=== PATIENT | female | born 1965 | race Caucasian/White ===

== ENCOUNTER 2023-03-31 13:16 | Outpatient (OUT) | payer OTHER, SELFPAY ==
--- NOTE | 2023-03-31 | XR_ITS ---
[address] [address] Patient Name: JENNIFER HICKMAN MRN: [id number] date: 1965 Sex: F Assigned Patient Location: [facility] Current Patient Location: Accession/Order Number: [id number] Exam Date: 03/31/2023 14:28 Report Date: 04/01/2023 06:35 At the request of: SHAYLEE HOLT Procedure: XR foot RT min 3V PROCEDURE: XR foot RT min 3V HISTORY: RIGHT FOOT PAIN COMPARISON: XR foot right 02/04/2021 FINDINGS: BONES:Prosthetic replacement of the talus. Osteophyte versus remote fracture fragment at anterior margin of the tibial plafond. Mild degenerative changes the first metatarsophalangeal joint. Small calcaneal plantar spur. SOFT TISSUES:No visible soft tissue swelling. EFFUSION:None visible. OTHER: Negative. IMPRESSION: 1. Stable surgical changes and mild degenerative changes. No new findings. Electronically authenticated by: ART SMITH Date: 04/01/2023 06:35
== END 2023-03-31 13:17 | disposition home or self-care (01) ==
LOC: RAD 13:17
PROVIDERS: Visit Provider Podiatrist Foot & Ankle Surgery
DX: M79.671 Pain in right foot (principal)
CPT/HCPCS: 73630

== ENCOUNTER 2023-04-14 07:52 | Outpatient (OUT) | payer OTHER, SELFPAY ==
--- NOTE | 2023-04-14 07:59 | CT_ITS ---
[address] [address] Patient Name: JENNIFER HICKMAN MRN: [id number] date: 1965 Sex: F Assigned Patient Location: CT Current Patient Location: CT Accession/Order Number: [id number] Exam Date: 04/14/2023 08:00 Report Date: 04/14/2023 18:23 At the request of: SHAYLEE HOLT Procedure: CT ankle RT wo con EXAMINATION: CT ankle RT wo con HISTORY: Primary Osteoarthritis Right Ankle M19.071 COMPARISON: 03/31/2023 TECHNIQUE: Multi-planar CT images were created without IV contrast. Dose reduction techniques were achieved by using automated exposure control and/or adjustment of mA and/or kV according to patient size and/or use of iterative reconstruction technique. FINDINGS: BONES: Ankle arthroplasty in anatomic alignment. Streak artifact does limit the exam. No acute fracture, dislocation or mechanical failure. Mild to moderate degenerative tricompartmental osteoarthropathy of the knee with moderate narrowing of the medial joint space SOFT TISSUES: Soft tissue attenuation anterior ankle, nonspecific possibly postsurgical changes EFFUSION: None visible. OTHER: Negative. CT/CT ankle RT wo con IMPRESSION: Ankle arthroplasty with no acute abnormality Electronically authenticated by: ADRIAN PITTS Date: 04/14/2023 18:23
== END 2023-04-14 07:53 | disposition home or self-care (01) ==
LOC: CT 07:52
PROVIDERS: Visit Provider Podiatrist Foot & Ankle Surgery
DX: M87.071 Idiopathic aseptic necrosis of right ankle (principal); M19.071 Primary osteoarthritis, right ankle and foot
CPT/HCPCS: 73700

== ENCOUNTER 2023-08-23 14:27 | Outpatient (OUT) | payer OTHER, SELFPAY ==
[2023-08-23 15:20] LABS: Estimated Average Glucose 160 mg/dL; Glycohemoglobin A1C 7.2 % (4.5-6.2)
[2023-08-23 15:37] LABS: Alanine Aminotransferase 40 U/L (14-59); Albumin Globulin Ratio 0.9; Albumin Level 3.7 g/dL (3.4-5.0); Alkaline Phosphatase 109 U/L (46-116); Anion Gap 13.4; Aspartate Amino Transferase 27 U/L (15-37); BUN Creatinine Ratio 14.1; Bilirubin Total 1.1 mg/dL (0.2-1.0); Calcium 8.9 mg/dL (8.5-10.1); Carbon Dioxide 30.5 mmol/L (21.0-32.0); Chloride 102 mmol/L (98-107); Estimated GFR (African America >60 (>=60); Estimated GFR (Non-African Ame >60 (>=60); Globulin 3.9 g/dL; Glucose 95 mg/dL (74-106); Potassium 3.9 mmol/L (3.5-5.1); Sodium 142 mmol/L (136-145); Thyroid Stimulating Hormone 2.663 uIU/mL (0.358-3.740); Total Protein 7.6 g/dL (6.4-8.2)
[2023-08-23 16:25] LABS: Free T4 0.93 ng/dL (0.76-1.46)
[2023-08-24 14:14] LABS: Thyroglobulin Antibody <1.0 IU/mL (0.0-0.9); Thyroid Peroxidase (TPO) Ab 9 IU/mL (0-34)
== END 2023-08-23 14:28 | disposition home or self-care (01) ==
LOC: LAB 14:28
PROVIDERS: PCP Family Medicine; Visit Provider Family Medicine
DX: R53.83 Other fatigue (principal); E66.01 Morbid (severe) obesity due to excess calories; E11.9 Type 2 diabetes mellitus without complications; E78.5 Hyperlipidemia, unspecified
CPT/HCPCS: 36415; 80053; 82306; 82607; 83036; 84439; 84443; 86376; 86800

== ENCOUNTER 2023-09-06 07:59 | Outpatient (OUT) | payer OTHER, SELFPAY ==
--- NOTE | 2023-09-06 08:08 | MM_ITS ---
Patient Name: JENNIFER HICKMAN MR#: [id number] : 1965 Exam Date: 09/06/2023 Ordering Doctor: DR Malcom Huang . RADIOLOGY REPORT PROCEDURE: MM TOMOSYNTHESIS SCREENING BI COMPARISON: MG MAMM SCREEN 3D LINUS CAD, 07/29/2021. MG MAMM SCREEN 3D LINUS CAD, 08/27/2022. INDICATIONS: Screening Calculator Name NCI Breast Cancer Risk Assessment Tool 5 Year Breast Cancer Risk 1.50% Lifetime Breast Cancer Risk 9.10% Personal Breast Cancer No Personal Ovarian Cancer No Treatments None Family Cancers Mother with endometrial cancer at age 74; Father with prostate cancer at age 84. LOCATION: [facility] BREAST COMPOSITION: Scattered areas fibroglandular density. FINDINGS: DIAGNOSTIC CATEGORY 1--NEGATIVE. NO CHANGE FROM COMPARISON ASSESSMENT. Scattered benign-appearing nodules are present. Scattered benign-appearing calcifications are present. Scattered benign-appearing lymph nodes are present. RIGHT BREAST: No significant suspicious finding. LEFT BREAST: No significant suspicious finding. RECOMMENDATIONS: ROUTINE MAMMOGRAM AND CLINICAL EVALUATION IN 12 MONTHS. PLEASE NOTE: A NORMAL MAMMOGRAM DOES NOT EXCLUDE THE POSSIBILITY OF BREAST CANCER. A CLINICALLY SUSPICIOUS PALPABLE LUMP SHOULD BE BIOPSIED. Dictated by: Jude Quintanilla MD on 09/06/2023 at 10:07 Approved by: Jude Quintanilla MD on 09/06/2023 at 10:08
== END 2023-09-06 08:00 | disposition home or self-care (01) ==
LOC: MAMMO 07:59
PROVIDERS: PCP Family Medicine; Visit Provider Obstetrics & Gynecology
DX: Z12.31 Encounter for screening mammogram for malignant neoplasm of breast (principal); Z80.8 Family history of malignant neoplasm of other organs or systems; Z80.42 Family history of malignant neoplasm of prostate
CPT/HCPCS: 77063; 77067

== ENCOUNTER 2023-12-27 21:07 | Outpatient (REF) | payer OTHER, SELFPAY ==
--- OUTSIDE RECORDS SUMMARY | 2023-12-27 21:12 | XMS_ITS | CCD ---
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 Lamont Reynolds Primary Care Unavaila BRAIN Acosta Referring Unavailable DAVID, BRAIN Attending Unavailable RENUKA ., DR VILLATORO Admitting Unavailable RENUKA ., DR VILLATORO Attending Unavailable KUNOrlando, DR MIGUEL Primary Care Unavailable RENUKA ., DR VILLATORO Consulting Unavailable RENUKA ., DR VILLATORO Admitting Unavailable RENUKA ., DR VILLATORO Attending Unavailable KUNS, DR MIGUEL Primary Care Unavailable [place], DR ADRIAN Bacon Consulting Unavailable RENUKA ., DR VILLATORO Consulting Unavailable PHIL, DR MIGUEL Admitting Unavailable KUNOrlando, DR MIGUEL Attending Unavailable KUNS, DR MIGUEL Primary Care Unavailable KUNS, DR MIGUEL Consulting Unavailable KUNS, DR MIGUEL Admitting Unavailable KUNS, DR MIGUEL Attending Unavailable KUNS, DR MIGUEL Primary Care Unavailable PHIL, DR MIGUEL Consulting Unavailable PHIL, DR MIGUEL Admitting Unavailable KUNOr[place], DR MIGUEL Attending Unavailable KUNS, DR MIGUEL Primary Care Unavailable KUNS, DR MIGUEL Consulting Unavailable RENUKA ., DR VILLATORO Admitting Unavailable RENUKA ., DR VILLATORO Attending Unavailable KUNS, DR MIGUEL Primary Care Unavailable RENUKA ., DR VILLATORO Consulting Unavailable RENUKA ., DR VILLATORO Admitting Unavailable RENUKA ., DR VILLATORO Attending Unavailable KUNS, DR MIGUEL Primary Care Unavailable RENUKA ., DR VILLATORO Consulting Unavailable AGUBOSIM, BRADEN Consulting Unavailable LONG, POPEYE Consulting Unavailable RENUKA ., DR VILLATORO Admitting Unavailable RENUKA ., DR VILLATORO Attending Unavailable KUNS, DR IMGUEL Primary Care Unavailable [place], DR ADRIAN Bacon Consulting Unavailable RENUKA ., DR VILLATORO Consulting Unavailable RENUKA ., DR VILLATORO Admitting Unavailable RENUKA ., DR VILLATORO Attending Unavailable KUNS, DR MIGUEL Primary Care Unavailable RENUKA ., DR VILLATORO Consulting Unavailable Mary Ann Ibrahim Unavailable Анна Rose Unavailable Lamont Villarreal DO Primary Care Provider Lamont Villarreal DO Unavailable [phone] LAMONT VILLARREAL MARYAN Primary Care Unavailable YOSVANY HAYDEN Attending Unavailable Lamont Villarreal DO Primary Care Provider Lamont Villarreal DO Primary Care Provider BRAIN HERNANDEZ Attending Unavailable LAMONT VILLARREAL Primary Care Unavailable BRAIN HERNANDEZ Referring Unavailable BRAIN HERNANDEZ Referring Unavailable LAMONT VILLARREAL Primary Care Unavailable BRAIN HERNANDEZ Attending Unavailable LAMONT VILLARREAL Primary Care Unavailable BRAIN SEN Attending Unavailable LAMONT VILLARREAL Primary Care Unavailable BRAIN SEN Referring Unavailable LAMONT VILLARREAL Primary Care Unavailable Phil, DO Miguel Primary Care Provider Brain Hernandez Attending Provider [phone] SEE Rose Attending Provider Lamont Villarreal Primary Care Unavailable Анна Rose Attending Unavailable Анна Rose Admitting Unavailable Brain Hernandez Attending Unavailable Brain Hernandez Admitting Unavailable Lamont Villarreal Primary Care Unavailable DO Lamont Villarreal Primary Care Provider [phone] SEE Rose Attending Provider Allergies Allergy Classification Reported Allergen(s) Allergy Type Date of Onset Reaction(s) Facility Sulfonamides (antibiotic) (1 source) Sulfamethoxazole ; Translations: [sulfa] Drug Allergy [facility] Work Phone: (12 sources) Sulfamethoxazole ; Translations: [sulfa] Drug Allergy 3 Unknown [facility] (15 sources) Sulfonamides (Antibiotic); Translations: [SULFA (SULFONAMIDE ANTIBIOTICS)] Propensity to adverse reactions 6 [facility] (20 sources) Sulfamethoxazole ; Translations: [SULFAMETHOXAZOL E] Drug Allergy 3 Unknown, [facility] Rep[facility] (1 source) Sulfonamides (Antibiotic) Drug allergy (disorder) [facility] Repository (1 source) Sulfonamides (Antibiotic) Drug allergy (disorder) 2 [facility] Repository Medications Current Medications Medication Drug Class(es) Dates Sig (Normalized) Sig (Original) 0.25 MG, 0.5 MG Dose 3 ML semaglutide 0.68 MG/ML Pen Injector [Ozempic] (7 sources) Start: 07-22-2023 inject 0.25 mL by subcutaneous injection every week Ozempic (0.25 or 0.5 MG/DOSE) 2 MG/3ML 0.25 mL Subcutaneous once a week for 30 days 4 pens Jun, Active 30 ACTUAT fluticasone furoate 0.2 MG/ACTUAT / umeclidinium 0.0625 MG/ACTUAT / vilanterol 0.025 MG/ACTUAT Dry Powder Inhaler [Trelegy] (2 sources) Start: 06-15-2022 take 1 puff(s) by inhalation once daily Trelegy Ellipta 200-62.5-25 MCG/INH 1 puff Inhalation Once a day May, Active acetaminophen 325 mg / oxyCODONE hydrochloride 5 mg oral tablet (20 sources) Opioid Agonist Start: 02-19-2021 take 1 tablet by mouth every six hours oxyCODONE-acetamino phen (Percocet) 5-325 mg tablet Take 1 tablet by mouth every 6 hours. 0 02/19/2021 Active ALPRAZolam 1 mg oral tablet (3 sources) Benzodiazepine Start: 10-17-2021 take 1 tablet by mouth once daily as needed ALPRAZolam 1 MG 1 tablet Orally daily prn before MRI Sep, Active ascorbic acid 500 mg extended release oral capsule (20 sources) Vitamin C Start: 11-16-2023 take 500 mg by mouth once daily Ascorbic Acid (Vitamin C) Active 500 MG PO Daily November 16, 2023 1:00am Start: 09-15-2021 take 1 tablet by al th every twenty-four hours Vitamin C 250 MG 1 tablet Orally Once a day for 90 days Aug, Active take 1 tablet by al th every twenty-four hours Vitamin C 250 MG 1 tablet Orally Once a day prn Not-Taking/PRN betamethasone 3 mg/ml / betamethasone acetate 3 mg/ml injectable suspension (1 source) Corticosteroid Start: 07-26-2023 betamethasone acet,sod phos (Celestone) injection 12 mg Start: 07-26-2023 betamethasone acet,sod phos (Celestone) injection 12 mg betamethasone 0.5 mg/ml / clotrimazole 10 mg/ml topical cream (7 sources) Azole Antifungal, Corticosteroid Start: 06-15-2022 Clotrimazole-Betamethasone 1-0.05 % 1 application Externally Twice a day May, Active Biotin (20 sources) Start: 09-15-2021 take 1 tablet by mouth once daily Biotin 11849 MCG 1 tablet Orally Once a day for 90 days Aug, Active Start: 09-15-2021 take 1 tablet by al th every twenty-four hours Biotin 26463 MCG 1 tablet Orally Once a day Not-Taking/PRN take 1 tablet by al th every twenty-four hours Biotin 76881 MCG 1 tablet Orally Once a day Not-Taking take 1 tablet by mouth once ric y Biotin 42480 MCG 1 tablet Orally Once a day Active cefdinir 300 mg oral capsule (1 source) Cephalosporin Antibacterial Start: 06-02-2022 take 1 capsule by mouth every twelve hours Cefdinir 300 MG 1 capsule Orally BID for 10 days May, Active cephalexin 500 mg oral capsule (1 source) Cephalosporin Antibacterial take 1 capsule by mouth four times daily Cephalexin 500 MG 1 capsule Orally Four times a day, before dental procedures Active cholecalciferol 0.05 mg oral tablet (6 sources) Vitamin D Start: 09-15-2021 take 1 tablet by mouth every twenty-four hours Vitamin D3 50 MCG (2000 UT) 1 tablet Orally Once a day for 90 days Aug, Active take 1 tablet by al th every twenty-four hours Vitamin D3 50 MCG (2000 UT) 1 tablet Ora lly Once a day Not-Taking/PRN citalopram 40 mg oral tablet (20 sources) Serotonin Reuptake Inhibitor Start: 07-01-2021 take 1 tablet by mouth every twenty-four hours CeleXA 40 MG 1 tablet Orally Once a day Jun, Active Start: 05-07-2021 citalopram (Ce Mich) 20 mg tablet CeleXA 20 MG Oral Tablet Refills: 0 Start : 07-May-2021 Active 0 05/07/2021 Active Start: 05-07-2021 CeleXA 20 MG O ral Tablet Quantity: 0 Refills: 0 Ordered: 07-May-2021 DO Start : 07-May-2021 Active Start: 06-18-2020 End: 02-10-2022 take 1 tablet by mouth once daily Citalopram (Celexa) 10 mg Tablet Discontinued 10 MG PO Daily June 18, 2020 12:00am February 10, 2022 9:03am doxycycline hyclate 100 mg oral tablet (5 sources) Tetracycline-class Drug Start: 09-15-2021 take 1 tablet by mouth twice daily Doxycycline Hyclate 100 MG 1 tablet Orally Twice a day for 10 day(s) Aug, Active Eye Vitamins (9 sources) Eye Vitamins Res tore Active flash glucose scanning reade r (FreeStyle Letty 2 [place]) (4 sources) Start: 11-16-2023 flash glucose scanning reader (FreeStyle Letty 2 [place]) Active .Route November 16, 2023 1:00am Start: 11-16-2023 flash glucose scanning reader (FreeStyle Letty 2 [place]) Active .ROUTE November 16, 2023 12:00am flash glucose sensor (FreeSt yle Letty 2 Sensor) (4 sources) Start: 11-16-2023 flash glucose sensor (FreeStyle Letty 2 Sensor) Active .Route November 16, 2023 1:00am Start: 11-16-2023 flash glucose sensor (FreeStyle Letty 2 Sensor) Active .ROUTE November 16, 2023 12:00am FreeStyle Letty 2 [place] - (20 sources) Start: 03-08-2023 FreeStyle Libr e 2 [place] - as directed -- 5 x day for 365 days Feb, Active FreeStyle Letty 2 [place] - USE DIRECTED 5 TIMES A DAY for 90 Not-Taking/PRN FreeStyle Letty 2 [place] - USE DIRECTED 5 TIMES A DAY for 90 Not-Taking FreeStyle Letty 2 [place] - USE DIRECTED 5 TIMES A DAY for 90 Active FreeStyle Letyt 2 [place] - as directed -- 5 x day for 365 days Active FreeStyle Letty 2 Sensor - (20 sources) Start: 03-08-2023 FreeStyle Libr e 2 Sensor - as directed in vitro q 14 days for 84 days set up in office instruction Feb, Active FreeStyle Letty 2 Sensor - as directed in vitro q 14 days for 84 days set up in office instruction Active furosemide 20 mg oral tablet (9 sources) Loop Diuretic Start: 01-01-2018 take 1 tablet by mouth twice daily as needed Lasix 20 MG 1 tablet Orally BID PRN PRN Dec, Active gabapentin 100 mg oral capsule (3 sources) Anti-epileptic Agent Start: 12-08-2012 take 1 capsule by mouth every twelve hours Gabapentin 100 MG 1 capsule Orally BID for 30 day(s) Nov, Active ibuprofen 800 mg oral tablet (20 sources) Nonsteroidal Anti-inflammatory Drug Start: 11-16-2023 take 800 mg by mouth every eight hours Ibuprofen Active 800 MG PO Every 8 hours November 16, 2023 1:00am Start: 07-19-2023 take 1 tablet by al th three times daily at mealtime as needed Ibuprofen 800 MG 1 tablet with food or milk as needed Orally Three times a day as needed Jun, Not-Taking/PRN take 1 tablet by al th every eight hours at mealtime as needed Ibuprofen 800 MG 1 tablet with food or milk as needed Orally every 8 hrs Active take 1 tablet by al th three times daily at mealtime as needed Ibuprofen 800 MG 1 tablet with food or milk as needed Orally TID prn prn Active ketorolac tromethamine 10 mg oral tablet (20 sources) Nonsteroidal Anti-inflammatory Drug, Cyclooxygenase Inhibitor Start: 12-22-2023 take 10 mg by mouth every eight hours Ketorolac Active 10 MG PO Every 8 hours December 22, 2023 12:00am Start: 01-29-2020 Toradol per 15 mg January, 2 mL Start: 04-19-2019 Toradol per 15 mg Mar, 2 cc Start: 03-06-2019 Toradol per 15 mg Feb, 2 cc Start: 03-02-2019 Toradol per 15 mg Feb, 2 cc Start: 02-15-2019 Toradol per 15 mg January, 60 mg Start: 01-25-2019 Toradol per 15 mg January, 2 cc Start: 01-21-2019 Toradol per 15 mg Dec, 2 cc Start: 01-19-2019 Toradol per 15 mg Dec, 2 mL Start: 12-09-2018 Toradol per 15 mg 15 Nov, 2018 60 mg Start: 02-03-2018 Toradol per 15 mg January, 2 cc Start: 05-26-2017 Toradol per 15 mg Apr, 2 cc Start: 12-30-2016 Toradol per 15 mg Dec, 2.0 cc Start: 07-31-2016 Toradol per 15 mg Jul, 2 mL Start: 01-28-2015 Toradol per 15 mg January, 2 mL Start: 12-08-2012 Toradol per 15 mg Nov, 2ML levoFLOXacin 500 mg oral tablet (4 sources) Quinolone Antimicrobial Start: 07-21-2021 take 1 tablet by mouth every twenty-four hours levoFLOXacin 500 MG 1 tablet Orally Once a day for 10 day(s) Jun, Active Lidocaine (1 source) Antiarrhythmic, Amide Local Anesthetic Start: 07-26-2023 lidocaine (Xylocaine) 10 mg/mL (1 %) injection 5 mL meloxicam 15 mg oral tablet (2 sources) Nonsteroidal Anti-inflammatory Drug Start: 03-11-2022 End: 09-07-2022 take 1 tablet by mouth once daily meloxicam (MOBIC) 15 mg tablet Take 1 tablet by mouth once daily. 90 tablet 1 03/11/2022 09/07/2022 Active Comment on above: Take 1 tablet by al once daily. [place] (No Known Home Meds) (3 sources) Start: 08-25-2022 [place] (No Known Home Meds) Active August 25, 2022 12:00am ondansetron 4 mg oral tablet (9 sources) Serotonin-3 Receptor Antagonist Start: 05-26-2022 take 1 tablet by mouth every eight hours as needed Zofran ODT 4 MG 1 tablet on the tongue and allow to dissolve Orally every 8 hrs as needed for 4 days Apr, Active Paxlovid (300/100) 20 x 150 MG & 10 x 100MG (2 sources) Start: 05-27-2022 Paxlovid (300/100) 20 x 150 MG & 10 x 100MG as directed Orally as directed + COVID 05/26/2022 GFR >60 Apr, Active potassium chloride 10 meq oral tablet (9 sources) Start: 07-09-2018 take 1 tablet by mouth once daily as needed K-Dur 10 meq one tablet oral once a day PRN Jun, Active Start: 07-09-2018 predniSONE 20 mg oral tablet (19 sources) Start: 06-15-2022 predniSONE 20 MG 1 tablet with food or milk Orally Twice a day x 5 days for 5 days sample provided May, Active Start: 03-04-2022 predniSONE 20 MG 1 tablet Orally twice a day x 5 days then daily x 5 days for 10 days Feb, Active Start: 09-15-2021 predniSONE 20 MG 1 tablet with food or milk Orally 1 tab BID x 5 days , 1 tabl QD x 5 days for 10 days Aug, Active PREDNISONE ORAL Take by mouth. 0 Active Comment on above: Take by mouth. 0.25 mg, 0.5 mg dose 1.5 ml semaglutide 1.34 mg/ml pen injector (3 sources) semaglutide (Ozempic) 0.25 mg or 0.5 mg(2 mg/1.5 mL) pen injector Inject 0.25 mg under the skin 1 (one) time per week. 0 Active tiZANidine 4 mg oral capsule (2 sources) Central alpha-2 Adrenergic Agonist Start: 12-22-2023 take 4 mg by mouth twice daily Tizanidine Active 4 MG PO Twice daily 60 December 22, 2023 12:00am traMADol (19 sources) Opioid Agonist traMADol HCl Act alejandro take 1 tablet by al th every twenty-four hours traMADol HCl 50 MG 1 tablet as needed Orally Once a day prn Active Trelegy Ellipta 200-62.5-25 MCG/INH (5 sources) Start: 06-15-2022 take 1 puff(s) by inhalation once daily Trelegy Ellipta 200-62.5-25 MCG/INH 1 puff Inhalation Once a day May, Active 24 hr venlafaxine 37.5 mg extended release oral capsule (9 sources) Serotonin and Norepinephrine Reuptake Inhibitor Start: 07-01-2021 take 1 capsule by mouth every twenty-four hours Effexor XR 37.5 MG 1 capsule with food Orally Once a day Jun, Active Vitamin B12 1000 MCG (5 sources) Start: 09-15-2021 take 1 tablet by mouth once daily Vitamin B12 1000 MCG 1 tablet Orally Once a day for 90 days Aug, Active Start: 09-15-2021 Vitamin B6 100 MG (5 sources) Start: 09-15-2021 take 1 tablet by al th twice daily Vitamin B6 100 MG 1 tablet Orally BID for 90 days Aug, Active Start: 09-15-2021 Vitamin C 250 MG (12 sources) Start: 09-15-2021 take 1 tablet by al th once daily Vitamin C 250 MG 1 tablet Orally Once a day for 90 days Aug, Active take 1 tablet by mouth once ric y Vitamin C 250 MG 1 tablet Orally Once a day Not-Taking take 1 tablet by mouth once ric y Vitamin C 250 MG 1 tablet Orally Once a day Active Completed/Discontinued Medications Medication Drug Class(es) Dates Sig (Normalized) Sig (Original) azithromycin 250 mg oral tablet (20 sources) Macrolide Antimicrobial Start: 08-31-2023 Zithromax Z-Cinthia 250 MG 2 tablets on the first day, then 1 tablet daily for 4 days Orally Once a day for 5 day(s) Aug, Not-Taking/PRN Start: 07-01-2023 Zithromax Z-Pa k 250 MG 2 tablets on the first day, then 1 tablet daily for 4 days Orally Once a day for 5 day(s) Jun, Active Start: 02-26-2022 Zithromax Z-Pa k 250 MG 2 tablet on the first day, then 1 tablet daily for 4 days Orally Once a day for 5 day(s) Feb, Active Start: 09-12-2021 Zithromax Z-Pa k 250 MG as directed Orally Apr, Active Start: 09-12-2021 Zithromax Z-Pa k 250 MG 2 tablet on the first day, then 1 tablet daily for 4 days Orally Once a day Aug, Active benzonatate 200 mg oral capsule (18 sources) Non-narcotic Antitussive Start: 12-16-2022 take 1 capsule by mouth every eight hours Benzonatate 200 MG 1 capsule Orally Three times a day goodrx Nov, Not-Taking 12 hr buPROPion hydrochloride 100 mg extended release oral tablet (13 sources) Aminoketone Start: 11-16-2023 End: 12-22-2023 take 100 mg by mouth every twelve hours Bupropion Hcl Discontinued 100 MG PO Every 12 hours November 16, 2023 1:00am December 22, 2023 8:42am buPROPion HCl ER (SR) 100 MG 1 tablet in the morning Orally Twice daily for 30 days Start with one in am x 1 week then 1 twice daily week 2 Active take 2 tablets by [facility] every twenty-four hours Wellbutrin SR 100 MG 2 tablet in the morning Orally Once a day Active 0.5 ml dulaglutide 1.5 mg/ml auto-injector (8 sources) GLP-1 Receptor Agonist Start: 07-20-2023 Trulicity 0.75 MG/0.5ML as directed Subcutaneous Once a week for 28 days Jun, Not-Taking/PRN 30 actuat fluticasone furoate 0.1 mg/actuat / umeclidinium 0.0625 mg/actuat / vilanterol 0.025 mg/actuat dry powder inhaler (9 sources) Anticholinergi c, Corticosteroid , beta2-Adrenerg ic Agonist Start: 12-15-2022 take 1 puff(s) by inhalation once daily Trelegy Ellipta 100-62.5-25 MCG/ACT 1 puff Inhalation Once a day Nov, Not-Taking Glucometer Device (9 sources) Start: 12-16-2022 Glucometer Device as directed as directed as directed for as directed Nov, Not-Taking Start: 12-16-2022 Glucometer Dev ice as directed as directed as directed for as directed Nov, Active Magnesium glycinate (20 sources) Magnesium Glycin ate 665 MG as directed Orally Not-Taking/PRN Magnesium Glycin ate 665 MG as directed Orally Not-Taking Magnesium Glycin ate 665 MG as directed Orally Active milk thistle extract 150 mg oral capsule (20 sources) Milk Thistle 150 MG as directed Orally Not-Taking/PRN Milk Thistle 150 MG as directed Orally Not-Taking Milk Thistle 150 MG as directed Orally Active ozempic (0.25 or 0.5 mg/dose) 2 mg/3ml solution pen-injector (10 sources) Start: 07-22-2023 inject 0.25 mL by subcutaneous injection every week as needed Ozempic (0.25 or 0.5 MG/DOSE) 2 MG/3ML 0.25 mL Subcutaneous once a week 4 pens Jun, Not-Taking/PRN Start: 07-22-2023 inject 0.25 mL by daniels bcutaneous injection every week Ozempic (0.25 or 0.5 MG/DOSE) 2 MG/3ML 0.25 mL Subcutaneous once a week 4 pens Jun, Active Start: 07-22-2023 inject 0.25 mL by daniels bcutaneous injection every week Ozempic (0.25 or 0.5 MG/DOSE) 2 MG/3ML 0.25 mL Subcutaneous once a week for 30 days 4 pens Jun, Active inject 0.5 mg by sub cutaneous injection every week Ozempic (0.25 or 0.5 MG/DOSE) 2 MG/3ML 0.5 mg Subcutaneous weekly for 30 days start 0.5 mg week 5 Active Semaglutide (4 sources) Start: 11-16-2023 End: 12-22-2023 Semaglutide (Ozempic) 0.25 m g or 0.5 mg (2 mg/3 mL) pen injector Discontinued 0.5 MG SUBCUT every week November 16, 2023 1:00am December 22, 2023 8:41am Start: 11-16-2023 Semaglutide (O zempic) 0.25 mg or 0.5 mg (2 mg/3 mL) pen injector Active 0.5 MG SUBCUT every week November 16, 2023 12:00am Toradol 30 mg/ml (20 sources) Start: 04-02-2023 Toradol 30 mg/ ml Mar, 60 mg Start: 08-06-2021 Toradol 30 mg/ ml Jul, 60 mg Triamcinolone (20 sources) Corticosteroid Start: 12-31-2020 Kenalog -40 mg Dec, 40 mg Start: 10-22-2017 KENALOG - 10 m g Sep, 1 cc Start: 05-08-2014 KENALOG - 10 m g Apr, 1.5 cc Vitamin B12 TR 1000 MCG (20 sources) take 1 tablet by al th once daily as needed Vitamin B12 TR 1000 MCG 1 tablet Orally Once a day Not-Taking/PRN take 1 tablet by mouth once ric y Vitamin B12 TR 1000 MCG 1 tablet Orally Once a day Not-Taking take 1 tablet by mouth once ric y Vitamin B12 TR 1000 MCG 1 tablet Orally Once a day Active Vitamin D3 50 MCG (2000 UT) (19 sources) take 1 tablet by la th once daily Vitamin D3 50 MCG (2000 UT) 1 tablet Orally Once a day Not-Taking take 1 tablet by mouth once ric y Vitamin D3 50 MCG (2000 UT) 1 tablet Orally Once a day Active zolpidem tartrate 10 mg oral tablet (5 sources) gamma-Aminobutyric Acid-ergic Agonist Start: 01-11-2023 take 1 tablet by mouth every twenty-four hours Ambien 10 MG 1 tablet at bedtime as needed Orally Once a day Dec, Not-Taking Problems Active Problems Problem Classification Problem Date Documented Da te Episodic/Chronic Administrative/social admission (5 sources) Dietary counseling and surveillance; Translations: [Dietary surveillance and counseling] Episodic Anxiety disorders (20 sources) Mixed anxiety and depressive disorder; Translations: [Other specified anxiety disorders] Onset: 1 Resolved: 2 Chronic Cardiac dysrhythmias (20 sources) Cardiac arrhythmia; Translations: [Cardiac arrhythmia, unspecified] Chronic Diabetes mellitus with complications (20 sources) Hyperglycemia due to type 2 diabetes mellitus; Translations: [Type 2 diabetes mellitus with hyperglycemia] Onset: 4 Chronic Diabetes mellitus without complication (20 sources) Diabetes mellitus without complication; Translations: [Type 2 diabetes mellitus without complications] Onset: 3 Chronic Diabetes mellitus without complication (20 sources) Hyperglycemia; Translations: [Hyperglycemia, unspecified] Onset: 2 Resolved: 2 Episodic Disorders of lipid metabolism (20 sources) Hyperlipidemia; Translations: [Hyperlipidemia, unspecified] Onset: 2 Resolved: 2 Chronic Esophageal disorders (20 sources) Gastroesophageal reflux disease; Translations: [Gastro-esophageal reflux disease without esophagitis] Chronic Essential hypertension (20 sources) Essential hypertension; Translations: [Essential (primary) hypertension] Chronic Malaise and fatigue (1 source) Other fatigue Episodic Menopausal disorders (4 sources) Postmenopausal bleeding; Translations: [POSTMENOPAUSAL BLEEDING] Onset: 2 Chronic Miscellaneous mental health disorders (20 sources) Psychophysiologic insomnia; Translations: [Psychophysiologic insomnia] Chronic Nausea and vomiting (1 source) Nausea Episodic Nutritional deficiencies (20 sources) Vitamin D deficiency; Translations: [Vitamin D deficiency, unspecified] Chronic Osteoarthritis (1 source) Unspecified osteoarthritis, unspecified site; Translations: [UNSPECIFIED OSTEOARTHRITIS UNS SITE] Onset: 2 Chronic Other bone disease and musculoskeletal deformities (13 sources) Avascular necrosis of bone; Translations: [Aseptic necrosis of bone, site unspecified] Onset: 3 07-23-2023 Chronic Other bone disease and musculoskeletal deformities (20 sources) Idiopathic aseptic necrosis of bone; 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 Other bone disease and musculoskeletal deformities (2 sources) Idiopathic aseptic necrosis of right ankle Chronic Other connective tissue disease (1 source) History of arthroplasty of right ankle; Translations: [Presence of right artificial ankle joint] Chronic Other connective tissue disease (20 sources) Nontraumatic complete rupture of rotator cuff of left shoulder; Translations: [Complete rupture of rotator cuff] Onset: 3 07-23-2023 Episodic Other connective tissue disease (14 sources) Foot pain; Translations: [Pain in limb] Episodic Other connective tissue disease (10 sources) H/O: arthritis; Translations: [Personal history of arthritis] Episodic Other connective tissue disease (20 sources) Pain in right foot; Translations: [Pain in right foot] Onset: 2 03-11-2022 Episodic Other connective tissue disease (20 sources) Rotator cuff syndrome; Translations: [Unspecified rotator cuff tear or rupture of unspecified shoulder, not specified as traumatic] Episodic Other connective tissue disease (10 sources) Pain in right foot; Translations: [Pain in limb] Onset: 1 Resolved: 2 Episodic Other connective tissue disease (20 sources) Trochanteric bursitis of right hip; Translations: [Trochanteric bursitis, right hip] Episodic Other connective tissue disease (4 sources) Trochanteric bursitis, right hip Onset: 2 Resolved: 2 Episodic Other diseases of bladder and urethra (5 sources) Disorder of bladder; Translations: [Other urinary problems] Onset: 3 07-23-2023 Chronic Other eye disorders (5 sources) Disorder of eye; Translations: [Other eye problems] Onset: 3 07-23-2023 Episodic Other female genital disorders (20 sources) Vaginal bleeding; Translations: [Abnormal uterine and vaginal bleeding, unspecified] Chronic Other female genital disorders (1 source) Abnormal uterine and vaginal bleeding, unspecified Onset: 2 Resolved: 2 Chronic Other female genital disorders (20 sources) Pruritus of vagina; Translations: [Other specified noninflammatory disorders of vagina] Episodic Other gastrointestinal disorders (20 sources) Irritable bowel syndrome with diarrhea; Translations: [Irritable bowel syndrome with diarrhea] Chronic Other gastrointestinal disorders (5 sources) Bowel problem; Translations: [Unspecified disorder of intestine] Onset: 3 07-23-2023 Episodic Other liver diseases (20 sources) Steatosis of liver; Translations: [Fatty (change of) liver, not elsewhere classified] Chronic Other liver diseases (2 sources) Fatty (change of) liver, not elsewhere classified Chronic Other lower respiratory disease (20 sources) Cough; Translations: [Cough] Episodic Other lower respiratory disease (20 sources) Persistent cough; Translations: [Persistent cough for 3 weeks or longer] Episodic Other nervous system disorders (20 sources) Chronic pain; Translations: [Other chronic pain] Chronic Other nervous system disorders (6 sources) Other chronic pain Onset: 2 Resolved: 2 Chronic Other non-traumatic joint disorders (20 sources) Finding of shoulder joint; Translations: [Other specific joint derangements of left shoulder, not elsewhere classified] Chronic Other non-traumatic joint disorders (20 sources) Shoulder pain; Translations: [Pain in left shoulder] Episodic Other non-traumatic joint disorders (20 sources) Pain in right hip joint; Translations: [Pain in right hip] Episodic Other non-traumatic joint disorders (4 sources) Pain in right shoulder; Translations: [Pain in joint, shoulder region] Onset: 3 07-26-2023 Episodic Other nutritional; endocrine; and metabolic disorders (20 sources) Body mass index 40+ - severely obese; Translations: [Body mass index (BMI) 50.0-59.9, adult] 11-16-2023 Chronic Other nutritional; endocrine; and metabolic disorders (4 sources) Metabolic syndrome; Translations: [METABOLIC SYNDROME] Onset: 2 Chronic Other nutritional; endocrine; and metabolic disorders (12 sources) Body mass index (BMI) 45.0-49.9, adult; Translations: [Body Mass Index 45.0-49.9, adult] Chronic Other nutritional; endocrine; and metabolic disorders (5 sources) Morbid (severe) obesity due to excess calories; Translations: [Morbid obesity] Chronic Other nutritional; endocrine; and metabolic disorders (10 sources) Severe obesity; Translations: [Morbid (severe) obesity due to excess calories] 05-18-2023 Chronic Other nutritional; endocrine; and metabolic disorders (10 sources) Obesity, unspecified; Translations: [Obesity, unspecified] Chronic Other nutritional; endocrine; and metabolic disorders (1 source) Body mass index (BMI) 39.0-39.9, adult Chronic Other nutritional; endocrine; and metabolic disorders (18 sources) Obesity; Translations: [Obesity, unspecified] 11-17-2023 Chronic Other nutritional; endocrine; and metabolic disorders (15 sources) Obese class II; Translations: [Body mass index (BMI) 35.0-35.9, adult] Chronic Other nutritional; endocrine; and metabolic disorders (1 source) Body mass index (BMI) 35.0-35.9, adult Chronic Other nutritional; endocrine; and metabolic disorders (2 sources) Morbid obesity; Translations: [Morbid (severe) obesity due to excess calories] 12-22-2023 Chronic Other screening for suspected conditions (not mental disorders or infectious disease) (1 source) Abnormal findings on diagnostic imaging of other specified body structures; Translations: [ABNORML FIND DX IMG OTH BODY STRUC] Onset: 2 Chronic Other skin disorders (17 sources) Eruption; Translations: [Rash and other nonspecific skin eruption] Episodic Other upper respiratory disease (20 sources) Allergic rhinitis; Translations: [Allergic rhinitis, unspecified] Chronic Other upper respiratory disease (1 source) Allergic rhinitis, unspecified Onset: 1 Resolved: 1 Chronic Other upper respiratory disease (20 sources) Congestion of nasal sinus; Translations: [Nasal congestion] Episodic Other upper respiratory infections (20 sources) Sinusitis; Translations: [Chronic sinusitis, unspecified] Chronic Residual codes; unclassified (20 sources) Obstructive sleep apnea syndrome; Translations: [Idiopathic sleep related nonobstructive alveolar hypoventilation] 05-18-2023 Chronic Residual codes; unclassified (10 sources) Obstructive sleep apnea (adult) (pediatric); Translations: [Obstructive sleep apnea (adult)(pediatric)] Onset: 3 Chronic Residual codes; unclassified (20 sources) Patient encounter status; Translations: [Unspecified elective surgery for purposes other than remedying health states] Onset: 3 07-23-2023 Episodic Residual codes; unclassified (2 sources) Other specified postprocedural states; Translations: [Other specified postprocedural states] Onset: 3 Episodic Spondylosis; intervertebral disc disorders; other back problems (20 sources) Lumbosacral spondylosis without myelopathy; Translations: [Spondylosis without myelopathy or radiculopathy, lumbosacral region] Onset: 2 Resolved: 2 Chronic Spondylosis; intervertebral disc disorders; other back problems (20 sources) Low back pain; Translations: [Low back pain] Onset: 3 Episodic Unclassified (3 sources) Contact with and (suspected) exposure to covid-19; Translations: [Contact with and (suspected) exposure to covid-19] Unclassified (1 source) CONTACT W/AND (SUSP) EXPOS COVID-19; Translations: [CONTACT W/AND (SUSP) EXPOS COVID-19] Onset: 2 Unclassified (1 source) Pain in right shoulder; Translations: [Pain in right shoulder] Onset: 3 Past or Other Problems Problem Classification Problem Date Documented Date Episodic/Chronic Immunizations and screening for infectious disease (1 source) Encounter for screening for human papillomavirus (HPV); Translations: [ENC SCREENING HUMAN PAPILLOMAVIRUS] Onset: 08-13-2022 Episodic Other connective tissue disease (7 sources) Tendinitis of right posterior tibial tendon; Translations: [Posterior tibial tendinitis, right leg] Onset: 03-11-2022 03-11-2022 Episodic Other non-traumatic joint disorders (7 sources) Chronic ankle pain; Translations: [Pain in right ankle and joints of right foot] Onset: 03-11-2022 03-11-2022 Episodic Other non-traumatic joint disorders (3 sources) Pain in right hip Onset: 08-06-2021 Resolved: 01-26-2022 Episodic Other non-traumatic joint disorders (1 source) Pain in right knee Onset: 01-26-2022 Resolved: 01-26-2022 Episodic Other non-traumatic joint disorders (1 source) Pain in right ankle and joints of right foot Onset: 04-02-2022 Resolved: 04-02-2022 Episodic Other screening for suspected conditions (not mental disorders or infectious disease) (8 sources) Encounter for screening mammogram for malignant neoplasm of breast; Translations: [Encounter for screening for malignant neoplasm of cervix] Onset: 08-10-2022 Episodic Other skin disorders (1 source) Rash and other nonspecific skin eruption Onset: 08-06-2021 Resolved: 08-06-2021 Episodic Otitis media and related conditions (2 sources) Otitis media, unspecified, right ear Onset: 05-26-2022 Resolved: 05-27-2022 Episodic Residual codes; unclassified (1 source) Family history of malignant neoplasm of prostate; Translations: [FAMILY HX MALIG NEOPLASM PROSTATE] Onset: 09-01-2022 Episodic Residual codes; unclassified (1 source) Family history of malignant neoplasm of other organs or systems; Translations: [FAM HX MALIG NEOPLASM OTH ORGN/SYS] Onset: 09-01-2022 Episodic Unclassified (2 sources) Cough R05.9; Translations: [Cough R05.9] Onset: 07-21-2021 Resolved: 09-15-2021 Unclassified (20 sources) Persistent cough for 3 weeks or longer; Translations: [Persistent cough for 3 weeks or longer] Unclassified (3 sources) Other low back pain M54.59 Onset: 01-27-2022 Resolved: 02-17-2022 Unclassified (3 sources) Lumbar back pain M54.50 Onset: 01-26-2022 Resolved: 01-26-2022 Unclassified (20 sources) Unclassified (1 source) Contact with and (suspected) exposure to covid-19 Z20.822 Onset: 05-26-2022 Resolved: 05-26-2022 Unclassified (20 sources) Exposure to acute respiratory syndrome coronavirus 2; Translations: [Contact with and (suspected) exposure to covid-19] Unclassified (1 source) Lumbar pain 724.2 Viral infection (1 source) COVID-19 Onset: 05-26-2022 Resolved: 05-26-2022 Results Test Name Value Interpretation Reference Range Facility No Panel Informationon 11-[address] XR CERVICAL SPINE COMPLETE 4 -5 VIEWSon 09-21-2023 XR CERVICAL SPINE COMPLETE 4-5 VIEWS Interpreted By: Brain Sen, STUDY: XR CERVICAL SPINE COMPLETE 4-5 VIEWS; ; 09/21/2023 10:05 am INDICATION: Signs/Symptoms:neck pain. ACCESSION NUMBER(S): [id number] ORDERING CLINICIAN: BRANI SEN FINDINGS: AP lateral flexion extension x-rays of the cervical spine show mild degenerative changes with some endplate irregularity and anterior osteophyte formation. This is most notable at C6-7. There is some loss of lordosis in the sagittal plane but with extension some of that lordosis does recreate. There is no fractures. There is no soft tissue abnormalities. There is no instability. Signed by: Brain Sen 09/21/2023 1:00 PM Dictation workstation: [id number] [facility] XR SHOULDER RIGHT 2+ VIEWSon 07-26-2023 XR SHOULDER RIGHT 2+ VIEWS Interpreted By: Brain Hernandez, STUDY: XR SHOULDER RIGHT 2+ VIEWS; ; 07/26/2023 9:20 am INDICATION: Signs/Symptoms:pain. ACCESSION NUMBER(S): [id number] ORDERING CLINICIAN: BRAIN HERNANDEZ FINDINGS: AP axillary right shoulder shows a well-positioned glenohumeral joint surgical anchor appears to be well seated in the greater tuberosity. Abnormal calcification is appreciated off the lateral aspect of the acromion. Correlate with clinical symptoms of impingement or need for advanced imaging studies to evaluate for rotator cuff tearing. Signed by: Brain Hernandez 07/26/2023 9:39 AM Dictation workstation: [id number] [facility] XR Shoulder - right 2 Viewso n 07-26-2023 Interpreted By: Brain Castellon, STUDY: XR SHOULDER RIGHT 2+ VIEWS; ; 07/26/2023 9:20 am INDICATION: Signs/Symptoms:pain. ACCESSION NUMBER(S): [id number] ORDERING CLINICIAN: BRAIN HERNANDEZ FINDINGS: AP axillary right shoulder shows a well-positioned glenohumeral joint surgical anchor appears to be well seated in the greater tuberosity. Abnormal calcification is appreciated off the lateral aspect of the acromion. Correlate with clinical symptoms of impingement or need for advanced imaging studies to evaluate for rotator cuff tearing. Signed by: Brain Hernandez 07/26/2023 9:39 AM Dictation workstation: [id number] MMODAL Brain Hernandez M D - 07/26/2023 Interpreted By: Brain Hernandez, STUDY: XR SHOULDER RIGHT 2+ VIEWS; ; 07/26/2023 9:20 am INDICATION: Signs/Symptoms:pain. ACCESSION NUMBER(S): [id number] ORDERING CLINICIAN: BRAIN HERNANDEZ FINDINGS: AP axillary right shoulder shows a well-positioned glenohumeral joint surgical anchor appears to be well seated in the greater tuberosity. Abnormal calcification is appreciated off the lateral aspect of the acromion. Correlate with clinical symptoms of impingement or need for advanced imaging studies to evaluate for rotator cuff tearing. Signed by: Brain Hernandez 07/26/2023 9:39 AM Dictation workstation: [id number] [facility] Work Phone: [facility] Work Phone: Radiology Study observation (narrative) [facility] Work Phone: A1C HEMOGLOBINon 06-09-2023 HbA1c (Bld) [Mass fraction] 6.6 % [employer] Other Glucose - FINGER STICKon Glucose [Mass/Vol] 158 mg/dL [place] [employer] Other HbA1c (Bld) [Mass fraction]o n 06-09-2023 A1C HEMOGLOBIN [facility] [employer] Other CNOVon 05-18-2023 CNOV Office Visit (OTOLMN ) ----- SHELIA JUNIOR ([id number]) 1965 F Date Time Provider Department 05/18/23 9:15 AM YOSVANY HAYDEN OTOLMN During your visit today, we recorded the following information about you: Weight Height 130.6 kg 1.727 m Cristina Funes Ma 05/18/2023 9:21 AM Signed Tobacco Use: Never Was smoking cessation packet given? N/A - Patient is a non-smoker or quit >1 year ago. Was a referral initiated?N/A Patient is a non-smoker Yosvany Hayden MD 05/18/2023 10:05 AM Signed This note is formatted with the impression and plan first and the history and physical to follow. IMPRESSION 1. Obstructive sleep apnea 2. Obesity RECOMMENDATION/PLAN The patient has a history of obstructive sleep apnea and she is using BiPAP. She notes that originally she had hypoxia even while on BiPAP but that seems to have resolved. The patient is wondering whether she would benefit from surgery. After examining the patient and given her daily BiPAP use, I would not recommend surgical intervention at this time. I recommended that she continue her weight loss journey as this will help her with oxygenation and help decrease the severity of her obstructive sleep apnea. I encouraged her to use her BiPAP on a daily basis. I will see her back as needed Chief Complaint Obstructive sleep apnea History of Present Illness Shelia Junior is a 57 year old woman who has been diagnosed in the distant past with obstructive sleep apnea. The patient originally tried using CPAP but had difficulties with it and abandoned its use. Years later she returned to revisit her obstructive sleep apnea. She was tested and subsequently given a BiPAP machine. The patient is using her BiPAP machine on a regular basis. She notes that during the testing and therapy her lowest oxygen saturation was 48%. The patient notes that a subsequent pulse oximetry did not show hypoxia. The patient is here today to see if she is a candidate for surgical intervention. History reviewed. No pertinent past medical history. History reviewed. No pertinent surgical history. History reviewed. No pertinent family history. CURRENT OUTPATIENT MEDICATIONS Current Outpatient Medications on File Prior to Visit Medication Sig PREDNISONE ORAL Take by mouth. No current facility-administered medications on file prior to visit. ALLERGIES ALLERGIES Allergen Reactions Sulfa (Sulfonamide * questionable PHYSICAL EXAMINATION Appearance: General examination of the patient's external face, head and neck reveals no abnormalities. The patient is not retrognathic The patient's voice is strong and clear and they communicate easily. Ears: Exam of the ears revealed normal appearing external auditory canals, tympanic membranes, and middle ears. No signs of infection or fluid were seen. Nose: Anterior rhinoscopy revealed a left deviated septum. The turbinates were mildly congested. The mucosa was pink and moist without signs of infection. The airway was reduced. Throat: There were no lesions to visualization or palpation of the lips, cheeks, gums, floor of mouth, tongue, hard and soft palate, tonsillar pillars or posterior pharyngeal wall. The patient is a Rolle Tongue Position 3 and has grade 1 tonsils. Neck: Palpation of the neck revealed no adenopathy, salivary gland masses or asymmetry, or thyroid masses or enlargement. Yosvany Hayden MD Allergies As of Date: 05/18/2023 Noted Allergy Reaction SULFA (SULFONAMIDE ANTIBIOTICS) 07/06/2006 Comments: questionable Date Reviewed: 05/18/2023 Reviewed by: Yosvany Hayden MD - Fully Assessed Reason for Visit: New Patient [172] Cmt: TOSHA Primary Visit Diagnosis:TOSHA (obstructive sleep apnea) [G47.33] Other Visit Diagnosis:Class 3 severe obesity with body mass index (BMI) of 40.0 to 44.9 in adult, unspecified obesity type, unspecified whether serious comorbidity present ([facility]) [E66.01, Z68.41] Prescriptions as of 05/18/2023 - PREDNISONE ORAL Take by mouth. Problem List As Of Date 05/18/2023 Noted Resolved Posterior tibial tendinitis of right lower extr*03/11/2022 Right foot pain [M79.671] 03/11/2022 Chronic pain of right ankle [M25.571, G89.29] 03/11/2022 Visit Notes: >> [place] Raymond [place] May 18, 2023 9:20 AM Status: Signed Tobacco Use: Never Was smoking cessation packet given? N/A - Patient is a non-smoker or quit >1 year ago. Was a referral initiated?N/A Patient is a non-smoker Encounter Status:Closed by YOSVANY HAYDEN on 05/18/23 Normal [facility] Creatinine [Mass/volume] in UrineOrdered By: Анна Rose on 03-08-2023 Creatinine (U) [Mass/Vol] 221.0 mg/dL 11.0-20.0 [facility] Micro[facility]b Creat Ratio,Uon Creatinine, Urine (Random) 221.0 mg/dL High 11.0-20.0 [facility] Comment on above: Order Comment: Reaso n for Exam Type 2 diabetes mellitus with hyperglycemia, without long-te Performed By: #### U RMACRERAT #### [address] Microalbumin/Creati nine Ratio 7.0 mg/g Normal 0.0-30.0 [facility] Comment on above: Order Comment: Reaso n for Exam Type 2 diabetes mellitus with hyperglycemia, without long-te Result Comment: 30-3 00 mg/g indicates an increased risk for diabetic nephropathy. Greater than 300 mg/g is consistent with clinical nephropathy. (Am. J. Kidney Disease 1995, 25:107) PERFORMED BY: [place] [address] PATHOLOGIST MARKETING SUPPORT COORDINATOR LAURY MARIN M.D. Performed By: #### U RMACRERAT #### [facility] [address] [id number] [facility] Microalbumin [Mass/volume] i n UrineOrdered By: Анна Rose on 03-08-2023 Albumin DL <= 20 mg/L (U) [Mass/Vol] 1.7 mg/dL 0.0-1.8 [facility] Comment on above: Order Comment: Reaso n for Exam Type 2 diabetes mellitus with hyperglycemia, without long-te Performed By: #### U RMACRERAT #### [facility] [address] [place] [address] [facility] Urine microalbumin/creatinin e mass ratioOrdered By: Анна Rose on 03-08-2023 Albumin/Creatinine DL <= 20 mg/L (U) [Mass ratio] 7.0 mg/g 0.0-30.0 [facility] Comment on above: 30-300 mg/g indicate s an increased risk for diabetic nephropathy. Greater than 300 mg/g is consistent with clinical nephropathy. (Am. J. Kidney Disease 1995, 25:107) A1C HEMOGLOBINon 01-25-2023 HbA1c (Bld) [Mass fraction] 7.4 % [employer] Other Glucose - FINGER STICKon Glucose [Mass/Vol] 151 mg/dL [employer] Other HbA1c (Bld) [Mass fraction]o n 01-25-2023 A1C HEMOGLOBIN [facility] [employer] Other Established Visit (Orthopaed ic Surgery)on 12-30-2022 Established Visit (Orthopaedic Surgery) Diagnoses/Problems Assessed Nontraumatic complete tear of left rotator cuff (727.61) (U79.122) Provider Impressions Impression: Status post massive rotator cuff tendon reconstruction with cystic shoe coverer the tuberosity. Treatment Plan: She has a permanent 1-pound push/pull limit below shoulder activity only and we will have to update her disability forms. She is retired. She has a permanent 1 pound push/pull use limitation on her shoulder and nothing overhead and nothing repetitive. We will see her back in a year or so for repeat x-rays. Obviously as her shoulder deteriorates and wears she may need a replacement. Clinically she is functioning pretty good in terms of pain, night pain. Strength and functioning slowly returning. One pound push/pull permanent limitation due to a massive cuff tear and cystic shoe coverer the tuberosity. I will see her back yearly for repeat evaluation with x-rays. Hopefully we can avoid arthroplasty for years and years to come. Chief Complaint Lt RCR / SAD / Ext Debride 02/25/21 Xrays Today History of Present IllnessPatient had a massive cuff reconstruction done in February 2021. She went through almost one year of rehab. Her shoulder functions well, but she has severe limitations due to the massive cuff wear, sclerotic shoe coverer the humeral head. Active Problems Problems Avascular necrosis (733.40) (M87.00) Foot pain (729.5) (M79.673) Nontraumatic complete tear of left rotator cuff (727.61) (M75.122) Surgery, elective (V50.9) (Z41.9) Past Medical History Problems History of arthritis (V13.4) (Z87.39) Surgical History Problems History of Ankle surgery History of Cholecystectomy History of Cyst excision History of Rotator cuff repair History of Tubal ligation Family History Mother No pertinent family history Father No pertinent family history Social History Problems Non-smoker (V49.89) (Z78.9) Allergies Medication sulfa Recorded By: Grover Garcia; 05/07/2021 10:33:56 AM Current Meds Medication NameInstruction CeleXA 20 MG Oral Tablet oxyCODONE-Acetaminophen 5-325 MG Oral TabletTAKE 1 TABLET Every 6 hours Vitals Vital Signs Recorded: 30Dec2022 03:52PM Height5 ft 8 in Frfzqp911 lb BMI Tswyqooocg24.83 kg/m2 BSA Calculated2.46 Physical Exam At this time, she can move elbow, hand, and wrist. She has decent strength at her side, but obviously not a lot of lifting strength overhead. Results/Data Radiology: X-rays show a well-positioned glenohumeral joint with obviously sclerotic and cystic shoe coverer the tuberosity. Signatures Electronically signed by : Cha Vaca, ; Jan 01 2023 5:46PM EST ([facility]Recorde r) Electronically signed by : Barin Hernandez MD; Jan 02 2023 9:32AM EST Normal [facility] 12-30-2022 XR Shoulder 2 Views Normal [facility] Work Phone: SHOULDER, CMPLT, MIN 2 VIEWS on 12-30-2022 SHOULDER, CMPLT, MIN 2 VIEWS Patient Name: SHELIA JUNIOR STUDY: SHOULDER, CMPLT, MIN 2 VIEWS; Left; 12/30/2022 4:17 pm INDICATION: Pain M75.122: Nontraumatic complete tear of left rotator cuff. ACCESSION NUMBER(S): [id number] ORDERING CLINICIAN: BRAIN HERNANDEZ FINDINGS: AP axillary left shoulder shows a well-positioned glenohumeral joint no fracture dislocation noted some mild cystic shoe coverer the tuberosity consistent with prior history of rotator cuff repair and anchor placement is noted. No fracture dislocation. Otherwise unremarkable two views left shoulder Electronically signed by: BRAIN HERNANDEZ MD Normal [facility] CBC AUTO DIFFon 12-12-2022 BASO # 0.1 103/ul Normal 0.0-0.1 [facility] Comment on above: Performed By: #### C BC #### [facility] [address] [place] [address] Dr. Alicia Morales Basophils/100 WBC (Bld) 0.7 % Normal 0.2-2.0 [facility] Comment on above: Performed By: #### C BC #### [facility] [address] [place] [address] Dr. Alicia Morales EO # 0.3 103/ul Normal 0.0-0.7 [facility] Comment on above: Performed By: #### C BC #### [facility] [address] [place] [address] Dr. Alicia Morales Eosinophils/100 WBC (Bld) 2.8 % Normal 0.9-7.0 [facility] Comment on above: Performed By: #### C BC #### [facility] [address] [place] [address] Dr. Alicia Morales Erythrocyte distribution width (RBC) [Ratio] 14.0 % Normal 11.0-15.0 [facility] Comment on above: Performed By: #### C BC #### [facility] [address] [place] [address] Dr. Alicia Morales Hematocrit (Bld) [Volume fraction] 41.3 % Normal 36.0-48.0 [facility] Comment on above: Performed By: #### C BC #### [facility] [address] [place] [address] Dr. Alicia Morales Hemoglobin (Bld) [Mass/Vol] 13.6 g/dL Normal 12.0-16.0 [facility] Comment on above: Performed By: #### C BC #### [facility] [address] [place] [address] Dr. Alicia Morales IG # 0.06 10e3/ul Critically high 0.00-0.03 [facility] Comment on above: Performed By: #### C BC #### [facility] [address] [place] [address] Dr. Alicia Morales IG % 0.7 % Critically high 0.0-0.5 [facility] Comment on above: Performed By: #### C BC #### [facility] [address] [place] [address] Dr. Alicia Morales LYMPH # 2.5 103/ul Normal 1.2-3.8 [facility] Comment on above: Performed By: #### C BC #### [facility] [facility] [address] [place] [address] Dr. Alicia Morales Lymphocytes/100 WBC (Bld) 27.5 % Normal 20.5-60.0 [facility] Comment on above: Performed By: #### C BC #### [facility] [address] [place] [address] Dr. Alicia Morales MANUAL DIFF REQ NO Normal [facility] Comment on above: Performed By: #### C BC #### [facility] [address] [place] [address] Dr. Alicia Morales MCH (RBC) [Entitic mass] 28.6 pg Normal 26.7-34.0 [facility] Comment on above: Performed By: #### C BC #### [facility] [address] [address] [address] Alicia Morales MCHC (RBC) [Mass/Vol] 32.9 g/dL Normal 29.9-35.2 [facility] Comment on above: Performed By: #### C BC #### [facility] [address] [address] [address] Alicia Morales MCV (RBC) [Entitic vol] 86.9 fL Normal 81.0-99.0 [facility] Comment on above: Performed By: #### C BC #### [facility] [address] [place] [address] Dr. Alicia Morales MONO # 0.6 103/ul Normal 0.3-0.8 [facility] Comment on above: Performed By: #### C BC #### [facility] [address] [place] [address] Dr. Alicia Morales Monocytes/100 WBC (Bld) 6.4 % Normal 1.7-12.0 [facility] Comment on above: Performed By: #### C BC #### [facility] [address] [place] [address] Dr. Alicia Morales NEUT # 5.6 103/ul Normal 1.4-6.5 [facility] Comment on above: Performed By: #### C BC #### [facility] [address] [place] [address] Dr. Alicia Morales Neutrophils/100 WBC (Bld) 61.9 % Normal 43.0-75.0 [facility] Comment on above: Performed By: #### C BC #### [facility] [address] [address] [address] Alicia Morales Platelet mean volume (Bld) [Entitic vol] 10.5 fL Normal 9.5-13.5 [facility] Comment on above: Performed By: #### C BC #### [facility] [address] [address] [address] Alicia Morales PLT 200 103/ul Normal 150-450 [facility] Comment on above: Performed By: #### C BC #### [facility] [address] [address] [address] Alicia Morales RBC 4.75 106/ul Normal 4.20-5.40 [facility] Comment on above: Performed By: #### C BC #### [facility] [address] [address] [address] Alicia Morales WBC 9.1 103/ul Normal 4.0-11.0 [facility] Comment on above: Performed By: #### C BC #### [facility] [address] [address] [address] Alicia Morales GLYCOHEMOGLOBIN A1Con 2022 ADA RECOMMENDATION SEE BELOW Normal [facility] Comment on above: Result Comment: ADA RECOMMENDED LIMIT 4.0 - 6.0 ADA THERAPEUTIC TARGET < 7.0 ACTION SUGGESTED > 7.0 Performed By: #### A 1C #### [facility] [address] [place] [address] Dr. Alicia Morales Glucose [Mass/Vol] 243 mg/dL Normal [facility] Comment on above: Performed By: #### A 1C #### [facility] [address] [place] [address] Dr. Alicia Morales HbA1c (Bld) [Mass fraction] 10.1 % Critically high 4.5-6.2 [facility] Comment on above: Performed By: #### A 1C #### [facility] [address] [place] [address] Dr. Alicia Morales LIPID PROFILEon 12-12-2022 CHOL-HDL RATIO NORM SEE BELOW Normal [facility] Comment on above: Result Comment: 3.3 - 4.4 LOW RISK 4.4 - 7.1 AVERAGE RISK 7.1 - 11.0 MODERATE RISK >11.0 HIGH RISK Performed By: #### L IPID, CMP, TSH #### [facility] [address] [place] [address] Dr. Alicia Morales Cholesterol [Mass/Vol] 104 mg/dL Normal <=200 [facility] Comment on above: Performed By: #### L IPID, CMP, TSH #### [facility] [address] [address] [address] Alicia Morales Cholesterol in HDL [Mass/Vol] 51 mg/dL Normal 40-60 [facility] Comment on above: Performed By: #### L IPID, CMP, TSH #### [facility] [address] [address] [address] Alicia Morales Cholesterol in LDL [Mass/Vol] 39.2 mg/dL Normal [facility] Comment on above: Performed By: #### L IPID, CMP, TSH #### [facility] [address] [address] [address] Alicia Morales Cholesterol.total/C holesterol in HDL [Mass ratio] 2.0 {ratio} Normal [facility] Comment on above: Performed By: #### L IPID, CMP, TSH #### [facility] [address] [address] [address] Alicia Morales HDL NORMAL > or = 60 mg/dl - LO W CARDIOVASCULAR RISK <40 mg/dl - HIGH CARDIOVASCULAR RISK Normal [facility] Comment on above: Performed By: #### L IPID, CMP, TSH #### [facility] [address] [address] [address] Alicia Morales LDL CALC NORMAL SEE BELOW Normal [facility] Comment on above: Result Comment: <100 mg/dl OPTIMAL 100 - 129 mg/dl NEAR OR ABOVE OPTIMAL 130 - 159 mg/dl BORDERLINE HIGH 160 - 189 mg/dl HIGH >190 mg/dl VERY HIGH Performed By: #### L IPID, CMP, TSH #### [facility] [address] [address] [address] Alicia Morales Triglyceride [Mass/Vol] 69 mg/dL Normal <=150 [facility] Comment on above: Performed By: #### L IPID, CMP, TSH #### [facility] [address] [address] [address] Alicia Morales VLDL CALC 13.8 mg/dL Normal [facility] Comment on above: Performed By: #### L IPID, CMP, TSH #### [facility] [address] [address] [address] Alicia Morales PROF 14(COMP METB)on 023 Albumin [Mass/Vol] 3.6 g/dL Normal 3.4-5.0 [facility] Comment on above: Performed By: #### L IPID, CMP, TSH #### [facility] [address] [address] [address] Alicia Morales Albumin/Globulin [Mass ratio] 1.0 {ratio} Normal [facility] Comment on above: Performed By: #### L IPID, CMP, TSH #### [facility] [address] [address] [address] Alicia Morales ALP [Catalytic activity/Vol] 111 U/L Normal 46-116 [facility] Comment on above: Performed By: #### L IPID, CMP, TSH #### [facility] [address] [address] [address] Alicia Morales ALT [Catalytic activity/Vol] 64 U/L Critically high 14-59 [facility] Comment on above: Performed By: #### L IPID, CMP, TSH #### [facility] [address] [address] [address] Alicia Morales Anion gap [Moles/Vol] 13.8 mmol/L Normal [facility] Comment on above: Performed By: #### L IPID, CMP, TSH #### [facility] [address] [address] [address] Alicia Morales AST [Catalytic activity/Vol] 64 U/L Critically high 15-37 [facility] Comment on above: Performed By: #### L IPID, CMP, TSH #### [facility] [address] [address] [address] Alicia Morales Bilirubin [Mass/Vol] 1.0 mg/dL Normal 0.2-1.0 [facility] Comment on above: Performed By: #### L IPID, CMP, TSH #### [facility] [address] [address] [address] Alicia Morales Calcium [Mass/Vol] 8.8 mg/dL Normal 8.5-10.1 [facility] Comment on above: Performed By: #### L IPID, CMP, TSH #### [facility] [address] [address] [address] Alicia Morales Chloride [Moles/Vol] 99 mmol/L Normal 98-107 [facility] Comment on above: Performed By: #### L IPID, CMP, TSH #### [facility] [address] [address] [address] Alicia Morales CO2 [Moles/Vol] 28.0 mmol/L Normal 21.0-32.0 [facility] Comment on above: Performed By: #### L IPID, CMP, TSH #### [facility] [address] [address] [address] Alicia Morales Creatinine [Mass/Vol] 0.62 mg/dL Normal 0.55-1.02 [facility] Comment on above: Performed By: #### L IPID, CMP, TSH #### [facility] [address] [address] [address] Alicia Morales EGFR-AF [place]IZ[place] >60 Normal >=60 [facility] Comment on above: Performed By: #### L IPID, CMP, TSH #### [facility] [address] [address] [address] Alicia Morales EGFR-NON AF [place]IZ[place] >60 Normal >=60 [facility] Comment on above: Performed By: #### L IPID, CMP, TSH #### [facility] [address] [address] [address] Alicia Morales Globulin (S) [Mass/Vol] 3.5 g/dL Normal [facility] Comment on above: Performed By: #### L IPID, CMP, TSH #### [facility] [address] [address] [address] Alicia Morales Glucose [Mass/Vol] 223 mg/dL Critically high 74-106 [facility] Comment on above: Performed By: #### L IPID, CMP, TSH #### [facility] [address] [address] [address] Alicia Morales Potassium [Moles/Vol] 3.8 mmol/L Normal 3.5-5.1 [facility] Comment on above: Performed By: #### L IPID, CMP, TSH #### [facility] [address] [address] [address] Alicia Morales Protein [Mass/Vol] 7.1 g/dL Normal 6.4-8.2 [facility] Comment on above: Performed By: #### L IPID, CMP, TSH #### [facility] [address] [address] [address] Alicia Morales Sodium [Moles/Vol] 137 mmol/L Normal 136-145 [facility] Comment on above: Performed By: #### L IPID CMP, TSH #### [facility] [address] [place] [address] Dr. Alicia Morales Urea nitrogen [Mass/Vol] 6.0 mg/dL Critically low 7.0-18.0 [facility] Comment on above: Performed By: #### L IPID CMP, TSH #### [facility] [address] [place] [address] Dr. Alicia Morales Urea nitrogen/Creatinine [Mass ratio] 9.7 mg/mg Normal [facility] Comment on above: Performed By: #### L IPID CMP, TSH #### [facility] [address] [place] [address] Dr. Alicia Morales TSHon 12-12-2022 TSH 2.781 uIU/mL Normal 0.358-3.740 [facility] Comment on above: Performed By: #### L IPID, CMP, TSH #### [facility] [address] [place] [address] Dr. Alicia Morales MG MAMM SCREEN 3D LINUS CADon 08-27-2022 MG MAMM SCREEN 3D LINUS CAD Patient: SHELIA JUNIOR Exam Date: 08/27/2022 : 1965 Gender:F Ordering : DR MALCOM HUANG . Admission #: [id number] Family : Order #: [id number] CLICK HERE TO VIEW EXAM RADIOLOGY REPORT PROCEDURE: MAMMOGRAM SCREENING 3D BILATERAL CAD COMPARISON: MG MAMM SCREEN LINUS W CAD, 09/13/2020. MG MAMM SCREEN 3D LINUS CAD, 07/29/2021. INDICATIONS: Screening for malignant neoplasm of breast Calculator Name NCI Breast Cancer Risk Assessment Tool 5 Year Breast Cancer Risk 1.40% Lifetime Breast Cancer Risk 9.30% Personal Breast Cancer No Personal Ovarian Cancer No Treatments None Family Cancers Mother with endometrial cancer at age 74; Father with prostate cancer at age 84. LOCATION: [facility] BREAST COMPOSITION: Scattered areas fibroglandular density. FINDINGS: DIAGNOSTIC CATEGORY 1--NEGATIVE. NO CHANGE FROM COMPARISON ASSESSMENT. Scattered benign-appearing nodules are present. Scattered benign-appearing calcifications are present. Scattered benign-appearing lymph nodes are present. RIGHT BREAST: No significant suspicious finding. LEFT BREAST: No significant suspicious finding. RECOMMENDATIONS: ROUTINE MAMMOGRAM AND CLINICAL EVALUATION IN 12 MONTHS. PLEASE NOTE: A NORMAL MAMMOGRAM DOES NOT EXCLUDE THE POSSIBILITY OF BREAST CANCER. A CLINICALLY SUSPICIOUS PALPABLE LUMP SHOULD BE BIOPSIED. Dictated by: Adrian Quintanilla MD on 08/28/2022 at 08:18 Approved by: Adrian Quintanilla MD on 08/28/2022 at 08:21 Normal [facility] PAP ACOG PANEL 2: 30 to 65on 08-17-2022 . . Normal [facility] Comment on above: Result Comment: Perf ormed at: WB Performed By: #### C BC #### [facility] [address] [address] [address] Alicia Morales Age Gdln ACOG Testing 30-65 Normal [facility] Comment on above: Performed By: #### C BC #### [facility] [address] [address] [address] Alicia Morales DIAGNOSIS: Comment Normal [facility] Comment on above: Result Comment: NEGA TIVE FOR INTRAEPITHELIAL LESION OR MALIGNANCY. Performed at: WB Performed By: #### C BC #### [facility] [address] [address] [address] Alicia Morales HPV Aptima Negative Normal Negative [facility] Comment on above: Result Comment: This nucleic acid amplification test detects fourteen high-risk HPV types (16,18,31,33,35,39,45,51,52,56,58,59,66,68) without differentiation. Performed at: =G Performed By: #### C BC #### [facility] [address] [address] [address] Alicia Morales HPV Genotype Reflex Comment Normal [facility] Comment on above: Result Comment: Crit erdariel not met, HPV Genotype not performed. Performed at: WB Performed By: #### C BC #### [facility] [address] [address] [address] Alicia Morales Methodology: Comment Normal [facility] Comment on above: Result Comment: This liquid based ThinPrep(R) pap test was screened with the use of an image guided system. Performed at: WB Performed By: #### C BC #### [facility] [address] [address] [address] Alicia Morales Note: Comment Normal [facility] Comment on above: Result Comment: The Pap smear is a screening test designed to aid in the detection of premalignant and malignant conditions of the uterine cervix. It is not a diagnostic procedure and should not be used as the sole means of detecting cervical cancer. Both false-positive and false-negative reports do occur. . Performed at: WB Performed By: #### C BC #### [facility] [address] [place] [address] Dr. Alicia Morales Performed by: Comment Normal [facility] Comment on above: Result Comment: Lisa Bond, Nursing Educator (ASCP) Performed at: WB Performed By: #### C BC #### [facility] [address] [place] [address] Dr. Alicia Morales Specimen adequacy: Comment Normal [facility] Comment on above: Result Comment: Sati sfactory for evaluation. Endocervical and/or squamous metaplastic cells (endocervical component) are present. Performed at: WB Performed By: #### C BC #### [facility] [address] [place] [address] Dr. Alicia Morales COVID Quick Testingon 2021 Result Positive [employer] Other FREE T4on 05-08-2022 Free T4 [Mass/Vol] 0.99 ng/dL Normal 0.76-1.46 [facility] Comment on above: Performed By: #### F T4 #### [facility] [address] [place] [address] Dr. Alicia Moarles GLUCOSE BLOODon 05-08-2022 Glucose [Mass/Vol] 158 mg/dL Critically high 74-106 T [facility] Comment on above: Performed By: #### C BC #### [facility] [address] [place] [address] Dr. Alicia Morales GLYCOHEMOGLOBIN A1Con 2021 ADA RECOMMENDATION SEE BELOW Normal [facility] Comment on above: Result Comment: ADA RECOMMENDED LIMIT 4.0 - 6.0 ADA THERAPEUTIC TARGET < 7.0 ACTION SUGGESTED > 7.0 Performed By: #### C BC #### [facility] [address] [place] [address] Dr. Alicia Morales Glucose [Mass/Vol] 157 mg/dL Normal [facility] Comment on above: Performed By: #### C BC #### [facility] [address] [place] [address] Dr. Alicia Morales HbA1c (Bld) [Mass fraction] 7.1 % Critically high 4.5-6.2 [facility] Comment on above: Performed By: #### C BC #### [facility] [address] [place] [address] Dr. Alicia Morales TSHon 05-08-2022 TSH 3.661 uIU/mL Normal 0.358-3.740 [facility] Comment on above: Performed By: #### C BC #### [facility] [address] [place] [address] Dr. Alicia Morales CBC AUTO DIFFon 03-19-2022 BASO # 0.0 103/ul Normal 0.0-0.1 [facility] Comment on above: Performed By: #### C BC #### [facility] [address] [place] [address] Dr. Alicia Morales Basophils/100 WBC (Bld) 0.5 % Normal 0.2-2.0 [facility] Comment on above: Performed By: #### C BC #### [facility] [address] [place] [address] Dr. Alicia Morales EO # 0.2 103/ul Normal 0.0-0.7 [facility] Comment on above: Performed By: #### C BC #### [facility] [address] [place] [address] Dr. Alicia Morales Eosinophils/100 WBC (Bld) 1.8 % Normal 0.9-7.0 [facility] Comment on above: Performed By: #### C BC #### [facility] [address] [place] [address] Dr. Alicia Morales Erythrocyte distribution width (RBC) [Ratio] 14.9 % Normal 11.0-15.0 [facility] Comment on above: Performed By: #### C BC #### [facility] [address] [place] [address] Dr. Alicia Morales Hematocrit (Bld) [Volume fraction] 41.0 % Normal 36.0-48.0 [facility] Comment on above: Performed By: #### C BC #### [facility] [address] [place] [address] Dr. Alicia Morales Hemoglobin (Bld) [Mass/Vol] 13.4 g/dL Normal 12.0-16.0 [facility] Comment on above: Performed By: #### C BC #### [facility] [address] [place] [address] Dr. Alicia Morales IG # 0.04 10e3/ul Critically high 0.00-0.03 [facility] Comment on above: Performed By: #### C BC #### [facility] [address] [place] [address] Dr. Alicia Morales IG % 0.5 % Normal 0.0-0.5 [facility] Comment on above: Performed By: #### C BC #### [facility] [address] [place] [address] Dr. Alicia Morales LYMPH # 2.8 103/ul Normal 1.2-3.8 [facility] Comment on above: Performed By: #### C BC #### [facility] [address] [place] [address] Dr. Alicia Morales Lymphocytes/100 WBC (Bld) 34.3 % Normal 20.5-60.0 [facility] Comment on above: Performed By: #### C BC #### [facility] [address] [place] [address] Dr. Alicia Morales MANUAL DIFF REQ NO Normal [facility] Comment on above: Performed By: #### C BC #### [facility] [address] [place] [address] Dr. Alicia Morales MCH (RBC) [Entitic mass] 28.9 pg Normal 26.7-34.0 [facility] Comment on above: Performed By: #### C BC #### [facility] [address] [place] [address] Dr. Alicia Morales MCHC (RBC) [Mass/Vol] 32.7 g/dL Normal 29.9-35.2 [facility] Comment on above: Performed By: #### C BC #### [facility] [address] [place] [address] Dr. Alicia Morales MCV (RBC) [Entitic vol] 88.6 fL Normal 81.0-99.0 [facility] Comment on above: Performed By: #### C BC #### [facility] [address] [place] [address] Dr. Alicia Morales MONO # 0.7 103/ul Normal 0.3-0.8 [facility] Comment on above: Performed By: #### C BC #### [facility] [address] [place] [address] Dr. Alicia Morales Monocytes/100 WBC (Bld) 8.2 % Normal 1.7-12.0 [facility] Comment on above: Performed By: #### C BC #### [facility] [address] [place] [address] Dr. Alicia Morales NEUT # 4.5 103/ul Normal 1.4-6.5 [facility] Comment on above: Performed By: #### C BC #### [facility] [address] [place] [address] Dr. Alicia Morales Neutrophils/100 WBC (Bld) 54.7 % Normal 43.0-75.0 [facility] Comment on above: Performed By: #### C BC #### [facility] [address] [place] [address] Dr. Alicia Morales Platelet mean volume (Bld) [Entitic vol] 9.3 fL Critically low 9.5-13.5 [facility] Comment on above: Performed By: #### C BC #### [facility] [address] [place] [address] Dr. Alicia Morales PLT 260 103/ul Normal 150-450 [facility] Comment on above: Performed By: #### C BC #### [facility] [address] [place] [address] Dr. Alicia Morales RBC 4.63 106/ul Normal 4.20-5.40 [facility] Comment on above: Performed By: #### C BC #### [facility] [address] [place] [address] Dr. Alicia Morales WBC 8.2 103/ul Normal 4.0-11.0 [facility] Comment on above: Performed By: #### C BC #### [facility] [address] [place] [address] Dr. Alicia Morales PREG QUANT HCGon 03-19-2022 HCG QUANT 2 mIU/mL Normal [facility] Comment on above: Performed By: #### P REGQNT #### [facility] [address] [place] [address] Dr. Alicia Morales HCG RANGE SEE BELOW Normal [facility] Comment on above: Result Comment: 5-50 0-1 WEEK 40-300 1-2 WEEKS 100-1,000 2-3 WEEKS 500-6,000 3-4 WEEKS 5,000-200,000 1-2 MONTHS 10,000-100,000 2-3 MONTHS 3,000-50,000 2ND TRIMESTER 1,000-50,000 3RD TRIMESTER Performed By: #### P REGQNT #### [facility] [address] [place] [address] Dr. Alicia Morales Covid-19 PCR ([facility])on 02-25 SARS-CoV-2 (COVID-19) RNA TEE+probe Ql (Unsp spec) Not detected Normal NOT DETECTED [facility] Comment on above: Result Comment: This test is not yet approved or cleared by the [place] FDA. When there are no FDA-approved or cleared tests available, and other criteria are met, FDA can make tests available under an emergency access mechanism called an Emergency Use Authorization (EUA). The EUA for this test is supported by the Freight Rate Clerk of Health and Human Service's (HHS's) declaration that circumstances exist to justify the emergency use of in vitro diagnostics for the detection and/or diagnosis of the virus that causes COVID-19. This EUA will remain in effect (meaning this test can be used) for the duration of the COVID-19 declaration justifying emergency of IVDs, unless it is terminated or revoked by FDA (after which the test may no longer be used). When diagnostic testing is negative, the possibility of a false negative should be considered in the context of a patient's recent exposures and the presence of clinical signs and symptoms consistent with SARS-CoV-2. Performed By: #### C VDTB #### [facility] [address] [place] [address] Dr. Alicia Morales US PELVIS AND TRANSVAGon US PELVIS AND TRANSVAG EXAMINATION: US PELVIS AND TRANSVAG HISTORY: Postmenopausal bleeding COMPARISON: No relevant comparison available. FINDINGS: Transabdominal and transvaginal images The uterus is normal in size, contour and echotexture measuring 7.2 x 2.8 x 3.5 cm. No focal myometrial mass. The uterus is anteverted. The endometrium is poorly visualized and cannot be definitively measured The ovaries are nonvisualized No ascites IMPRESSION: Poorly visualized endometrium inseparable from the myometrium, nonspecific. In light of the postmenopausal bleeding, consider histopathologic diagnosis Electronically authenticated by: ADRIAN QUINTANILLA Date: 2022-03-04 07:32 Normal [facility] CBC AUTO DIFFon 03-03-2022 BASO # 0.1 103/ul Normal 0.0-0.1 [facility] Comment on above: Performed By: #### C BC #### [facility] [address] [place] [address] Dr. Alicia Morales Basophils/100 WBC (Bld) 0.5 % Normal 0.2-2.0 [facility] Comment on above: Performed By: #### C BC #### [facility] [address] [place] [address] Dr. Alicia Morales EO # 0.1 103/ul Normal 0.0-0.7 [facility] Comment on above: Performed By: #### C BC #### [facility] [address] [place] [address] Dr. Alicia Morales Eosinophils/100 WBC (Bld) 1.3 % Normal 0.9-7.0 [facility] Comment on above: Performed By: #### C BC #### [facility] [address] [place] [address] Dr. Alicia Morales Erythrocyte distribution width (RBC) [Ratio] 14.5 % Normal 11.0-15.0 [facility] Comment on above: Performed By: #### C BC #### [facility] [address] [place] [address] Dr. Alicia Morales Hematocrit (Bld) [Volume fraction] 42.5 % Normal 36.0-48.0 [facility] Comment on above: Performed By: #### C BC #### [facility] [address] [place] [address] Dr. Alicia Morales Hemoglobin (Bld) [Mass/Vol] 13.7 g/dL Normal 12.0-16.0 [facility] Comment on above: Performed By: #### C BC #### [facility] [address] [place] [address] Dr. Alicia Morales IG # 0.05 10e3/ul Critically high 0.00-0.03 [facility] Comment on above: Performed By: #### C BC #### [facility] [address] [place] [address] Dr. Alicia Morales IG % 0.5 % Normal 0.0-0.5 [facility] Comment on above: Performed By: #### C BC #### [facility] [address] [place] [address] Dr. Alicia Morales LYMPH # 2.9 103/ul Normal 1.2-3.8 [facility] Comment on above: Performed By: #### C BC #### [facility] [address] [place] [address] Dr. Alicia Morales Lymphocytes/100 WBC (Bld) 27.9 % Normal 20.5-60.0 [facility] Comment on above: Performed By: #### C BC #### [facility] [address] [place] [address] Dr. Alicia Morales MANUAL DIFF REQ NO Normal [facility] Comment on above: Performed By: #### C BC #### [facility] [address] [place] [address] Dr. Alicia Morales MCH (RBC) [Entitic mass] 28.5 pg Normal 26.7-34.0 [facility] Comment on above: Performed By: #### C BC #### [facility] [address] [place] [address] Dr. Alicia Morales MCHC (RBC) [Mass/Vol] 32.2 g/dL Normal 29.9-35.2 [facility] Comment on above: Performed By: #### C BC #### [facility] [address] [place] [address] Dr. Alicia Morales MCV (RBC) [Entitic vol] 88.5 fL Normal 81.0-99.0 [facility] Comment on above: Performed By: #### C BC #### [facility] [address] [place] [address] Dr. Alicia Morales MONO # 0.6 103/ul Normal 0.3-0.8 [facility] Comment on above: Performed By: #### C BC #### [facility] [address] [place] [address] Dr. Alicia Morales Monocytes/100 WBC (Bld) 6.1 % Normal 1.7-12.0 [facility] Comment on above: Performed By: #### C BC #### [facility] [address] [place] [address] Dr. Alicia Morales NEUT # 6.7 103/ul Critically high 1.4-6.5 [facility] Comment on above: Performed By: #### C BC #### [facility] [address] [address] [address] Alicia Morales Neutrophils/100 WBC (Bld) 63.7 % Normal 43.0-75.0 [facility] Comment on above: Performed By: #### C BC #### [facility] [address] [address] [address] Alicia Morales Platelet mean volume (Bld) [Entitic vol] 9.5 fL Normal 9.5-13.5 [facility] Comment on above: Performed By: #### C BC #### [facility] [address] [place] [address] Dr. Alicia Morales PLT 256 103/ul Normal 150-450 [facility] Comment on above: Performed By: #### C BC #### [facility] [address] [place] [address] Dr. Alicia Morales RBC 4.80 106/ul Normal 4.20-5.40 [facility] Comment on above: Performed By: #### C BC #### [facility] [address] [place] [address] Dr. Alicia Morales WBC 10.5 103/ul Normal 4.0-11.0 [facility] Comment on above: Performed By: #### C BC #### [facility] [address] [place] [address] Dr. Alicia Morales PROTIMEon 03-03-2022 INR Coag (PPP) [Relative time] 1.02 {INR} Normal [facility] Comment on above: Performed By: #### C BC #### [facility] [address] [place] [address] Dr. Alicia Morales INR GUIDELINES SEE BELOW Normal [facility] Comment on above: Result Comment: KHALIF RED INR: 2.0 - 3.0 CONDITIONS NOT LISTED BELOW 2.5 - 3.5 FOR PROSTHETIC HEART VALVE REPLACEMENT 2.5 - 3.5 RECURRENT THROMBOSIS Performed By: #### C BC #### [facility] [address] [place] [address] Dr. Alicia Morales PT Coag (PPP) [Time] 11.0 s Normal 9.0-11.6 [facility] Comment on above: Performed By: #### C BC #### [facility] [address] [place] [address] Dr. Alicia Morales PTTon 03-03-2022 aPTT Coag (Bld) [Time] 26.7 s Normal 22.3-36.2 [facility] Comment on above: Performed By: #### C BC #### [facility] [address] [place] [address] Dr. Alicia Morales TSHon 03-03-2022 TSH 1.773 uIU/mL Normal 0.358-3.740 [facility] Comment on above: Performed By: #### T SH #### [facility] [address] [place] [address] Dr. Alicia Morales TSH RANGE SEE BELOW Normal [facility] Comment on above: Result Comment: <0.3 4 UIU/ml HYPERTHYROID 0.34-5.60 UIU/ml EUTHYROID >5.60 UIU/ml HYPOTHYROID Performed By: #### T SH #### [facility] [address] [place] [address] Dr. Alicia Morales Fluoro-Guided Inj, Shoulder, Lefton 11-07-2021 Fluoro-Guided Inj, Shoulder, Left [address], [place] [address] [address] ?? X-Ray PATIENT NAME: , ORDERING PHYSICIAN: PATIENT : EXAM DATE: MRN: EXAM: Procedure of fluoroscopic guided injection was explained to the patient with risks (including but not limited to bleeding, infection, and contrast reaction), benefits and alternatives discussed. Questions were answered. Informed consent was obtained. The skin overlying the left shoulder joint was prepped in a sterile fashion and anesthetized with 1% lidocaine. A 22-gauge needle was inserted into the joint space utilizing fluoroscopic guidance. The position of the needle was tested with a injection of 4 mL Isovue-300. This was followed by injection of approximately of 10 mL of dilute gadolinium and sterile saline into the joint space. The patient tolerated the examination well, without immediate complication. The patient was sent to MR for further imaging. Number of images: 1. Fluoroscopy time: 58.7 seconds . A report of the MR arthrogram will be forthcoming. Left shoulder joint injection for MR arthrogram. Report reported and signed by Brain Best on 11/13/2021 1030 Normal [facility] Brand Advisor Outside Records Officeon Outside Records Office [id number]:1 [id number] Normal [facility] Radiologyon 09-24-2021 XR Shoulder 2 Views Normal [facility] Work Phone: [employer] Testingon 2020 Result Negative [employer] Other CT LOWER EXTREMITY WO CON RT on 07-18-2021 CT LOWER EXTREMITY WO CON RT STUDY: CT of the right foot without intravenous contrast dated 07/18/2021. INDICATION: S/P TOTAL TALAR IMPLANT COMPARISON: None. ACCESSION NUMBER(S): [id number] ORDERING CLINICIAN: Car Lopez TECHNIQUE: Axial CT of the right foot was performed without intravenous contrast. Sagittal and coronal 2 dimensional reformats were obtained. FINDINGS: OSSEOUS STRUCTURES AND JOINTS: Artifact from talar implant decreases sensitivity for assessment of pathology. No fracture or dislocation is evident. Remnant osteophyte formation is seen along the anterior tibia. There is possibly a small corticated body at the anterior margin of the tibia seen at image 35 of the sagittal plane. The corticated body seen at the posterior ankle on the 04/21/2021 radiographs is not definitively appreciated although its presence is not excluded due to beam hardening artifact. Mild degenerative change is seen of the 1st digit metatarsophalangeal joint. There is calcaneal enthesophyte formation. MUSCLES AND TENDONS: There is significant thickening of the tibialis anterior tendon such as seen between image 29 to 24 in the sagittal plane with decreased density within the tendon substance. ASSOCIATED SOFT TISSUES: Scarring is seen in the subcutaneous tissues. IMPRESSION: 1. Limited exam due to artifact from talar implant. 2. Osseous irregularity along the anterior margin of the tibia possibly with a corticated body. Body seen at the posterior ankle on 04/21/2021 radiographs is not well assessed for on this exam. It is uncertain whether it is been removed are still present and obscured by artifact. In the appropriate clinical setting the anterior or posterior findings at the ankle could be related to ankle impingement. 3. At least moderate to severe tibialis anterior tendinosis. There may be a degree of interstitial split tearing. Musculoskeletal ultrasound with a musculoskeletal radiologist could be considered to further assess. This could be performed at [facility]. 4. Calcaneal enthesophyte formation. Normal [facility] Radiologyon 04-30-2021 XR Shoulder 2 Views Normal [facility] Work Phone: FOOT COMPLETE, MIN 3 VIEWSon 04-21-2021 FOOT COMPLETE, MIN 3 VIEWS Patient Name: SHELIA JUNIOR STUDY: FOOT; COMPLETE, MIN 3 VIEWS; Right; 04/21/2021 10:22 am INDICATION: pain. ACCESSION NUMBER(S): [id number] ORDERING CLINICIAN: BRAIN HERNANDEZ FINDINGS: AP lateral oblique right foot x-ray shows a well-aligned well-positioned foot joint with complete talar replacement. 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 Joint space narrowing is noted all of the sites. No fracture or dislocation otherwise noted. Electronically signed by: BRAIN HERNANDEZ MD Normal [facility] Radiologyon 04-21-2021 XR Foot 3 Views Normal [facility] Work Phone: Order Reconciliationon 02-25 Order Reconciliation Page 1 Discharge Reconciliation Document Reconciliation Type: Discharge requested on behalf of Brain Hernandez (Physician) done by Brain Hernandez) Discharge - Reconciliation: 25-Feb-2021 07:12 by: Brain Hernandez) Home Medications EnteredHOME MEDICATIONS AT DISCHARGE DateReconciliation Comment/ Additional Information CeleXA 20 mg oral tablet 1 tab(s) orally once a day 21-Feb-2021 09:13 CeleXA 20 mg oral tablet 1 tab(s) orally once a day 21-Feb-2021 09:13 CeleXA 20 mg oral tablet is continued as CeleXA 20 mg oral tablet Current OrdersDateHOME MEDICATIONS AT DISCHARGE DateReconciliation Comment/ Additional Information ceFAZolin IV Piggy Back in Dextrose 5% in Water 100 mLDOSE = 3 gram(s) OnceRecommended Infusion Time: 30 minute(s)Clinician Notes: WITHIN ONE HOUR OF INCISION 21-Feb-2021 09:24 ceFAZolin IV Piggy Back is not required Lactated Ringers Infusion IV Bag Volume = 1,000 mL Run at: 30 mL/hr IntraVenous 21-Feb-2021 09:24 Lactated Ringers Infusion is not required Home Medications Added During Discharge Reconciliation Discharge Discharge Diagnosis< Z98.890 Status post rotator cuff repair Discharge ProviderDavid RobertDischarge Instructions for Staff Only: Patient can be discharged per PACU protocolRegular dietDC IV once taking by mouth fluidsHave nurses instructed in use of crutches and sling if neededFollow-up per printed discharge instruction sheet Discharge Disposition : .Home Condition at Discharge: Satisfactory Discharge Communication Instructions for Nursing Only: Remove IV prior to discharge from hospital. Do not remove any midline, if present, without an order from the provider. Discharge Instructions - PHR After your discharge from the hospital, two Summary of Care Documents will be available online in your Personal Health Record (PHR). 1.Consolidated-Clinical Document Architecture (C-CDA) Patient Discharge Summary This document is a summary of your hospital stay to be kept for your reference.2.C-CDA Visit Summary This document is a summary of your hospital stay to be shared with your follow-up providers (doctor, competitive shopper, physical therapist, etc.). Guidelines for a Healthy Lifestyle All Active Home Medications at time of Discharge Reconciliation: 25-Feb-2021 07:12 CeleXA 20 mg oral tablet 1 tab(s) orally once a day Discharge Discharge Diagnosis< Z98.890 Status post rotator cuff repair Discharge ProviderDavid RobertDischarge Instructions for Staff Only: Patient can be discharged per PACU protocolRegular dietDC IV once taking by mouth fluidsHave nurses instructed in use of crutches and sling if neededFollow-up per printed discharge instruction sheet Discharge Disposition : .Home Condition at Discharge: Satisfactory Discharge Communication Instructions for Nursing Only: Remove IV prior to discharge from hospital. Do not remove any midline, if present, without an order from the provider. Discharge Instructions - PHR After your discharge from the hospital, two Summary of Care Documents will be available online in your Personal Health Record (PHR). 1.Consolidated-Clinical Document Architecture (C-CDA) Patient Discharge Summary This document is a summary of your hospital stay to be kept for your reference.2.C-CDA Visit Summary This document is a summary of your hospital stay to be shared with your follow-up providers (doctor, competitive shopper, physical therapist, etc.). Guidelines for a Healthy Lifestyle Normal [facility] Preop Checkliston 02-25-2021 Preop Checklist Preop Checklist: Preop Checklist: Arrival [id number] Arrival Time06:12 Procedure TypeLEFT SHOULDER SURGERY Temperature C36.4 degrees C Temperature F97.5 degrees F Heart Rate64 beats per minute Respiratory Rate18 breath per minute Blood Pressure Svnzmazb221 mm/Hg Blood Pressure Ifbybqpgp51 mm/Hg NPO [id number] 23:30 ID Band Onyes Allergy Bandyes Consent Signedyes H&P Completepending Anesthesia Assessment Completedpending EKG Performedyes Chest X-Ray Performednot ordered HCG Urine TestN/A FOREST BOTANY INSTRUCTOR OVER 14 YEARS Chlorhexadine Bath Givennot applicable Nasal Antiseptic Appliednot applicable Hair Washednot applicable Soap and water bath with hair shampoo the night before surgerynot applicable Hat placed on prior to transportnot applicable SCD's Appliednot applicable SARAN Hose Appliedyes Denturesnot applicable Prostheticsnot applicable Hearing Aidsnot applicable Valuables Securedsent with family SEGUNDO HAS CELL PHONE AND PURSE Glasses / Contactsnot applicable Bowel Prepno OtherIMPLANT RIGHT ANKLE Cardiovascular Assessment: CommentsDEFER TO ANESTHESIA Respiratory Assessment: Breath SoundsDEFER TO ANESTHESIA Neurological Assessment: Level of Consciousnessalert Mobilitymoves all extremities Able to Express Selfyes Age Appropriateyes Emotional Statuscalm Skin Assessment: Description of Skin Issues/ConcernsPT HAS A SMALL RAISED RASH ON INNER PORTION OF LEFT ARM, NOT RED OR WEEPY Preop Education: Surgical Site Infection Preventionno Pain Scales and Managementyes Language / Communication: Language / CommunicationEnglish Electronic Signatures: Tova Thibodeaux) (Signed 25-Feb-2021 07:45) Authored: Preop Checklist Last Updated: 25-Feb-2021 07:45 by Tova Thibodeaux (RN) Normal [facility] Coronavirus 2019 RNA by PCR, Screening Asymptomticon 02-21-2021 Coronavirus 2019 RNA by PCR, Screening Asymptomtic Not detected Normal See Below [facility] [place] DO Work Phone: Comment on above: SOURCE: Nasal, Nasop haryngealReference Range: Not Detected.This assay is designed to detect the N, ORF1ab and/or S genes of SARS-CoV-2 via nucleic acid amplification. A Negative (NOT DETECTED) result does not preclude 2019-nCoV infection since the adequacy of sample collection and/or low viral burden may result in presence of viral nucleic acids below the clinical sensitivity of this test method. Negative (NOT DETECTED) result should not be used as the sole basis for treatment or other patient management decisions. Rather negative results should be combined with clinical observations, patient history, and epidemiological information to make patient management decisions.Fact sheet for providers: https://www.fda.gov/media/471248/downloadFact sheet for patients: https://www.fda.gov/media/383667/downloadThis test has received FDA Emergency Use Authorization (EUA) and has been verified by [facility] ([facility]). This test is only authorized for the duration of time that circumstances exist to justify the authorization of the emergency use of in vitro diagnostic tests for the detection of SARS-CoV-2 virus and/or diagnosis of COVID-19 infection under section 564(b)(1) of the Act, 21 U.S.C. 360bbb-3(b)(1), unless the authorization is terminated or revoked sooner. [facility] is certified under CLIA-88 as qualified to perform high complexity testing. Testing is performed in the [facility] laboratories located at [address] [place] [address]. Patient Profile - Preop v2on 02-21-2021 Patient Profile - Preop v2 Profile: Initial Info: How to be AddressedKATHY Spoken Language PreferredEnglish Source of Informationpatient Are you currently using the Personal Electronic Health Record or [employer] Are you interested in learning more about [employer] for the management of your healthnot at this time Instructions Givenappropriate clothing, bring responsible adult as the bookmobile driver (procedure may be cancelled if no bookmobile driver), center location, remove jewerly/piercings Prep Instructions Reviewedyes Instructed to Have No Fluids [id number] Stated Reason for Admission LEFT ROTATOR CUFF REPAIR OF REPAIR Primary Contact Name and NumberSEGUNDO JUNIOR-[phone] Patient Belongingsremains with patient; sent home Patient Belongings Remaining with Patientclothing; ONE WHITE LABELED BELONGING BAG UNDER CART TO OR Patient Belongings Sent Homepurse/wallet; cell phone/electronics; SEGUNDO HAS PURSE, WALLET AND CELL PHONE Medications Brought to Hospitalno General Health: Weight in kg140.6 kilogram(s) Weight in ahf538.9 pound(s) Weight Methodactual (measured) Scale Typestanding Height in feet5 feet Height in inches8 inch(es) Height in cm172.7 centimeter(s) Height Methodstated BMI (kg/m2)47.141 square meter Patient or Family Member Reaction to AnesthesiaNO METAL SURGERIES TUBAL LIGATION RIGHT TALAS REPLACEMENT-CHROMIUM COBALT INSERTED EXP. LAP-LUAN NON CA CYST FROM LEFT BREAST D & C RIGHT ROTATOR CUFF LEFT ROTATOR CUFF 05/2020 WISDOM TEETH TOENAIL LEFT REMOVED; patient reaction Patient Reaction to Anesthesiaawakening delayed Blood Avoidance/Restrictionsnon e Previous Transfusion ReactionNO H/O BLOOD TRANSFUSION; no [facility]: Symptoms/Conditions Managed at Homebehavioral health; chronic pain; gastrointestinal; musculoskeletal; obstetric/gynecologic; respiratory; skin; genitourinary Are You no Are You Currently Breastfeedingno Behavioral Health Symptoms/Conditionsanxiet y Behavioral Management Strategiesmedication therapy Gastrointestinal Symptoms/Conditions CommentIBS; RECENTLY STARTED NOTICING HAVING ISSUES SWALLOWING, I.E. 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 FOR COVID AT THAT TIME; Skin Symptoms/Conditions CommentPOISON YING-BOTTOM OF RIGHT EAR LOBE; LEFT ARM BEND; BACK OF NECK RIGHT SIDE-HAD ABOUT WEEK-JUST ITCHES LIKE CRAZY-RED SPOTS-NO BLISTERS. Barriers to Managing Healthnone Relationship/Environ: Living Arrangementshouse Lives Withalone Living Environment CommentsNIECE TO STAY WITH HER Resource/Environmental ConcernsHAVEN'T WORKED SINCE -HAS INSURANCE Anticipated Transition [place] Services Anticipated at Transitionnone Substance: Current or Former Substance Use never: Cigarette/Tobacco, e-Cigarette/Vaping, Street Drugs YES: Alcohol Alcohol Use Statuscurrent alcohol Alcohol Amount1-2 drinks Alcohol Frequencymonthly or less Alcohol Typewine Risk Screens: COVID-19 Screening Completedno exposure or symptoms Advance Directive/DNRno Advance Directive Information Givenpatient/family declined Advance Directive Mental Healthnot applicable During the past month, have you often been bothered by feeling down, depressed or hopelessyes During the past month, have you often had little interest or pleasure in doing thingsno Have you had any thoughts of harming yourselfno Have you had any thoughts of harming anyone elseno Depression Comment HOPELESS AT TIMES DUE TO SITUATION AND PANDEMIC Are you or have you been threatened or abused physically,emotionally or sexually abused by anyoneno Do you feel UNSAFE going back to the place you are livingno Patient is Able to be Assessed for Learningyes Factors Influencing Readiness to Learnanxiety Factors that Impact Ability to Learnnone Devices/Methods Used to Communicatenone Learning Preferencesskill demonstration; verbal instruction Cultural Considerationsnone Developmental Considerationsnone Confucianist Considerationsnone Other learner availableno Falls RiskPatient location auto qualifies him/her for HIGH RISK. Are there any cultural, spiritual, quaker practices/values/needs that are important for us to knowno Pain Scalenumerical 0-10 Pain Scale Educationteaching provided Current Pain Level5 = Moderate Acceptable Pain Level8 = Severe Chronic Painyes Chronic Lower Extremity pain locationright, foot Information Review: Allergies, Home Meds and Significa (more content not included)... Normal [facility] Vital Signs Date Time Vital Sign Value Performing Clinician Facility 12-22-2023 09:01-0400 Body height 170.18 cm DO Lamont Villarreal Work Phone: [facility] 12-22-2023 09:01-0400 Body mass index (BMI) [Ratio] 47 kg/m2 DO Lamont Kuns Work Phone: [facility] 12-22-2023 09:01-0400 Body weight 136.07 kg DO Lamont Kuns Work Phone: [facility] 12-22-2023 09:01-0400 Diastolic blood pressure 82 mm[Hg] DO Lamont Kuns Work Phone: [facility] 12-22-2023 09:01-0400 Heart rate 66 /min DO Lamont Kuns Work Phone: [facility] 12-22-2023 09:01-0400 Respiratory rate 16 /min DO Lamont Kuns Work Phone: [facility] 12-22-2023 09:01-0400 SaO2% (BldA) [Mass fraction] 98 % DO Lamont Kuns Work Phone: [facility] 12-22-2023 09:01-0400 Systolic blood pressure 118 mm[Hg] DO Lamont Kuns Work Phone: [facility] 11-17-2023 10:36-0500 Body height 170.18 cm DO Lamont Kuns Work Phone: [facility] 11-17-2023 10:36-0500 Body mass index (BMI) [Ratio] 49.6 kg/m2 DO Almont Kuns Work Phone: [facility] 11-17-2023 10:36-0500 Body weight 143.84 kg DO Lamont Kuns Work Phone: [facility] 11-17-2023 10:36-0500 Diastolic blood pressure 74 mm[Hg] DO Lamont Kuns Work Phone: [facility] 11-17-2023 10:36-0500 Heart rate 57 /min DO Lamont Kuns Work Phone: [facility] 11-17-2023 10:36-0500 Respiratory rate 18 /min DO Lamont Kuns Work Phone: [facility] 11-17-2023 10:36-0500 SaO2% (BldA) [Mass fraction] 97 % DO Lamont Villarreal Work Phone: [facility] 11-17-2023 10:36-0500 Systolic blood pressure 117 mm[Hg] DO Lamont Villarreal Work Phone: [facility] 09-22-2023 10:45-0500 Body height 170.18 cm Анна Scally Other [facility] 09-22-2023 10:45-0500 Body mass index (BMI) [Ratio] 48 kg/m2 Анна Scally Other [facility] Other 09-22-2023 10:45-0500 Body weight 139.03 kg Анна Scally Other [employer] Other 09-22-2023 10:45-0500 Body weight 139.02 kg DO Lamont Villarreal Work Phone: [facility] 09-22-2023 10:45-0500 Diastolic blood pressure 80 mm[Hg] Анна Scally Other [facility] 09-22-2023 10:45-0500 Respiratory rate 20 /min Анна Scally Other [employer] Other 09-22-2023 10:45-0500 SaO2% (BldA) [Mass fraction] 94 % Анна Scally Other [employer] Other 09-22-2023 10:45-0500 Systolic blood pressure 125 mm[Hg] Анна Scally Other [facility] 09-15-2023 07:30-0500 Body height 170.18 cm Lamontrosy Villarreal Other [facility] 09-15-2023 07:30-0500 Body mass index (BMI) [Ratio] 46.67 kg/m2 Lamont Villarreal Other [employer] Other 09-15-2023 07:30-0500 Body weight 135.17 kg Lamont Phil Other [facility] 09-15-2023 07:30-0500 Diastolic blood pressure 85 mm[Hg] Lamont Villarreal Other [facility] 09-15-2023 07:30-0500 Respiratory rate 18 /min Lamontrosy Villarreal Other [employer] Other 09-15-2023 07:30-0500 SaO2% (BldA) [Mass fraction] 94 % Lamontrosy Koenigorlando Other [employer] Other 09-15-2023 07:30-0500 Systolic blood pressure 140 mm[Hg] Lamont Phil Other [facility] 08-25-2023 11:15-0500 Body height 170.18 cm Mary Ann Fitt Other [facility] 08-17-2023 09:45-0500 Body height 170.18 cm Mary Ann Fitt Other [facility] 08-11-2023 13:15-0500 Body height 170.18 cm Mary Ann Fitt Other [facility] Other 08-11-2023 09:15-0500 Body height 170.18 cm Анна Thuly Other [employer] Other 08-11-2023 09:15-0500 Body mass index (BMI) [Ratio] 48.81 kg/m2 Анна Scally Other [employer] Other 08-11-2023 09:15-0500 Body weight 141.39 kg Анна Scally Other [employer] Other 08-11-2023 09:15-0500 Diastolic blood pressure 76 mm[Hg] Анна Scally Other [employer] Other 08-11-2023 09:15-0500 Respiratory rate 18 /min Анна Scally Other [facility] Other 08-11-2023 09:15-0500 SaO2% (BldA) [Mass fraction] 95 % Анна Scally Other [employer] Other 08-11-2023 09:15-0500 Systolic blood pressure 114 mm[Hg] Анна Scally Other [facility] Other 07-19-2023 10:00-0400 Body height 170.18 cm Lamont Villarreal Other [employer] Other 07-19-2023 10:00-0400 Body mass index (BMI) [Ratio] 48.58 kg/m2 Lamont Villarreal Other [employer] Other 07-19-2023 10:00-0400 Body weight 140.71 kg Lamont Villarreal Other [employer] Other 07-19-2023 10:00-0400 Diastolic blood pressure 82 mm[Hg] Lamont Villarreal Other [employer] Other 07-19-2023 10:00-0400 Respiratory rate 16 /min Lamont Villarreal Other [facility] Other 07-19-2023 10:00-0400 SaO2% (BldA) [Mass fraction] 98 % Lamont Villarreal Other [facility] Other 07-19-2023 10:00-0400 Systolic blood pressure 118 mm[Hg] Lamont Villarreal Other [facility] Other 07-13-2023 11:15-0400 Body height 170.18 cm Mary Ann Bradmagdalena Other [employer] Other 06-09-2023 08:15-0400 Body height 170.18 cm Анна Scally Other [facility] Other 06-09-2023 08:15-0400 Body mass index (BMI) [Ratio] 46.78 kg/m2 Анна Scally Other [facility] Other 06-09-2023 08:15-0400 Body weight 135.49 kg Анна Scally Other [facility] Other 06-09-2023 08:15-0400 Diastolic blood pressure 79 mm[Hg] Анна Scally Other [facility] Other 06-09-2023 08:15-0400 Respiratory rate 18 /min Анна Scally Other [facility] Other 06-09-2023 08:15-0400 SaO2% (BldA) [Mass fraction] 96 % Анна Scally Other [facility] Other 06-09-2023 08:15-0400 Systolic blood pressure 139 mm[Hg] Анна Rose Other [facility] Other 06-01-2023 14:45-0400 Body height 170.18 cm Mary Ann Fitt Other [employer] Other 06-01-2023 14:45-0400 Body mass index (BMI) [Ratio] 46.72 kg/m2 Mary Ann Fitt Other [facility] Other 06-01-2023 14:45-0400 Body weight 135.31 kg Mary Ann Fitt Other [employer] Other 05-18-2023 09:17-0400 Body height 172.7 cm Yosvany Hayden MD Work Phone: [facility] 05-18-2023 09:17-0400 Body weight 130.64 kg Yosvany Hayden MD Work Phone: [facility] 04-22-2023 13:00-0400 Body height 170.18 cm Mary Ann Fitt Other [employer] Other 04-02-2023 09:30-0400 Body height 170.18 cm Lamont Villarreal Other [employer] Other 04-02-2023 09:30-0400 Body mass index (BMI) [Ratio] 44.79 kg/m2 Lamont Villarreal Other [facility] Other 04-02-2023 09:30-0400 Body weight 129.73 kg Lamont Villarreal Other [employer] Other 04-02-2023 09:30-0400 Diastolic blood pressure 70 mm[Hg] Lamont Villarreal Other [facility] Other 04-02-2023 09:30-0400 Respiratory rate 18 /min Lamont Villarreal Other [facility] Other 04-02-2023 09:30-0400 SaO2% (BldA) [Mass fraction] 96 % Lamont Villarreal Other [employer] Other 04-02-2023 09:30-0400 Systolic blood pressure 110 mm[Hg] Lamont Villarreal Other [facility] Other 03-17-2023 08:30-0400 Body height 170.18 cm Анна Scally Other [facility] Other 03-17-2023 08:30-0400 Body mass index (BMI) [Ratio] 46.01 kg/m2 Анна Scally Other [facility] Other 03-17-2023 08:30-0400 Body weight 133.27 kg Анна Scally Other [facility] Other 01-25-2023 12:00-0400 Body height 170.18 cm Анна Scally Other [employer] Other 01-25-2023 12:00-0400 Body mass index (BMI) [Ratio] 48.17 kg/m2 Анна Scally Other [facility] Other 01-25-2023 12:00-0400 Body weight 139.53 kg Анна Scally Other [facility] Other 01-25-2023 12:00-0400 Diastolic blood pressure 74 mm[Hg] Аннаleanna Andinoly Other [facility] Other 01-25-2023 12:00-0400 Respiratory rate 20 /min Аннаleanna Andinoly Other [facility] Other 01-25-2023 12:00-0400 SaO2% (BldA) [Mass fraction] 97 % Анна Rose Other [employer] Other 01-25-2023 12:00-0400 Systolic blood pressure 113 mm[Hg] Анна Andinoly Other [employer] Other 12-30-2022 15:52-0400 Body height 172.72 cm Lamont Villarreal Work Phone: [facility] DO Work Phone: 12-30-2022 15:52-0400 Body mass index (BMI) [Ratio] 46.83 kg/m2 Lamont Villarreal Work Phone: [facility] Work Phone: 12-30-2022 15:52-0400 Body surface area Derived from formula 2.46 m2 Lamont Villarreal Work Phone: [facility] Work Phone: 12-30-2022 15:52-0400 Body weight 139.71 kg Lamont Villarreal Work Phone: [facility] Work Phone: 08-25-2022 09:35-0500 Diastolic blood pressure 92 mm[Hg] DO Lamont Villarreal Work Phone: [facility] 08-25-2022 09:35-0500 Heart rate 81 /min DO Lamont Villarreal Work Phone: [facility] 08-25-2022 09:35-0500 Respiratory rate 20 /min DO Lamont Villarreal Work Phone: [facility] 08-25-2022 09:35-0500 SaO2% (BldA) [Mass fraction] 95 % DO Lamont Villarreal Work Phone: [facility] 08-25-2022 09:35-0500 Systolic blood pressure 137 mm[Hg] DO Lamont Villarreal Work Phone: [facility] 08-25-2022 08:59-0500 Inhaled oxygen flow rate 3 L/min DO Lamont Villarreal Work Phone: [facility] 08-25-2022 08:34-0500 Body height 173.99 cm DO Lamont Villarreal Work Phone: [facility] 08-25-2022 08:34-0500 Body weight 147.41 kg DO Lamont Villarreal Work Phone: [facility] 05-26-2022 17:55-0400 Body height 170.18 cm Itzel Grady Other [employer] Other 05-26-2022 17:55-0400 Body mass index (BMI) [Ratio] 49.33 kg/m2 Itzel Grady Other [employer] Other 05-26-2022 17:55-0400 Body temperature 103 [degF] Itzel Grady Other [employer] Other 05-26-2022 17:55-0400 Body weight 142.88 kg Itzel Grady Other [employer] Other 05-26-2022 17:55-0400 Respiratory rate 18 /min Itzel Grady Other [employer] Other 05-26-2022 17:55-0400 SaO2% (BldA) [Mass fraction] 96 % Itzel Grady Other [employer] Other 04-02-2022 14:30-0400 Body height 170.18 cm Lamontrosy Koenigorlando Other [employer] Other 04-02-2022 14:30-0400 Body mass index (BMI) [Ratio] 51.21 kg/m2 Lamont Villarreal Other [employer] Other 04-02-2022 14:30-0400 Body weight 148.33 kg Lamont Villarreal Other [employer] Other 04-02-2022 14:30-0400 Diastolic blood pressure 64 mm[Hg] Lamont Villarreal Other [employer] Other 04-02-2022 14:30-0400 Respiratory rate 18 /min Lamont Koenigorlando Other [employer] Other 04-02-2022 14:30-0400 SaO2% (BldA) [Mass fraction] 93 % Lamont Villarreal Other [employer] Other 04-02-2022 14:30-0400 Systolic blood pressure 110 mm[Hg] Lamont Villarreal Other [employer] Other 02-17-2022 16:15-0400 Body height 170.18 cm Marty Burgos Other [employer] Other 02-17-2022 16:15-0400 Body mass index (BMI) [Ratio] 51.84 kg/m2 Marty Stephenser Other [employer] Other 02-17-2022 16:15-0400 Body weight 150.14 kg Marty Felter Other [employer] Other 01-27-2022 15:45-0400 Body height 170.18 cm Marty Stephenser Other [employer] Other 01-27-2022 15:45-0400 Body mass index (BMI) [Ratio] 51.84 kg/m2 Marty Felter Other [employer] Other 01-27-2022 15:45-0400 Body weight 150.14 kg Marty Stephenser Other [employer] Other 01-26-2022 10:45-0400 Body height 170.18 cm Lamont Villarreal Other [employer] Other 01-26-2022 10:45-0400 Body mass index (BMI) [Ratio] 51.87 kg/m2 Lamont Villarreal Other [facility] Other 01-26-2022 10:45-0400 Body weight 150.23 kg Lamont Villarreal Other [employer] Other 01-26-2022 10:45-0400 Diastolic blood pressure 84 mm[Hg] Lamont Villarreal Other [employer] Other 01-26-2022 10:45-0400 Respiratory rate 18 /min Lamont Villarreal Other [employer] Other 01-26-2022 10:45-0400 SaO2% (BldA) [Mass fraction] 97 % Lamont Villarreal Other [employer] Other 01-26-2022 10:45-0400 Systolic blood pressure 138 mm[Hg] Lamont Villarreal Other [employer] Other 09-15-2021 10:45-0500 Body height 170.18 cm Lamont Villarreal Other [employer] Other 09-15-2021 10:45-0500 Body temperature 98.4 [degF] Lamont Villarreal Other [employer] Other 09-15-2021 10:45-0500 Diastolic blood pressure 83 mm[Hg] Lamont Villarreal Other [facility] Other 09-15-2021 10:45-0500 Respiratory rate 18 /min Lamont Villarreal Other [facility] Other 09-15-2021 10:45-0500 SaO2% (BldA) [Mass fraction] 97 % Lamont Villarreal Other [facility] Other 09-15-2021 10:45-0500 Systolic blood pressure 124 mm[Hg] Lamont Villarreal Other [facility] Other 08-06-2021 09:45-0500 Body height 170.18 cm Lamont Villarreal Other [facility] Other 08-06-2021 09:45-0500 Body mass index (BMI) [Ratio] 50.11 kg/m2 Lamont Villarreal Other [facility] Other 08-06-2021 09:45-0500 Body weight 145.15 kg Lamont Villarreal Other [facility] Other 08-06-2021 09:45-0500 Diastolic blood pressure 82 mm[Hg] Lamont Aryaorlando Other [facility] Other 08-06-2021 09:45-0500 Respiratory rate 16 /min Lamont Phil Other [facility] Other 08-06-2021 09:45-0500 SaO2% (BldA) [Mass fraction] 96 % Lamont Villarreal Other [facility] Other 08-06-2021 09:45-0500 Systolic blood pressure 116 mm[Hg] Lamont Villarreal Other [employer] Other Encounters Encounter Date Encounter Type Care Provider Facility Start: 12-22-2023 End: 12-22-2023 ambulatory DO Lamont Aryaorlando Work Phone: [facility] Work Phone: Start: 12-22-2023 End: 12-22-2023 Patient encounter procedure DO Lamont Aryaorlando Work Phone: [facility] Work Phone: Start: 12-22-2023 End: 12-22-2023 ambulatory DO Lamont Aryaorlando Work Phone: [facility] Work Phone: Start: 12-22-2023 End: 12-22-2023 Patient encounter procedure DO Lamont Phil Work Phone: [facility] [place] Work Phone: Start: 11-17-2023 End: 11-17-2023 ambulatory DO Lamont Villarrela Work Phone: [facility] Work Phone: Start: 11-17-2023 End: 11-17-2023 Patient encounter procedure DO Lamont Villarreal Work Phone: [facility] Work Phone: Start: 10-14-2023 IBT FOR OBESITY GROU P 2-10 30M [facility] Start: 10-14-2023 End: 10-15-2023 ambulatory DO Lamont Villarreal Work Phone: [employer] [facility] [employer] Other Start: 10-14-2023 End: 10-14-2023 Discharged Recurring DO Lamont Villarreal Work Phone: [facility] Work Phone: Start: 10-14-2023 Registered Recurring DO Lamont Villarreal Work Phone: [facility] Work Phone: Start: 10-07-2023 End: 10-07-2023 ambulatory Mary Ann Fitt Other [employer] Other Start: 10-07-2023 IBT FOR OBESITY GROU P 2-10 30M [facility] Start: 10-07-2023 Telephone encounter Анна Rene [facility] Start: 09-22-2023 [facility] Weight Management f/u Анна Rose [facility] Start: 09-22-2023 End: 09-22-2023 ambulatory Анна Rose Other [employer] Other Start: 09-22-2023 End: 09-22-2023 Patient encounter procedure DO Lamont [facility]arreal [facility] Start: 09-21-2023 End: 09-22-2023 ambulatory BRAIN J FRANCY [facility] Start: 09-21-2023 End: 09-21-2023 Office outpatient visit 25 minutes Brain Sen MD Work Phone: [facility] Comment on above: Cervical radiculopat hy (Primary Dx); Neck pain Start: 09-15-2023 End: 09-15-2023 ambulatory Lamont Villarreal Other [employer] Other Start: 09-15-2023 Office outpatient vi sit 15 minutes Lamont Villarreal [facility] [place] Start: 09-15-2023 End: 09-15-2023 Patient encounter procedure DO Lamont Villarreal Work Phone: [facility] [place] Work Phone: Start: 08-31-2023 End: 08-31-2023 ambulatory Lamont Villarreal Other [employer] Other Start: 08-31-2023 Telephone encounter Lamont Villarreal [facility] [place] Start: 08-30-2023 End: 08-31-2023 ambulatory BRAIN HERNANDEZ [facility] Start: 08-30-2023 End: 08-30-2023 Office outpatient visit 15 minutes Brain Hernandez MD Work Phone: [facility] Comment on above: History of repair of right rotator cuff (Primary Dx) Start: 08-25-2023 IBT FOR OBESITY GROU P 2-10 30M Mary Ann Ibrahim [facility] Start: 08-25-2023 End: 08-25-2023 ambulatory DO Lamont Villarreal Work Phone: [employer] Other Start: 08-25-2023 End: 08-25-2023 Discharged Recurring DO Lamont Villarreal Work Phone: [facility] [place] Start: 08-25-2023 End: 08-25-2023 Patient encounter procedure DO Lamont Villarreal Work Phone: [facility] Work Phone: Start: 08-17-2023 End: 08-17-2023 ambulatory Mary Ann Fitt Other [employer] Other Start: 08-17-2023 IBT FOR OBESITY GROU P 2-10 30M [facility] Start: 08-17-2023 Telephone encounter Lamont Villarreal [facility] Start: 08-17-2023 End: 08-17-2023 Patient encounter procedure DO Lamont Villarreal Work Phone: [facility] Work Phone: Start: 08-11-2023 [facility] Weight Management f/u Анна Rose [facility] Start: 08-11-2023 End: 08-11-2023 ambulatory Mary Ann Fitt Other [employer] Other Start: 08-11-2023 IBT FOR OBESITY GROU P 2-10 30M [facility] Start: 07-26-2023 End: 07-27-2023 ambulatory BRAIN HERNANDEZ [facility] Start: 07-26-2023 End: 07-26-2023 Office outpatient visit 25 minutes Brain Hernandez MD Work Phone: [facility] Comment on above: History of repair of right rotator cuff (Primary Dx); Right shoulder pain, unspecified chronicity Start: 07-22-2023 End: 07-22-2023 ambulatory Lamont Villarreal Other [employer] Other Start: 07-22-2023 Telephone encounter Lamont Villarreal [facility] [place] Start: 07-20-2023 End: 07-20-2023 ambulatory Lamont Villarreal Other [employer] Other Start: 07-20-2023 Telephone encounter Lamont Villarreal [facility] Start: 07-19-2023 End: 07-19-2023 ambulatory Lamontrosy Villarrela Other [employer] Other Start: 07-19-2023 Office outpatient vi sit 25 minutes [facility] Start: 07-13-2023 End: 07-13-2023 ambulatory Mary Ann Fitt Other [employer] Other Start: 07-13-2023 IBT FOR OBESITY GROU P 2-10 30M Mary Ann Ibrahim [facility] Start: 07-01-2023 End: 07-01-2023 ambulatory Lamont Koenigorlando Other [employer] Other Start: 07-01-2023 Telephone encounter Lamont Villarreal [facility] Start: 06-22-2023 End: 06-22-2023 ambulatory Lamontrosy Villarreal Other [employer] Other Start: 06-22-2023 Telephone encounter Lamont Villarreal [facility] Start: 06-09-2023 (DM) [facility] Start: 06-09-2023 End: 06-09-2023 ambulatory Анна Rose Other [employer] Other Start: 06-01-2023 (Wallpaper Scraper) Wallpaper Sc[employer] Mary Ann avelar [facility] Start: 06-01-2023 End: 06-01-2023 ambulatory Mary Ann Fitt Other [employer] Other Start: 05-18-2023 End: 05-18-2023 ambulatory LAMONT VILLARREAL Facility:[facility] Start: 05-18-2023 End: 05-18-2023 Patient encounter procedure Yosvany Hayden MD Work Phone: Otolaryngology Comment on above: TOSHA (obstructive sle ep apnea) (Primary Dx); Class 3 severe obesity with body mass index (BMI) of 40.0 to 44.9 in adult, unspecified obesity type, unspecified whether serious comorbidity present (HCC) Start: 05-13-2023 E-mail encounter fro m caregiver Grecia Menezes RN [facility] Start: 05-13-2023 Patient encounter procedure Grecia Menezes RNbiostatistics professor Comment on above: Upcoming appointment Start: 04-22-2023 (Wallpaper Scraper) Wallpaper Sc[employer]per Mary Ann Rene [facility] Start: 04-22-2023 End: 04-22-2023 ambulatory Mary Ann Ibrahim Other [employer] Other Start: 04-22-2023 Telephone encounter Анна Rene [facility] Start: 04-13-2023 End: 04-13-2023 ambulatory Lamont Villarreal Other [employer] Other Start: 04-13-2023 Telephone encounter Lamont BARRAZA Cartography Technician Start: 04-02-2023 End: 04-02-2023 ambulatory Lamont Villarreal Other [employer] Other Start: 04-02-2023 Office outpatient vi sit 25 minutes Lamont Villarreal [facility] [place] Start: 03-17-2023 End: 03-17-2023 ambulatory Анна Rose Other [employer] Other Start: 03-17-2023 Nursing evaluation o f patient and report Анна Rose [facility] Start: 01-26-2023 End: 01-26-2023 ambulatory Анна Rose Other [employer] Other Start: 01-26-2023 Telephone encounter Анна Rene PG Cartography Technician Start: 01-25-2023 (New DM) New Diabetes Анна Rose [facility] Start: 01-25-2023 End: 01-25-2023 ambulatory Mary Ann Ibrahim Other [employer] Other Start: 01-25-2023 Encounter by jamel Ibrahim [facility] Start: 01-11-2023 End: 01-12-[address] LAMONT VILLARREAL [facility] [employer] Other Start: 01-11-2023 Telephone encounter Lamont Villarreal [facility] [place] Start: 01-06-2023 End: 01-07-[address] LAMONT VILLARREAL Facility: Start: 12-30-2022 Chart Update Lamont Villarreal [facility] Phone[facility] Work Phone: Start: 12-30-2022 Patient encounter procedure Lamont Villarreal Work Phone: [facility] Work Phone: Start: 12-30-[address] Lamont Villarreal Facility:[id number] Start: 12-29-2022 End: 12-29-2022 ambulatory Lamont Villarreal Other [employer] Other Start: 12-29-2022 Telephone encounter Lamont Villarreal [facility] [place] Start: 12-23-2022 End: 12-23-2022 ambulatory Lamont Villarreal Other [employer] Other Start: 12-23-2022 Telephone encounter Lamont Villarreal [facility] [place] Start: 12-16-2022 End: 12-16-2022 ambulatory Lamont Villarreal Other [employer] Other Start: 12-16-2022 Telephone encounter Lamont Villarreal [facility] Start: 12-15-2022 End: 12-15-2022 ambulatory Marty Stephenser Other [employer] Other Start: 12-15-2022 Office outpatient vi sit 15 minutes Marty Stephenser [facility] [place] Start: 12-12-2022 End: 12-13-[address] LAMONT VILLARREAL Facility: Start: 11-16-2022 End: 11-16-2022 ambulatory Lamont Villarreal Other [employer] Other Start: 11-16-2022 Telephone encounter Lamont Villarreal [facility] Start: 09-22-2022 End: 09-22-2022 ambulatory DO Lamont Villarreal Work Phone: [facility] Work Phone: Start: 09-22-2022 End: 09-22-2022 Patient encounter procedure DO Lamont Villarreal Work Phone: [facility] [address] Work Phone: Start: 09-14-2022 End: 09-14-2022 ambulatory Marty Stephenser Other [employer] Other Start: 09-14-2022 Telephone encounter Marty Stephenser [facility] Start: 09-11-2022 End: 09-11-2022 ambulatory Marty Stephenser Other [employer] Other Start: 09-11-2022 Telephone encounter Marty Kater [facility] Start: 09-03-2022 End: 09-03-2022 ambulatory Marty Stephenser Other [employer] Other Start: 09-03-2022 Office outpatient vi sit 25 minutes Marty Stephenser [facility] [place] Start: 08-27-2022 End: 08-28-[address] MALCOM HUANG . Facility:[facility] Start: 08-25-2022 (Procedure) Short Marty Burgos [facility] Start: 08-25-2022 End: 08-25-2022 Admission to same day surgery center DO Lamont Villarreal Work Phone: [facility] Start: 08-25-2022 End: 08-25-2022 ambulatory DO Lamont Villarreal Work Phone: [facility] Work Phone: Start: 08-10-2022 End: 08-10-[address] MALCOM HUANG . Facility:[facility] Start: 08-04-2022 End: 08-04-2022 ambulatory Marty Burgos Other [employer] Other Start: 08-04-2022 Office outpatient vi sit 15 minutes Marty Burgos [facility] [place] Start: 06-02-2022 End: 06-02-2022 ambulatory Lamont Villarreal Other [employer] Other Start: 06-02-2022 Telephone encounter Lamont Villarreal [facility] [place] Start: 05-27-2022 End: 05-27-2022 ambulatory Lamont Villarreal Other [employer] Other Start: 05-27-2022 Telephone encounter Lamont Villarreal [facility] [place] Start: 05-26-2022 End: 05-26-2022 ambulatory Itzel Grady Other [employer] Other Start: 05-26-2022 Office outpatient vi sit 15 minutes Itzel Grady [facility] Start: 05-25-2022 End: 05-25-2022 ambulatory Lamont Villarreal Other [employer] Other Start: 05-25-2022 Telephone encounter Lamont Villarreal [facility] [place] Start: 05-08-2022 End: 05-09-[address] MALCOM HUANG . Facility:[facility] Start: 05-05-2022 End: 05-05-2022 Discharged Recurring DO Lamont Villarreal Work Phone: [facility] [place] Start: 04-02-2022 End: 04-02-2022 ambulatory Lamont Villarreal Other [employer] Other Start: 04-02-2022 Office outpatient vi sit 15 minutes Lamont Villarreal [facility] Start: 03-19-2022 End: 03-19-[address] MALCOM HUANG . Facility:[facility] Start: 03-17-2022 Encounter for preprocedural laboratory examination DR MALCOM HUANG . [facility] Start: 03-13-2022 End: 03-14-[address] MALCOM HUANG . Facility:[facility] Start: 03-13-2022 End: 03-14-2022 Encounter for preprocedural laboratory examination DR MALCOM HUANG . Facility:[facility] Start: 03-11-2022 ambulatory Judy Benson RT(R) Radiology Comment on above: Radiology XR Start: 03-11-2022 End: 03-11-2022 Patient encounter procedure Judy Benson RT(R) TRES Comment on above: Posterior tibial ten dinitis of right lower extremity (Primary Dx); Right foot pain; Chronic pain of right ankle; History of total ankle replacement, right Start: 03-11-2022 Telephone encounter Julien Dominguez DPM Work Phone: Orthopaedics Comment on above: Orders Start: 03-11-2022 End: 03-11-2022 Subsequent hospital visit by physician Ronald [facility] Work Phone: Radiology Comment on above: Right foot pain [M79 .671] Start: 03-04-2022 End: 03-04-2022 ambulatory Lamont Villarreal Other [facility] Other Start: 03-04-2022 Telephone encounter Lamont Vlilarreal [facility] Start: 03-03-2022 End: 03-04-[address] MALCOM HUANG . Facility: Start: 02-26-2022 End: 02-26-2022 ambulatory Lamont Villarreal Other [facility] Other Start: 02-26-2022 Telephone encounter Lamont Villarreal [facility] Start: 02-17-2022 End: 02-17-2022 ambulatory Marty Katmeghann Other [facility] Other Start: 02-17-2022 Office outpatient vi sit 15 minutes Marty Burgos [facility] Pain Management [place] Start: 02-10-2022 (Procedure) Short Marty Burgos [facility] Start: 02-10-2022 End: 02-10-2022 ambulatory Marty Katmeghann Other [facility] Other Start: 01-27-2022 End: 01-27-2022 ambulatory Marty Burgos Other [facility] Other Start: 01-27-2022 Office outpatient vi sit 25 minutes Marty Burgos [facility] Pain Management [place] Start: 01-26-2022 End: 01-26-2022 ambulatory Lamont Villarreal Other [facility] Other Start: 01-26-2022 Office outpatient vi sit 25 minutes Lamont Villarreal [facility] Start: 01-20-2022 End: 01-20-2022 ambulatory Lamont Villarreal Other [facility] Other Start: 01-20-2022 Telephone encounter Lamont Villarreal [facility] Start: 01-01-2022 End: 01-01-2022 ambulatory Lamont Villarreal Other [facility] Other Start: 01-01-2022 Telephone encounter Lamont Villarreal [facility] Cartography Technician Start: 11-13-2021 Patient encounter procedure Lamont Villarreal Work Phone: [facility] [place] Work Phone: Start: 10-17-2021 End: 10-17-2021 ambulatory Lamont Villarreal Other [facility] Other Start: 10-17-2021 Telephone encounter Lamont Villarreal [facility] Start: 09-29-2021 End: 09-29-2021 ambulatory Lamont Villarreal Other [facility] Other Start: 09-29-2021 Telephone encounter Lamont Villarreal [facility] Start: 09-24-2021 Patient encounter procedure Lamont Koenigorlando Work Phone: [facility] [place] Work Phone: Start: 09-23-2021 AUDIT Lamont Villarreal Work Phone: [facility] [place] Work Phone: Start: 09-15-2021 End: 09-15-2021 ambulatory Lamont Villarreal Other [facility] Other Start: 09-15-2021 Office outpatient vi sit 25 minutes Lamont Villarreal [facility] Start: 09-12-2021 End: 09-12-2021 ambulatory Lamont Villarreal Other [facility] Other Start: 09-12-2021 Telephone encounter Lamont Villarreal [facility] Start: 08-13-2021 Patient encounter procedure Lamont Villarreal Work Phone: [facility] Work Phone: Start: 08-06-2021 End: 08-06-2021 ambulatory Lamont Villarreal Other [facility] Other Start: 08-06-2021 Office outpatient vi sit 15 minutes Lamont Villarreal [facility] Start: 07-21-2021 Nursing evaluation o f patient and report Lamont Villarreal [facility] Start: 07-21-2021 Telephone encounter Lamont Villarreal [facility] Start: 06-11-2021 Patient encounter procedure Lamont Villarreal Work Phone: [facility] Work Phone: Start: 05-07-2021 Office outpatient ne w 45 minutes Lamont Villarreal Work Phone: [facility] Work Phone: Start: 04-30-2021 AUDIT Lamont Villarreal Work Phone: [facility] Work Phone: Start: 04-30-2021 Patient encounter procedure Lamont Villarreal Work Phone: [facility] Work Phone: Start: 04-21-2021 Office outpatient vi sit 15 minutes Lamont Villarreal Work Phone: [facility] Work Phone: Start: 04-21-2021 Patient encounter procedure Lamont Villarreal Work Phone: [facility] Work Phone: Start: 03-26-2021 Patient encounter procedure Lamont Villarreal Work Phone: [facility] Work Phone: Start: 02-26-2021 Patient encounter procedure Lamont Villarreal Work Phone: [facility] Work Phone: Start: 02-19-2021 Patient encounter procedure No PCP None [facility] Work Phone: Procedures Date Procedure Procedure Detail Performing Clinician Start: 09-21-2023 XR CERVICAL SPINE COMPLETE 4-5 VIEWS BRAIN HERNANDEZ Start: 07-26-2023 XR SHOULDER RIGHT 2+ VIEWS BRAIN CORONA I Start: 08-27-2022 Mammography Brain Hernandez MD Work Phone: Start: 08-25-2022 Injection of spinal epidural space DO Lamont Villarreal Work Phone: Start: 03-11-2022 Radex ankle complete minimum 3 views Julien Dominguez DPM Work Phone: Cholecystectomy Lamont Villarreal Work Phone: Excision of cyst Lamont Koenig s Work Phone: History of repair of musculotendinous cuff of shoulder History of repair of right rotator cuff Brain Hernandez MD Work Phone: History of repair of musculotendinous cuff of shoulder History of repair of right rotator cuff Brain Hernnadez MD Work Phone: Ligation of fallopian tube B aster Villarreal Work Phone: Operative procedure on ankle Lamont Villarreal Work Phone: Repair of musculoten dinous cuff of shoulder Lamont P Phil Work Phone: Plan of Treatment Date Care Activity Detail Author Start: 01-03-2024 End: 01-03-2024 Patient encounter procedure 01/03/2024 9:00 AM EDT Office Visit [facility] [address] [address] Brain Hernandez MD [address] [facility], [address] [place] [id number] [facility] Start: 09-21-2023 End: 09-21-2024 XR Cervical spine 4 or 5 Views [facility] Service Area Work Phone: Comment on above: Expected: 09/21/2023 , Expires: 09/21/2024 Start: 09-15-2023 End: 09-15-2023 Patient encounter procedure 09/15/2023 1:30 PM EST Office Visit [facility] [address] [place] [address], [place] [address] Abdulkadir Broussard PA-C [address] [facility], [address] [facility] [place] [address] [facility] Start: 08-27-2023 Screening for malign ant neoplasm of breast Mammogram [facility] Start: 05-28-2023 Influenza vaccination [facility] Start: 09-27-2022 DEPRESSION ASSESSMENT DEPRESSION ASS [facility] Start: 08-25-2022 [facility] Start: 05-28-2022 Influenza vaccination INFLUENZA (Sea son Ended) [facility] Start: 09-24-2021 FUV, Provider: Brain Hernandez, Status: Pen, Time: 9:15 AM FUV, Provider: Brain Hernandez, Status: Pen, Time: 9:15 AM [facility] Work Phone: Start: 08-13-2021 FUV, Provider: Brain Hernandez, Status: Pen, Time: 8:00 AM FUV, Provider: Brain Hernandez, Status: Pen, Time: 8:00 AM [facility] Work Phone: Start: 06-11-2021 FUV, Provider: Brain Hernandez, Status: Pen, Time: 8:00 AM FUV, Provider: Brain Hernandez, Status: Pen, Time: 8:00 AM [facility] [place] Work Phone: Start: 05-07-2021 NPV, Provider: Julien Edwards, Status: Pen, Time: 9:30 AM NPV, Provider: Julien Edwards, Status: Pen, Time: 9:30 AM [facility] [place] Work Phone: Start: 04-30-2021 FUV, Provider: Brain Hernandez, Status: Pen, Time: 8:45 AM FUV, Provider: Brain Hernandez, Status: Pen, Time: 8:45 AM [facility] Work Phone: Start: 03-26-2021 FUV, Provider: Brain Hernandez, Status: Pen, Time: 8:30 AM FUV, Provider: Brain Hernandez, Status: Pen, Time: 8:30 AM -[facility] Work Phone: Start: 02-26-2021 POV, Provider: Brain Fairchild, Status: Pen, Time: 10:00 AM POV, Provider: Brain Fairchild, Status: Pen, Time: 10:00 AM [facility] Work Phone: Start: 2016 SHINGRIX VACCINE (1 of 2) SHINGRIX VACCINE (1 of 2) [facility] Start: 2016 Zoster Vaccines (1 o f 2) Zoster Vaccines (1 of 2) [facility] Start: 2011 COLOGUARD (FIT-DNA) COLOGUARD (FIT-D NA) [facility] Start: 2011 Colonoscopy COLONOSCOPY [facility] Start: 2011 COLORECTAL CANCER SCREENING COLORECTAL CANCER SCREENING [facility] Start: [address] COLONOGRAPHY [facility] Start: 2011 DIABETES SCREEN DIABETES SCREEN [facility] Start: 2011 FECAL OCCULT BLOOD FECAL OCCULT BLOO D [facility] Start: 2011 LIPID SCREEN LIPID SCREEN [facility] Start: 2011 SIGMOIDOSCOPY SIGMOIDOSCOPY [facility] Start: 2006 Mammography MAMMOGRAM [facility] Start: 1996 HPV TESTING HPV TESTING [facility] Start: 1988 DTaP/Tdap/Td Vaccine s (1 - Tdap) DTaP/Tdap/Td Vaccines (1 - Tdap) [facility] Start: 1987 PAP TESTING PAP TESTING [facility] Start: 1987 Screening for malign ant neoplasm of cervix [facility] Start: 1985 Urine microalbumin profile DTAP,TDAP,TD (1 - Tdap) [facility] Start: 1985 Urine screening for protein Diabetes: Urine Protein Screening [facility] Start: 1984 HEPATITIS C SCREENING HEPATITIS C [facility] Start: 1984 Hepatitis C screening Hepatitis C [facility] Start: 1984 HIV SCREENING HIV SCREENING [facility] Start: 1978 Adult depression screening assessment DEPRESSION SCREENING [facility] Start: 1976 Diabetic foot examination Diabetes: Foot Exam [facility] Start: 1976 Glaucoma screening Diabetes: R etinopathy Screening [facility] Start: 1972 Pneumococcal Vaccine : Pediatrics (0 to 5 Years) and At-Risk Patients (6 to 64 Years) (1 - PCV) Pneumococcal Vaccine: Pediatrics (0 to 5 Years) and At-Risk Patients (6 to 64 Years) (1 - PCV) [facility] Start: 1971 COVID-19 VACCINE (#1) COVID-19 VACCI NE (#1) [facility] Start: 1967 MMR Vaccines (1 of 1 - Standard series) MMR Vaccines (1 of 1 - Standard series) [facility] Start: 02-05-1967 COVID-19 VACCINE (#1) COVID-19 VACCI NE (#1) [facility] Start: 1966 Hemoglobin A1c measurement Diabetes: Hemoglobin A1C [facility] Start: 1966 HEPATITIS B (1 of 3 - 3-dose series) HEPATITIS B (1 of 3 - 3-dose series) [facility] Start: 1966 Hepatitis B Vaccines (1 of 3 - 3-dose series) Hepatitis B Vaccines (1 of 3 - 3-dose series) [facility] Start: 1966 HIV screening HIV Screening [facility] Start: 1966 Lipid panel Lipid Panel [facility] Start: 1966 Medicare Annual Wellness Visit Medicare Annual Wellness Visit (AWV) [facility] Start: 1966 Screening for malign ant neoplasm of colon [facility] Patient Education Felt Non Kimberly gnostic [facility] Work Phone: Patient referral [facility] Work Phone: XR ANKLE GENERAL 3V AP/LAT/OBL RIGHT XR ANKLE GENERAL 3V AP/LAT/OBL RIGHT Radiology Routine Right foot pain Chronic pain of right ankle 03/11/2022 10:00 AM EDT [facility] Work Phone: XR FOOT GENERAL 3V AP/LAT/OBL RIGHT XR FOOT GENERAL 3V AP/LAT/OBL RIGHT Radiology Routine Right foot pain Chronic pain of right ankle 03/11/2022 10:00 AM EDT [facility] Work Phone: [facility] Immunizations Immunization Date Immunization Notes Care Provider Payam arroyo 12-31-2020 Kenalog -40 mg Lamont Kuns Other [facility] Other 01-29-2020 Toradol per 15 mg Lamont Kuns Other [facility] Other 04-19-2019 Toradol per 15 mg Lamont Kuns Other [facility] Other 03-06-2019 Toradol per 15 mg Lamont Kuns Other [facility] Other 03-02-2019 Toradol per 15 mg Lamont Kuns Other [facility] Other 02-15-2019 Toradol per 15 mg Lamont Kuns Other [facility] Other 01-25-2019 Toradol per 15 mg Lamont Kuns Other [facility] Other 01-21-2019 Toradol per 15 mg Lamont Kuns Other [facility] Other 01-19-2019 Toradol per 15 mg Lamont Kuns Other [facility] Other 12-09-2018 Toradol per 15 mg Lamont Kuns Other [facility] Other 10-27-2018 influenza, seasonal, injectable Patient Objection Lamont Kuns Other [facility] Other 02-03-2018 Toradol per 15 mg Lamont Kuns Other [facility] Other 10-22-2017 KENALOG - 10 mg Lamont Kuns Other [facility] Other 05-26-2017 Toradol per 15 mg Lamont Kuns Other [facility] Other 12-30-2016 Toradol per 15 mg Lamont Kuns Other [facility] Other 07-31-2016 Toradol per 15 mg Lamont Kuns Other [facility] Other 01-28-2015 Toradol per 15 mg Lamont Kuns Other [facility] Other 05-08-2014 KENALOG - 10 mg Lamont Kuns Other [facility] Other 12-08-2012 Toradol per 15 mg Lamont Kuns Other [facility] Other NEGATED: Highlighted row has not occurred!10-27-2018 influenza, seasonal, injectable Patient Objection Lamont Kuns Other [facility] Other Payers Date Payer Category Payer Self-pay [id number] 2022 Medicare DEVOTED MEDICARE [facility] HMO [id number] 2022-Present [phone] [address] [place] [address] HMO [id number] 2022 Unknown 2020 Unknown [id number] 2020 Private Health Insurance [facility] [employer] [id number] 2020-Present [phone] [address] [address] [place] [address] O [id number]. [id number] 1966 Unknown [id number] 2.16.840.1.269009.3.579. 2.356 1966 Unknown [id number] 2.16.840.1.179397.3.579. 2.593 1966 Unknown [id number] 2.16.840.1.149667.3.579. 2.593 1966 Unknown [id number] 2.16.840.1.746259.3.579. 2.593 1966 Unknown [id number] 2.16.840.1.690026.3.579. 2.593 1966 Unknown [id number] 2.16.840.1.960787.3.579. 2.593 1966 Unknown [id number] 2.16.840.1.821959.3.579. 2.593 1966 Unknown [id number] 2.16.840.1.970923.3.579. 2.593 1966 Unknown [id number] 2.16.840.1.140679.3.579. 2.593 1966 Unknown [id number] 2.16.840.1.235141.3.579. 2.593 1966 Unknown [id number] 2.16.840.1.545038.3.579. 2.1246 1966 Unknown [id number] 2.16.840.1.687001.3.579. 2.6 1966 Unknown [id number] 2.16.840.1.440932.3.579. 2.1246 1966 Unknown [id number] 2.16.840.1.634950.3.579. 2.6 1966 Unknown [id number] 2.16.840.1.100401.3.579. 2.1246 1959 Unknown [id number] 2.16.840.1.516576.19 Medicare [id number] 2.16.840.1.144499.19 Unknown HCAP/HFA/FAP Active [id number] Unknown [id number] 2.16.840.1.162301.3.579. 2.531 Unknown [id number] 2.16.840.1.400976.3.579. 2.531 Social History Date Type Detail Facility Start: 10-13-2022 End: 09-21-2023 Non-smoker Non-smoker [facility] Work Phone: Tobacco smoking status VTIS Tobacco smoking consumption unknown [facility] Start: 1965 Sex Assigned At Not on file C [facility] Start: 03-01-2022 End: 09-21-2023 Exposure to SARS-CoV-2 (event) Not sure [facility] Start: 10-13-2022 End: 09-21-2023 Sex Assigned At [facility] Other Start: 06-26-2020 End: 10-19-2023 Tobacco smoking status NHIS Never smoked tobacco (finding) [facility] Start: 1965 Sex Assigned At Female F [facility] National Score (1-100), lower number is lower risk 60 [facility] Start: 05-18-2023 End: 07-26-2023 Tobacco use and exposure Smokeless tobacco non-user [facility] Start: 05-18-2023 Alcohol intake Current drinke r of alcohol (finding) [facility] Start: 05-18-2023 Alcohol [facility] Medical Equipment Procedure Code Equipment Code Equipment Origin al Text Equipment Identifier Dates Arthroscopy, shoulder Tendon/ligament bone anchor, bioabsorbable ()[id number] [facility] Start: 06-26-2020 Arthroscopy, shoulder Tendon/ligament bone anchor, bioabsorbable ()[id number] FDA Start: 06-26-2020 Arthroscopy, shoulder Tendon/ligament bone anchor, bioabsorbable ()[id number] FDA Start: 06-26-2020 Start: 12-16-2022 Cache, Biocompo site Corkscrew Ft, 5.5 X 14.7mm, W/Two 1.3 S Case [id number] Start: 02-25-2021 Comment on above: Description: Convert ed from [facility]. Please see archived information for full log information. blood sugar diagnostic (CareTouch Test Strip) Start: 11-16-2023 blood sugar diagnostic (CareTouch Test Strip) Start: 11-16-2023 blood sugar diagnostic (CareTouch Test Strip) Start: 11-16-2023 blood sugar diagnostic (CareTouch Test Strip) Start: 11-16-2023 Goals Date Patient Goal Desired Activity /State Clinical Notes 08-17-2011 to 12-22-2023 Note Date & Type Note Facility 12-22-2023 Evaluation note Authored December 22, 2023 8:4 6am The above note written by Jose C ALONSO acting as human recorder, note dictated by Dr. Lamont Villarreal. [facility] Work Phone: 1(191) 953-826601-18-2024 Evaluation note* Encounter Date Diagnosis Assessment Notes Treatment Notes Treatment Clinical Notes Sep, Obesity, unspecified classification, unspecified obesity type, unspecified whether serious comorbidity present (ICD-10 - E66.9) Sep, Other Summary of Visi t: (A) Group discussion w/ topic of Intuitive Eating (B) Principle 6 - feel your fullness (C) Principle 7 - cope with your emotions with kindness (D) Group offered moral support to one another Patient set the following goals: - identify emotional eating and try SWAP coping exercise and self care activity [facility] Other 01-11-2024 Evaluation note* Encounter Date Diagnosis Assessment Notes Treatment Notes Treatment Clinical Notes Sep, Obesity, unspecified classification, unspecified obesity type, unspecified whether serious comorbidity present (ICD-10 - E66.9) Sep, Other Summary of Visi t: (A) Group discussion w/ topic of Intuitive Eating (B) Principle 3 - Make peace with food (C) Principle 4 - challenge the food police (D) principle 5- discover the satisfaction factor (E) Group offered moral support to one another Patient set the following goals: - track satisfaction, nutrition and enjoyment in eating [facility] Other 12-27-2023 Evaluation note* Encounter Date Diagnosis Assessment Notes Treatment Notes Treatment Clinical Notes Aug, Type 2 diabetes mellitus with hyperglycemia, without long-term current use of insulin (ICD-10 - E11.65) 1. Reasonably controlled type 2 diabetes 0.6%, struggling with weight management. 2. Initiated to Ozempic per PCP, could consider SGLT2. Mood limiter, interested in treating. CGM cost prohibitive Possible component of steroid-induced hyperglycemia over the months prior to the elevation in hemoglobin A1c. Per discussion does not seem to have been symptomatic with the diabetes triad. She has had consistent significant amount of weight since that time has been eating 1 meal per day, carb conscious. She is interested in continuing lifestyle management for improvements. I discussed that I am not sure if she will get into the 6% range without medication. _insert GLP We could consider GLP-1 RA, metformin, Jardiance all good for secondary benefit. Defers fo now. She has seen Kinjal for Diabetes nutrition surviellance. 3. Patient is alert, oriented and receptive to making changes or counseling. Notes: Seen for an assessment of current glucose pattern, changes in treatment plan, counseling and coordination of care related to diabetes, risks, and benefits of treatment, medications, side effects. Given handouts to reinforce concepts reviewed during counseling, see scanned notes. TOPICS REVIEWED: 1. Time was spent reviewing: a. Basic concepts of diabetes, progressive beta cell , concepts of basal/bolus/corre ctive insulin requirements. b. Nutrition: Concepts of healthy diet, encouraged to decrease saturated fat in diet and increase non-starchy vegetables and fruits in diet. BMI: Pt. needs to select one small change to decrease caloric intake or increase physical activity to help decrease weight. c. Correct treatment of hypoglycemia, carry a glucose source at all times on your person, in vehicles, and at bedside. Can use glucose tablets/4, four ounces of pop or juice equal to 15 G of carbohydrate. Blood glucose should be 100 mg/dl or higher when driving. d. ADA glucose goals for age and medical complexity reviewed e. Patient questions addressed 2. Activity/exercise : Encouraged to start any form of physical activity. Start low level and increase slowly to a minimal goal of 150 minutes/week. Limit activity to what is allowed by other issues such as cardiac, pulmonary or orthopedic restrictions. 3. Standards of care: Reminded to have an annual dilated eye exam, A1C every 3 months, urine testing for microalbumin once/year, check feet daily and report any cuts or sores that do not appear to be healing. 4. Meter: Plan to check blood glucose: Please check blood glucose levels 1-4 times/day. Back to back meals reveal effectiveness of bolus dosing. 5. [facility]. Contact office if any issues or concerns with patterns of hypoglycemia, hyperglycemia, or diabetes medication issues. 6. Prescriptions: None needed 06-09-2023. Aug, Vitamin D deficiency (ICD-10 - E55.9) Vitamin D deficiency suspected. Vitamin D has been noted to have positive impact on mood and energy. We can recheck periodically and make recommendations for long-term supplementation with [id number] formulations or prescription grade repletion. Aug, Hyperlipidemia, unspecified hyperlipidemia type (ICD-10 - E78.5) Discussed risks of elevated LDL. Encouraged intake of foods low in saturated fat as well as supplements (skip, fish oil). Discussed LDL contributing to insulin resistance and increase cardiovascular risk factors. Aug, Hypertension, unspecified type (ICD-10 - I10) We discussed that the AHA recommends no more than 2,300 mg a daily as an ideal limit, but no more than 1,500 mg daily for most adults, especially those with HTN. Soduim intake below 1,000 mg per day can further improve blood pressure and heart health. Aug, Dietary counseling and surveillance (ICD-10 - Z71.3) Aug, BMI 45.0-49.9, adult (ICD-10 - Z68.42) Aug, Anxiety and depression (ICD-10 - F41.8) Aug, Other Shelia has been having trouble with her [employer] letty 2 sensors staying on. She said that she has sweat one or 2 off and had 2 or three of them fail to work after placing them. She was told by Jose Alberto HOYT to try wearing it on her chest but Shelia didn't feel comfortable doing this without assistance. I taught her how to apply the sensor to her chest about 3 inches below her collar bone and she applied skin tac and a grif vice president underwriting. She successfully started the sensor. 30 minutes were spent educating the patient by Odette Ford RN, [facility]. [facility] Other 12-26-2023 History of Present illness Narrative* Brain Sen MD - 09/21/2023 10:00 AM EST Established patient to the practice new patient to us. She had rotator cuff surgery with Dr. Yoo and thought she was having some shoulder issues and came in to see him. She was getting some neck and right sided burning into her bicep. And then started going down her arm. She had an injection with him. It did nothing. She had physical therapy for her shoulder and then they started doingstuff on her neck. Which seemed to help slightly. If she takes a pill (between her shoulder blades it, relieves her symptoms. She denies bowel or bladder complaints, denies saddle anesthesia denies fever chills nausea vomiting night sweats. Denies gait or balance changes. She denies any trauma accidents or falls to cause it. Denies any spine surgery. Physical exam: Well-nourished, well kept. No lymphangitis or lymphadenopathy in the examined extremities. Good perfusion to the extremities 4. Radial and dorsalis pedis pulses 2+. Capillary refill toall 4 digits brisk. No distal edema x 4. Gait normal. Can walk on heels and toes. There are some decreased range of motion flexion-extension rotation cervical spine mildly tender in the right cervical spinal musculature good strength no instability. Mild Spurling's back into the right. Examination of the back reveals no swelling, step-off, or point tenderness. Range of motion with flexion, extension, side bending and rotation is well maintained without crepitance, instability, or exacerbation of pain. Strength is within normal limits. Examination of the upper extremities reveals no point tenderness, swelling, or deformity. Range of motion of the shoulders, elbows, wrists, and fingers are all full without crepitance, instability, or exacerbation of pain. Strength is 5/5 throughout. Examination of the lower extremities reveals no point tenderness, swelling, or deformity. Range of motion of the hips, knees, and ankles are full without crepitance, instability, or exacerbation of pain. Strength is 5/5 throughout. No redness, abrasions, or lesions on all 4 extremities, head and neck, or trunk. Gross sensation intact in the extremities 4. Deep tendon reflexes 2+ and symmetric bilaterally. Mauricio, clonus, and Babinski were negative. Straight leg raise negative. Affect normal. Alert and oriented 3. Coordination normal. X-ray: X-rays cervical spine AP lateral flexion-extension taken today show straightening of the cervical spinal musculature. Some arthritic degenerative changes cervical 6 7 appears to be the worst no obvious fractures dislocations or bony lytic lesions were noted. Assessment: This a patient which appears to have a cervical radiculopathy. That needs further treatment. She has had physical therapy finished that. For her shoulder and her neck she had home handouts which she was given that she is continuing with those. They are not helping. She had tqdw-mzw-qfughrb medications. She had a steroid injection in her shoulder which did not help. Plan: Will submit for a cervical MRI. She lives in [place] near [place]. So hopefully wecan set that up where she comes and has the MRI and may be follows up with us after that MRI on thesame trip. Please refer to Dr. Sen's note for final plan. MRI will be for diagnostic purposesfor either epidural injections or surgical invention which we talked her about all the risks and benefits with. In a [id number] encounter, I performed a history and physical examination, discussed pertinent diagnostic studies if indicated, and discussed diagnosis and management strategies with both the patient and the midlevel provider. I reviewed the midlevel's note and agree with the documented findings and plan of care. Right arm radiculopathy that is been going on for quite some time now. It was all the way down to her thumb but now it is mainly the shoulder and arm and stops around the elbow. She has had a right rotator cuff repair and sees Dr. Brain Hernandez for that. However, it does not appear to be her rotator cuff as shoulder range of motion today does not reproduce any of her symptoms. X-rays look prettygood on her today. She has a negative Spurling's. She has maybe a little bit of weakness of her right biceps but is hard to say if it is coming from her shoulder from her neck. Organ to get an MRI ofher cervical spine and see if it shows anything on the right side that would explain these right arm radicular type symptoms. Will give her Valium prescription management for the MRI. [facility] [phone]) 998-213312-20-2023 Evaluation note* Encounter Date Diagnosis Assessment Notes Treatment Notes Treatment Clinical Notes Aug, Severe obesity (BMI >= 40) (ICD-10 - E66.01) Patient has been placed on wellbutrin to assist with weight management. She is also on Ozempic for her DM that will assist with her weight loss. She is under the care of Vianney Rose for DM and obesity. I do encourage her to continue with the weight loss treatment plan. Increase activity and modify her caloric intake Aug, Diabetes (ICD-10 - E11.9) Her A1C back in July was up to 7.2 which back in May she was 6.2 She did self refer to diabetology and weight loss services through [facility] and was started on Ozempic. Patient is having some nausea since starting this medication which is a side effect of the medication. Renal function is stable and her microalbumin is borderline high. I do encourage patient to continue with the plan of care as outlined by specialty. Aug, Vitamin D deficiency (ICD-10 - E55.9) Vitamin D level is slightly on the low side Aug, Fatty liver (ICD-10 - K76.0) LIver enzymes are slightly elevated upon review of recent testing. She does have known fatty liver. I will continue to monitor this. She is to continue to work on weight loss Aug, Hyperlipidemia, unspecified hyperlipidemia type (ICD-10 - E78.5) I have reviewed the lipid panel with patient that was done back in November 2022. This was stable. Aug, Nausea (ICD-10 - R11.0) Patient complaints of chronic nausea but has recently been placed on two new medications for weight management. Patient states she is an emotional eater and does not know what if feels like to be hungry . I do feel the nausea she is experiencing is related to the new medications, Wellbutrin and Ozempic. Aug, Right shoulder pain (ICD-10 - M25.511) Patient has been under the care of Dr. Hernandez for her shoulder pain. I have advised patient to follow the plan of care as ordered. Aug, Cervical pain (ICD-1 0 - M54.2) Patient has been under the care of Dr. Hernandez for her shoulder and neck pain. She does have some radicular burning pain that does go down into the arms. She has been referred to neurosurgeon from Dr. Hernandez. I am in agreement [facility] Other 12-04-2023 History of Present illness Narrative* Brain Hernandez MD - 08/30/2023 8:15 AM EST History of present illness: Patient with a history of right rotator cuff repair [address] Alexander She had a combination of neck and shoulder pain We gave her a diagnostic cortisone shot it gave her really no relief She has been in therapy for 6 weeks All the pain seems to be cervical spine in nature with flexion rotation and abduction she gets total relief if she abducts her shoulder and extends her head and puts a pillow behind her scapula It does not appear to be rotator cuff dysfunction at this time We offered a follow-up gadolinium arthrogram study of the right shoulder but she feels between the negative response to the shot and the therapy that this is all cervical and we will refer her to ourcervical spine team Physical exam: General: No acute distress or breathing difficulty or discomfort, pleasant and cooperative with theexamination. Extremities: Right neck pain relieved with flexion extension exercises Patient has really no pain or strength deficit of the shoulder on exam today The pain goes down the arm all the way to the radial side digits She is motor intact C5-T1 There is no gross instability There is no adhesions She can flex up to 160 abduct to 70 in fact her pain is relieved when she puts a cushion or pillow behind the scapula There is no obvious winging Old incisions are clean healed dry and intact Diagnostic studies: No additional imaging studies are needed at this time we will not order a shoulder MRI as we will refer her to our cervical team Impression: Probable cervical spine stenosis or cervical radiculopathy Plan: Hold off on imaging right shoulder we will see her back in our office as needed she will follow-up with our back team to get her cervical spine evaluation completed documented in this [facility] Work Phone: [phone] Evaluation note* Encounter Date Diagnosis Assessment Notes Treatment Notes Treatment Clinical Notes Jul, Obesity, unspecified classification, unspecified obesity type, unspecified whether serious comorbidity present (ICD-10 - E66.9) Jul, BMI 35.0-35.9,adult (ICD-10 - Z68.35) Jul, Other Summary of Visi t: (A) Group discussion w/ topic of Mindful Eating (B) Reviewed hunger / satiety scale and triggers for emotional eating (C) Conducted a Mindful Eating Meditation exercise as a group (D) Group offered moral support to one another Patient set the following goals: - not reviewed today [facility] Other 11-21-2023 Evaluation note* Encounter Date Diagnosis Assessment Notes Treatment Notes Treatment Clinical Notes Jul, Obesity, unspecified classification, unspecified obesity type, unspecified whether serious comorbidity present (ICD-10 - E66.9) Jul, BMI 45.0-49.9, adult (ICD-10 - Z68.42) Jul, Other Summary of Visi t: (A) Small habits and the impact they can have over time (B) Building a system for change vs setting goals (C) Identity based goals vs action based goals (D) Habit stacking/temptati on building Patient set the following goals: - patient set personal goal using given handout. [facility] Other 11-15-2023 Evaluation note* Encounter Date Diagnosis Assessment Notes Treatment Notes Treatment Clinical Notes Jul, Obesity, unspecified classification, unspecified obesity type, unspecified whether serious comorbidity present (ICD-10 - E66.9) Jul, Other Summary of Visi t: (A) Group discussion w/ topic of Holidays and Health (B) Reviewed tips for finding balance between special occassion and health (C) Examples of lower calorie, nutrient dense sides (D) Group offered moral support to one another Patient set the following goals: - not reviewed today [facility] Other 11-15-2023 Evaluation note* Encounter Date Diagnosis Assessment Notes Treatment Notes Treatment Clinical Notes Jul, Type 2 diabetes mellitus with hyperglycemia, without long-term current use of insulin (ICD-10 - E11.65) 1. Reasonably controlled type 2 diabetes 0.6%, struggling with weight management. 2. Initiated to Ozempic per PCP, could consider SGLT2. Mood limiter, interested in treating. CGM cost prohibitive Possible component of steroid-induced hyperglycemia over the months prior to the elevation in hemoglobin A1c. Per discussion does not seem to have been symptomatic with the diabetes triad. She has had consistent significant amount of weight since that time has been eating 1 meal per day, carb conscious. She is interested in continuing lifestyle management for improvements. I discussed that I am not sure if she will get into the 6% range without medication. _insert GLP We could consider GLP-1 RA, metformin, Jardiance all good for secondary benefit. Defers fo now. She has seen Kinjal for Diabetes nutrition surviellance. 3. Patient is alert, oriented and receptive to making changes or counseling. Notes: Seen for an assessment of current glucose pattern, changes in treatment plan, counseling and coordination of care related to diabetes, risks, and benefits of treatment, medications, side effects. Given handouts to reinforce concepts reviewed during counseling, see scanned notes. TOPICS REVIEWED: 1. Time was spent reviewing: a. Basic concepts of diabetes, progressive beta cell , concepts of basal/bolus/corre ctive insulin requirements. b. Nutrition: Concepts of healthy diet, encouraged to decrease saturated fat in diet and increase non-starchy vegetables and fruits in diet. BMI: Pt. needs to select one small change to decrease caloric intake or increase physical activity to help decrease weight. c. Correct treatment of hypoglycemia, carry a glucose source at all times on your person, in vehicles, and at bedside. Can use glucose tablets/4, four ounces of pop or juice equal to 15 G of carbohydrate. Blood glucose should be 100 mg/dl or higher when driving. d. ADA glucose goals for age and medical complexity reviewed e. Patient questions addressed 2. Activity/exercise : Encouraged to start any form of physical activity. Start low level and increase slowly to a minimal goal of 150 minutes/week. Limit activity to what is allowed by other issues such as cardiac, pulmonary or orthopedic restrictions. 3. Standards of care: Reminded to have an annual dilated eye exam, A1C every 3 months, urine testing for microalbumin once/year, check feet daily and report any cuts or sores that do not appear to be healing. 4. Meter: Plan to check blood glucose: Please check blood glucose levels 1-4 times/day. Back to back meals reveal effectiveness of bolus dosing. 5. [facility]. Contact office if any issues or concerns with patterns of hypoglycemia, hyperglycemia, or diabetes medication issues. 6. Prescriptions: None needed 06-09-2023. Jul, Vitamin D deficiency (ICD-10 - E55.9) Vitamin D deficiency suspected. Vitamin D has been noted to have positive impact on mood and energy. We can recheck periodically and make recommendations for long-term supplementation with xhuj-pzn-gjnakjy formulations or prescription grade repletion. Jul, Hyperlipidemia, unspecified hyperlipidemia type (ICD-10 - E78.5) Discussed risks of elevated LDL. Encouraged intake of foods low in saturated fat as well as supplements (skip, fish oil). Discussed LDL contributing to insulin resistance and increase cardiovascular risk factors. Jul, Hypertension, unspecified type (ICD-10 - I10) We discussed that the AHA recommends no more than 2,300 mg a daily as an ideal limit, but no more than 1,500 mg daily for most adults, especially those with HTN. Soduim intake below 1,000 mg per day can further improve blood pressure and heart health. Jul, Dietary counseling and surveillance (ICD-10 - Z71.3) Jul, BMI 45.0-49.9, adult (ICD-10 - Z68.42) Jul, Anxiety and depression (ICD-10 - F41.8) Jul, Other Shelia has been having trouble with her Freestyle letty 2 sensors staying on. She said that she has sweat one or 2 off and had 2 or three of them fail to work after placing them. She was told by Jose Alberto HOYT to try wearing it on her chest but Shelia didn't feel comfortable doing this without assistance. I taught her how to apply the sensor to her chest about 3 inches below her collar bone and she applied skin tac and a grif vice president underwriting. She successfully started the sensor. 30 minutes were spent educating the patient by Odette Ford RN, [facility]. [facility] Other 10-30-2023 History of Present illness Narrative* Brain Hernandez MD - 07/26/2023 8:45 AM EDT History of present: Patient seen evaluation of her right shoulder we took care of her left shoulderabout 2 years ago had to do a revision repair bicep tenodesis she has a lot of arthritis Right shoulder had a rotator cuff repair [address] Wright in [place] she is got some mild sclerotic shoe coverer the tuberosity obviously concern would be for cuff free tear Past medical history: The patient's past medical history, family history, social history and review of systems were documented on the patient's medical intake form. The medical intake form was reviewed and scanned into the electronic medical record for future use. History is otherwise negative except as stated in the history of present illness. Physical exam: General: Alert and oriented to person place and time. No acute distress and breathing comfortably, pleasant and cooperative with examination. Head and neck exam: Head is normocephalic atraumatic. Neck: Supple no visible swelling or deformity. Cardiovascular: Good perfusion to affected extremities without signs or symptoms of chest pain. Lungs no audible wheezing or labored breathing on examination. Abdominal exam: Nondistended nontender Extremities: The right shoulder was inspected and was found to have no obvious deformity. There wastenderness to touch over the lateral edges of the shoulder over the rotator cuff insertion. Active forward flexion 120 degrees, external rotation to 60 degrees, abduction to 50 degrees, and internal rotation to the level of L2. At this time the shoulder is neurovascular tact and neurosensory intact. Motor intact C5-T1. There was no obvious neck pain or radiculopathy noted. There was no gross instability or adhesive capsulitis symptoms. There was no evidence of apprehension or apprehension suppression. Strength was tested in 4 planes with weakness in the supraspinatus strength testing and external rotation position. There was no strength deficit in internal rotation. Impingement signs were positiveboth supine and standing for impingement test type I and II. There was mild pain over the bicipitalgroove with a positive speeds sign Before aspiration injection the benefits of a cortisone injection including infection, local skin irritation, skin atrophy, calcification, continued pain and discomfort, elevated blood sugar, burning, failure to relieve pain, possible late infection were discussed with the patient. Postprocedure discomfort can be alleviated with additional medications, ice, elevation, rest over the first 24 hours as recommended. Patient verbalized understanding and wanted to proceed with the planned procedure. After informed consent was provided and allergies verified, the patient was positioned appropriately on thel bed. The right shoulder to be aspirated and injected was prepped and draped in a sterile fashion. The skin was anesthetized with ethyl chloride spray. A joint aspiration was to be performed an 18-gauge needle was used otherwise a 22-gauge needle was used to inject the appropriate joint. Joint injection was performed with a mixture of 5 cc 1% lidocaine plain and 2 cc Celestone Soluspan6 mg per mL. The needle was removed and the puncture site closed and sealed with a Band-Aid. The patient tolerated the procedure well. Diagnostic studies: Right shoulder x-ray shows a metallic anchor in the proximal humerus slight elevation possibly the humeral head little sclerotic change around the humeral head no fracture dislocation Impression: Right shoulder history of rotator cuff repair now with mild secondary sclerotic shoe coverer the tuberosity possible chronic tendinitis and/or root tear Plan: Cortisone injection therapy exercise conditioning program we will see her back 5 6 weeks if she is doing good she can hold off on treatment if her pain pattern increases obviously arthrogram MRI would be mandatory to evaluate for any integrity of remaining rotator cuff documented in this [facility] Work Phone: [phone]) 300-825010-26-2023 Evaluation note* Encounter Date Diagnosis Assessment Notes Treatment Notes Treatment Clinical Notes Jun, Diabetes (ICD-10 - E11.9) [facility] Other 10-23-2023 Evaluation note* Encounter Date Diagnosis Assessment Notes Treatment Notes Treatment Clinical Notes Jun, Obstructive sleep apnea (adult) (pediatric) (ICD-10 - G47.33) The patient is following with ENT Dr. Yosvany Hayden, last consult was 05/18/23 due to nasal congesion, I did review consult notes stating the patient is not a canidate for surgery. The patient encourged to continue using her BIPAP nightly . Jun, Right foot pain (ICD-10 - M79.671) The patient continues to have right foot pain. The patient states she has consulted with a specialist in [place] who advised amputation due to persistent pain.The patient states she did return to tetryl nitrator operator who recommends a fusion before considering an amputation.The patient complains due to her gait being effected her right knee and hip are not bothersome. Patient encouraged to continue following with as scheduled. I am in agreement the patient continue Ibuprofen but use sparely. Kidney functions were within normal limits upon review of labs collected seven months ago. Jun, Fatty liver (ICD-10 - K76.0) Fatty liver noted upon review of blood work resutls collected 11/2022. 23 Oct, 2023 Diabetes (ICD-10 - E11.9) The patient is following with Анна Rose and Mary Ann Salinas for diabetes and weight loss. The patients last hgb a1c was 6.6 being managed by diet . Lengthy discussion was had regarding the benefical effects of starting a GLP-1 class of medication that could have a good effect with weight loss , her orthopedic issues , cardiovascular health and diabetes.The patient is hesistant in starting this class of medicaiton and having to stay on it for the rest of her life. Educational material reviewed and given to the patient. I would suggest Mounjaro for the patient. Negative and positve side effects reviewed. The patient will consider this and look into her insurance and perfers to follow up Vianney Rose. I did educate the patient on administering the mediation , a demonstraion pen was used for demonstration. Again I advised the patient she could return to the office should decide to start this and that I will be able to provide 6 week sample pen. Jun, Morbid (severe) obesity due to excess calories (ICD-10 - E66.01) The patient is working with competitive shopper Mary Ann Salinas and Анна Rose for weight loss and diabetes. Jun, Body mass index [BMI] 45.0-49.9, adult (ICD-10 - Z68.42) Jun, Hyperlipidemia (ICD-10 - E78.5) Pt is to continue with the above medication and continue watching their diet and increase their exercise regimen. Jun, Fatigue, unspecified type (ICD-10 - R53.83) Blood work ordered . [facility] Other 10-17-2023 Evaluation note* Encounter Date Diagnosis Assessment Notes Treatment Notes Treatment Clinical Notes Jun, Obesity, unspecified classification, unspecified obesity type, unspecified whether serious comorbidity present (ICD-10 - E66.9) Jun, BMI 45.0-49.9, adult (ICD-10 - Z68.42) Jun, Other Summary of Visi t: (A) Group discussion w/ topic of Meal Planning (B) Reviewed 3 Strategies for Meal Planning (C) Meal Planning templates shared (D) Easy meal ideas discussed (E) Group offered moral support to one another Patient set the following goals: - not reviewed today [facility] Other 09-26-2023 Evaluation note* Encounter Date Diagnosis Assessment Notes Treatment Notes Treatment Clinical Notes May, Lumbar pain (ICD9-CM - 724.2) [facility] Other 09-13-2023 Evaluation note* Encounter Date Diagnosis Assessment Notes Treatment Notes Treatment Clinical Notes May, Type 2 diabetes mellitus with hyperglycemia, without long-term current use of insulin (ICD-10 - E11.65) 1. Uncontrolled, a Type 2 diabetes with A1c of 6.6 %, A1 c December 04. at [facility]. [place] reviewed reflecting a.m. fasting less than 150 mg/dL 2. Urine microalbumin creatinine ratio done today, will have dialogue if elevated regarding SGLT2 I versus recheck. Blood pressure and glycemia are under reasonable control today. She is very hesitant toward medication. She has a purposeful 12.2 pound weight loss since last visit. She denies any pertinent personal or family cardiovascular history, has a brother with early CVD but they do not share a father for whom she feels is the culprit of the early CVD . She has had purposeful weight loss and feels that she can continue this. She defers any GLP-1 RA at this time. She is interested in CGM, I will send to local pharmacy to assess for coverage. She is aware that may not be covered secondary to no insulin therapy is the case she will continue management with daily fingersticks.. We will recheck hemoglobin A1c second week of April Possible component of steroid-induced hyperglycemia over the months prior to the elevation in hemoglobin A1c. Per discussion does not seem to have been symptomatic with the diabetes triad. She has had consistent significant amount of weight since that time has been eating 1 meal per day, carb conscious. She is interested in continuing lifestyle management for improvements. I discussed that I am not sure if she will get into the 6% range without medication. We discussed GLP-1 RA. We could consider GLP-1 RA, metformin, Jardiance all good for secondary benefit. Defers fo now. She has seen [facility] for Diabetes nutrition surviellance. 3. Patient is alert, oriented and receptive to making changes or counseling. Notes: Seen for an assessment of current glucose pattern, changes in treatment plan, counseling and coordination of care related to diabetes, risks, and benefits of treatment, medications, side effects. Given handouts to reinforce concepts reviewed during counseling, see scanned notes. TOPICS REVIEWED: 1. Time was spent reviewing: a. Basic concepts of diabetes, progressive beta cell , concepts of basal/bolus/correct alejandro insulin requirements. b. Nutrition: Concepts of healthy diet, encouraged to decrease saturated fat in diet and increase non-starchy vegetables and fruits in diet. BMI: Pt. needs to select one small change to decrease caloric intake or increase physical activity to help decrease weight. c. Correct treatment of hypoglycemia, carry a glucose source at all times on your person, in vehicles, and at bedside. Can use glucose tablets/4, four ounces of pop or juice equal to 15 G of carbohydrate. Blood glucose should be 100 mg/dl or higher when driving. d. ADA glucose goals for age and medical complexity reviewed e. Patient questions addressed 2. Activity/exercise: Encouraged to start any form of physical activity. Start low level and increase slowly to a minimal goal of 150 minutes/week. Limit activity to what is allowed by other issues such as cardiac, pulmonary or orthopedic restrictions. 3. Standards of care: Reminded to have an annual dilated eye exam, A1C every 3 months, urine testing for microalbumin once/year, check feet daily and report any cuts or sores that do not appear to be healing. 4. Meter: Plan to check blood glucose: Please check blood glucose levels 1-4 times/day. Back to back meals reveal effectiveness of bolus dosing. 5. [facility] Contact office if any issues or concerns with patterns of hypoglycemia, hyperglycemia, or diabetes medication issues. 6. Prescriptions: None needed 06-09-2023. May, Vitamin D deficiency (ICD-10 - E55.9) May, Hyperlipidemia, unspecified hyperlipidemia type (ICD-10 - E78.5) May, Hypertension, unspecified type (ICD-10 - I10) May, Dietary counseling and surveillance (ICD-10 - Z71.3) May, BMI 45.0-49.9, adult (ICD-10 - Z68.42) May, Cornelio Bass has been having trouble with her [employer] letty 2 sensors staying on. She said that she has sweat one or 2 off and had 2 or three of them fail to work after placing them. She was told by Jose Alberto HOYT to try wearing it on her chest but Sheila didn't feel comfortable doing this without assistance. I taught her how to apply the sensor to her chest about 3 inches below her collar bone and she applied skin tac and a grif vice president underwriting. She successfully started the sensor. 30 minutes were spent educating the patient by Odette Ford RN, [facility]. [facility] Other 09-05-2023 Evaluation note* Encounter Date Diagnosis Assessment Notes Treatment Notes Treatment Clinical Notes May, Obesity (ICD-10 - E66.9) May, BMI 39.0-39.9,adult (ICD-10 - Z68.39) May, Other Summary of Visi t: (A) reviewed plate method and easy snack ideas (B) meal timing to better manage dm and appetite (C) small goal setting to build momentum (D) emotional eating / hunger /satiety cues (E) better choices when dining out Patient set the following goals: - increase fruit and veggie intake- PARTIALLY MET, CONTINUE - practice eating 1 meal and 1-2 snacks/day; PARTIALLY MET, CONTINUE NEW: eat at home at least 3 days a week [facility] Other 08-22-2023 NoteHNO ID: [id number] Author: Yosvany Hayden MD Service: ? Author Type: Physician Type: Progress Notes Filed: 05/18/2023 10:05 AM Note Text: This note is formatted with the impression and plan first and the history and physical to follow. IMPRESSION 1. Obstructive sleep apnea 2. Obesity RECOMMENDATION/PLAN The patient has a history of obstructive sleep apnea and she is using BiPAP. She notes that originally she had hypoxia even while on BiPAP but that seems to have resolved. The patient is wondering whether she would benefit from surgery. After examining the patient and given her daily BiPAP use, I would not recommend surgical intervention at this time. I recommended that she continue her weight loss journey as this will help her with oxygenation and help decrease the severity of her obstructive sleep apnea. I encouraged her to use her BiPAP on a daily basis. I will see her back as needed Chief Complaint Obstructive sleep apnea History of Present Illness Shelia Junior is a 57 year old woman who has been diagnosed in the distant past with obstructive sleep apnea. The patient originally tried using CPAP but had difficulties with it and abandoned its use. Years later she returned to revisit her obstructive sleep apnea. She was tested and subsequently given a BiPAP machine. The patient is using her BiPAP machine on a regular basis. She notes that during the testing and therapy her lowest oxygen saturation was 48%. The patient notes that a subsequent pulse oximetry did not show hypoxia. The patient is here today to see if she is a candidate for surgical intervention. History reviewed. No pertinent past medical history. History reviewed. No pertinent surgical history. History reviewed. No pertinent family history. CURRENT OUTPATIENT MEDICATIONS Current Outpatient Medications on File Prior to Visit Medication Sig PREDNISONE ORAL Take by mouth. No current facility-administered medications on file prior to visit. ALLERGIES ALLERGIES Allergen Reactions Sulfa (Sulfonamide * questionable PHYSICAL EXAMINATION Appearance: General examination of the patient's external face, head and neck reveals no abnormalities. The patient is not retrognathic The patient's voice is strong and clear and they communicate easily. Ears: Exam of the ears revealed normal appearing external auditory canals, tympanic membranes, and middle ears. No signs of infection or fluid were seen. Nose: Anterior rhinoscopy revealed a left deviated septum. The turbinates were mildly congested. The mucosa was pink and moist without signs of infection. The airway was reduced. Throat: There were no lesions to visualization or palpation of the lips, cheeks, gums, floor of mouth, tongue, hard and soft palate, tonsillar pillars or posterior pharyngeal wall. The patient is a Rolle Tongue Position 3 and has grade 1 tonsils. Neck: Palpation of the neck revealed no adenopathy, salivary gland masses or asymmetry, or thyroid masses or enlargement. Yosvany Hayden [facility]08-22-2023 History of Present illness Narrative* Yosvany Hayden MD - 05/18/2023 10:01 AM EDT This note is formatted with the impression and plan first and the history and physical to follow. IMPRESSION 1. Obstructive sleep apnea 2. Obesity RECOMMENDATION/PLAN The patient has a history of obstructive sleep apnea and she is using BiPAP. She notes that originally she had hypoxia even while on BiPAP but that seems to have resolved. The patient is wondering whether she would benefit from surgery. After examining the patient and given her daily BiPAP use, I would not recommend surgical intervention at this time. I recommended that she continue her weight loss journey as this will help her with oxygenation and help decrease the severity of her obstructive sleep apnea. I encouraged her to use her BiPAP on a daily basis. I will see her back as needed Chief Complaint Obstructive sleep apnea History of Present Illness Shelia Junior is a 57 year old woman who has been diagnosed in the distant past with obstructive sleep apnea. The patient originally tried using CPAP but had difficulties with it and abandoned its use. Years later she returned to revisit her obstructive sleep apnea. She was tested and subsequentlygiven a BiPAP machine. The patient is using her BiPAP machine on a regular basis. She notes that during the testing and therapy her lowest oxygen saturation was 48%. The patient notes that a subsequent pulse oximetry did not show hypoxia. The patient is here today to see if she is a candidate for surgical intervention. History reviewed. No pertinent past medical history. History reviewed. No pertinent surgical history. History reviewed. No pertinent family history. CURRENT OUTPATIENT MEDICATIONS Current Outpatient Medications on File Prior to Visit Medication Sig PREDNISONE ORAL Take by mouth. No current facility-administered medications on file prior to visit. ALLERGIES ALLERGIES Allergen Reactions Sulfa (Sulfonamide * questionable PHYSICAL EXAMINATION Appearance: General examination of the patient's external face, head and neck reveals no abnormalities. The patient is not retrognathic The patient's voice is strong and clear and they communicate easily. Ears: Exam of the ears revealed normal appearing external auditory canals, tympanic membranes, and middle ears. No signs of infection or fluid were seen. Nose: Anterior rhinoscopy revealed a left deviated septum. The turbinates were mildly congested. The mucosa was pink and moist without signs of infection. The airway was reduced. Throat: There were no lesions to visualization or palpation of the lips, cheeks, gums, floor of mouth, tongue, hard and soft palate, tonsillar pillars or posterior pharyngeal wall. The patient is a Rolle Tongue Position 3 and has grade 1 tonsils. Neck: Palpation of the neck revealed no adenopathy, salivary gland masses or asymmetry, or thyroid masses or enlargement. Yosvany Hyaden MD [facility]* Cristina Funes Ma - 05/18/2023 9:20 AM EDT Tobacco Use: Never Was smoking cessation packet given? N/A - Patient is a non-smoker or quit >1 year ago. Was a referral initiated?N/A Patient is a non-smoker [facility]* Encounter Date Diagnosis Assessment Notes Treatment Notes Treatment Clinical Notes Mar, Other Summary of Visi t: (A) reviewed plate method and easy meal ideas (B) discussed motivators and how to find interest in cooking, health Patient set the following goals: - increase fruit and veggie intake- PARTIALLY MET, CONTINUE - practice eating 1 meal and 1-2 snacks/day; PARTIALLY MET, CONTINUE [facility] Other 07-18-2023 Evaluation note* Encounter Date Diagnosis Assessment Notes Treatment Notes Treatment Clinical Notes Mar, Obstructive sleep apnea (adult) (pediatric) (ICD-10 - G47.33) Mar, Morbid obesity with body mass index (BMI) of 40.0 to 49.9 (ICD-10 - E66.01) Mar, Type 2 diabetes mellitus with hyperglycemia, without long-term current use of insulin (ICD-10 - E11.65) Mar, Hypertension, unspecified type (ICD-10 - I10) [facility] Other 07-07-2023 Evaluation note* Encounter Date Diagnosis Assessment Notes Treatment Notes Treatment Clinical Notes Mar, 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 Westbrook and was encouraged to continue with his plan of treatment and physical/aquatic therapy. Mar, Type 2 diabetes mellitus with hyperglycemia, without long-term current use of insulin (ICD-10 - E11.65) Patient has been following with Vianney Rose for diabetes management. She has improved her hgb a1c on her own with diet and exercise from 10.1 to most recently being 7.4. I did tell her how pleased I am to see this as well as her weight loss as well. She was strongly encouraged to continue with her efforts and follow with Vianney Rose as scheduled. Mar, TOSHA (obstructive sleep apnea) (ICD-10 - G47.33) Patient did have a sleep study done that revealed significant TOSHA. She is having a hard time with her Bipap machine therefore was encouraged to continue to work with karley to get this resolved. I did also agree to refer to ENT due to her feeling as if her throat closes while laying down at night. Referral initiated to Dr. Boykin, she stated if she has issues with getting in to see him, she would like to get established with someone at the . Mar, Lumbar back pain (ICD-10 - M54.50) Patient has had pain in her right lumbar back for a little while now. Toradol injections have done well for her in the past therefore this was offered and administered today. Mar, Cardiac arrhythmia (ICD-10 - I49.9) Upon auscultation, I did appreciate a couple skipped beats during the physical exam today. She did have an EKG 11/2022 and denies any chest pains or palpitations noted. Encouraged her to call the office or proceed to the ER with any concerns. [facility] Other 06-21-2023 Evaluation note* Encounter Date Diagnosis Assessment Notes Treatment Notes Treatment Clinical Notes Feb, Type 2 diabetes mellitus with hyperglycemia, without long-term current use of insulin (ICD-10 - E11.65) Pt here for appointment today, for Letty 2 application. Letty training discussed, instructed on use and application on pt's personal phone. Patient cleansed posterior side of left upper arm with alcohol then Skin Tac, applied first letty 2 sensor. GrifGrip adhesive also applied for extra security. Reviewed with patient testing glucose with Letty ac, hs explained how to enter insulin dosing/blood glucose/notes into Letty reader. Reviewed with patient no more than 500mg of Vitamin C per day, which can falsely elevate CGM glucose results. Need for confirmatory glucose fingerstick if not feeling well or if prompted to. Encouraged patient to check glucose 4xday, before meals and to fingerstick when not wearing CGM. All questions and concerns addressed. Instructed patient to return for scheduled follow up appointment. 45 minutes was spent on education by Ofelia ODONNELL, EVELINA [facility] Other 05-01-2023 Evaluation note* Encounter Date Diagnosis Assessment Notes Treatment Notes Treatment Clinical Notes January, Type 2 diabetes mellitus with hyperglycemia, without long-term current use of insulin (ICD-10 - E11.65) 1. Uncontrolled, a Type 2 diabetes with A1c of 7.4 %, A1 c December 04.1 at [facility]. 2. Blood glucose levels significantly improved, [facility] to find A1c is in the 7.2/7.4% range in December and April of last year. Possible component of steroid-induced hyperglycemia over the months prior to the elevation in hemoglobin A1c. Per discussion does not seem to have been symptomatic with the diabetes triad. She has lost significant amount of weight since that time has been eating 1 meal per day, carb conscious. She is interested in continuing lifestyle management for improvements. I discussed that I am not sure if she will get into the 6% range without medication. We discussed GLP-1 RA. She does have some hoarseness that she has had subsequent to her last surgery, she feels this was related to intubations but she is seeking clarity from ENT. We will consider GLP-1 RA, metformin, Jardiance all good for secondary benefit. She is very hesitant toward medications. I have requested that she check her blood sugars 1-2 times per day, reporting any significant escalations. She will return to clinic in 6 weeks to evaluate those blood sugars, discussed progression with her evaluations and provide further discussion on weight management as this is a tool for diabetes management. She is very interested in seeing diabetes dietitian and we will refer her to them 3. Patient is alert, oriented and receptive to making changes or counseling. Notes: Seen for an assessment of current glucose pattern, changes in treatment plan, counseling and coordination of care related to diabetes, risks, and benefits of treatment, medications, side effects. Given handouts to reinforce concepts reviewed during counseling, see scanned notes. TOPICS REVIEWED: 1. Time was spent reviewing: a. Basic concepts of diabetes, progressive beta cell , concepts of basal/bolus/correctiv e insulin requirements. b. Nutrition: Concepts of healthy diet, encouraged to decrease saturated fat in diet and increase non-starchy vegetables and fruits in diet. BMI: Pt. needs to select one small change to decrease caloric intake or increase physical activity to help decrease weight. c. Correct treatment of hypoglycemia, carry a glucose source at all times on your person, in vehicles, and at bedside. Can use glucose tablets/4, four ounces of pop or juice equal to 15 G of carbohydrate. Blood glucose should be 100 mg/dl or higher when driving. d. ADA glucose goals for age and medical complexity reviewed e. Patient questions addressed 2. Activity/exercise: Encouraged to start any form of physical activity. Start low level and increase slowly to a minimal goal of 150 minutes/week. Limit activity to what is allowed by other issues such as cardiac, pulmonary or orthopedic restrictions. 3. Standards of care: Reminded to have an annual dilated eye exam, A1C every 3 months, urine testing for microalbumin once/year, check feet daily and report any cuts or sores that do not appear to be healing. 4. Meter: Plan to check blood glucose: Please check blood glucose levels 1-4 times/day. Back to back meals reveal effectiveness of bolus dosing. 5. [facility]. Contact office if any issues or concerns with patterns of hypoglycemia, hyperglycemia, or diabetes medication issues. 6. Prescriptions: New patient uses [facility] 01-25-2023. NEEDS MORE GLUCOMETER SUPPLIES, increase to 3x per day January, Vitamin D deficiency (ICD-10 - E55.9) January, Hyperlipidemia, unspecified hyperlipidemia type (ICD-10 - E78.5) January, Hypertension, unspecified type (ICD-10 - I10) January, Dietary counseling and surveillance (ICD-10 - Z71.3) January, BMI 45.0-49.9, adult (ICD-10 - Z68.42) [facility] Other 03-21-2023 Evaluation note* Encounter Date Diagnosis Assessment Notes Treatment Notes Treatment Clinical Notes Nov, Other spondylosis with radiculopathy, lumbar region (ICD-10 - M47.26) Nov, Other chronic pain (ICD-10 - G89.29) We discussed treatment options for the patient's persistent right foot/ankle pain. We reviewed images in detail with the patient. We discussed her symptomsare most likely from the ankle and not the lumbar spine. Patient was strongly encouraged to continue following with podiatry in regards to this pain. In the future if the pain persists, should her radicular leg pain symptoms become more severe we can consider repeat transforaminal epidural injections. In the meantime she will continue with Tylenol as needed for pain. Anatomy of spine discussed in detail with patient in regard to patients condition. We will follow up with her on an as needed basis. Nov, Right foot pain (ICD-10 - M79.671) Nov, Other Above note writ ten by Carolyn Olivarez LPN, [employer]. Edited and approved by Dr. Marty Burgos MD. [facility] Other 02-20-2023 Evaluation note* Encounter Date Diagnosis Assessment Notes Treatment Notes Treatment Clinical Notes Oct, Hyperlipidemia, unspecified hyperlipidemia type (ICD-10 - E78.5) Oct, Diabetes (ICD-10 - E11.9) [facility] Other 12-08-2022 Evaluation note* Encounter Date Diagnosis Assessment Notes Treatment Notes Treatment Clinical Notes Aug, Right foot pain (ICD-10 - M79.671) Aug, Other spondylosis with radiculopathy, lumbar region (ICD-10 - M47.26) Patients primary complaint today continues to be radiating pain into her right ankle. Unfortunately, recent right lumbar transforaminal only provided significant benefit temporarily. Given her failure of conservative treatment, as well as progressing symptoms, I will order an updated MRI of her lumbar spine for further evaluation to better determine if this a contributing factor to her pain symptoms. We can consider further treatment pending the results. We will follow up with the patient once we recieve her MRI results. Anatomy of spine discussed in detail with patient in regards to patients condition. Aug, Other chronic pain (ICD-10 - G89.29) Aug, Other Above note writ ten by Javier Barragan MA, [employer]. Edited and approved by Dr. Marty Burgos MD. We will continue to monitor her symptoms in this region. [facility] Other 11-08-2022 Evaluation note* Encounter Date Diagnosis Assessment Notes Treatment Notes Treatment Clinical Notes Jul, Other low back pain (ICD-10 - M54.59) Jul, Other spondylosis with radiculopathy, lumbar region (ICD-10 - M47.26) We discussed treatment options for the patient's persistent lumbar pain radiating into the anterior aspect of her right lower extremity, extending past her knee into her foot. Previous MRI results show evidence of stenosis and neural foraminal narrowing at L2-L3, L3-L4, and L4-L5, it was explained how this may relate to her symptoms. Given MRI results, as well as location of pain and exam findings, patient is a candidate for a right lumbar transforaminal epidural steroid injection under fluoroscopic guidance, which we will proceed with at L4,5. Risks and benefits of procedure explained to patient; patient verbalizes understanding. Anatomy of spine discussed in detail with patient in regard to patients condition. Jul, Trochanteric bursitis of right hip (ICD-10 - M70.61) We will continue to monitor her symptoms in this region. Jul, Other chronic pain (ICD-10 - G89.29) Jul, Right foot pain (ICD-10 - M79.671) Jul, Other Above note writ ten by Carolyn Olivarez LPN, [employer]. Edited and approved by Dr. Marty Burgos MD. [facility] Other 08-31-2022 Evaluation note* Encounter Date Diagnosis Assessment Notes Treatment Notes Treatment Clinical Notes Apr, Right acute otitis media (ICD-10 - H66.91) [facility] Other 08-30-2022 Evaluation note* Encounter Date Diagnosis Assessment Notes Treatment Notes Treatment Clinical Notes Apr, Contact with and (suspected) exposure to covid-19 (ICD-10 - Z20.822) Apr, Right acute otitis media (ICD-10 - H66.91) Ear infections are often a secondary infection caused from an URI, the flu or allergies. Take medication as directed. Complete all doses, even if you feel better. Tylenol or ibuprofen can help with pain. Warm pack to area for comfort helps as well. Follow up with primary care provider if no improvement of symptoms. Apr, COVID-19 (ICD-10 - U07.1) Today you tested positive for the COVID virus. This mean you need to follow all [facility] quarantine guidelines found at [email or web address]. It is important to rest, increase fluids, and stay at home. Recommend contacting primary care provider and discussing best course of action if you have chronic health conditions. COVID POSITIVE education handout discharge instructions. given. [facility] Other 07-07-2022 Evaluation note* Encounter Date Diagnosis Assessment Notes Treatment Notes Treatment Clinical Notes Mar, Right ankle pain (ICD-10 - M25.571) Patient had a second opinion with Dr. 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 She was prescribed celebrex but has not started taking yet. Patient is currently going to PT twice a week. Mar, Vaginal bleeding (ICD-10 - N93.9) Patient had a recent D&C with Dr. Huang. Advised patient to follow up as scheduled. Patients does have a family history of endometrial cancer. Mar, Trochanteric bursitis of right hip (ICD-10 - M70.61) Patient had recent injections with Dr. Burgos with improvement. Mar, Lumbar degenerative disc disease (ICD-10 - M51.36) Patient had recent injections with Dr. Burgos with improvement. [facility] Other 06-23-2022 NoteOPERATIVE NOTE OPERATION DATE: 03/19/2022 PROCEDURE: D AND C hysteroscopy with Myosure. PREOPERATIVE DIAGNOSIS: Thickened endometrium, postmenopausal bleeding. POSTOPERATIVE DIAGNOSIS: Thickened endometrium, postmenopausal bleeding. ANESTHESIA: General. SURGEON: Malcom Huang D.O. HEALTH AND SAFETY INSTRUCTOR: None. FINDINGS: Normal appearing uterus. No gross evidence of polyp, fibroids or malignancy. SPECIMEN: Endometrial curettings. PROCEDURE: The patient was taken back to the Operating Room where she was prepped and draped in normal sterile fashion after being placed under general anesthesia without difficulty. She was also placed in the dorsal lithotomy position. A weighted speculum was placed in the patient's vagina. The anterior lip of the cervix was identified and grasped with a single tooth tenaculum. The patient's uterus was then sounded roughly to 9 cm. The patient was then gently dilated using Hegar dilators. The hysteroscope was passed through the patient's cervix into the uterus. Both ostia were identified. Slightly thickened appearing endometrium. No gross evidence of malignancy. Please note that the MyoSure apparatus was placed through the hysteroscope under direct visualization. The apparatus was engaged and endometrial curettings were removed under direct visualization. The MyoSure was then removed from the scope. The hysteroscope was then removed from the patient's uterus. The endometrial curettings were sent out to pathology. The single tooth tenaculum was then removed from the patient's anterior lip of the cervix where excellent hemostasis was noted. All instruments were removed from the patient's vagina. The patient tolerated the procedure well. Sponge, lap and needle counts were correct times two. The patient was taken to the Recovery Room in stable condition. [facility] Signed and Approved by: DR MALCOM HUANG . 03/22/2022 10:46:00[facility]06-15-2022 Miscellaneous Notes* Telephone Encounter - JOEL Dunn - 03/11/2022 4:05 PM EDT Called the patient and informed them that the order was faxed to [facility] as requested. * Telephone Encounter - Meredith Renee - 03/11/2022 2:58 PM EDT Patient is calling to ask if you can send the script for PT over to [facility] physcial therapy [facility]. The telephone number for them is [phone]. Pt was hoping to get something sooner than 04/10. Please advise at [phone] [facility] History of Present illness Narrative* Judy Benson RT(R) - 03/11/2022 9:57 AM EDT Radiology Service Progress Note PATIENT NAME: Shelia Junior DATE OF SERVICE: March 11, 2022 TIME: 9:57 AM PATIENT IDENTITY VERIFICATION COMPLETED USING TWO (2) IDENTIFIERS: Name and Date of confirmedby patient verbally. FALL SCREENING: Has the patient had 2 falls in the last year or 1 fall with injury or currently using an Ambulatory Assistive Device (Walker, Cane, Wheelchair, Crutches, etc.)? No PATIENT GENDER DATA: Female. status: : No status: NO. PATIENT RELEVANT IMPLANT DATA REVIEWED: Not Applicable RADIOLOGY DEPARTMENT: General X-ray: Exam(s) Completed: Lower Extremity X- Ray(s): Ankle, Right and Wt. Bearing and Foot, Right and Wt. Bearing PERIPHERAL IV DATA: Not applicable SIGNED BY: RT Jennifer(R), RT Kaitlyn March 11, 2022 9:57 AM documented in this encounterAccess [facility]06-15-[facility]22 History of Present illness Narrative* Julien Dominguez DPM - 03/11/2022 9:52 AM EDT Patient Visit for Shelia Junior 1965 56 year old female SUBJECTIVE: Chief Complaint: Patient presents with: Right Foot - Pain, New Right Ankle - Pain, New Pain Scales: Verbal (Numeric Rating or Visual Analog Scale) Pain Level: 7 Pain Location: Foot-Right Description: Burning, Aching Duration Units: Years Frequency: Intermittent Intervention/Comfort measure: Relaxation Comments: She is here for pain in her right foot. Previously had surgery in Jun 2019. Pain increases with walking and standing. Additional HPI: Very complicated history of RIGHT ankle pain Per patient: Previous records are unavailable for review previous MRI consistent with AVN (Avalscular Necrosis) , patient went on to a total talus replacement Dr. Tony Westbrook, DPM 2018 Continued pain She has seen multiple physicians for RIGHT ANKLE Dr. Marcelino Gomez recommended recommended tarsal tunnel syndrome surgery Electromyography (EMG) ,however, without evidence of tarsal tunnel syndrome Suggestive of spine disease ,however, opinions from spine surgeons have ranged from operative to non operative care for spine Dr. Lopez - ordered MRI posterior total talus July MRI reviewed - difficult to assess due to artifact changes Radiology report MRI reviewed from April consistent with possible bone bruising.. without articular surface or cortical disruption or flattening Additional Modifying factor: What makes better / worse: Symptoms worse with activity Difficulty walking due to medial RIGHT ANKLE pain PCP: Lamont Villarreal DO No past medical history on file. Current Outpatient Medications Medication Sig PREDNISONE ORAL Take by mouth. No current facility-administered medications for this visit. ALLERGIES Allergen Reactions Sulfa (Sulfonamide * questionable No past surgical history on file. No family history on file. Social History Tobacco Use Smoking status: Not on file Smokeless tobacco: Not on file Substance Use Topics Alcohol use: Not on file Drug use: Not on file Tobacco Use: Not on file REVIEW OF SYSTEMS: The remainder of the ROS was reviewed with the patient and is negative except as noted. GENERAL: denies fever or chills CARDIOVASCULAR: Denies current chest pain or SOB (shortness of breath) OBJECTIVE: General: Pleasant in no acute distress Lower extremity exam: Vascular exam: Normal vascular exam, palpable pluses with brisk capillary fill Neurological exam: Normal neurological exam, gross epicritic sensation intact No evidence of tarsal tunnel syndrome Dermatological exam: Normal exam without rashes or lesions of skin. No evidence of evidence of petechiae, purpura, telangiectasia Well healed scars from previous surgery - anterior ankle and Gastrocnemius recession Musculoskeletal exam: RIGHT ANKLE Dorsiflexion 10+ degrees Plantar flexion 5 degrees No obvious pain with ankle ROM (Range of Motion) No anterior joint line pain ankle or effusion Loss of motion RIGHT talo calcaneal joint Mild tenderness to palpation sinus tarsi Limited mid tarsal joint ROM (Range of Motion) No tenderness to palpation medial or lateral gutter ankle Majority of tenderness to palpation along the course of Posterior tibial tendon with mild to moderate edema and effusion Gross overall Manual muscle strength evaluation relatively intact Arch maintained with weight bearing LABS: Most recent labs reviewed LABORATORY STUDIES: No results for input(s): HB, WBC, PLT, WSR, CRP, CCPABG, RF, INR, CREATININE, ALB, PROT, URICACID, HBA1C, VITD25 in the last 17764 hours. X-ray total metallic talus RIGHT without subsidence or significant findings Posterior and plantar heel spurs ASSESSMENT: M76.821 Posterior tibial tendinitis of right lower extremity (primary encounter diagnosis) M79.671 Right foot pain M25.571, G89.29 Chronic pain of right ankle Z96.661 History of total ankle replacement, right PLAN: Explained to the patient etiology and treatment plan. Treatment options discussed at length Compressogrip Latex free compression stocking Readjusted her A.S.O. (Ankle Stabilizing Orthosis) ankle brace Reviewed a gauntlet AFO (Ankle Foot Orthosis) from Dr. Lopez - not helpful in improving symptoms She has had some relief with CAM walker boot OK to use prn I discussed with the patient alternative custom ankle foot orthosis (AFO) - possibly with hinge To allow ankle dorsiflexion yet protect medial ankle symptoms We scheduled for physical therapy for medically necessary rehabilitation. Patient to call if any problems or concerns arise. All questions answered with regard to the plan to participate in Physical Therapy. We will coordinate and manage care in conjunction with physical therapy. rx Mobic (meloxicam) 15mg daily Side effects of medication discussed, warned of risks Discontinue ibuprofen All questions were answered. Shelia Junior appeared to be well informed. Greater than 50% of the visit was spent face to face counseling and/or coordinating care for the patient. Julien Dominguez DPM documented in this encounterAccess Hospital [facility]05-24-2022 Evaluation note* Encounter Date Diagnosis Assessment Notes Treatment Notes Treatment Clinical Notes January, Trochanteric bursitis of right hip (ICD-10 - M70.61) Patient is voicing minimal complaints of right hip pain at this time. She attributes this to a recent right trochanteric bursa injection. We will continue to monitor her symptoms in this region. Anatomy of spine discussed in detail with patient in regard to patients condition. Overall, patient believes their pain is reasonably well controlled, and she is in agreement with our treatment plan. January, Other low back pain (ICD-10 - M54.59) Patient is voicing minimal complaints of low back pain at this time. She attributes this to a recent right sacroiliac joint pain. We will continue to monitor her symptoms in this region. Anatomy of spine discussed in detail with patient in regard to patients condition. Overall, patient believes their pain is reasonably well controlled, and she is in agreement with our treatment plan. January, Other chronic pain (ICD-10 - G89.29) January, Right foot pain (ICD-10 - M79.671) EMG shows mild right L5 radiculopathy, lumbar MRI with some evidence of foraminal stenosis. It was discussed how this may coorelate with her pain symptoms, a diagnostic/therapeu tic right L5 transforaminal epidural was also discussed, however in my opinion her symptoms at this time appear to be more related to her foot. Patient was highly encouraged to follow up with podiatry. We will consider the above in the future. January, Other Above note writ ten by Carolyn Olivarez LPN, Robotic Welder. Edited and approved by Dr. Marty Burgos MD. [facility] [employer] Other 05-03-2022 Evaluation note* Encounter Date Diagnosis Assessment Notes Treatment Notes Treatment Clinical Notes January, Trochanteric bursitis of right hip (ICD-10 - M70.61) Patient is also volcalizing complaints of pain over the outide of the hip. She shows noteable tenderness over the trochanteric bursa upon exam. Based on location of pain and exam findings, patient is a candidate for a right trochanteric bursa injection which we will proceed with. Risks and benefits of procedure explained to patient; patient verbalizes understanding. January, Other low back pain (ICD-10 - M54.59) Patient has multiple pain complaints, we discussed trying to address her symptoms focally, one region at time which would also hopefully provide diagnostic value with primary complaint today appears to be right sided low lumbar and gluteal pain, consistent with the sacroiliac region upon exam. Based on location of pain and exam findings, patient is a candidate for a right sacroiliac joint injection which we will proceed with. Risks and benefits of procedure explained to patient; patient verbalizes understanding. Anatomy of spine discussed in detail with patient in regards to patients condition. January, Other chronic pain (ICD-10 - G89.29) January, Right foot pain (ICD-10 - M79.671) Patient was encouraged to follow up with podiatry. January, Other Above note writ ten by Javier Barragan CMA, Robotic Welder. Edited and approved by Dr. Marty Burgos MD [facility] Other 05-02-2022 Evaluation note* Encounter Date Diagnosis Assessment Notes Treatment Notes Treatment Clinical Notes January, Right foot pain (ICD-10 - M79.671) The patient continues to have pain in the right foot pain , feels worse then it ever has , pain is starting to impede her daily living activities and has gained a signifcant amount of weight as she is ot able to be active due to pain. The patient is undecided on how to proceed . I am in agreement she go forward with scheduled pain management 01/27/22 with in regards to a third opinion. January, Right hip pain (ICD-10 - M25.551) As above I recommend the patient keep pain mangement appointment tomorrow for Dr. Antunez opinion if hip/back pain could be secondary to the right foot and abnormal gait. January, Other chronic pain (ICD-10 - G89.29) Pt is to continue with the above medication, a refill was provided and we will continue to monitor. January, Knee pain, right (ICD-10 - M25.561) January, Lumbar back pain (ICD-10 - M54.50) see foot pain clinical notes January, Anxiety and depression (ICD-10 - F41.8) I am in agreement the patient stop the above medications as she feels she is doing well without the medication . Per patient she knows she will have some days she will feel depressed due to her chronic pain but is able to get through it on her own. We did discuss Good Rx options if she feels she needs to restart these a later date. The patient voices understanding. January, Hyperlipidemia (ICD-10 - E78.5) Blood work results reviewed with the patient today. Encouraged to watch diet and increase exercise regimen; we will continue to monitor. [facility] Other 04-26-2022 Evaluation note* Encounter Date Diagnosis Assessment Notes Treatment Notes Treatment Clinical Notes Dec, Hyperlipidemia (ICD-10 - E78.5) Dec, Hyperglycemia (ICD-1 0 - R73.9) [facility] Other 01-03-2022 Evaluation note* Encounter Date Diagnosis Assessment Notes Treatment Notes Treatment Clinical Notes Sep, Anxiety and depression (ICD-10 - F41.8) [facility] Other 11-10-2021 Evaluation note* Encounter Date Diagnosis Assessment Notes Treatment Notes Treatment Clinical Notes Jul, Anxiety and depression (ICD-10 - F41.8) Patient continues to cedeno anxiety and depression. The above medications do seem to help. Patient is filing for full disability. Jul, Rash (ICD-10 - R21) Patient has a rash in the chest area. Denie any new products. This does itch and irritating but is improving. Patient is to get OTC Betamethasone Jul, Right hip pain (ICD-10 - M25.551) Patient complains of right hip pain that extends in to the leg. She is doing physical therapy in which they state her muscles are very tight. The therapist believes this is due to being guarded with her foot. Patient is to continue with physical therapy [facility] Other 10-25-2021 Evaluation note* Encounter Date Diagnosis Assessment Notes Treatment Notes Treatment Clinical Notes Jun, Cough (ICD-10 - R05.9) In house Covid test was negative. Antibiotic was prescribed through TE this morning. [facility] Other 06-01-2021 History of Present illness NarrativePatient here for followup revision rotator cuff massive repair 02/25/2021. She has made good strideand progress with motion, push/pull, lifting. She still has some anterior pain, pain over the coracoid and pain over the bicipital groove. Again, this was a revision massive surgery. She is five months out. She is doing therapy[facility] [place] Work Phone: 1(274) 457-589506-01-2021 History of Present illness NarrativePatient here for followup left shoulder rotator cuff revision repair back in February 2021. We did a revision repair [employer], reattached the tendon. She has had some shoulder pain and discomfort and it has gone on to heal. She had a follow up MRI at [facility] that showed that the tendon is intact and healed to bone. There is some muscle atrophy that is chronic and may take a while to recovery.-[facility] Work Phone: [phone]) 670-640606-01-2021 NotePost Operative Note: PreOp Diagnosis: Left shoulder recurrent rotator cuff tear Post-Procedure Diagnosis: Left shoulder recurrent rotator cuff tear, long head bicep tendon tear, labral tear Procedure: 1. Left shoulder arthroscopic extensive debridement of labrum bicep stump and bicep base and bicep tendon remnant 2. Left shoulder arthroscopic revision rotator cuff repair 3. 4. 5. Surgeon: Brain Hernandez M.D. Resident/Fellow/Other Healthcare Science Specialist: Brain Fairchild PA-C Anesthesia: General with a scalene block Estimated Blood Loss (mL): none Specimen: no Findings: Left shoulder recurrent rotator cuff tear and complete long head bicep tear with labral tear and bicep tendon stump in the joint Additional Details: Enoch Fairchild physician clinic office assistant (PAC) was required and present throughout the entire case. Given the nature of the disease process and the procedure, a skilled surgical brace maker was necessary during the entire case. The clinic office assistant was necessary to hold retractors and manipulate extremity during the procedure. A art therapy certified supervisor was also present at the back table managing instruments with supplies for the surgical case Operative Report Dictated: Dictation: not applicable - note contains Operative Report Note Recipients: Brain Hernandez MD - [phone] [Preferred] Operative Report: Risk and benefits of surgery discussed extensively with the patient. Surgical risk included but were not limited to infection, wear, need for further surgery blood clot, failure to heal, failure of the surgery, stiffness, loss of limb life, extremity function change in length change, and associated risks of surgery during the coronavirus epidemic. Patient was brought operating 5 8 [facility]. Induction of anesthesia. Placed in the lateral position. Arm had full motion with no gross instability. Routine prep and drape the arm was placed in traction and standard portals were established from posterior to anterior with the aid of a switching stick anteriorly. We sequentially examined and evaluated the intra-articular joint. The humeral head glenoid was intact it was photodocumentation. The long head bicep tendon had completely ruptured. There was a tendon stump approximately 2-1/2 cm left in the joint. This also included the base of the labrum and the anterior labrum which was frayed and torn. An extensive debridement of the anterior labrum labrum base the bicep base and the bicep tendon itself including removal of around 2 to 2-1/2 cm of tendon that was wedged in the joint space was completed. The posterior labrum was relatively intact and the inferior capsular labrum was intact the axillary pouch was open. There were no loose bodies. After this extensive debridement of the labral rim circumferentially it was anteriorly was obviously diminutive and smaller but it was judged to be stable. We could see the site of the prior rotator cuff tear with a recurrent tear just at the insertion site around the old sutures. This was marked percutaneously with a long spinal needle and with the aid of a worker suture we will placed a blue Prolene suture through the needle so that we could identify it from the subbursal space. The patient was repositioned and the cannula was then reinserted in the subbursal space. We easily identified the full-thickness tear and the marker suture was removed. A prior decompression had been performed so no subacromial decompression was needed. Once we removed enough soft tissue we could fully visualize the recurrent rotator cuff tear we removed 2 or 3 of the old prior sutures. It was photodocumentation and judged to be about 10 x 10 mm as described on the MRI. Once we freshened and cleaned the edges of the tendon and freshened the bone over the greater tuberosity percutaneously a 5.5 bio composite corkscrew anchor was placed in good bone with excellent purchase. This anchor contained 2 #2 fiber tapes. The fiber tapes were placed in a complex fashion around the leading edge of the rotator cuff tear and then arthroscopically tied securing and reattaching the rotator cuff to the greater tuberosity. Photodocumentation was completed the subbursal space was drained. The portal sites were closed. A compressive dressing was applied. The patient was placed in a sling and anesthesia was reversed and taken to recovery Signature/Cosignature/Attestation: Note Completion: Attending AttestationI was present for the entire procedure Electronic Signatures: Brain Hernandez) (Signed 25-Feb-2021 09:10) Authored: Post Operative Note, Note Completion Last Updated: 25-Feb-2021 09:10 by Brain Hernandez)[facility] 02-25-2021 NoteHistory & Physical Reviewed: /Lactating: Are You no Are You Currently Breastfeedingno I have reviewed the History and Physical dated: 20-Feb-2021 History and Physical reviewed and relevant findings noted. Patient examined to review pertinent physical findings.: No significant changes Home Medications Reviewed: no changes noted Allergies Reviewed: no changes noted Consent: COVID-19 Consent: COVID-19 Risk ConsentSurgeon has reviewed barrientos risks related to the risk of jayson COVID-19 and if they contract COVID-19 what the risks are. Signatures/Attestation: Note Completion: Attending Provider Inpatient Certification StatementObservation patient/other outpatient visits Electronic Signatures: Brain Hernandez) (Signed 25-Feb-2021 07:12) Authored: History & Physical Reviewed, Consent, Note Completion Last Updated: 25-Feb-2021 07:12 by Brain Hernandez)[facility] 02-20-2021 NoteHistory of Present Illness: Admission Reason: Left shoulder pain and weakness HPI: SHELIA JUNIOR is a 55 year old Female Patient seen and evaluated for left shoulder pain and weakness HPI patient reports having left shoulder pain for over a year. She was found to have a rotator cuff tear it was repaired at [facility] by Dr. Wright. She reports that she continued to have significant pain with in the arm diagnostic studies show that she has a retear of her rotator cuff tendon conservative therapy is provided no relief. After risk benefits alternatives were discussed patient elects to proceed with revision left shoulder arthroscopy rotator cuff repair this will be performed 02/25/2021 at [facility] Past medical hx osteoarthritis, stress urinary incontinence, obesity, Anxiety, depression past surgical hx left shoulder arthroscopy, right ankle surgery Social hx Denies substance abuse denies current alcohol use, denies tobacco use family hx noncontributory ROS noncontributory PE head normocephalic atraumatic heart regular rate and rhythm no murmurs rubs or gallops appreciated lungs clear to auscultation bilaterally abd obese soft nontender normoactive bowel sounds x4 quadrants extremity left shoulder forward flexion to 90 degrees abduction of 45 degrees external rotation of 60 degrees internal rotation to posterior iliac crest impression left shoulder recurrent rotator cuff tear plan left shoulder arthroscopy revision rotator cuff repair Patient's past medical history, allergies, surgical history, review of systems, family history, social history, medication list are all reviewed and documented on the chart. Medications Prior to Admission: Admission Medication Reconciliation has not been completed for this patient. Signatures/Attestation/Certification: Note Completion: Attending Provider Inpatient Certification StatementObservation patient/other outpatient visits Electronic Signatures: Brain Fairchild (LESTER) (Signed 20-Feb-2021 11:17) Authored: History of Present Illness, Medications Prior to Admission, Objective, Note Completion Last Updated: 20-Feb-2021 11:17 by Brain Fairchild (LESTER)[facility] 05-24-2018 History of Present illness NarrativePatient here for followup second opinion right foot, leg, and ankle. She had an EMG that shows an L5 radiculopathy. She is in the progress of getting a back MRI and a back injection. This will reallytell her whether or not the back pain going down the right leg is coming from the L5 nerve root. She interestingly had a full talus replacement. This was done a few years ago. She saw what sounds like a regional tetryl nitrator operator who wanted to do a tarsal tunnel release, even though her EMG recently obtained shows no evidence of tarsal tunnel. She is getting some pain and swelling, probably secondary tosome arthritis in the talonavicular and tibiotalar joints.[facility] Work Phone: [phone]) [phone] History of Present illness Narrative* 55-year-old female here for right ankle pain. Atraumatic pain right ankle a few years ago. Was seenby podiatry at an outside hospital. Was felt to have a back problem causing ankle pain. Testing that time rule out any back problems. Had an MRI of her ankle at that point. Had x-rays and MRI done. 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 At that point podiatry told her she needed to have surgery before the bone shattered . She underwent total talus replacement in 2019. Has had persistent diffuse pain around the ankle and foot. Had recent MRI of her back as well as the EMG to rule out tarsal tunnel. Saw the tetryl nitrator operator partner who felt she had tarsal tunnel but surgery was not approved. She saw orthopedics in the system who referred her here. No diabetes. Unable to walk on her ankle for work. Saw neurosurgery who did not feel that her back issues are causing her foot pain. * On exam: * WD/WN obese female * A+O X3 * NAD * No lymphedema * Inspection of both feet and ankles show symmetric arches. * Well-healed scar over anteromedial right ankle. * 5/5 strength in all 4 planes. No obvious crepitus. * Diffuse pain with active motion. * Sensation intact to LT. * Good pulses. * Stable anterior drawer. * No peroneal subluxation. * (-) [place]. * I personally reviewed the following radiographic exams: Initial MRI showed AVN of the posterior talar body. No obvious fracture line. No involvement of talar neck or anterior talus. Current x-rays offoot shows total talar replacement. No acute changes. Poorly visualized articular surface of talonav icular/subtalar/ankle joint. * EMG suggests mild right L5 radiculopathy. No polyneuropathy. * Assessment: * Foot pain status post total talus replacement * Plan: Discussed nonoperative and operative options in detail. * Risk and benefits discussed in detail. All questions answered today. * Recovery timeline and expectations discussed in detail. * Recommend evaluation at [facility]. Given I do ankle replacements but do not do total talar replacements,I have referred her to a orthopedic surgeon who does perform total talus replacement as well as total ankle. May need a subtalar fusion along with this total talus replacement. -[facility] Work Phone: [phone] History of Present illness NarrativePatient here for followup second opinion right foot, leg, and ankle. She had an EMG that shows an L5 radiculopathy. She is in the progress of getting a back MRI and a back injection. This will reallytell her whether or not the back pain going down the right leg is coming from the L5 nerve root. She interestingly had a full talus replacement. This was done a few years ago. She saw what sounds like a regional tetryl nitrator operator who wanted to do a tarsal tunnel release, even though her EMG recently obtained shows no evidence of tarsal tunnel. She is getting some pain and swelling, probably secondary tosome arthritis in the talonavicular and tibiotalar joints.-[place] Work Phone: [phone]) [phone] History general Narrative - Reported* Type Description Date Medical History History of HPV Medical History Patient has a history of Macular Degeneration Medical History lab results 08/17/11 Medical History Left foot x-ray at [facility] 10-13-11 Medical History 12/16/12 Lumbar Spine X-ray [facility] Medical History 09/22/13 Lumbar Spine X-ray Medical History 03/19/[address] Banks Medical History 01/21/16 GXT stress test Medical History 08/28/16 Mammogram Negative Medical History 06/07/17 DEXA Bone Density Medical History 06/2018 Mammogram - done at [facility] with Dr. Huang Medical History 08/31/2020 [facility] Medical History Moderate to severe TOSHA with sonu re hypoxia, 2018 Medical History anxiety and depression, controll ed with [place] Medical History Left rotator cuff tear X2 last r epair 02/2021 Surgical History gall bladder removed 1984 Surgical History gallbladder removed Surgical History mass removed from left breast/ non cancerous Surgical History tubes tied 2004 Surgical History Rt. rotator cuff surgery 2013 Surgical History tubal ligation Surgical History 4 miscarriages Surgical History wisdom teeth removed 1988 Surgical History cyst removed Lt breast 1987 Surgical History rotator cuff repair 06/01/2014 Surgical History 3 miscarriages 1990- Surgical History right total tallus replacement Dr. Westbrook 07/04/19 Surgical History Lt rotator cuff surgery with hogan rdware placed 06/26/20 Surgical History left rotator cuff repair 02/2021 Hospitalization History gallbladder surgery Hospitalization History childbirth x 2 [employer] Other 11-21-2011 History general Narrative - Reported* Type Description Date Medical History History of HPV Medical History Patient has a history of Macular Degeneration Medical History lab results 08/17/11 Medical History Left foot x-ray at [facility] 10-13-11 Medical History 12/16/12 Lumbar Spine X-ray [facility] Medical History 09/22/13 Lumbar Spine X-ray Medical History 03/19/[address] Banks Medical History 01/21/16 GXT stress test Medical History 08/28/16 Mammogram Negative Medical History 06/07/17 DEXA Bone Density Medical History 06/2018 Mammogram - done at [facility] with Dr. Huang Medical History 08/31/2020 [facility] Medical History Moderate to severe TOSHA with sonu re hypoxia, 2018 Medical History anxiety and depression, controll ed with [place] Medical History Left rotator cuff tear X2 last r epair 02/2021 Medical History right foot total tallus replacem ent 2018 Surgical History gall bladder removed 1984 Surgical History mass removed from left breast/ non cancerous 1987 Surgical History Rt. rotator cuff surgery 2013 Surgical History tubal ligation 2004 Surgical History 4 miscarriages Surgical History wisdom teeth removed 1988 Surgical History cyst removed Lt breast 1987 Surgical History rotator cuff repair 06/01/2014 Surgical History right total tallus replacement Dr. Westbrook 07/04/19 Surgical History Lt rotator cuff surgery with hogan rdware placed 06/26/20 Surgical History left rotator cuff repair 02/2021 Surgical History D&C x6 Hospitalization History gallbladder surgery Hospitalization History childbirth x 2 Hospitalization History See Above [employer] Other Evaluation note* Diagnosis Posterior tibial tendinitis of right lower extremity- Primary Right foot pain Pain in limb Chronic pain of right ankle History of total ankle replacement, right [facility] note[facility] InformationNort [facility] Other Evaluation noteNort i[employer] Other Evaluation noteNo assessment information available [facility] Work Phone: Evaluation note* Diagnosis TOSHA (obstructive sleep apnea)- Primary Obstructive sleep apnea (adult) (pediatric) Class 3 severe obesity with body mass index (BMI) of 40.0 to 44.9 in adult, unspecified obesity type, unspecified whether serious comorbidity present (HCC) [facility] Diagnosis History of repair of right rotator cuff- Primary Right shoulder pain, unspecified chronicity Right shoulder pain, unspecified chronicity documented in this encounter [facility] Work Phone: Evaluation note* Diagnosis History of repair of right rotator cuff- Primary documented in this encounter [facility] Work Phone: Evaluation note* Diagnosis Cervical radiculopathy- Primary Brachial neuritis or radiculitis nos Neck pain Cervicalgia documented in this encounter [facility] Work Phone: Evaluation note* Diagnosis Onset Date Resolution Status Anxiety and depression acute BMI 45.0-49.9, adult acute Dietary counseling and surveillance acute Obesity acute Type 2 diabetes mellitus with hyperglycemia acute Vitamin D deficiency acute [facility] Work Phone: Evaluation note* Author Rula Reynoso [facility] Authored December 22, 2023 8:4 6am The above note written by Jose C ALONSO acting as human recorder, note dictated by Dr. Lamont Villarreal. [facility] Work Phone: History general Narrative - ReportedNocox monett [employer] Other History of Present illness NarrativeHere today status post left shoulder revision rotator cuff repair.[facility] Work Phone: History of Present illness NarrativeHere today just over two months status post left shoulder revision rotator cuff repair. Patient is now out of the sling. She started physical therapy.[facility] Work Phone: History of Present illness NarrativePatient here left shoulder. The patient had a rotator cuff revision and repair in February. She has gone on to heal up, but has had pain.-[facility] Work Phone: Reason for referral (narrative)* - Pending Review Specialty Diagnoses / Procedures Referred By Meng nichols Referred To Contact Physical Therapy Diagnoses Right foot pain Chronic pain of right ankle History of total ankle replacement, right Posterior tibial tendinitis of right lower extremity Procedures CONSULT TO PHYSICAL THERAPY Julien Dominguez DPM [address] [place] [address] Referral ID Status Reason Start Date Expiration Date V isits Requested Visits Authorized [id number] Pending Review 03/11/2022 06/09/2022 1 1 * Diagnostic Procedure Only (Routine) - Closed Specialty Diagnoses / Procedures Referred By Meng nichols Referred To Contact XR IMAGING Diagnoses Right foot pain Chronic pain of right ankle Procedures XR ANKLE GENERAL 3V AP/LAT/OBL RIGHT RADEX ANKLE COMPLETE MINIMUM 3 VIEWS Julien Dominguez DPM [address] [place] [address] Xr Imaging Referral ID Status Reason Start Date Expiration Date V isits Requested Visits Authorized [id number] Closed Auto-Generate d Referral 03/11/2022 04/10/2023 1 1 * Diagnostic Procedure Only (Routine) - Closed Specialty Diagnoses / Procedures Referred By Contac t Referred To Contact XR IMAGING Diagnoses Right foot pain Chronic pain of right ankle Procedures XR FOOT GENERAL 3V AP/LAT/OBL RIGHT RADEX FOOT COMPLETE MINIMUM 3 VIEWS Julien Dominguez DPM [address] [place] [address] Xr Imaging Referral ID Status Reason Start Date Expiration Date V isits Requested Visits Authorized [id number] Closed Auto-Generate d Referral 03/11/2022 04/10/2023 1 1 [facility] for referral (narrative)* Reason evaluate and treat r ight foot pain, patient is requesting a referral for a second opinion Diagnosis 1 Other low back pain (M54.59) Referral Organization [facility] Referring Provider First Name Marty Referring Provider Last Name Loretta Referring Provider Specialty Pain Medici ne Referred Organization Unknown Facility Referred Provider Specialty Podiatry - S urgical Chiropody Referral Priority Routine General Notes Carolyn Olivarez L 0 02/17/2022 03:28:26 PM > patient currently see's to dr westbrook and would like to be seen for a second opinion in regards to her foot pain [employer] Other Reason for visit Narrative* Diagnostic Procedure Only (Routine) - Closed Specialty Diagnoses / Procedures Referred By Contac t Referred To Contact XR IMAGING Diagnoses Right foot pain Chronic pain of right ankle Procedures XR ANKLE GENERAL 3V AP/LAT/OBL RIGHT RADEX ANKLE COMPLETE MINIMUM 3 VIEWS Julien Dominguez DPM [address] [place] [address] Xr Imaging Referral ID Status Reason Start Date Expiration Date V isits Requested Visits Authorized [id number] Closed Auto-Generate d Referral 03/11/2022 04/10/2023 1 1 [facility] for visit NarrativeWMN, DM 6 week F/U, New DM self referralNocox monett [employer] Other Reason for visit NarrativeWMN / DM, WMN / DM, New DM self referralNocox monett [employer] Other Chief Complaint H&P sx 02/25/21 left shoulderH&P sx 02/25/21 left shoulderLt RCR / Ext Debride 02/25/21Lt RCR / Ext Debride 02/25/21Lt RCR / Ext Debride 02/25/21EST New Prob RT foot pain, second opinion, Xray today MRI in chartEST New Prob RT foot pain, second opinion, Xray today MRI in chartf/u left RCR/SAD/ext debride x 3 months out with xraysRight footEST New Prob RT foot pain, second opinion, Xray today MRI in chartLt Shoulder RCR / Ext DebrideLt Shoulder RCR / Ext Debride* Lt Shoulder RCR / Ext Debride 02/25/21 * Xrays Today f/u Lt shoulder, s/p MRI results Family History Unknown Family Member Name Dates Details No pertinent family history: Mother, Father(V49.89, Z78.9) Status:Active Unknown Family Member Name Dates Details No pertinent family history: Mother, Father(V49.89, Z78.9) Status:Active Unknown Family Member Name Dates Details No pertinent family history: Mother, Father(V49.89, Z78.9) Status:Active Unknown Family Member Name Dates Details No pertinent family history: Mother, Father(V49.89, Z78.9) Status:Active Unknown Family Member Name Dates Details No pertinent family history: Mother, Father(V49.89, Z78.9) Status:Active Unknown Family Member Name Dates Details No pertinent family history: Mother, Father(V49.89, Z78.9) Status:Active Unknown Family Member Name Dates Details No pertinent family history: Mother, Father(V49.89, Z78.9) Status:Active Unknown Family Member Name Dates Details No pertinent family history: Mother, Father(V49.89, Z78.9) Status:Active Relationship Condition Age at Onset Recorded Date/T binta brother Status post five ves mirta coronary artery bypass Unknown Obstructive sleep apnea syndrome Unknown sister Diabetic ketoacidosi s associated with type 2 diabetes mellitus Unknown Not Specified Malignant neoplasm Unknown Hypertension Unknown father Malignant neoplasm Unknown Unknown Family Member Name Dates Details No pertinent family history: Mother, Father(V49.89, Z78.9) Status:Active Unknown Family Member Name Dates Details No pertinent family history: Mother, Father(V49.89, Z78.9) Status:Active Relationship Condition Age at Onset Recorded Date/T binta brother Status post five ves mirta coronary artery bypass Unknown Obstructive sleep apnea syndrome Unknown sister Diabetic ketoacidosi s associated with type 2 diabetes mellitus Unknown Not Specified Malignant neoplasm Unknown Hypertension Unknown father Malignant neoplasm Unknown brother Heart disease Unknown daughter Gestational diabetes mellitus (GDM) Unkno wn father Unknown Malignant neoplasm of endometrium Unknown Unknown sister Diabetes mellitus Unknown Relationship Condition Age at Onset Recorded Date/T binta brother Status post five ves mirta coronary artery bypass Unknown Obstructive sleep apnea syndrome Unknown sister Diabetic ketoacidosi s associated with type 2 diabetes mellitus Unknown TOSHA on CPAP Unknown Not Specified Malignant neoplasm Unknown Hypertension Unknown Unknown father Malignant neoplasm Unknown brother Heart disease Unknown daughter Gestational diabetes mellitus (GDM) Unkno wn father Unknown Malignant neoplasm of endometrium Unknown sister Diabetes mellitus Unknown Summary Purpose Advance Directives Advance Directive Response Recorded Date/ Time Advance Directives No October 04, 2017 12:06pm Advance Directive Response Recorded Date/ Time Advance Directives No October 04, 2017 11:06am Advance Directive Response Recorded Date/ Time Advance Directives No October 19, 2023 3:00pm Advance Directive Response Recorded Date/ Time Advance Directives No October 19, 2023 4:00pm Chief Complaint and Reason for Visit Chief Complaint Right ankle Chief Complaint Back Pain Chief Complaint Back Pain Spondylosis with radiculopathy Chief Complaint R shoulder pain Review Labs Wmn / Dm DM Chief Complaint R shoulder pain Review Labs Wmn / Dm DM WMN/DMN f/u NO METER Reason for Visit Anxiety and depressi on BMI 45.0-49.9, adult Dietary counseling and surveillance Obesity Type 2 diabetes mellitus with hyperglycemia Vitamin D deficiency Chief Complaint DM WMN/DMN f/u NO METER 3 month Reason for Visit Anxiety and depressi on BMI 45.0-49.9, adult Obesity TOSHA on CPAP Type 2 diabetes mellitus with hyperglycemia Vitamin D deficiency BMI 45.0-49.9, adult Morbid obesity due to excess calories Muscle spasm of back Right foot pain Chief Complaint DM WMN/DMN f/u NO METER 3 month Cooking for 1 Reason for Visit Anxiety and depressi on BMI 45.0-49.9, adult Obesity TOSHA on CPAP Type 2 diabetes mellitus with hyperglycemia Vitamin D deficiency BMI 45.0-49.9, adult Morbid obesity due to excess calories Muscle spasm of back Right foot pain Reason for Referral Specialty Diagnoses / Procedures Referred By Contac t Referred To Contact Radiology Diagnoses Neck pain Procedures XR cervical spine complete 4-5 views Brain Sen MD [address] [facility], [address] [place] [address] Referral ID Status Reason Start Date Expiration Date Visits Requested Visits Authorized [id number] Authorized Perform Procedure 3 09/20/2024 1 1 Specialty Diagnoses / Procedures Referred By Contac t Referred To Contact Diagnoses Right shoulder pain, unspecified chronicity Brain Hernandez MD [address] [facility], [address] [place] [address] Referral ID Status Reason Start Date Expiration Date V isits Requested Visits Authorized [id number] Pending Review 07/26/2023 07/25/2024 1 1 Referral ID Status Reason Start Date Expiration Date V isits Requested Visits Authorized [id number] Pending Review 07/26/2023 07/25/2024 1 1 Specialty Diagnoses / Procedures Referred By Contac t Referred To Contact Radiology Diagnoses Right shoulder pain, unspecified chronicity Procedures XR shoulder right 2+ views Brain Hernandez MD [address] [facility], [address] [place] [address] Referral ID Status Reason Start Date Expiration Date Visits Requested Visits Authorized [id number] Authorized Perform Procedure 3 07/25/2024 1 1 Reason CANCELLED consult and treat; soonest available ; sensation of throat closing when laying down known TOSHA/ overweight stature Diagnosis 1 TOSHA (obstructive sle ep apnea) (G47.33) Referral Organization [facility] [place] Referring Provider First Name Lamont Referring Provider Last Name Phil Referring Provider Specialty Family [facility] Referred Organization [facility] Referred Provider Tamika Boykin Referred Address ,[place],[address] Referred Provider Specialty Ear, Nose an d Throat Referral Priority Routine General Notes Mary Ann Chamberlain 023 02:00:47 PM >Received today and waiting for office notes to be locked before sending referral Mary Ann Chamberlain 04/06/2023 01:19:07 PM >Office notes are now locked. Dr. Boykin request us to send the referral and they will call and schedule patient. [facility] 04/13/2023 08:02:27 AM >Reviewed [facility] Epic and seen a note in the patients chart that Dr. Boykin has declined to see this patient. Detailed telephone encounter was sent Clinical Notes Office [phone] Reason *04/20 Consult and treatment for TOSHA treatment. Considering surgical intervention. Currently using Bi-Pap Diagnosis 1 Obstructive sleep ap catherine (adult) (pediatric) (G47.33) Diagnosis 2 Type 2 diabetes bebo itus with hyperglycemia, without long-term current use of insulin (E11.65) Diagnosis 3 Hypertension, unspec ified type (I10) Diagnosis 4 BMI 45.0-49.9, adult (Z68.42) Referral Organization [facility] [employer] [place] Referring Provider First Name Lamont Referring Provider Last Name Phil Referring Provider Specialty [facility] Yordy schultz Ref[facility] Referred Provider Yosvany Hayden Referred Address [address] [place], [place],[address] Referred Provider Specialty Ear, Nose an d Throat Referral Priority Routine General Notes [facility] 023 01:06:17 PM >Received today and referral was fax to [facility] with their form. They will call patient and schedule. Clinical Notes Referral Line Reason *04/13 consult and treat; soonest available ; sensation of throat closing when laying down known TOSHA/ overweight stature Diagnosis 1 TOSHA (obstructive sle ep apnea) (G47.33) Referral Organization [facility] [employer] [facility] [place] Referring Provider First Name Lamont Referring Provider Last Name Phil Referring Provider Specialty [facility] marion Referred Organization [facility] Referred Provider Tamika Boykin Referred Address ,[place], [place],[address] Referred Provider Specialty Ear, Nose an d Throat Referral Priority Routine General Notes Mary Ann Chamberlain 023 02:00:47 PM >Received today and waiting for office notes to be locked before sending referral Mary Ann Chamberlain 04/06/2023 01:19:07 PM >Office notes are now locked. Dr. Boykin request us to send the referral and they will call and schedule patient. Referral was fax Clinical Notes Office [phone] Additional Source Comments INFORMATION SOURCE (unrecogn ized section and content) DATE CREATED AUTHOR 08/14/2021 [facility] DATE CREATED AUTHOR AUTHOR'S ORGANIZ ATION 11/14/2021 [facility] dical Specialist DATE CREATED AUTHOR AUTHOR'S ORGANIZ ATION 11/28/2021 [facility] DATE CREATED AUTHOR AUTHOR'S ORGANIZ ATION 12/22/2021 [facility] DATE CREATED AUTHOR AUTHOR'S ORGANIZ ATION 01/01/2023 [facility] ical Center DATE CREATED AUTHOR AUTHOR'S ORGANIZ ATION 01/03/2023 [employer] DATE CREATED AUTHOR AUTHOR'S ORGANIZ ATION 01/17/2023 [facility] DATE CREATED AUTHOR AUTHOR'S ORGANIZ ATION 05/19/2023 [facility] DATE CREATED AUTHOR AUTHOR'S ORGANIZ ATION 09/26/2023 [facility] DATE CREATED AUTHOR AUTHOR'S ORGANIZ ATION 11/17/2023 [facility] Source Comments (unrecognize d section and content) In the event this informatio n is protected by the Federal Confidentiality of Alcohol and Drug Abuse Patient Records regulations: The Federal rules restrict any use of the information to criminally investigate or prosecute any alcohol or drug abuse patient.[facility] the event this information is protected by the Federal Confidentiality of Alcohol and Drug Abuse Patient Records regulations: The Federal rules restrict any use of the information to criminally investigate or prosecute any alcohol or drug abuse patient.[facility] the event this information is protected by the Federal Confidentiality of Alcohol and Drug Abuse Patient Records regulations: The Federal rules restrict any use of the information to criminally investigate or prosecute any alcohol or drug abuse patient.[facility] the event this information is protected by the Federal Confidentiality of Alcohol and Drug Abuse Patient Records regulations: The Federal rules restrict any use of the information to criminally investigate or prosecute any alcohol or drug abuse patient.[facility] the event this information is protected by the Federal Confidentiality of Alcohol and Drug Abuse Patient Records regulations: The Federal rules restrict any use of the information to criminally investigate or prosecute any alcohol or drug abuse patient.[facility] the event this information is protected by the Federal Confidentiality of Alcohol and Drug Abuse Patient Records regulations: The Federal rules restrict any use of the information to criminally investigate or prosecute any alcohol or drug abuse patient.[facility] Reason for Visit (unrecogniz ed section and content) Reason Comments Radiology XR Reason Comments Pain New Specialty Diagnoses / Procedures Referred By Meng nichols Referred To Contact Podiatry / ORTHOPAEDIC SURGERY Diagnoses Foot pain Received a REFER A PATIENT FAX from Loretta Ferguson's office referring the patient to be seen in Foot and ankle clinic-Dr.john dominguez for Right foot pain. Referral and/or order can be found in Scan Document dated 02/19/2022. Procedures OFFICE/OUTPATIENT ESTABLISHED MOD MDM 30-39 MIN LUPE ACUTE Marty Burgos MD [address] [place] [address] Julien Dominguez DPM [address] [place] [address] Referral ID Status Reason Start Date Expiration Date V isits Requested Visits Authorized [id number] Closed Patient Cleared - INN Insurance Found 03/11/2022 06/09/2022 1 1 Reason Comments Orders Reason Comments New Patient TOSHA Reason Comments Pain New problem Right sh oulder, xrays today Reason Comments Follow-up Right shoulder s/p R otator cuff repair, s/p cortisone Reason Comments Pain Neck and Rt arm pain into her bicepHas done some therapyX-rays today Care Teams (unrecognized sec tion and content) [employer]ice Relationship Specialty Start Date End Date Lamont Villarreal DO [address] [place] [phone] PCP - General Family Practice 05/02/14 [employer]ic App[employer]ice Relationship Specialty Start Date End Date Lamont Villarreal, DO [address] [place] [phone] PCP - General Family Practice 05/02/14 [employer]ic [employer]ice Relationship Specialty Start Date End Date Lamont Villarreal, DO [address] [place] [phone] PCP - General Family Practice 05/02/14 [employer]obile Mechanic App[employer]ice Relationship Specialty Start Date End Date Lamont Villarreal, DO [address] [place] [phone] PCP - General Family Practice 05/02/14 Team Status: Inactive Member Role Status Dates Lamont Villarreal DO Primary Care Provider Active Julien Dominguez DPM Attending Provider Active Team Status: Active Member Role Status Dates Lamont Villarreal DO Primary Care Provider Active Team Status: Inactive Member Role Status Dates Lamont Villarreal DO Primary Care Provider Active Marty Burgos MD Attending Provider Active [employer]ice Relationship Specialty Start Date End Date Lamont Villarreal DO [address] [place] [phone] PCP - General Family Medicine 05/02/14 Lamont Villarreal DO [address] [place] [phone] Referring Family Medicine 04/18/23 Automobile Mechanic Apprentice Relationship Specialty Start Date End Date Lamont Villarreal DO [address] [place] [phone] PCP - General Family Medicine 05/02/14 Lamont Villarreal DO [address] [place] [phone] Referring Family Medicine 04/18/23 Automobile Mechanic Apprentice Relationship Specialty Start Date End Date Aryaorlando Lamont Menendezjackie [address] [place] [phone] PCP - General 02/25/21 Automobile Mechanic App[employer]ice Relationship Specialty Start Date End Date Phil Lamontrosy Reynolds [address] [place] [phone] PCP - General Family Medicine 08/20/23 Automobile Mechanic App[employer]ice Relationship Specialty Start Date End Date Phil Lamontrosy Reynolds [address] [place] [phone] PCP - General Family Medicine 08/20/23 Team Status: Inactive Member Role Status Dates Mary Ann Flores [facility] Attending Provider Active Start: August 17, 2023 End: August 17, 2023 Team Status: Inactive Member Role Status Dates Mary Ann Flores Enmanuel Attending Provider Active Start: August 25, 2023 End: August 25, 2023 Team Status: Inactive Member Role Status Dates Lamont Villarreal DO Primary Care Provider Active Sta rt: August 25, 2023 End: August 25, 2023 Brain Hernandez Attending Provider Active Start : August 25, 2023 End: August 25, 2023 Team Status: Inactive Member Role Status Dates Lamont Villarreal DO Attending Provider Active Start: September 15, 2023 End: September 15, 2023 Team Status: Inactive Member Role Status Dates Анна Rose APRN Attending Provider Active Start: September 22, 2023 End: September 22, 2023 Team Status: Active Member Role Status Dates Lamont Villarreal DO Primary Care Provider Active Sta rt: October 14, 2023 Анна Rose APRN Attending Provider Active Start: October 14, 2023 Team Status: Inactive Member Role Status Dates Lamont Villarreal DO Primary Care Provider Active Sta rt: October 14, 2023 End: October 14, 2023 Анна Rose APRN Attending Provider Active Start: October 14, 2023 End: October 14, 2023 Team Status: Inactive Member Role Status Dates Lamont Villarreal DO Primary Care Provider Active Sta rt: November 17, 2023 End: November 17, 2023 Анна Rose APRN Attending Provider Active Start: November 17, 2023 End: November 17, 2023 Team Status: Inactive Member Role Status Dates Lamont Villarreal , Primary Care Provide r, Attending Provider Active Start: December 22, 2023 End: December 22, 2023 Team Status: Inactive Member Role Status Dates Lamont Villarreal , Primary Care Provider Active Sta rt: December 22, 2023 End: December 22, 2023 NOE Vasquez Attending Provider Active Start: December 22, 2023 End: December 22, 2023 Goals (unrecognized section and content) Goals may be documented in a n alternate section FOR RECORDS PERTAINING TO PATIENTS WHO ARE OR HAVE BEEN ENROLLED IN A CHEMICAL DEPENDENCY/SUBSTANCEABUSE PROGRAM, SOME INFORMATION MAY BE OMITTED. This clinical summary was aggregated from multiple sources. Caution should be exercised in using it in the provision of clinical care. This summary normalizes information from multiple sources, and as a consequence, information in this document may materially change the coding, format and clinical context of patient data. In addition, data may be omitted in some cases. CLINICAL DECISIONS SHOULD BE BASED ON THE PRIMARY CLINICAL RECORDS. [employer] provides no warranty or guarantee of the accuracy or completeness of information in this document.
[2023-12-31 16:10] LABS: Age Gdln ACOG Testing Note (.); HPV Aptima Negative (Negative); IGP, Aptima HPV, rfx 16/18,45 Note (.)
== END 2023-12-27 21:08 | disposition home or self-care (01) ==
LOC: LAB 21:07
PROVIDERS: PCP Family Medicine; Visit Provider Obstetrics & Gynecology
DX: Z01.419 Encounter for gynecological examination (general) (routine) without abnormal findings (principal)
CPT/HCPCS: 87624; G0145

== ENCOUNTER 2024-07-25 09:58 | Outpatient (OUT) | payer OTHER, SELFPAY ==
--- NOTE | 2024-07-25 | XR_ITS ---
The [address] [address] Patient Name: JENNIFER HICKMAN MRN: [id number] date: 1965 Sex: F Assigned Patient Location: [facility] Current Patient Location: Accession/Order Number: [id number] Exam Date: 07/25/2024 09:59 Report Date: 07/27/2024 06:44 At the request of: SHAYLEE HOLT Procedure: XR ankle RT min 3V PROCEDURE: XR ankle RT min 3V HISTORY: RIGHT ANKLE PAIN COMPARISON: CT ankle right 04/14/2023, XR foot right 03/31/2023 FINDINGS: BONES:Prior's prosthetic replacement of the talus. Increased sclerosis of the distal articular surface of the tibia and the metaphysis. No fracture or dislocation. SOFT TISSUES:Mild soft tissue swelling. EFFUSION:None visible. OTHER: Negative. XR/XR ankle RT min 3V IMPRESSION: 1. Stable surgical changes without evidence of hardware failure or change in alignment. 2. No appreciable acute abnormality. Electronically authenticated by: ART SMITH Date: 07/27/2024 06:44
--- OUTSIDE RECORDS SUMMARY | 2024-07-25 10:10 | XMS_ITS | CCD ---
Author Organization [facility] [place] Care Team Providers Care Customer Solutions Specialist Name Role Phone None, No PCP Unavailable Unavailable Unavailable Unavailable Lamont Villarreal Unavailable Lamont Villarreal DO Primary Care Provider [phone] Lamont Villarreal Unavailable Marty Burgos Unavailable Kunorlando, DO Lamont Primary Care Provider LEOBARDO Dominguez Attending Provider [phone] Itzel Grady Unavailable Kunorlando, DO Lamont Primary Care Provider MD Marty Burgos Attending Provider Phil, Dr. Lamont Reynolds Primary Care Unavaila BRAIN Acosta Referring Unavailable BRAIN HERNANDEZ Attending Unavailable RENUKA ., DR VILLATORO Admitting Unavailable RENUKA ., DR VILLATORO Attending Unavailable KUNS, DR MIGUEL Primary Care Unavailable RENUKA ., DR VILLATORO Consulting Unavailable RENUKA ., DR VILLATORO Admitting Unavailable RENUKA ., DR VILLATORO Attending Unavailable KUNS, DR MIGUEL Primary Care Unavailable [place], DR ADRIAN Bacon Consulting Unavailable RENUKA ., DR VILLATORO Consulting Unavailable PHIL, DR MIGUEL Admitting Unavailable PHIL, DR MIGUEL Attending Unavailable PHIL, DR MIGUEL Primary Care Unavailable PHIL, DR MIGUEL Consulting Unavailable PHIL, DR MIGUEL Admitting Unavailable KUNS, DR MIGUEL Attending Unavailable KUNS, DR MIGUEL Primary Care Unavailable PHIL, DR MIGUEL Consulting Unavailable PHIL, DR MIGUEL Admitting Unavailable KUNOrlando, DR MIGUEL Attending Unavailable KUNOrlando, DR MIGUEL Primary Care Unavailable KUNS, DR [...] Unavailable KUNS, DR MIGUEL Primary Care Unavailable [place], DR ADRIAN Bacon Consulting Unavailable RENUKA ., DR VILLATORO Consulting Unavailable RENUKA ., DR VILLATORO Admitting Unavailable RENUKA ., DR VILLATORO Attending Unavailable KUNS, DR MIGUEL Primary Care Unavailable RENUKA ., DR VILLATORO Consulting Unavailable Mary Ann Ibrahim Unavailable Анна Rose Unavailable Lamont Villarreal DO Primary Care Provider [phone] Lamont Villarreal DO Unavailable LAMONT VILLARREAL Primary Care Unavailable YOSVANY HAYDEN Attending Unavailable Lamont Villarreal DO Primary Care Provider Phil EARLY, Lamont Reynolds Primary Care Provider BRAIN HERNANDEZ Attending Unavailable LAMONT VILLARRAEL Primary Care Unavailable BRAIN HERNANDEZ Referring Unavailable BRAIN HERNANDEZ Referring Unavailable LAMONT VILLARREAL Primary Care Unavailable BRAIN HERNANDEZ Attending Unavailable LAMONT VILLARREAL Primary Care Unavailable BRAIN SEN Attending Unavailable MADINASLAMONT Primary Care Unavailable BRAIN SEN Referring Unavailable MADINASLAMONT Primary Care Unavailable DO Lamont Villarreal Primary Care Provider Brain Hernandez Attending Provider SEE Rose Attending Provider DO Lamont Vilalrreal Primary Care Provider Rose, SEE Root Attending Provider MALCOM HUANG Attending Unavailable Kuns, DO Lamont Primary Care Provider [phone] Kuns, DO Lamont Attending Provider [phone] Rose, SEE Root Other Provider SEE Horta Attending Provider [phone] Kuns, DO Miguel Primary Care Provider [phone] Rose, SEE Root Attending Provider Scally, Анна C Attending Unavailable Scally, Анна C Admitting Unavailable Kuns, Lamont Primary Care Unavailable Brain Hernandez Admitting Unavailable Brain Hernandez Attending Unavailable Kuns, Lamont Primary Care Unavailable Kuns, Lamont Admitting Unavailable Kuns, Lamont Attending Unavailable Kuns, Lamont Primary Care Unavailable Scally, Анна C Consulting Unavailable Scally, Анна C Admitting Unavailable Scaljordon, Анна C Attending Unavailable Madinas, Lamont Primary Care Unavailable Aydee Horta Admitting Unavailable Aydee Horta Attending Unavailable Kuns, Lamont Primary Care Unavailable Kuns, DO Miguel Primary Care Provider Kuns, DO Lamont Primary Care Provider Kunorlando, DO Miguel Attending Provider Allergies Allergy Classification Reported Allergen(s) Allergy Type Date of Onset Reaction(s) Facility Sulfonamides (antibiotic) (3 sources) Sulfamethoxazole ; Translations: [sulfa] Drug Allergy 4 [facility] (12 sources) Sulfamethoxazole ; Translations: [sulfa] Drug Allergy 3 Unknown [facility] (20 sources) Sulfonamides (Antibiotic); Translations: [SULFA (SULFONAMIDE ANTIBIOTICS)] Propensity to adverse reactions 6 [facility] (20 sources) Sulfamethoxazole ; Translations: [SULFAMETHOXAZOL E] Drug Allergy 3 Unknown, [facility] (1 source) Sulfonamides (Antibiotic) Drug allergy (disorder) [facility] (12 sources) semaglutide Propensity to adverse reactions 4 suicidal ideation [facility] (1 source) Sulfonamides (Antibiotic) Drug allergy (disorder) 4 [facility] (9 sources) DULoxetine Drug Allergy 4 Blurry Vision [facility] (6 sources) Amoxicillin / Clavulanate Drug Allergy 4 headache [facility] (5 sources) metFORMIN Drug Allergy 4 Diarrhea [facility] Medications Current Medications Medication Drug Class(es) Dates [...] Orally daily prn before MRI Sep, Active betamethasone 3 mg/ml / betamethasone acetate 3 [...] 1 tablet by mouth once daily Biotin 74873 MCG 1 tablet Orally Once a day for 90 days Aug, Active Start: 09-15-2021 take 1 tablet by al th every twenty-four hours Biotin 75026 MCG 1 tablet Orally Once a day Not-Taking/PRN take 1 tablet by al th every twenty-four hours Biotin 33538 MCG 1 tablet Orally Once a day Not-Taking take 1 tablet by mouth once ric y Biotin 74712 MCG 1 tablet Orally Once a day [...] a day, before dental procedures Active cholecalciferol 0.125 mg oral capsule (20 sources) Vitamin D Start: 04-12-2024 take 125 ug by mouth once daily Cholecalciferol (Vitamin D3) Active 125 MCG PO Daily April 12, 2024 12:00am Start: 02-17-2024 End: 03-24-2024 take 1 capsule by mouth once daily cholecalciferol (vitamin D3) Discontinued 1 CAP PO Daily February 17, 2024 12:00am March 24, 2024 8:58am Start: 02-17-2024 take 1 capsule by mo uth once daily cholecalciferol (vitamin D3) Active 1 CAP PO Daily February 17, 2024 12:00am Start: 09-15-2021 take 1 tablet by al th every twenty-four hours Vitamin D3 50 MCG (1999 UT) 1 tablet Orally Once a day for 90 days Aug, Active take 1 tablet by al th every twenty-four hours Vitamin D3 50 MCG (1999 UT) 1 tablet Orally Once a day Not-Taking/PRN citalopram 40 mg [...] 18, 2020 12:00am February 10, 2022 9:03am cyclobenzaprine hydrochloride 5 mg oral tablet (9 sources) Muscle Relaxant Start: 06-14-2024 take 5 mg by mouth once daily at bedtime Cyclobenzaprine Active 5 MG PO Daily at bedtime June 14, 2024 12:00am doxycycline hyclate 100 mg oral tablet (5 sources) Tetracycline-c lass Drug Start: 09-15-2021 take 1 tablet by mouth twice daily Doxycycline Hyclate 100 MG 1 tablet Orally Twice a day for 10 day(s) Aug, Active Eye Vitamins (9 sources) Eye Vitamins Res tore Active FreeStyle Letty 2 [place] - (20 sources) Start: 03-08-2023 FreeStyle Libr e 2 [place] - as directed -- 5 x day for 365 days Feb, Active FreeStyle Letty 2 [place] - USE DIRECTED 5 TIMES A DAY for 90 Not-Taking/PRN FreeStyle Letty 2 [place] - USE DIRECTED 5 TIMES A DAY for 90 Not-Taking FreeStyle Letty 2 [place] - USE DIRECTED 5 TIMES A DAY for 90 Active FreeStyle Letty 2 [place] - as directed -- 5 x day [...] (20 sources) Nonsteroidal Anti-inflammatory Drug Start: 11-16-2023 End: 04-20-2024 take 800 mg by mouth every eight hours Ibuprofen Active 800 MG PO Every 8 hours 180 April 20, 2024 5:19pm Start: 07-19-2023 take 1 tablet by al three times daily at mealtime as needed Ibuprofen 800 MG 1 tablet with food or milk as needed Orally Three times a day as needed Jun, Not-Taking/PRN take 1 tablet by al th every eight hours at mealtime as needed Ibuprofen 800 MG 1 tablet with food or milk as needed Orally every 8 hrs Active take 1 tablet by al three times daily at mealtime as needed Ibuprofen 800 MG 1 tablet with food or milk as needed Orally TID prn prn Active levoFLOXacin 500 mg oral tablet (4 sources) Quinolone Antimicrobial Start: 07-21-2021 take 1 tablet by mouth every twenty-four hours levoFLOXacin 500 MG 1 tablet Orally Once a day for 10 day(s) Jun, Active Lidocaine (1 source) Antiarrhythmic, Amide Local Anesthetic Start: 07-26-2023 lidocaine (Xylocaine) 10 mg/mL (1 %) injection 5 mL Magnesium glycinate (20 sources) Start: 02-17-2024 take 2 capsules by mouth once daily magnesium glycinate Active 2 CAP PO Daily February 17, 2024 12:00am Magnesium Glycin ate 665 MG as directed Orally Not-Taking/PRN Magnesium Glycin ate 665 MG as directed Orally Not-Taking Magnesium Glycin ate 665 MG as directed Orally Active meloxicam 15 mg oral tablet (2 sources) Nonsteroidal Anti-inflammatory Drug Start: 03-11-2022 End: 09-07-2022 take 1 tablet by mouth once daily meloxicam (MOBIC) 15 mg tablet Take 1 tablet by mouth once daily. 90 tablet 1 03/11/2022 09/07/2022 Active Comment on above: Take 1 tablet by al th once daily. Multivitamin preparation (11 sources) Start: 04-12-2024 take 1 tablet by mouth once daily Multivitamin Active 1 TAB PO Daily April 12, 2024 12:00am [place] (No Known Home Meds) (3 sources) Start: 08-25-2022 [place] (No Known Home Meds) Active August 25, [...] a day PRN Jun, Active Start: 07-09-2018 0.25 mg, 0.5 mg dose 1.5 ml semaglutide 1.34 mg/ml pen injector (3 sources) semaglutide (Oze mpic) 0.25 mg or 0.5 mg(2 mg/1.5 mL) pen injector Inject 0.25 mg under the skin 1 (one) time per week. 0 Active traMADol (19 sources) Opioid Agonist traMADol HCl Act alejandro take 1 tablet by al th every twenty-four hours traMADol HCl 50 MG 1 tablet as needed Orally Once a day prn Active Trelegy Ellipta 200-62.5-25 MCG/INH (5 sources) Start: 06-15-2022 take 1 puff(s) by inhalation once daily Trelegy Ellipta 200-62.5-25 MCG/INH 1 puff Inhalation Once a day May, Active valACYclovir 500 mg oral tablet (6 sources) Herpesvirus Nucleoside Analog DNA Polymerase Inhibitor, Herpes Simplex Virus Nucleoside Analog DNA Polymerase Inhibitor, Herpes Zoster Virus Nucleoside Analog DNA Polymerase Inhibitor Start: 07-04-2024 take 1 tablet by mouth three times daily Valacyclovir (Valtrex) 500 mg tablet Active 500 MG PO Three times daily 16 04July 04, 2024 12:00am 24 hr venlafaxine 37.5 mg extended release [...] Start: 09-15-2021 take 1 tablet by al twice daily Vitamin B6 100 MG 1 tablet Orally BID for 90 days Aug, Active Start: 09-15-2021 Vitamin C 250 MG (12 sources) Start: 09-15-2021 take 1 tablet by al once daily Vitamin C 250 MG 1 [...] Drug Class(es) Dates Sig (Normalized) Sig (Original) Albuterol-Budesonid e (Airsupra) 90-80 mcg/actuation HFA aerosol inhaler (12 sources) Start: 03-24-2024 End: 04-12-2024 Albuterol-Budesonide (Airsupra) 90-80 mcg/actuation HFA aerosol inhaler Discontinued 2 INH INHALATION Twice daily 5.9 March 24, 2024 12:00am April 12, 2024 2:30pm Sample provided Start: 03-24-2024 Albuterol-[place] sonide (Airsupra) 90-80 mcg/actuation HFA aerosol inhaler Active 2 INH INHALATION Twice daily 5.9 March 24, 2024 12:00am Sample provided amoxicillin 875 mg / clavulanate 125 mg oral tablet (20 sources) Penicillin-class Antibacterial Start: 06-23-2024 End: 07-04-2024 take 1 tablet by mouth twice daily Amoxicillin-Pot Clavulanate Discontinued 1 TAB PO Twice daily 16 07June 23, 2024 12:00am July 04, 2024 2:49pm Start: 03-13-2024 End: 03-24-2024 take 1 tablet by mouth every twelve hours Amoxicillin-Pot Clavulanate Discontinued 1 TAB PO Every 12 hours 16 07March 13, 2024 12:00am March 24, 2024 8:58am ascorbic acid 500 mg extended release oral capsule (20 sources) Vitamin C Start: 11-16-2023 End: 12-30-2023 take 500 mg by mouth once daily Ascorbic Acid (Vitamin C) Discontinued 500 MG PO Daily November 16, 2023 1:00am December 30, 2023 9:30am Start: 09-15-2021 take 1 tablet by al th every twenty-four hours Vitamin C 250 MG 1 tablet Orally Once a day for 90 days Aug, Active take 1 tablet by al th every twenty-four hours Vitamin C 250 MG 1 tablet Orally Once a day prn Not-Taking/PRN azithromycin 250 mg oral tablet (20 sources) Macrolide Antimicrobial Start: 07-04-2024 End: 07-21-2024 Azithromycin (Zithromax Z-Cinthia) 250 mg tablet Discontinued 0 PO .COMPLEX July 04, 2024 12:00am July 21, 2024 10:30am For 250 mg dose pack: take 500 mg today (day 1), then 250 mg for 4 days (days 2-5) PO Start: 03-09-2024 End: 03-13-2024 Azithromycin (Zithromax Z-Pa k) 250 mg tablet Discontinued 0 PO .COMPLEX March 09, 2024 12:00am March 13, 2024 9:31am For 250 mg dose pack: take 500 mg today (day 1), then 250 mg for 4 days (days 2-5) PO Start: 02-01-2024 End: 02-17-2024 Azithromycin (Zithromax Z-Pa k) 250 mg tablet Discontinued 0 PO .COMPLEX February 01, 2024 12:00am February 17, 2024 11:02am For 250 mg dose pack: take 500 mg today (day 1), then 250 mg for 4 days (days 2-5) PO Start: 08-31-2023 Zithromax Z-Pa k 250 MG 2 tablets [...] Aug, Active benzonatate 200 mg oral capsule (20 sources) Non-narcotic Antitussive Start: 03-13-2024 End: 03-24-2024 take 200 mg by mouth three times daily Benzonatate Discontinued 200 MG PO Three times daily 26 07March 13, 2024 12:00am March 24, 2024 8:58am Start: 12-16-2022 take 1 capsule by [facility] every eight hours Benzonatate 200 MG 1 capsule Orally Three times a day goodrx Nov, Not-Taking blood-glucose meter (OneTouc h Ultra2 Meter) (11 sources) Start: 04-12-2024 End: 07-04-2024 blood-glucose meter (OneTouc h Ultra2 Meter) Discontinued .Route April 12, 2024 12:00am July 04, 2024 2:49pm Start: 04-12-2024 blood-glucose meter (OneTouch Ultra2 Meter) Active .Route April 12, 2024 12:00am Start: 04-12-2024 blood-glucose meter (OneTouch Ultra2 Meter) Active .ROUTE April 12, 2024 12:00am 12 hr buPROPion hydrochloride 100 mg extended release oral tablet (20 sources) Aminoketone Start: 11-16-2023 End: 12-22-2023 take [...] week 2 Active take 2 tablets by [facility] every twenty-four hours Wellbutrin SR 100 MG 2 tablet in the morning Orally Once a day Active 0.5 ml dulaglutide 1.5 mg/ml auto-injector (8 sources) GLP-1 Receptor Agonist Start: 07-20-2023 Trulicity 0.75 MG/0.5ML as directed Subcutaneous Once a week for 28 days Jun, Not-Taking/PRN DULoxetine 30 mg delayed release oral capsule (12 sources) Serotonin and Norepinephrine Reuptake Inhibitor Start: 03-24-2024 End: 04-20-2024 take 1 capsule by mouth once daily Duloxetine (Cymbalta) 30 mg capsule,delayed release(DR/EC) Discontinued 30 MG PO Daily March 24, 2024 12:00am April 20, 2024 10:32am flash glucose scanning reader (FreeStyle Letty 2 [place]) (20 sources) Start: 11-16-2023 End: 07-04-2024 flash glucose scanning reader (FreeStyle Letty 2 [place]) Discontinued .Route November 16, 2023 1:00am July 04, 2024 2:50pm Start: 11-16-2023 flash glucose scanning reader (FreeStyle Letty 2 [place]) Active .Route November 16, 2023 1:00am Start: 11-16-2023 flash glucose scanning reader (FreeStyle Letty 2 [place]) Active .ROUTE November 16, 2023 12:00am flash glucose sensor (FreeSt yle Letty 2 Sensor) (20 sources) Start: 11-16-2023 End: 07-04-2024 flash glucose sensor (FreeSt yle Letty 2 Sensor) Discontinued .Route November 16, 2023 1:00am July 04, 2024 2:50pm Start: 11-16-2023 flash glucose sensor (FreeStyle Letty 2 Sensor) Active .Route November 16, 2023 1:00am Start: 11-16-2023 flash glucose sensor (FreeStyle Letty 2 Sensor) Active .ROUTE November 16, 2023 12:00am fluconazole 150 mg oral tablet (20 sources) Azole Antifungal Start: 07-03-2024 End: 07-21-2024 take 150 mg by mouth once daily Fluconazole Discontinued 150 MG PO Daily 5 July 03, 2024 12:00am July 21, 2024 10:30am Start: 03-09-2024 End: 03-24-2024 Fluconazole Discontinued 150 MG PO Q3D March 09, 2024 12:00am March 24, 2024 8:59am 14 actuat fluticasone furoate 0.1 mg/actuat / umeclidinium 0.0625 mg/actuat / vilanterol 0.025 mg/actuat dry powder inhaler (20 sources) Anticholinergic, Corticosteroid, beta2-Adrenergic Agonist Start: 03-09-2024 End: 03-24-2024 Bpczhaaccow-Jzwupgibt-Jzfxng er (Trelegy Ellipta) 100-62.5-25 mcg blister with device Discontinued 1 INH INHALATION Daily March 09, 2024 12:00am March 24, 2024 8:59am 1 sample provided Lot # [id number] 05/21 Start: 12-15-2022 take 1 puff(s) by in halation once daily Trelegy Ellipta 100-62.5-25 MCG/ACT 1 puff Inhalation Once a day Nov, Not-Taking Glucometer Device (9 sources) Start: 12-16-2022 Glucometer Dev ice as directed as directed as directed for as directed Nov, Not-Taking Start: 12-16-2022 Glucometer Dev ice as directed as directed as directed for as directed Nov, Active ketorolac tromethamine 10 mg oral tablet (20 sources) Nonsteroidal Anti-inflammatory Drug, Cyclooxygenase Inhibitor Start: 12-22-2023 End: 03-24-2024 take 10 mg by mouth every eight hours Ketorolac Discontinued 10 MG PO Every 8 hours December 30, 2023 12:00am March 24, 2024 8:59am maximum total duration of 5 days from all oral, intranasal, or parenteral formulations Start: 01-29-2020 Toradol per 15 mg January, [...] 12-08-2012 Toradol per 15 mg Nov, 2ML methylPREDNISolone 4 mg oral tablet (15 sources) Corticosteroid Start: 03-03-2024 End: 03-13-2024 take 1 tablet by mouth once Methylprednisolone (Medrol (Cinthia)) 4 mg tablets,dose pack Discontinued 4 MG PO per package directions March 03, 2024 12:00am March 13, 2024 9:32am milk thistle extract 150 mg oral capsule [...] days start 0.5 mg week 5 Active predniSONE 20 mg oral tablet (20 sources) Start: 07-04-2024 End: 07-21-2024 Prednisone Discontinued 20 M G PO .COMPLEX July 04, 2024 12:00am July 21, 2024 10:31am 20 mg orally BID for 5 days and then 1 daily for 5 days and then stop.; Start: 03-13-2024 End: 03-24-2024 take 3 tablets by mouth once daily, then take 2 tablets by mouth once daily, then take 1 tablet by mouth once daily Prednisone Discontinued 20 MG PO .COMPLEX March 13, 2024 12:00am March 24, 2024 8:59am Take 3 tabs po daily x 3 days, then take 2 tabs po daily x 3 days, then take 1 tab po daily x 3 days. Start: 06-15-2022 predniSONE 20 MG 1 tablet [...] Active Comment on above: Take by mouth. Semaglutide (20 sources) Start: 11-16-2023 End: 12-22-2023 Semaglutide (Ozempic) 0.25 m g or 0.5 mg (2 mg/3 mL) pen injector Discontinued 0.5 MG SUBCUT every week November 16, 2023 1:00am December 22, 2023 8:41am Start: 11-16-2023 Semaglutide (O zempic) 0.25 mg or 0.5 mg (2 mg/3 mL) pen injector Active 0.5 MG SUBCUT every week November 16, 2023 12:00am tiZANidine 4 mg oral tablet (20 sources) Central alpha-2 Adrenergic Agonist Start: 12-30-2023 End: 04-12-2024 take 4 mg by mouth once daily at bedtime Tizanidine Discontinued 4 MG PO Daily at bedtime December 30, 2023 12:00am April 12, 2024 2:31pm Start: 12-22-2023 End: 12-30-2023 take 4 mg by mouth twice daily Tizanidine Discontinued 4 MG PO Twice daily 60 December 22, 2023 12:00am December 30, 2023 9:30am Toradol 30 mg/ml (20 sources) Start: 04-02-2023 [...] UT) (19 sources) take 1 tablet by al th once daily Vitamin D3 50 MCG [...] Cardiac arrhythmia; Translations: [Cardiac arrhythmia, unspecified] Chronic Chronic obstructive pulmonary disease and bronchiectasis (20 sources) Bronchitis; Translations: [Bronchitis, not specified as acute or chronic] 03-13-2024 Episodic Diabetes mellitus with complications (20 sources) Hyperglycemia [...] Essential hypertension; Translations: [Essential (primary) hypertension] Chronic Lymphadenitis (12 sources) Lymphadenitis; Translations: [Nonspecific lymphadenitis, unspecified] 07-04-2024 Episodic Malaise and fatigue (1 source) Other fatigue Episodic Menopausal disorders (4 sources) Postmenopausal bleeding; Translations: [POSTMENOPAUSAL BLEEDING] Onset: 2 Chronic Miscellaneous mental health disorders (20 sources) Psychophysiologic insomnia; Translations: [Psychophysiologic insomnia] Chronic Nausea and vomiting (1 source) Nausea Episodic Nutritional deficiencies (20 sources) Vitamin D deficiency; Translations: [Vitamin D deficiency, unspecified] Onset: 4 Chronic Osteoarthritis (1 source) Unspecified osteoarthritis, unspecified [...] Chronic Other bone disease and musculoskeletal deformities (4 sources) Idiopathic aseptic necrosis of right ankle; 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 Other connective tissue disease (1 source) [...] as traumatic] Episodic Other connective tissue disease (17 sources) Pain in right foot; Translations: [Pain [...] diarrhea; Translations: [Irritable bowel syndrome with diarrhea] 07-21-2024 Chronic Other gastrointestinal disorders (5 sources) Bowel problem; Translations: [Unspecified disorder of intestine] Onset: 3 07-23-2023 Episodic Other liver diseases (20 sources) Steatosis of liver; Translations: [Fatty (change of) liver, not elsewhere classified] Chronic Other liver diseases (3 sources) Fatty (change of) liver, not elsewhere classified; Translations: [Fatty (change of) liver, not elsewhere classified] Onset: 4 Chronic Other lower respiratory disease (20 sources) Cough; Translations: [Cough] 03-03-2024 Episodic Other lower respiratory disease (20 sources) Persistent cough; Translations: [Persistent cough for 3 weeks or longer] Episodic Other nervous system disorders (20 sources) Chronic pain; Translations: [Other chronic pain] 03-24-2024 Chronic Other nervous system disorders (12 sources) Other chronic pain; Translations: [Other chronic pain] Onset: 2 Resolved: 2 Chronic Other non-traumatic [...] Chronic Other nutritional; endocrine; and metabolic disorders (20 sources) Body mass index (BMI) 45.0-49.9, adult; Translations: [Body Mass Index 45.0-49.9, adult] Onset: 4 Chronic Other nutritional; endocrine; and metabolic disorders (13 sources) Morbid (severe) obesity due to excess calories; Translations: [Morbid obesity] Onset: 4 Chronic Other nutritional; endocrine; and metabolic disorders (10 sources) Severe obesity; Translations: [Morbid (severe) obesity due to excess calories] 05-18-2023 Chronic Other nutritional; endocrine; and metabolic disorders (20 sources) Obesity, unspecified; Translations: [Obesity, unspecified] Chronic Other nutritional; endocrine; and metabolic disorders (1 source) Body mass index (BMI) 39.0-39.9, adult Chronic Other nutritional; endocrine; and metabolic disorders (20 sources) Obesity; Translations: [Obesity, unspecified] 11-17-2023 Chronic Other nutritional; endocrine; and metabolic disorders (15 sources) Obese class II; Translations: [Body mass index (BMI) 35.0-35.9, adult] Chronic Other nutritional; endocrine; and metabolic disorders (1 source) Body mass index (BMI) 35.0-35.9, adult Chronic Other nutritional; endocrine; and metabolic disorders (20 sources) Morbid obesity; Translations: [Morbid (severe) obesity due to excess calories] 12-22-2023 Chronic Other screening for suspected conditions (not mental disorders or infectious disease) (1 source) Abnormal findings on diagnostic imaging of other specified body structures; Translations: [ABNORML FIND DX IMG OTH BODY STRUC] Onset: 2 Chronic Other skin disorders (17 sources) Eruption; Translations: [Rash and other nonspecific skin eruption] Episodic Other skin disorders (6 sources) Lesion of skin of face; Translations: [Disorder of the skin and subcutaneous tissue, unspecified] 07-04-2024 Episodic Other skin disorders (6 sources) Disorder of the skin and subcutaneous tissue, unspecified; Translations: [Unspecified disorder of skin and subcutaneous tissue] 07-04-2024 Episodic Other upper respiratory disease (20 sources) Allergic rhinitis; Translations: [Allergic rhinitis, unspecified] Chronic Other upper respiratory disease (1 source) Allergic rhinitis, unspecified Onset: 1 Resolved: 1 Chronic Other upper respiratory disease (20 sources) Congestion of nasal sinus; Translations: [Nasal congestion] Episodic Other upper respiratory infections (20 sources) Sinusitis; Translations: [Chronic sinusitis, unspecified] Chronic Other upper respiratory infections (17 sources) Acute maxillary sinusitis; Translations: [Acute maxillary sinusitis, unspecified] 03-13-2024 Episodic Otitis media and related conditions (18 sources) Otitis media, unspecified, right ear; Translations: [Dysfunction of eustachian tube] Onset: 2 Resolved: 2 Episodic Residual codes; unclassified (20 sources) Obstructive sleep apnea syndrome; Translations: [Idiopathic sleep related nonobstructive alveolar hypoventilation] 05-18-2023 Chronic Residual codes; unclassified (20 sources) Obstructive sleep apnea (adult) (pediatric); Translations: [Obstructive sleep apnea (adult)(pediatric)] Onset: 3 Chronic Residual codes; unclassified (20 sources) Patient encounter status; Translations: [Unspecified elective surgery for purposes other than remedying health states] Onset: 3 07-23-2023 Episodic Residual codes; unclassified (2 sources) Other specified postprocedural states; Translations: [Other specified postprocedural states] Onset: 3 Episodic Residual codes; unclassified (1 source) Postmenopausal state; Translations: [Asymptomatic menopausal state] 07-21-2024 Episodic Residual codes; unclassified (1 source) Asymptomatic menopausal state; Translations: [Asymptomatic postmenopausal status (age-related) (natural)] 07-21-2024 Episodic Spondylosis; intervertebral disc disorders; other back [...] EXPOS COVID-19] Onset: 2 Unclassified (1 source) Cough, unspecified; Translations: [Cough, unspecified] Onset: 4 Unclassified (1 source) Pain in right shoulder; [...] skin eruption Onset: 08-06-2021 Resolved: 08-06-2021 Episodic Residual codes; unclassified (1 source) Family [...] Test Name Value Interpretation Reference Range Facility Alanine aminotransferase [En zymatic activity/volume] in Serum or PlasmaOrdered By: Lamont Villarreal on 07-18-2024 ALT [Catalytic activity/Vol] 26 U/L 7-52 [facility] Albumin [Mass/volume] in Ser um or Plasma by Bromocresol green (BCG) dye binding methoOrdered By: Lamont Villarreal on 07-18-2024 Albumin BCG dye [Mass/Vol] 3.9 g/dL 3.5-5.7 [facility] Alkaline phosphatase [Enzyma tic activity/volume] in Serum or PlasmaOrdered By: Lamont Villarreal on 07-18-2024 ALP [Catalytic activity/Vol] 71 U/L 34-104 [facility] Aspartate aminotransferase [ Enzymatic activity/volume] in Serum or PlasmaOrdered By: Lamont Villarreal on 07-18-2024 AST [Catalytic activity/Vol] 18 U/L 13-39 [facility] Basophils Auto (Bld) [#/Vol] Ordered By: Lamont Villarreal on 07-18-2024 Basophils (Bld) [#/Vol] 0.0 10*3/uL 0.0-0.2 [facility] Basophils/100 WBC Auto (Bld) Ordered By: Lamont Villarreal on 07-18-2024 Basophils/100 WBC (Bld) 0.6 % . [facility] Bilirubin.total [Mass/volume ] in Serum or PlasmaOrdered By: Lamont Villarreal on 07-18-2024 Bilirubin [Mass/Vol] 1.2 mg/dL High 0.3-1.0 [facility] Calcium [Mass/volume] in Ser um or PlasmaOrdered By: Lamont Villarreal on 07-18-2024 Calcium [Mass/Vol] 9.1 mg/dL 8.6-10.3 [facility] Carbon dioxide, total [Moles /volume] in Serum or PlasmaOrdered By: Lamont Villarreal on 07-18-2024 CO2 [Moles/Vol] 32.9 mmol/L High 21.0-31.0 [facility] Chloride [Moles/volume] in S yonas or PlasmaOrdered By: Lamont Villarreal on 07-18-2024 Chloride [Moles/Vol] 101 mmol/L 98-107 [facility] Cholesterol [Mass/volume] in Serum or PlasmaOrdered By: Lamont Villarreal on 07-18-2024 Cholesterol [Mass/Vol] 112 mg/dL Low 140-200 [facility] Comment on above: Chol less than 200 m g/dl low riskChol 201-239 mg/dl borderline riskChol 240 mg/dl and greater high risk Cholesterol in LDL Calc [Mas s/Vol]Ordered By: Lamont Villarreal on 07-18-2024 Cholesterol in LDL [Mass/Vol] 45 mg/dL 0-100 [facility] Comment on above: LDL ATP III CLASSIFI CATIONLDL less than 100 mg/dL OptimalLDL 100-129 mg/dL Near or above optimalLDL 130-159 mg/dL Borderline highLDL 160-189 mg/dL HighLDL greater than 189 mg/dL Very high Cholesterol in VLDL Calc [Ma ss/Vol]Ordered By: Lamont Villarreal on 07-18-2024 Cholesterol in VLDL [Mass/Vol] 13 mg/dL [facility] Creatinine [Mass/volume] in Serum or PlasmaOrdered By: Lamont Villarreal on 07-18-2024 Creatinine [Mass/Vol] 0.56 mg/dL Low 0.60-1.20 [facility] Eosinophils Auto (Bld) [#/Vo l]Ordered By: Lamont Villarreal on 07-18-2024 Eosinophils (Bld) [#/Vol] 0.1 10*3/uL 0.0-0.45 [facility] Eosinophils/100 WBC Auto (Bl d)Ordered By: Lamont Villarreal on 07-18-2024 Eosinophils/100 WBC (Bld) 1.7 % . [facility] Erythrocyte distribution wid th Auto (RBC) [Ratio]Ordered By: Lamont Villarreal on 07-18-2024 Erythrocyte distribution width (RBC) [Ratio] 15.3 % 11.9-15.3 [facility] Globulin Calc (S) [Mass/Vol] Ordered By: Lamont Villarreal on 07-18-2024 Globulin (S) [Mass/Vol] 2.5 g/dL [facility] Glucose [Mass/volume] in Ser um or PlasmaOrdered By: Lamont Villarreal on 07-18-2024 Glucose [Mass/Vol] 165 mg/dL High 70-100 [facility] Comment on above: ADA recommended refe rence rangeRandom Glucose Reference Range is dependent on time and content of last meal. Glucose of more than 200 mg/dL in a nonstressed, ambulatory subject supports the diagnosis of Diabetes Mellitus. Glucose mean value [Mass/vol ume] in Blood Estimated from glycated hemoglobinOrdered By: Lamont Villarreal on 07-18-2024 Average glucose Estimated from glycated hemoglobin (Bld) [Mass/Vol] 169 mg/dL [facility] Hematocrit Auto (Bld) [Volum e fraction]Ordered By: Lamont Villarreal on 07-18-2024 Hematocrit (Bld) [Volume fraction] 38.0 % 34.0-46.4 [facility] Hemoglobin A1c percentageOrd ered By: Lamont Villarreal on 07-18-2024 HbA1c (Bld) [Mass fraction] 7.5 % High 4.3-5.6 [facility] Comment on above: Increased risk for d iabetes: 5.7 - 6.4diabetes: >6.4glycemic control for adults with diabetes: <7.0 Hemoglobin [Mass/volume] in BloodOrdered By: Lamont Villarreal on 07-18-2024 Hemoglobin (Bld) [Mass/Vol] 12.8 g/dL 11.8-15.4 [facility] Leukocytes [#/volume] correc jennifer for nucleated erythrocytes in Blood by Automated counOrdered By: Lamont Villarreal on 07-18-2024 WBC corrected for nucl RBC Auto (Bld) [#/Vol] 8.1 10*3/uL 3.8-11.6 [facility] Lymphocytes Auto (Bld) [#/Vo l]Ordered By: Lamont Villarreal on 07-18-2024 Lymphocytes (Bld) [#/Vol] 2.6 10*3/uL 1.00-4.8 [facility] Lymphocytes/100 WBC Auto (Bl d)Ordered By: Lamont Villarreal on 07-18-2024 Lymphocytes/100 WBC (Bld) 32.4 % . [facility] MCH Auto (RBC) [Entitic mass ]Ordered By: Lamont Villarreal on 07-18-2024 MCH (RBC) [Entitic mass] 29.1 pg 24.7-34.3 [facility] MCHC Auto (RBC) [Mass/Vol]Or dered By: Lamont Villarreal on 07-18-2024 MCHC (RBC) [Mass/Vol] 33.7 g/dL 32.0-35.0 [facility] MCV Auto (RBC) [Entitic vol] Ordered By: Lamont Villarreal on 07-18-2024 MCV (RBC) [Entitic vol] 86.6 fL 80-100 [facility] Monocytes Auto (Bld) [#/Vol] Ordered By: Lamont Villarreal on 07-18-2024 Monocytes (Bld) [#/Vol] 0.6 10*3/uL 0.0-0.8 [facility] Monocytes/100 WBC Auto (Bld) Ordered By: Lamont Villarreal on 07-18-2024 Monocytes/100 WBC (Bld) 8.0 % . [facility] Neutrophils Auto (Bld) [#/Vo l]Ordered By: Lamont Villarreal on 07-18-2024 Neutrophils (Bld) [#/Vol] 4.7 10*3/uL 1.8-7.7 [facility] Neutrophils/100 WBC Auto (Bl d)Ordered By: Lamont Villarreal on 07-18-2024 Neutrophils/100 WBC (Bld) 57.3 % . [facility] No Panel InformationOrdered By: Lamont Villarreal on 07-18-2024 Estimated GFR (CKD-EPI) > 60.0 mL/Min [facility] Pharmacy Creatinine Clearance (Chem N/A [facility] Nucleated erythrocytes [Pres ence] in Blood by Automated countOrdered By: Lamont Villarreal on 07-18-2024 Nucleated RBC Auto Ql (Bld) 0.1 /100{WBC} 0-0.5 [facility] Platelet mean volume Auto (B ld) [Entitic vol]Ordered By: Lamont Villarreal on 07-18-2024 Platelet mean volume (Bld) [Entitic vol] 8.5 fL 6.3-10.7 [facility] Platelets Auto (Bld) [#/Vol] Ordered By: Lamont Villarreal on 07-18-2024 Platelets (Bld) [#/Vol] 174 10*3/uL 150-450 [facility] Potassium [Moles/volume] in Serum or PlasmaOrdered By: Lamont Villarreal on 07-18-2024 Potassium [Moles/Vol] 4.2 mmol/L 3.5-5.1 [facility] Protein [Mass/volume] in Ser um or PlasmaOrdered By: Lamont Villarreal on 07-18-2024 Protein [Mass/Vol] 6.4 g/dL 6.4-8.9 [facility] RBC Auto (Bld) [#/Vol]Ordere d By: Lamont Villarreal on 07-18-2024 RBC (Bld) [#/Vol] 4.39 10*6/uL 3.60-5.00 [facility] Serum or plasma albumin/glob ulin mass ratioOrdered By: Lamont Villarreal on 07-18-2024 Albumin/Globulin [Mass ratio] 1.6 {ratio} [facility] Serum or plasma anion gap de terminationOrdered By: Lamont Villarreal on 07-18-2024 Anion gap [Moles/Vol] 10.3 mmol/L 6.0-15.0 [facility] Serum or plasma high density lipoprotein (HDL) cholesterol measurementOrdered By: Lamont Villarreal on 07-18-2024 Cholesterol in HDL [Mass/Vol] 54 mg/dL 23-92 [facility] Comment on above: HDL CHOL ATP-III CLA SSIFICATION Cardiovascular RiskHDL > or equal to 60 mg/dL LOWHDL < 40 mg/dL HIGH Serum or plasma thyroglobuli n antibody assay (units/volume)Ordered By: Lamont Villarreal on 07-18-2024 Thyroglobulin Ab Qn [IU]/mL 0.0-0.9 [facility] Comment on above: Thyroglobulin Antibo dy measured by [employer] Worldwide ServicesMethodologyIt should be noted that the presence of thyroglobulinantibodies may not be pathogenic nor diagnostic, especiallyat very low levels. The assay anthropology and archeology instructor has found thatfour percent of individuals without evidence of thyroiddisease or autoimmunity will have positive TgAb levels upto 4 IU/mL.Performed at: [email or web address] [address] [id number] Director: Adrián Guillen PhD, Phone: [phone] Serum or plasma thyroperoxid ase antibody assay (units/volume)Ordered By: Lamont Villarreal on 07-18-2024 TPO Ab Qn [IU]/mL 0-34 [facility] Serum or plasma total choles terol/high density lipoprotein (HDL) cholesterol mass ratOrdered By: Lamont Villarreal on 07-18-2024 Cholesterol.total/Chol esterol in HDL [Mass ratio] 2.1 {ratio} <5.0 [facility] Sodium [Moles/volume] in Ser um or PlasmaOrdered By: Lamont Villarreal on 07-18-2024 Sodium [Moles/Vol] 140 mmol/L 136-145 [facility] Thyrotropin [Units/volume] i n Serum or PlasmaOrdered By: Lamont Villarreal on 07-18-2024 TSH Qn 1.98 m[IU]/L 0.45-5.33 [facility] Thyroxine (T4) free [Mass/vo lume] in Serum or PlasmaOrdered By: Lamont Villarreal on 07-18-2024 Free T4 [Mass/Vol] 0.89 ng/dL 0.61-1.12 [facility] Triglyceride [Mass/volume] i n Serum or PlasmaOrdered By: Lamont Villarreal on 07-18-2024 Triglyceride [Mass/Vol] 67 mg/dL 0-149 [facility] Comment on above: TRIG ATP III CLASSIF ICATIONTRIG less than 150 mg/dL NormalTRIG 150-199 mg/dL Borderline highTRIG 200-500 mg/dL High TRIG greater than 500 mg/dL Very highStandard traceable to the Center for Disease Conrtrol and Prevention (CDC) test method. Urea nitrogen [Mass/volume] in Serum or PlasmaOrdered By: Lamont Villarreal on 07-18-2024 Urea nitrogen [Mass/Vol] 12 mg/dL 7-25 [facility] Vitamin B12 ser/plasOrdered By: Lamont Villarreal on 07-18-2024 Cobalamin (Vitamin B12) [Mass/Vol] 215 pg/mL 180-914 [facility] Vitamin D+Metabolites [Mass/ volume] in Serum or PlasmaOrdered By: Lamont Villarreal on 07-18-2024 Vitamin D+Metabolites [Mass/Vol] 30.2 ng/mL 30-100 [facility] Comment on above: VITAMIN D STATUS 25( OH)VITAMIN D RANGE (ng/mL) Deficient <20 Insufficient 20 to <30Sufficient 30 to 100Reference: Mehran MF,Onesimo VARGAS, Maldonado HOGAN, et al. Evaluation,treatment, and prevention of vitamin D deficiency; an Endocrine Society clinical practice guideline. JCEM. 2010; 96(7):1911-30. WBC Auto (Bld) [#/Vol]Ordere d By: Lamont Villarreal on 07-18-2024 WBC (Bld) [#/Vol] 8.1 10*3/uL 3.8-11.6 [facility] No Panel Informationon 06-14 Bedside Glucose 165 [facility] Creatinine [Mass/volume] in UrineOrdered By: Анна Rose on 04-12-2024 Creatinine (U) [Mass/Vol] 209.00 mg/dL [facility] Comment on above: No reference range e stablished HbA1c HPLC (Bld) [Mass fract ion]on 04-12-2024 HbA1c (Bld) [Mass fraction] 6.9 % [facility] MicroAlb Creat Ratio,Uon Creatinine, Urine (Random) 209.00 mg/dL Normal [facility] Comment on above: Result Comment: No r eference range established Performed By: #### U RMACRERAT #### [address] Microalbumin/Creatinin e Ratio 5.3 mg/g Normal 0.0-30.0 [facility] Comment on above: Result Comment: 30-3 00 mg/g indicates an increased risk for diabetic nephropathy. Greater than 300 mg/g is consistent with clinical nephropathy. (Am. J. Kidney Disease 1994, 25:107) PERFORMED BY: [place] [address] PATHOLOGIST COMMUNITY DEVELOPMENT DIRECTOR LAURY MARIN M.D. Performed By: #### U RMACRERAT #### [address] Microalbumin [Mass/volume] i n UrineOrdered By: Анна Rose on 04-12-2024 Albumin DL <= 20 mg/L (U) [Mass/Vol] 1.1 mg/dL 0.0-1.8 [facility] Comment on above: Performed By: #### U RMACRERAT #### [address] No Panel Informationon 04-12 Bedside Glucose 107 [facility] Urine microalbumin/creatinin e mass ratioOrdered By: Анна Rose on 04-12-2024 Albumin/Creatinine DL <= 20 mg/L (U) [Mass ratio] 5.3 mg/g 0.0-30.0 [facility] Comment on above: 30-300 mg/g indicate s an increased risk for diabetic nephropathy. Greater than 300 mg/g is consistent with clinical nephropathy. (Am. J. 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 COMPARISON: None FINDINGS: Heart is normal in size. No lung consolidation pneumothorax pleural effusion or free air. Bronchial wall thickening. XR/XR chest 2V* IMPRESSION: BRONCHIAL WALL THICKENING SUGGESTING UNDERLYING BRONCHITIS. NO CONSOLIDATION TO SUGGEST PNEUMONIA. Impression dictated by: Sang Garay Jr., D.O.03/13/2024 10:30 AM Dictation Location: [place] [address] Transcribed By: [facility] 03/13/24 1030 Dictated By: Sang Garay Jr, DO 03/13/24 1029 Signed By: 03/13/24 1030 Normal [facility] Influenza virus A and B and SARS-CoV-2 (COVID-19) RNA panel - Respiratory system specon 03-09-2024 Influenza virus A and B RNA and SARS-CoV-2 (COVID-19) N gene panel TEE+probe (Resp) Negative [facility] Laboratory - Microbiology an d Antimicrobial susceptibilityon 03-09-2024 SARS-CoV-2 (COVID-19) RNA TEE+probe Ql (Unsp spec) Negative [facility] No Panel Informationon 03-09 POC Influenza B (TEE) Negative [facility] No Panel InformationOrdered By: Lamont Villarreal on 03-09-2024 RSV (POC) [facility] No Panel Informationon 02-16 Bedside Glucose 96 [facility] Alanine aminotransferase [En zymatic activity/volume] in Serum or PlasmaOrdered By: Lamont Villarreal on 01-13-2024 ALT [Catalytic activity/Vol] 22 U/L Normal 7-52 [facility] Comment on above: Order Comment: Reaso n for Exam Severe obesity (BMI >= 40);Diabetes;Fatty liver;Hyperlipidem Performed By: #### C MP, LIPID, T4F, TSH3 #### [facility] [address] Albumin [Mass/volume] in Ser um or Plasma by Bromocresol green (BCG) dye binding methoOrdered By: Lamont Villarreal on 01-13-2024 Albumin BCG dye [Mass/Vol] 3.9 g/dL 3.5-5.7 [facility] Alkaline phosphatase [Enzyma tic activity/volume] in Serum or PlasmaOrdered By: Lamont Villarreal on 01-13-2024 ALP [Catalytic activity/Vol] 74 U/L Normal 34-104 [facility] Comment on above: Order Comment: Reaso n for Exam Severe obesity (BMI >= 40);Diabetes;Fatty liver;Hyperlipidem Performed By: #### C MP, LIPID, T4F, TSH3 #### [address] Aspartate aminotransferase [ Enzymatic activity/volume] in Serum or PlasmaOrdered By: Lamont Villarreal on 01-13-2024 AST [Catalytic activity/Vol] 22 U/L Normal 13-39 [facility] Comment on above: Order Comment: Reaso n for Exam Severe obesity (BMI >= 40);Diabetes;Fatty liver;Hyperlipidem Performed By: #### C MP, LIPID, T4F, TSH3 #### [address] Automated basophil %Ordered By: Lamont Villarreal on 01-13-2024 Basophils/100 WBC (Bld) 0.6 % Normal . [facility] Comment on above: Order Comment: Reaso n for Exam Severe obesity (BMI >= 40);Diabetes;Fatty liver;Hyperlipidem Performed By: #### C BC #### [address] Automated basophil countOrde red By: Lamont Villarreal on 01-13-2024 Basophils (Bld) [#/Vol] 0.0 10*3/uL Normal 0.0-0.2 [facility] Comment on above: Order Comment: Reaso n for Exam Severe obesity (BMI >= 40);Diabetes;Fatty liver;Hyperlipidem Result Comment: PERF ORMED BY: [place] [address] PATHOLOGIST COMMUNITY DEVELOPMENT DIRECTOR LAURY MARIN M.D. Performed By: #### C BC #### [address] Automated blood monocyte cou ntOrdered By: Lamont Villarreal on 01-13-2024 Monocytes (Bld) [#/Vol] 0.5 10*3/uL Normal 0.0-0.8 [facility] Comment on above: Order Comment: Reaso n for Exam Severe obesity (BMI >= 40);Diabetes;Fatty liver;Hyperlipidem Performed By: #### C BC #### [address] Automated eosinophil %Ordere d By: Lamont Villarreal on 01-13-2024 Eosinophils/100 WBC (Bld) 4.0 % Normal . [facility] Comment on above: Order Comment: Reaso n for Exam Severe obesity (BMI >= 40);Diabetes;Fatty liver;Hyperlipidem Performed By: #### C BC #### [address] Automated eosinophil countOr dered By: Lamont Villarreal on 01-13-2024 Eosinophils (Bld) [#/Vol] 0.3 10*3/uL Normal 0.0-0.45 [facility] Comment on above: Order Comment: Reaso n for Exam Severe obesity (BMI >= 40);Diabetes;Fatty liver;Hyperlipidem Performed By: #### C BC #### [address] Automated monocyte %Ordered By: Lamont Villarreal on 01-13-2024 Monocytes/100 WBC (Bld) 6.2 % Normal . [facility] Comment on above: Order Comment: Reaso n for Exam Severe obesity (BMI >= 40);Diabetes;Fatty liver;Hyperlipidem Performed By: #### C BC #### [facility] [address] Automated neutrophil %Ordere d By: Lamont Villarreal on 01-13-2024 Neutrophils/100 WBC (Bld) 60.1 % Normal . [facility] Comment on above: Order Comment: Reaso n for Exam Severe obesity (BMI >= 40);Diabetes;Fatty liver;Hyperlipidem Performed By: #### C BC #### [address] Bilirubin.total [Mass/volume ] in Serum or PlasmaOrdered By: Lamont Villarreal on 01-13-2024 Bilirubin [Mass/Vol] 0.8 mg/dL Normal 0.3-1.0 [facility] Comment on above: Order Comment: Reaso n for Exam Severe obesity (BMI >= 40);Diabetes;Fatty liver;Hyperlipidem Performed By: #### C MP, LIPID, T4F, TSH3 #### [address] Calcium [Mass/volume] in Ser um or PlasmaOrdered By: Lamont Villarreal on 01-13-2024 Calcium [Mass/Vol] 8.8 mg/dL Normal 8.6-10.3 [facility] Comment on above: Order Comment: Reaso n for Exam Severe obesity (BMI >= 40);Diabetes;Fatty liver;Hyperlipidem Performed By: #### C MP, LIPID, T4F, TSH3 #### [address] Carbon dioxide, total [Moles /volume] in Serum or PlasmaOrdered By: Lamont Villarreal on 01-13-2024 CO2 [Moles/Vol] 32.2 mmol/L High 21.0-31.0 [facility] Comment on above: Order Comment: Reaso n for Exam Severe obesity (BMI >= 40);Diabetes;Fatty liver;Hyperlipidem Performed By: #### C MP, LIPID, T4F, TSH3 #### [place] [address] [place] Chloride [Moles/volume] in S yonas or PlasmaOrdered By: Lamont Villarreal on 01-13-2024 Chloride [Moles/Vol] 106 mmol/L Normal 98-107 [facility] Comment on above: Order Comment: Reaso n for Exam Severe obesity (BMI >= 40);Diabetes;Fatty liver;Hyperlipidem Performed By: #### C MP, LIPID, T4F, TSH3 #### [facility] [address] [place] [id number] [place] Cholesterol [Mass/volume] in Serum or PlasmaOrdered By: Lamont Villarreal on 01-13-2024 Cholesterol [Mass/Vol] 94 mg/dL Low 140-200 [facility] Comment on above: Chol less than 200 m g/dl low riskChol 201-239 mg/dl borderline riskChol 240 mg/dl and greater high risk Order Comment: Reaso n for Exam Severe obesity (BMI >= 40);Diabetes;Fatty liver;Hyperlipidem Result Comment: Chol less than 200 mg/dl low risk Chol 201-239 mg/dl borderline risk Chol 240 mg/dl and greater high risk Performed By: #### C MP, LIPID, T4F, TSH3 #### [facility] [address] [place] [id number] [place] Cholesterol in LDL Calc [Mas s/Vol]Ordered By: Lamont Villarreal on 01-13-2024 Cholesterol in LDL [Mass/Vol] 27 mg/dL 0-100 [facility] Comment on above: LDL ATP III CLASSIFI CATIONLDL less than 100 mg/dL OptimalLDL 100-129 mg/dL Near or above optimalLDL 130-159 mg/dL Borderline highLDL 160-189 mg/dL HighLDL greater than 189 mg/dL Very high Cholesterol in VLDL Calc [Ma ss/Vol]Ordered By: Lamont Villarreal on 01-13-2024 Cholesterol in VLDL [Mass/Vol] 7 mg/dL [facility] Complete Blood Count Auto Di ffon 01-13-2024 Mean Corpuscular HGB Conc 33.1 g/dL Normal 32.0-35.0 [facility] Comment on above: Order Comment: Reaso n for Exam Severe obesity (BMI >= 40);Diabetes;Fatty liver;Hyperlipidem Performed By: #### C BC #### [address] NRBC% 0.1 /100{WBC} Normal 0-0.5 [facility] Comment on above: Order Comment: Reaso n for Exam Severe obesity (BMI >= 40);Diabetes;Fatty liver;Hyperlipidem Performed By: #### C BC #### [address] Comprehensive Metabolic Pane lacey 01-13-2024 Albumin [Mass/Vol] 3.9 g/dL Normal 3.5-5.7 [facility] Comment on above: Order Comment: Reaso n for Exam Severe obesity (BMI >= 40);Diabetes;Fatty liver;Hyperlipidem Performed By: #### C MP, LIPID, T4F, TSH3 #### [address] GFR/1.73 sq M.predicted MDRD (S/P/Bld) [Vol rate/Area] mL/min/{1.73_m2} Normal [facility] Comment on above: Order Comment: Reaso n for Exam Severe obesity (BMI >= 40);Diabetes;Fatty liver;Hyperlipidem Performed By: #### C MP, LIPID, T4F, TSH3 #### [address] Creatinine [Mass/volume] in Serum or PlasmaOrdered By: Lamont Villarreal on 01-13-2024 Creatinine [Mass/Vol] 0.52 mg/dL Low 0.60-1.20 [facility] Comment on above: Order Comment: Reaso n for Exam Severe obesity (BMI >= 40);Diabetes;Fatty liver;Hyperlipidem Performed By: #### C MP, LIPID, T4F, TSH3 #### [address] Erythrocyte distribution wid th [Ratio] by Automated countOrdered By: Lamont Villarreal on 01-13-2024 Erythrocyte distribution width (RBC) [Ratio] 14.8 % Normal 11.9-15.3 [facility] Comment on above: Order Comment: Reaso n for Exam Severe obesity (BMI >= 40);Diabetes;Fatty liver;Hyperlipidem Performed By: #### C BC #### [facility] [address] [place] [address] [place] Erythrocytes [#/volume] in B lood by Automated countOrdered By: Lamont Villarreal on 01-13-2024 RBC (Bld) [#/Vol] 4.35 10*6/uL Normal 3.60-5.00 [facility] Comment on above: Order Comment: Reaso n for Exam Severe obesity (BMI >= 40);Diabetes;Fatty liver;Hyperlipidem Performed By: #### C BC #### [facility] [address] [place] [address] [place] Glucose [Mass/volume] in Ser um or PlasmaOrdered By: Lamont Villarreal on 01-13-2024 Glucose [Mass/Vol] 121 mg/dL High 70-100 [facility] Comment on above: ADA recommended refe rence rangeRandom Glucose Reference Range is dependent on time and content of last meal. Glucose of more than 200 mg/dL in a nonstressed, ambulatory subject supports the diagnosis of Diabetes Mellitus. Order Comment: Reaso n for Exam Severe obesity (BMI >= 40);Diabetes;Fatty liver;Hyperlipidem Result Comment: [place] Glucose Reference Range is dependent on time and content of last meal. Glucose of more than 200 mg/dL in a nonstressed, ambulatory subject supports the diagnosis of Diabetes Mellitus. ADA recommended reference range Performed By: #### C MP, LIPID, T4F, TSH3 #### [facility] [address] [place] [id number] [place] Hematocrit [Volume Fraction] of Blood by Automated countOrdered By: Lamont Villarreal on 01-13-2024 Hematocrit (Bld) [Volume fraction] 37.7 % Normal 34.0-46.4 [facility] Comment on above: Order Comment: Reaso n for Exam Severe obesity (BMI >= 40);Diabetes;Fatty liver;Hyperlipidem Performed By: #### C BC #### [facility] [address] [place] [id number] [place] Hemoglobin [Mass/volume] in BloodOrdered By: Lamont Villarreal on 01-13-2024 Hemoglobin (Bld) [Mass/Vol] 12.5 g/dL Normal 11.8-15.4 [facility] Comment on above: Order Comment: Reaso n for Exam Severe obesity (BMI >= 40);Diabetes;Fatty liver;Hyperlipidem Performed By: #### C BC #### [facility] [address] Leukocytes [#/volume] correc jennifer for nucleated erythrocytes in Blood by Automated counOrdered By: Lamont Villarreal on 01-13-2024 WBC corrected for nucl RBC Auto (Bld) [#/Vol] 8.3 10*3/uL 3.8-11.6 [facility] Leukocytes [#/volume] in Blo od by Automated countOrdered By: Lamont Villarreal on 01-13-2024 WBC (Bld) [#/Vol] 8.3 10*3/uL Normal 3.8-11.6 [facility] Comment on above: Order Comment: Reaso n for Exam Severe obesity (BMI >= 40);Diabetes;Fatty liver;Hyperlipidem Performed By: #### C BC #### [address] Lipid Panelon 01-13-2024 LDL Cholesterol,Calculated 27 mg/dL Normal 0-100 [facility] Comment on above: Order Comment: Reaso n for Exam Severe obesity (BMI >= 40);Diabetes;Fatty liver;Hyperlipidem Result Comment: LDL ATP III CLASSIFICATION LDL less than 100 mg/dL Optimal LDL 100-129 mg/dL Near or above optimal LDL 130-159 mg/dL Borderline high LDL 160-189 mg/dL High LDL greater than 189 mg/dL Very high Performed By: #### C MP, LIPID, T4F, TSH3 #### [facility] [address] Triglyceride w/Reflex 39 mg/dL Normal 0-149 [facility] Comment on above: Order Comment: Reaso n for Exam Severe obesity (BMI >= 40);Diabetes;Fatty liver;Hyperlipidem Result Comment: TRIG ATP III CLASSIFICATION TRIG less than 150 mg/dL Normal TRIG 150-199 mg/dL Borderline high TRIG 200-500 mg/dL High TRIG greater than 500 mg/dL Very high Standard traceable to the Center for Disease Conrtrol and Prevention (CDC) test method. Performed By: #### C MP, LIPID, T4F, TSH3 #### [facility] [address] VLDL CHOLESTEROL 7 mg/dL Normal [facility] Comment on above: Order Comment: Reaso n for Exam Severe obesity (BMI >= 40);Diabetes;Fatty liver;Hyperlipidem Performed By: #### C MP, LIPID, T4F, TSH3 #### [facility] [address] Lymphocytes [#/volume] in Bl ood by Automated countOrdered By: Lamont Villarreal on 01-13-2024 Lymphocytes (Bld) [#/Vol] 2.4 10*3/uL Normal 1.00-4.8 [facility] Comment on above: Order Comment: Reaso n for Exam Severe obesity (BMI >= 40);Diabetes;Fatty liver;Hyperlipidem Performed By: #### C BC #### [place] [address] [place] Lymphocytes/100 leukocytes i n Blood by Automated countOrdered By: Lamont Villarreal on 01-13-2024 Lymphocytes/100 WBC (Bld) 29.1 % Normal . [facility] Comment on above: Order Comment: Reaso n for Exam Severe obesity (BMI >= 40);Diabetes;Fatty liver;Hyperlipidem Performed By: #### C BC #### [facility] [address] [place] [address] [place] MCH [Entitic mass] by Automa jennifer countOrdered By: Lamont Villarreal on 01-13-2024 MCH (RBC) [Entitic mass] 28.7 pg Normal 24.7-34.3 [facility] Comment on above: Order Comment: Reaso n for Exam Severe obesity (BMI >= 40);Diabetes;Fatty liver;Hyperlipidem Performed By: #### C BC #### [place] [address] [place] MCHC Auto (RBC) [Mass/Vol]Or dered By: Lamont Villarreal on 01-13-2024 MCHC (RBC) [Mass/Vol] 33.1 g/dL 32.0-35.0 [facility] MCV [Entitic volume] by Auto mated countOrdered By: Lamont Villarreal on 01-13-2024 MCV (RBC) [Entitic vol] 86.6 fL Normal 80-100 [facility] Comment on above: Order Comment: Reaso n for Exam Severe obesity (BMI >= 40);Diabetes;Fatty liver;Hyperlipidem Performed By: #### C BC #### [facility] [address] Neutrophils [#/volume] in Bl ood by Automated countOrdered By: Lamont Villarreal on 01-13-2024 Neutrophils (Bld) [#/Vol] 5.0 10*3/uL Normal 1.8-7.7 [facility] Comment on above: Order Comment: Reaso n for Exam Severe obesity (BMI >= 40);Diabetes;Fatty liver;Hyperlipidem Performed By: #### C BC #### [facility] [address] No Panel InformationOrdered By: Lamont Villarreal on 01-13-2024 Estimated GFR (CKD-EPI) > 60.0 mL/Min [facility] Creatinine Clearance (Chem N/A [facility] Nucleated erythrocytes [Pres ence] in Blood by Automated countOrdered By: Lamont Villarreal on 01-13-2024 Nucleated RBC Auto Ql (Bld) 0.1 /100{WBC} 0-0.5 [facility] Platelet mean volume [Entiti c volume] in Blood by Automated countOrdered By: Lamont Villarreal on 01-13-2024 Platelet mean volume (Bld) [Entitic vol] 8.4 fL Normal 6.3-10.7 [facility] Comment on above: Order Comment: Reaso n for Exam Severe obesity (BMI >= 40);Diabetes;Fatty liver;Hyperlipidem Performed By: #### C BC #### [facility] [address] [place] [address] Platelets [#/volume] in Bloo d by Automated countOrdered By: Lamont Villarreal on 01-13-2024 Platelets (Bld) [#/Vol] 243 10*3/uL Normal 150-450 [facility] Comment on above: Order Comment: Reaso n for Exam Severe obesity (BMI >= 40);Diabetes;Fatty liver;Hyperlipidem Performed By: #### C BC #### [facility] [address] [place] [address] Potassium [Moles/volume] in Serum or PlasmaOrdered By: Lamont Villarreal on 01-13-2024 Potassium [Moles/Vol] 4.0 mmol/L Normal 3.5-5.1 [facility] Comment on above: Order Comment: Reaso n for Exam Severe obesity (BMI >= 40);Diabetes;Fatty liver;Hyperlipidem Performed By: #### C MP, LIPID, T4F, TSH3 #### [facility] [address] [place] [address] Protein [Mass/volume] in Ser um or PlasmaOrdered By: Lamont Villarreal on 01-13-2024 Protein [Mass/Vol] 6.2 g/dL Low 6.4-8.9 [facility] Comment on above: Order Comment: Reaso n for Exam Severe obesity (BMI >= 40);Diabetes;Fatty liver;Hyperlipidem Performed By: #### C MP, LIPID, T4F, TSH3 #### [facility] [address] [place] [address] Serum globulin measurement b y calculation (mass/volume)Ordered By: Lamont Villarreal on 01-13-2024 Globulin (S) [Mass/Vol] 2.3 g/dL Normal [facility] Comment on above: Order Comment: Reaso n for Exam Severe obesity (BMI >= 40);Diabetes;Fatty liver;Hyperlipidem Performed By: #### C MP, LIPID, T4F, TSH3 #### [facility] [address] [place] [address] Serum or plasma albumin/glob ulin mass ratioOrdered By: Lamont Villarreal on 01-13-2024 Albumin/Globulin [Mass ratio] 1.7 {ratio} Normal [facility] Comment on above: Order Comment: Reaso n for Exam Severe obesity (BMI >= 40);Diabetes;Fatty liver;Hyperlipidem Performed By: #### C MP, LIPID, T4F, TSH3 #### [facility] [address] Serum or plasma anion gap de terminationOrdered By: Lamont Villarreal on 01-13-2024 Anion gap [Moles/Vol] 7.8 mmol/L Normal 6.0-15.0 [facility] Comment on above: Order Comment: Reaso n for Exam Severe obesity (BMI >= 40);Diabetes;Fatty liver;Hyperlipidem Performed By: #### C MP, LIPID, T4F, TSH3 #### [address] Serum or plasma high density lipoprotein (HDL) cholesterol measurementOrdered By: Lamont Villarreal on 01-13-2024 Cholesterol in HDL [Mass/Vol] 59 mg/dL Normal 23-92 [facility] Comment on above: HDL CHOL ATP-III CLA SSIFICATION Cardiovascular RiskHDL > or equal to 60 mg/dL LOWHDL < 40 mg/dL HIGH Order Comment: Reaso n for Exam Severe obesity (BMI >= 40);Diabetes;Fatty liver;Hyperlipidem Result Comment: HDL CHOL ATP-III CLASSIFICATION Cardiovascular Risk HDL > or equal to 60 mg/dL LOW HDL < 40 mg/dL HIGH Performed By: #### C MP, LIPID, T4F, TSH3 #### [facility] [address] Serum or plasma total choles terol/high density lipoprotein (HDL) cholesterol mass ratOrdered By: Lamont Villarreal on 01-13-2024 Cholesterol.total/Chol esterol in HDL [Mass ratio] 1.6 {ratio} Normal <5.0 [facility] Comment on above: Order Comment: Reaso n for Exam Severe obesity (BMI >= 40);Diabetes;Fatty liver;Hyperlipidem Performed By: #### C MP, LIPID, T4F, TSH3 #### [facility] [address] Sodium [Moles/volume] in Ser um or PlasmaOrdered By: Lamont Villarreal on 01-13-2024 Sodium [Moles/Vol] 142 mmol/L Normal 136-145 [facility] Comment on above: Order Comment: Reaso n for Exam Severe obesity (BMI >= 40);Diabetes;Fatty liver;Hyperlipidem Performed By: #### C MP, LIPID, T4F, TSH3 #### [facility] [address] [place] [address] Thyrotropin [Units/volume] i n Serum or PlasmaOrdered By: Lamont Villarreal on 01-13-2024 TSH Qn 2.15 m[IU]/L Normal 0.45-5.33 [facility] Comment on above: Order Comment: Reaso n for Exam Severe obesity (BMI >= 40);Diabetes;Fatty liver;Hyperlipidem Result Comment: PERF ORMED BY: [place] [address] PATHOLOGIST COMMUNITY DEVELOPMENT DIRECTOR LAURY MARIN M.D. Performed By: #### C MP, LIPID, T4F, TSH3 #### [facility] [address] [place] [address] Thyroxine (T4) free [Mass/vo lume] in Serum or PlasmaOrdered By: Lamont Villarreal on 01-13-2024 Free T4 [Mass/Vol] 0.87 ng/dL Normal 0.61-1.12 [facility] Comment on above: Order Comment: Reaso n for Exam Severe obesity (BMI >= 40);Diabetes;Fatty liver;Hyperlipidem Performed By: #### C MP, LIPID, T4F, TSH3 #### [facility] [address] [place] [address] Triglyceride [Mass/volume] i n Serum or PlasmaOrdered By: Lamont Villarreal on 01-13-2024 Triglyceride [Mass/Vol] 39 mg/dL 0-149 [facility] Comment on above: TRIG ATP III CLASSIF ICATIONTRIG less than 150 mg/dL NormalTRIG 150-199 mg/dL Borderline highTRIG 200-500 mg/dL High TRIG greater than 500 mg/dL Very highStandard traceable to the Center for Disease Conrtrol and Prevention (CDC) test method. Urea nitrogen [Mass/volume] in Serum or PlasmaOrdered By: Lamont Villarreal on 01-13-2024 Urea nitrogen [Mass/Vol] 11 mg/dL Normal 7-25 [facility] Comment on above: Order Comment: Reaso n for Exam Severe obesity (BMI >= 40);Diabetes;Fatty liver;Hyperlipidem Performed By: #### C MP, LIPID, T4F, TSH3 #### [facility] [address] Vitamin D 25 Hydroxy Totalon 01-13-2024 Vitamin D 25 Hydroxy Total 22.8 ng/mL Low 30-100 [facility] Comment on above: Result Comment: JONAS MIN D STATUS 25(OH)VITAMIN D RANGE (ng/mL) Deficient <20 Insufficient 20 to <30 Sufficient 30 to 100 Reference: Onesimo Barajas, Maldonado HOGAN, et al. Evaluation,treatment, and prevention of vitamin D deficiency; an Endocrine Society clinical practice guideline. JCEM. 2010; 96(7):1911-30. PERFORMED BY: [place] [address] PATHOLOGIST COMMUNITY DEVELOPMENT DIRECTOR LAURY MARIN M.D. Performed By: #### V [id number] #### [address] Vitamin D+Metabolites [Mass/ volume] in Serum or PlasmaOrdered By: Анна Rose on 01-13-2024 Vitamin D+Metabolites [Mass/Vol] 22.8 ng/mL Low 30-100 [facility] Comment on above: VITAMIN D STATUS 25( OH)VITAMIN D RANGE (ng/mL) Deficient <20 Insufficient 20 to <30Sufficient 30 to 100Reference: Onesimo Barajas, Maldonado HOGAN, et al. Evaluation,treatment, and prevention of vitamin D deficiency; an Endocrine Society clinical practice guideline. JCEM. 2010; 96(7):1911-30. HbA1c HPLC (Bld) [Mass fract ion]on 12-30-2023 HbA1c (Bld) [Mass fraction] 6.7 % [facility] No Panel Informationon 12-29 Bedside Glucose 118 [facility] Human papilloma virus 16+18+ 31+33+35+39+45+51+52+56+58+59+66+68 DNA [Presence] in Jonah 12-27-2023 HPV 16+18+31+33+35+39+45+5 1+52+56+58+59+66+68 DNA Probe+sig amp Ql (Cvx) Negative Negative [facility] Comment on above: This nucleic acid am plification test detects fourteen high- risk HPV types (16,18,31,33,35,39,45,51,52,56,58,59,66,68)without differentiation.Performed at: = - [facility] [id number] Director: Elaine Alvarado MD, Phone: [phone] at: - [facility] [id number] Director: Elaine Alvarado MD, Phone: [phone] No Panel Informationon 12-26 HPV High Risk Other Comment Note . [facility] Comment on above: TESTS RESULT FLAG UN ITS REF RANGE LAB DIAGNOSIS: 02 NEGATIVE FOR INTRAEPITHELIAL LESION OR MALIGNANCY.Specimen adequacy: 02 Satisfactory for evaluation. Endocervical and/or squamous metaplastic cells (endocervical component) are present.Performed by: 02 Brannon Hernandez, Fan Installer (ASCP). 02Note: Note 02 The Pap smear is a screening test designed to aid in the detection of premalignant and malignant conditions of the uterine cervix. It is not a diagnostic procedure and should not be used as the sole means of detecting cervical cancer. Both false-positive and false-negative reports do occur.Test Methodology: Note 02 This liquid based ThinPrep(R) pap test was screened with the use of an image guided system.HPV Genotype Reflex Note 02 Criteria not met, HPV Genotype not performed. ------- FLAG LEGEND: L-Low Normal,H-High Normal,LL-Alert Low,HH-Alert High <-Panic Low,>-Panic High,A-Abnormal,AA-Critical Abnormal -----Performed at:[address] [id number] Elaine Alvarado MD, Reference Lab Test Patient Age Note . [facility] Comment on above: TESTS RESULT FLAG UN ITS REF RANGE LAB Clinician Provided Cytology Information Source.............Cervix;Endocervix No. of containers..01 ThinPrep VialAge Aichao INDIO Amy... 30-65 01 FLAG LEGEND: L-Low Normal,H-High Normal,LL-Alert Low,HH-Alert High <-Panic Low,>-Panic High,A-Abnormal,AA-Critical Abnormal -----Performed at:01 =[facility] [address] [place], [place] [address] Elaine Alvarado MD, No Panel Informationon 11-17 Bedside Glucose 108 [facility] XR CERVICAL SPINE COMPLETE 4 -5 VIEWSon 09-21-2023 XR CERVICAL SPINE COMPLETE 4-5 VIEWS Interpreted By: Brain Sen, STUDY: XR CERVICAL SPINE COMPLETE 4-5 VIEWS; ; 09/21/2023 10:05 am INDICATION: Signs/Symptoms:neck pain. ACCESSION NUMBER(S): [id number] ORDERING CLINICIAN: BRAIN SEN FINDINGS: AP lateral flexion extension x-rays [...] Brain Sen 09/21/2023 1:00 PM Dictation workstation: [id number] [facility] XR SHOULDER RIGHT 2+ VIEWSon 07-26-2023 XR SHOULDER RIGHT 2+ VIEWS Interpreted By: Brain Hernandez, STUDY: XR SHOULDER RIGHT 2+ VIEWS; ; 07/26/2023 9:20 am INDICATION: Signs/Symptoms:pain. ACCESSION NUMBER(S): [id number] ORDERING CLINICIAN: BRAIN HERNANDEZ FINDINGS: AP axillary right shoulder shows a well-positioned glenohumeral joint surgical anchor appears to be well seated in the greater tuberosity. Abnormal calcification is appreciated off the lateral aspect of the acromion. Correlate with clinical symptoms of impingement or need for advanced imaging studies to evaluate for rotator cuff tearing. Signed by: Brain Hernandez 07/26/2023 9:39 AM Dictation workstation: [id number] [facility] XR Shoulder - right 2 Viewso n 07-26-2023 Interpreted By: Brain Castellon, STUDY: XR SHOULDER RIGHT 2+ VIEWS; ; 07/26/2023 9:20 am INDICATION: Signs/Symptoms:pain. ACCESSION NUMBER(S): [id number] ORDERING CLINICIAN: BRAIN HERNANDEZ FINDINGS: AP axillary right shoulder shows a well-positioned glenohumeral joint surgical anchor appears to be well seated in the greater tuberosity. Abnormal calcification is appreciated off the lateral aspect of the acromion. Correlate with clinical symptoms of impingement or need for advanced imaging studies to evaluate for rotator cuff tearing. Signed by: Brain Hernandez 07/26/2023 9:39 AM Dictation workstation: [id number] MMODAL Brain Hernandez M D - 07/26/2023 Interpreted By: Brain Hernandez, STUDY: XR SHOULDER RIGHT 2+ VIEWS; ; 07/26/2023 9:20 am INDICATION: Signs/Symptoms:pain. ACCESSION NUMBER(S): [id number] ORDERING CLINICIAN: BRAIN HERNANDEZ FINDINGS: AP axillary right shoulder shows a well-positioned glenohumeral joint surgical anchor appears to be well seated in the greater tuberosity. Abnormal calcification is appreciated off the lateral aspect of the acromion. Correlate with clinical symptoms of impingement or need for advanced imaging studies to evaluate for rotator cuff tearing. Signed by: Brain Hernandez 07/26/2023 9:39 AM Dictation workstation: [id number] [facility] Work Phone: [facility] Work Phone: Radiology Study observation (narrative) [facility] Work Phone: A1C HEMOGLOBINon 06-09-2023 HbA1c (Bld) [Mass fraction] 6.6 % [facility] [employer] [employer] Other Glucose - FINGER STICKon Glucose [Mass/Vol] 158 mg/dL [facility] [employer] Other HbA1c (Bld) [Mass fraction]o n 06-09-2023 A1C HEMOGLOBIN [employer] Other CNOVon 05-18-2023 CNOV Office Visit (OTOLMN ) ----- SHELIA JUNIOR ([id number]) 1965 F Date Time Provider Department 05/18/23 [...] obesity type, unspecified whether serious comorbidity present ([facility]) [E66.01, Z68.41] Prescriptions as of 05/18/2023 - PREDNISONE ORAL Take by mouth. Problem List As Of Date 05/18/2023 Noted Resolved Posterior tibial tendinitis of right lower extr*03/11/2022 Right foot pain [M79.671] 03/11/2022 Chronic pain of right ankle [M25.571, G89.29] 03/11/2022 Visit Notes: >> Cristina Funes Ma May 18, 2023 9:20 AM Status: Signed Tobacco Use: Never Was smoking cessation packet given? N/A - Patient is a non-smoker or quit >1 year ago. Was a referral initiated?N/A Patient is a non-smoker Encounter Status:Closed by YOSVANY HAYDEN on 05/18/23 Normal [facility] Creatinine [Mass/volume] in UrineOrdered By: Анна Rose on 03-08-2023 Creatinine (U) [Mass/Vol] 221.0 mg/dL 11.0-20.0 [facility] Microalbumin [Mass/volume] i n UrineOrdered By: Анна Rose on 03-08-2023 Albumin DL <= 20 mg/L (U) [Mass/Vol] 1.7 mg/dL 0.0-1.8 [facility] Urine microalbumin/creatinin e mass ratioOrdered By: Анна Rose on 03-08-2023 Albumin/Creatinine DL <= 20 mg/L (U) [Mass ratio] 7.0 mg/g 0.0-30.0 [facility] Comment on above: 30-300 mg/g indicate s an increased risk for diabetic nephropathy. Greater than 300 mg/g is consistent with clinical nephropathy. (Am. J. Kidney Disease 1995, 25:107) A1C HEMOGLOBINon 01-25-2023 HbA1c (Bld) [Mass fraction] 7.4 % [facility] [employer] Other Glucose - FINGER STICKon Glucose [Mass/Vol] 151 mg/dL [facility] [employer] [facility] Other HbA1c (Bld) [Mass fraction]o n 01-25-[address] [facility] Other Established Visit (Orthopaed ic Surgery)on 12-30-2022 Established Visit (Orthopaedic Surgery) Diagnoses/Problems Assessed Nontraumatic complete tear of left rotator cuff (727.61) (V69.122) Provider Impressions Impression: Status post massive rotator cuff tendon reconstruction with cystic foreign exchange trader the tuberosity. Treatment Plan: She has a [...] to a massive cuff tear and cystic foreign exchange trader the tuberosity. I will see her back [...] due to the massive cuff wear, sclerotic foreign exchange trader the humeral head. Active Problems Problems Avascular [...] Recorded: 30Dec2022 03:52PM Height5 ft 8 in Uqstrk311 lb BMI Zroqkwzcin86.83 kg/m2 BSA Calculated2.46 Physical Exam At this time, she can move elbow, hand, and wrist. She has decent strength at her side, but obviously not a lot of lifting strength overhead. Results/Data Radiology: X-rays show a well-positioned glenohumeral joint with obviously sclerotic and cystic foreign exchange trader the tuberosity. Signatures Electronically signed by : Cha Vaca, ; Jan 01 2023 5:46PM EST (Tailor Garment Fitter/Recorde r) Electronically signed by : Brain Hernandez MD; Jan 02 2023 9:32AM EST Normal [facility] 12-30-2022 XR Shoulder 2 Views Normal [facility] mherst DO Work Phone: SHOULDER, CMPLT, MIN 2 VIEWS on 12-30-2022 SHOULDER, CMPLT, MIN 2 VIEWS Patient Name: SHELIA JUNIOR STUDY: SHOULDER, CMPLT, MIN 2 VIEWS; Left; 12/30/2022 4:17 pm INDICATION: Pain M75.122: Nontraumatic complete tear of left rotator cuff. ACCESSION NUMBER(S): [id number] ORDERING CLINICIAN: BRAIN HERNANDEZ FINDINGS: AP axillary left shoulder shows a well-positioned glenohumeral joint no fracture dislocation noted some mild cystic foreign exchange trader the tuberosity consistent with prior history of rotator cuff repair and anchor placement is noted. No fracture dislocation. Otherwise unremarkable two views left shoulder Electronically signed by: BRAIN HERNANDEZ MD Normal [facility] CBC AUTO DIFFon 12-12-2022 BASO # 0.1 103/ul Normal 0.0-0.1 [facility] Comment on above: Performed By: #### C BC #### [facility] [address] [place] [address] Dr. Alicia Morales Basophils/100 WBC (Bld) 0.7 % Normal 0.2-2.0 [facility] Comment on above: Performed By: #### C BC #### [facility] [address] [place] [address] Dr. Alicia Morales EO # 0.3 103/ul Normal 0.0-0.7 [facility] Comment on above: Performed By: #### C BC #### [facility] [address] [place] [address] Dr. Alicia Morales Eosinophils/100 WBC (Bld) 2.8 % Normal 0.9-7.0 [facility] Comment on above: Performed By: #### C BC #### [facility] [address] [place] [address] Dr. Alicia Morales Erythrocyte distribution width (RBC) [Ratio] 14.0 % Normal 11.0-15.0 [facility] Comment on above: Performed By: #### C BC #### [facility] [address] [place] [address] Dr. Alicia Morales Hematocrit (Bld) [Volume fraction] 41.3 % Normal 36.0-48.0 [facility] Comment on above: Performed By: #### C BC #### [facility] [address] [place] [address] Dr. Alicia Morales Hemoglobin (Bld) [Mass/Vol] 13.6 g/dL Normal 12.0-16.0 [facility] Comment on above: Performed By: #### C BC #### [facility] [address] [place] [address] Dr. Alicia Morales IG # 0.06 10e3/ul Critically high 0.00-0.03 [facility] [place] Comment on above: Performed By: #### C BC #### [facility] [address] [place] [address] Dr. Alicia Morales IG % 0.7 % Critically high 0.0-0.5 [facility] Comment on above: Performed By: #### C BC #### [facility] [address] [place] [address] Dr. Alicia Morales LYMPH # 2.5 103/ul Normal 1.2-3.8 [facility] Comment on above: Performed By: #### C BC #### [facility] [address] [place] [address] Dr. Alicia Morales Lymphocytes/100 WBC (Bld) 27.5 % Normal 20.5-60.0 [facility] Comment on above: Performed By: #### C BC #### [facility] [address] [place] [address] Dr. Alicia Morales MANUAL DIFF REQ NO Normal [facility] Comment on above: Performed By: #### C BC #### [facility] [address] [place] [address] Dr. Alicia Morales MCH (RBC) [Entitic mass] 28.6 pg Normal 26.7-34.0 [facility] Comment on above: Performed By: #### C BC #### [facility] [address] [place] [address] Dr. Alicia Morales MCHC (RBC) [Mass/Vol] 32.9 g/dL Normal 29.9-35.2 [facility] Comment on above: Performed By: #### C BC #### [facility] [address] [place] [address] Dr. Alicia Morales MCV (RBC) [Entitic vol] 86.9 fL Normal 81.0-99.0 [facility] Comment on above: Performed By: #### C BC #### [facility] [address] [place] [address] Dr. Alicia Morales MONO # 0.6 103/ul Normal 0.3-0.8 [facility] Comment on above: Performed By: #### C BC #### [facility] [address] [place] [address] Dr. Alicia Morales Monocytes/100 WBC (Bld) 6.4 % Normal 1.7-12.0 [facility] Comment on above: Performed By: #### C BC #### [facility] [address] [place] [address] Dr. Alicia Morales NEUT # 5.6 103/ul Normal 1.4-6.5 [facility] Comment on above: Performed By: #### C BC #### [facility] [address] [place] [address] Dr. Alicia Morales Neutrophils/100 WBC (Bld) 61.9 % Normal 43.0-75.0 [facility] Comment on above: Performed By: #### C BC #### [facility] [address] [place] [address] Dr. Alicia Morales Platelet mean volume (Bld) [Entitic vol] 10.5 fL Normal 9.5-13.5 [facility] Comment on above: Performed By: #### C BC #### [facility] [address] [place] [address] Dr. Alicia Morales PLT 200 103/ul Normal 150-450 [facility] Comment on above: Performed By: #### C BC #### [facility] [address] [place] [address] Dr. Alicia Morales RBC 4.75 106/ul Normal 4.20-5.40 [facility] Comment on above: Performed By: #### C BC #### [facility] [address] [place] [address] Dr. Alicia Morales WBC 9.1 103/ul Normal 4.0-11.0 [facility] Comment on above: Performed By: #### C BC #### [facility] [address] [place] [address] Dr. Alicia Morales GLYCOHEMOGLOBIN A1Con 2022 ADA RECOMMENDATION SEE BELOW Normal [facility] Comment on above: Result Comment: ADA RECOMMENDED LIMIT 4.0 - 6.0 ADA THERAPEUTIC TARGET < 7.0 ACTION SUGGESTED > 7.0 Performed By: #### A 1C #### [facility] [address] [place] [address] Dr. Alicia Morales Glucose [Mass/Vol] 243 mg/dL Normal [facility] Comment on above: Performed By: #### A 1C #### [facility] [address] [place] [address] Dr. Alicia Morales HbA1c (Bld) [Mass fraction] 10.1 % Critically high 4.5-6.2 [facility] Comment on above: Performed By: #### A 1C #### [facility] [address] [place] [address] Dr. Alicia Morales LIPID PROFILEon 12-12-2022 CHOL-HDL RATIO NORM SEE BELOW Normal [facility] Comment on above: Result Comment: 3.3 - 4.4 LOW RISK 4.4 - 7.1 AVERAGE RISK 7.1 - 11.0 MODERATE RISK >11.0 HIGH RISK Performed By: #### L IPID, CMP, TSH #### [facility] [address] [place] [address] Dr. Alicia Morales Cholesterol [Mass/Vol] 104 mg/dL Normal <=200 [facility] Comment on above: Performed By: #### L IPID, CMP, TSH #### [facility] [address] [address] [address] Alicia Morales Cholesterol in HDL [Mass/Vol] 51 mg/dL Normal 40-60 [facility] Comment on above: Performed By: #### L IPID, CMP, TSH #### [facility] [address] [address] [address] Alicia Morales Cholesterol in LDL [Mass/Vol] 39.2 mg/dL Normal [facility] Comment on above: Performed By: #### L IPID, CMP, TSH #### [facility] [address] [address] [address] Alicia Morales Cholesterol.total/Chol esterol in HDL [Mass ratio] 2.0 {ratio} Normal [facility] Comment on above: Performed By: #### L IPID, CMP, TSH #### [facility] [address] [address] [address] Alicia Morales HDL NORMAL > or = 60 mg/dl - LO W CARDIOVASCULAR RISK <40 mg/dl - HIGH CARDIOVASCULAR RISK Normal [facility] Comment on above: Performed By: #### L IPID, CMP, TSH #### [facility] [address] [address] [address] Alicia Morales LDL CALC NORMAL SEE BELOW Normal [facility] Comment on above: Result Comment: <100 mg/dl OPTIMAL 100 - 129 mg/dl NEAR OR ABOVE OPTIMAL 130 - 159 mg/dl BORDERLINE HIGH 160 - 189 mg/dl HIGH >190 mg/dl VERY HIGH Performed By: #### L IPID, CMP, TSH #### [facility] [address] [address] [address] Alicia Morales Triglyceride [Mass/Vol] 69 mg/dL Normal <=150 [facility] Comment on above: Performed By: #### L IPID, CMP, TSH #### [facility] [address] [address] [address] Alicia Morales VLDL CALC 13.8 mg/dL Normal [facility] Comment on above: Performed By: #### L IPID, CMP, TSH #### [facility] [address] [address] [address] Alicia Morales PROF 14(COMP METB)on 023 Albumin [Mass/Vol] 3.6 g/dL Normal 3.4-5.0 [facility] Comment on above: Performed By: #### L IPID, CMP, TSH #### [facility] [address] [address] [address] Alicia Morales Albumin/Globulin [Mass ratio] 1.0 {ratio} Normal [facility] Comment on above: Performed By: #### L IPID, CMP, TSH #### [facility] [address] [address] [address] Alicia Morales ALP [Catalytic activity/Vol] 111 U/L Normal 46-116 [facility] Comment on above: Performed By: #### L IPID, CMP, TSH #### [facility] [address] [address] [address] Alicia Morales ALT [Catalytic activity/Vol] 64 U/L Critically high 14-59 [facility] Comment on above: Performed By: #### L IPID, CMP, TSH #### [facility] [address] [address] [address] Alicia Morales Anion gap [Moles/Vol] 13.8 mmol/L Normal [facility] Comment on above: Performed By: #### L IPID, CMP, TSH #### [facility] [address] [address] [address] Alicia Morales AST [Catalytic activity/Vol] 64 U/L Critically high 15-37 [facility] Comment on above: Performed By: #### L IPID, CMP, TSH #### [facility] [address] [address] [address] Alicia Morales Bilirubin [Mass/Vol] 1.0 mg/dL Normal 0.2-1.0 [facility] Comment on above: Performed By: #### L IPID, CMP, TSH #### [facility] [address] [address] [address] Alicia Morales Calcium [Mass/Vol] 8.8 mg/dL Normal 8.5-10.1 [facility] Comment on above: Performed By: #### L IPID, CMP, TSH #### [facility] [address] [address] [address] Alicia Morales Chloride [Moles/Vol] 99 mmol/L Normal 98-107 [facility] Comment on above: Performed By: #### L IPID, CMP, TSH #### [facility] [address] [address] [address] Alicia Morales CO2 [Moles/Vol] 28.0 mmol/L Normal 21.0-32.0 [facility] Comment on above: Performed By: #### L IPID, CMP, TSH #### [facility] [address] [place] [address] Dr. Alicia Morales Creatinine [Mass/Vol] 0.62 mg/dL Normal 0.55-1.02 [facility] Comment on above: Performed By: #### L IPID, CMP, TSH #### [facility] [address] [place] [address] Dr. Alicia Morales EGFR-AF NIGERIAN >60 Normal >=60 [facility] Comment on above: Performed By: #### L IPID, CMP, TSH #### [facility] [address] [place] [address] Dr. Alicia Morales EGFR-NON AF NIGERIAN >60 Normal >=60 [facility] Comment on above: Performed By: #### L IPID, CMP, TSH #### [facility] [address] [place] [address] Dr. Alicia Morales Globulin (S) [Mass/Vol] 3.5 g/dL Normal [facility] Comment on above: Performed By: #### L IPID, CMP, TSH #### [facility] [address] [place] [address] Dr. Alicia Morales Glucose [Mass/Vol] 223 mg/dL Critically high 74-106 [facility] Comment on above: Performed By: #### L IPID, CMP, TSH #### [facility] [address] [place] [address] Dr. Alicia Morales Potassium [Moles/Vol] 3.8 mmol/L Normal 3.5-5.1 [facility] Comment on above: Performed By: #### L IPID CMP, TSH #### [facility] [address] [address] [address] Alicia Morales Protein [Mass/Vol] 7.1 g/dL Normal 6.4-8.2 [facility] Comment on above: Performed By: #### L IPID CMP, TSH #### [facility] [address] [address] [address] Alicia Morales Sodium [Moles/Vol] 137 mmol/L Normal 136-145 [facility] Comment on above: Performed By: #### L IPID CMP, TSH #### [facility] [address] [place] [address] Dr. Alicia Morales Urea nitrogen [Mass/Vol] 6.0 mg/dL Critically low 7.0-18.0 [facility] Comment on above: Performed By: #### L IPID CMP, TSH #### [facility] [address] [place] [address] Dr. Alicia Morales Urea nitrogen/Creatinine [Mass ratio] 9.7 mg/mg Normal [facility] Comment on above: Performed By: #### L IPID CMP, TSH #### [facility] [address] [place] [address] Dr. Alicia Morales TSHon 12-12-2022 TSH 2.781 uIU/mL Normal 0.358-3.74 0 [facility] Comment on above: Performed By: #### L IPID, CMP, TSH #### [facility] [address] [place] [address] Dr. Alicia Morales MG MAMM SCREEN 3D LINUS CADon 08-27-2022 MG MAMM SCREEN 3D LINUS CAD Patient: SHELIA JUNIOR Exam Date: 08/27/2022 : 1965 Gender:F Ordering : DR MALCOM HUANG . Admission #: [id number] Family : Order #: [id number] CLICK HERE TO VIEW EXAM RADIOLOGY REPORT [...] prostate cancer at age 85. LOCATION: [facility] BREAST COMPOSITION: Scattered areas fibroglandular density. [...] Quintanilla MD on 08/28/2022 at 08:21 Normal [facility] PAP ACOG PANEL 2: 30 to 65on 08-17-2022 . . Normal [facility] Comment on above: Result Comment: Perf ormed at: WB Performed By: #### C BC #### [facility] [address] [place] [address] Dr. Alicia Morales Age Gdln ACOG Testing 30-65 Normal [facility] Comment on above: Performed By: #### C BC #### [facility] [address] [address] [address] Alicia Morales DIAGNOSIS: Comment Normal [facility] Comment on above: Result Comment: NEGA TIVE FOR INTRAEPITHELIAL LESION OR MALIGNANCY. Performed at: WB Performed By: #### C BC #### [facility] [address] [address] [address] Alicia Morales HPV Aptima Negative Normal Negative [facility] Comment on above: Result Comment: This nucleic acid amplification test detects fourteen high-risk HPV types (16,18,31,33,35,39,45,51,52,56,58,59,66,68) without differentiation. Performed at: =G Performed By: #### C BC #### [facility] [address] [address] [address] Alicia Morales HPV Genotype Reflex Comment Normal [facility] Comment on above: Result Comment: Crit eria not met, HPV Genotype not performed. Performed at: WB Performed By: #### C BC #### [facility] [address] [address] [address] Alicia Morales Methodology: Comment Normal [facility] Comment on above: Result Comment: This liquid based ThinPrep(R) pap test was screened with the use of an image guided system. Performed at: WB Performed By: #### C BC #### [facility] [address] [place] [address] Dr. Alicia Morales Note: Comment Normal [facility] Comment on above: Result Comment: The [...] WB Performed By: #### C BC #### [facility] [address] [place] [address] Dr. Alicia Morales Performed by: Comment Normal [facility] Comment on above: Result Comment: Lisa Bond, Fan Installer (ASCP) Performed at: WB Performed By: #### C BC #### [facility] [address] [place] [address] Dr. Alicia Morales Specimen adequacy: Comment Normal [facility] Comment on above: Result Comment: Sati sfactory for evaluation. Endocervical and/or squamous metaplastic cells (endocervical component) are present. Performed at: WB Performed By: #### C BC #### [facility] [address] [place] [address] Dr. Alicia Morales COVID Quick Testingon 2021 Result Positive [employer] Other FREE T4on 05-08-2022 Free T4 [Mass/Vol] 0.99 ng/dL Normal 0.76-1.46 [facility] Comment on above: Performed By: #### F T4 #### [facility] [address] [address] [address] Alicia Morales GLUCOSE BLOODon 05-08-2022 Glucose [Mass/Vol] 158 mg/dL Critically high 74-106 [facility] Comment on above: Performed By: #### C BC #### [facility] [address] [place] [address] Dr. Alicia Morales GLYCOHEMOGLOBIN A1Con 2021 ADA RECOMMENDATION SEE BELOW Normal [facility] Comment on above: Result Comment: ADA RECOMMENDED LIMIT 4.0 - 6.0 ADA THERAPEUTIC TARGET < 7.0 ACTION SUGGESTED > 7.0 Performed By: #### C BC #### [facility] [address] [place] [address] Dr. Alicia Morales Glucose [Mass/Vol] 157 mg/dL Normal [facility] Comment on above: Performed By: #### C BC #### [facility] [address] [place] [address] Dr. Alicia Morales HbA1c (Bld) [Mass fraction] 7.1 % Critically high 4.5-6.2 [facility] Comment on above: Performed By: #### C BC #### [facility] [address] [place] [address] Dr. Alicia oMrales TSHon 05-08-2022 TSH 3.661 uIU/mL Normal 0.358-3.74 0 [facility] Comment on above: Performed By: #### C BC #### [facility] [address] [place] [address] Dr. Alicia Morales CBC AUTO DIFFon 03-19-2022 BASO # 0.0 103/ul Normal 0.0-0.1 [facility] Comment on above: Performed By: #### C BC #### [facility] [address] [place] [address] Dr. Alicia Morales Basophils/100 WBC (Bld) 0.5 % Normal 0.2-2.0 [facility] Comment on above: Performed By: #### C BC #### [facility] [address] [place] [address] Dr. Alicia Morales EO # 0.2 103/ul Normal 0.0-0.7 [facility] Comment on above: Performed By: #### C BC #### [facility] [address] [place] [address] Dr. Alicia Morales Eosinophils/100 WBC (Bld) 1.8 % Normal 0.9-7.0 [facility] Comment on above: Performed By: #### C BC #### [facility] [address] [place] [address] Dr. Alicia Morales Erythrocyte distribution width (RBC) [Ratio] 14.9 % Normal 11.0-15.0 [facility] Comment on above: Performed By: #### C BC #### [facility] [address] [place] [address] Dr. Alicia Morales Hematocrit (Bld) [Volume fraction] 41.0 % Normal 36.0-48.0 [facility] Comment on above: Performed By: #### C BC #### [facility] [address] [place] [address] Dr. Alicia Morales Hemoglobin (Bld) [Mass/Vol] 13.4 g/dL Normal 12.0-16.0 [facility] Comment on above: Performed By: #### C BC #### [facility] [address] [place] [address] Dr. Alicia Morales IG # 0.04 10e3/ul Critically high 0.00-0.03 [facility] Comment on above: Performed By: #### C BC #### [facility] [address] [place] [address] Dr. Alicia Morales IG % 0.5 % Normal 0.0-0.5 [facility] Comment on above: Performed By: #### C BC #### [facility] [address] [place] [address] Dr. Alicia Morales LYMPH # 2.8 103/ul Normal 1.2-3.8 [facility] Comment on above: Performed By: #### C BC #### [facility] [address] [place] [address] Dr. Alicia Morales Lymphocytes/100 WBC (Bld) 34.3 % Normal 20.5-60.0 [facility] Comment on above: Performed By: #### C BC #### [facility] [address] [place] [address] Dr. Alicia Morales MANUAL DIFF REQ NO Normal [facility] Comment on above: Performed By: #### C BC #### [facility] [address] [place] [address] Dr. Alicia Morales MCH (RBC) [Entitic mass] 28.9 pg Normal 26.7-34.0 [facility] Comment on above: Performed By: #### C BC #### [facility] [address] [place] [address] Dr. Alicia Morales MCHC (RBC) [Mass/Vol] 32.7 g/dL Normal 29.9-35.2 [facility] Comment on above: Performed By: #### C BC #### [facility] [address] [place] [address] Dr. Alicia Morales MCV (RBC) [Entitic vol] 88.6 fL Normal 81.0-99.0 [facility] Comment on above: Performed By: #### C BC #### [facility] [address] [place] [address] Dr. Alicia Morales MONO # 0.7 103/ul Normal 0.3-0.8 [facility] Comment on above: Performed By: #### C BC #### [facility] [address] [place] [address] Dr. Alicia Morales Monocytes/100 WBC (Bld) 8.2 % Normal 1.7-12.0 [facility] Comment on above: Performed By: #### C BC #### [facility] [address] [place] [address] Dr. Alicia Morales NEUT # 4.5 103/ul Normal 1.4-6.5 [facility] Comment on above: Performed By: #### C BC #### [facility] [address] [place] [address] Dr. Alicia Morales Neutrophils/100 WBC (Bld) 54.7 % Normal 43.0-75.0 [facility] Comment on above: Performed By: #### C BC #### [facility] [address] [place] [address] Dr. Alicia Morales Platelet mean volume (Bld) [Entitic vol] 9.3 fL Critically low 9.5-13.5 [facility] Comment on above: Performed By: #### C BC #### [facility] [address] [place] [address] Dr. Alicia Morales PLT 260 103/ul Normal 150-450 [facility] Comment on above: Performed By: #### C BC #### [facility] [address] [place] [address] Dr. Alicia Morales RBC 4.63 106/ul Normal 4.20-5.40 [facility] Comment on above: Performed By: #### C BC #### [facility] [address] [place] [address] Dr. Alicia Morales WBC 8.2 103/ul Normal 4.0-11.0 [facility] Comment on above: Performed By: #### C BC #### [facility] [address] [place] [address] Dr. Alicia Morales PREG QUANT HCGon 03-19-2022 HCG QUANT 2 mIU/mL Normal [facility] Comment on above: Performed By: #### P REGQNT #### [facility] [address] [place] [address] Dr. Alicia Morales HCG RANGE SEE BELOW Normal [facility] Comment on above: Result Comment: 5-50 0-1 WEEK 40-300 1-2 WEEKS 100-1,000 2-3 WEEKS 500-6,000 3-4 WEEKS 5,000-200,000 1-2 MONTHS 10,000-100,000 2-3 MONTHS 3,000-50,000 2ND TRIMESTER 1,000-50,000 3RD TRIMESTER Performed By: #### P REGQNT #### [facility] [address] [place] [address] Dr. Alicia Morales [facility]25 SARS-CoV-2 (COVID-19) RNA TEE+probe Ql (Unsp spec) Not detected Normal NOT DETECTED [facility] Comment on above: Result Comment: This test is not yet approved or cleared by the [place] FDA. When there are no FDA-approved or cleared tests available, and other criteria are met, FDA can make tests available under an emergency access mechanism called an Emergency Use Authorization (EUA). The EUA for this test is supported by the [place] of Health and Human Service's (HHS's) declaration [...] SARS-CoV-2. Performed By: #### C VDTB #### [facility] [address] [place] [address] Dr. Alicia Morales US PELVIS AND TRANSVAGon US PELVIS AND TRANSVAG EXAMINATION: US P FIONA AND TRANSVAG HISTORY: Postmenopausal bleeding COMPARISON: No [...] ADRIAN QUINTANILLA Date: 2022-03-04 07:32 Normal [facility] CBC AUTO DIFFon 03-03-2022 BASO # 0.1 103/ul Normal 0.0-0.1 [facility] Comment on above: Performed By: #### C BC #### [facility] [address] [place] [address] Dr. Alicia Morales Basophils/100 WBC (Bld) 0.5 % Normal 0.2-2.0 [facility] Comment on above: Performed By: #### C BC #### [facility] [address] [place] [address] Dr. Alicia Morales EO # 0.1 103/ul Normal 0.0-0.7 [facility] Comment on above: Performed By: #### C BC #### [facility] [address] [place] [address] Dr. Alicia Morales Eosinophils/100 WBC (Bld) 1.3 % Normal 0.9-7.0 [facility] Comment on above: Performed By: #### C BC #### [facility] [address] [place] [address] Dr. Alicia Morales Erythrocyte distribution width (RBC) [Ratio] 14.5 % Normal 11.0-15.0 [facility] Comment on above: Performed By: #### C BC #### [facility] [address] [place] [address] Dr. Alicia Morales Hematocrit (Bld) [Volume fraction] 42.5 % Normal 36.0-48.0 [facility] [facility] Comment on above: Performed By: #### C BC #### [facility] [address] [place] [address] Dr. Alicia Morales Hemoglobin (Bld) [Mass/Vol] 13.7 g/dL Normal 12.0-16.0 [facility] Comment on above: Performed By: #### C BC #### [facility] [address] [place] [address] Dr. Alicia Morales IG # 0.05 10e3/ul Critically high 0.00-0.03 [facility] [place] Comment on above: Performed By: #### C BC #### [facility] [address] [place] [address] Dr. Alicia Morales IG % 0.5 % Normal 0.0-0.5 [facility] Comment on above: Performed By: #### C BC #### [facility] [address] [place] [address] Dr. Alicia Morales LYMPH # 2.9 103/ul Normal 1.2-3.8 [facility] Comment on above: Performed By: #### C BC #### [facility] [address] [place] [address] Dr. Alicia Morales Lymphocytes/100 WBC (Bld) 27.9 % Normal 20.5-60.0 [facility] Comment on above: Performed By: #### C BC #### [facility] [address] [place] [address] Dr. Alicia Morales MANUAL DIFF REQ NO Normal [facility] Comment on above: Performed By: #### C BC #### [facility] [address] [place] [address] Dr. Alicia Morales MCH (RBC) [Entitic mass] 28.5 pg Normal 26.7-34.0 [facility] Comment on above: Performed By: #### C BC #### [facility] [address] [place] [address] Dr. Alicia Morales MCHC (RBC) [Mass/Vol] 32.2 g/dL Normal 29.9-35.2 [facility] Comment on above: Performed By: #### C BC #### [facility] [address] [place] [address] Dr. Alicia Morales MCV (RBC) [Entitic vol] 88.5 fL Normal 81.0-99.0 [facility] Comment on above: Performed By: #### C BC #### [facility] [address] [place] [address] Dr. Alicia Morales MONO # 0.6 103/ul Normal 0.3-0.8 [facility] Comment on above: Performed By: #### C BC #### [facility] [address] [place] [address] Dr. Alicia Morales Monocytes/100 WBC (Bld) 6.1 % Normal 1.7-12.0 [facility] Comment on above: Performed By: #### C BC #### [facility] [address] [place] [address] Dr. Alicia Morales NEUT # 6.7 103/ul Critically high 1.4-6.5 [facility] Comment on above: Performed By: #### C BC #### [facility] [address] [place] [address] Dr. Alicia Morales Neutrophils/100 WBC (Bld) 63.7 % Normal 43.0-75.0 [facility] Comment on above: Performed By: #### C BC #### [facility] [address] [place] [address] Dr. Alicia Morales Platelet mean volume (Bld) [Entitic vol] 9.5 fL Normal 9.5-13.5 [facility] Comment on above: Performed By: #### C BC #### [facility] [address] [place] [address] Dr. Alicia Morales PLT 256 103/ul Normal 150-450 [facility] Comment on above: Performed By: #### C BC #### [facility] [address] [place] [address] Dr. Alicia Morales RBC 4.80 106/ul Normal 4.20-5.40 [facility] Comment on above: Performed By: #### C BC #### [facility] [address] [place] [address] Dr. Alicia Morales WBC 10.5 103/ul Normal 4.0-11.0 [facility] Comment on above: Performed By: #### C BC #### [facility] [address] [place] [address] Dr. Alicia Morales PROTIMEon 03-03-2022 INR Coag (PPP) [Relative time] 1.02 {INR} Normal [facility] Comment on above: Performed By: #### C BC #### [facility] [address] [place] [address] Dr. Alicia Morales INR GUIDELINES SEE BELOW Normal [facility] Comment on above: Result Comment: KHALIF RED INR: 2.0 - 3.0 CONDITIONS NOT LISTED BELOW 2.5 - 3.5 FOR PROSTHETIC HEART VALVE REPLACEMENT 2.5 - 3.5 RECURRENT THROMBOSIS Performed By: #### C BC #### [facility] [address] [place] [address] Dr. Alicia Morales PT Coag (PPP) [Time] 11.0 s Normal 9.0-11.6 [facility] Comment on above: Performed By: #### C BC #### [facility] [address] [place] [address] Dr. Alicia Morales PTTon 03-03-2022 aPTT Coag (Bld) [Time] 26.7 s Normal 22.3-36.2 [facility] Comment on above: Performed By: #### C BC #### [facility] [address] [place] [address] Dr. Alicia Morales TSHon 03-03-2022 TSH 1.773 uIU/mL Normal 0.358-3.74 0 [facility] Comment on above: Performed By: #### T SH #### [facility] [address] [place] [address] Dr. Alicia Morales TSH RANGE SEE BELOW Normal [facility] Comment on above: Result Comment: <0.3 4 UIU/ml HYPERTHYROID 0.34-5.60 UIU/ml EUTHYROID >5.60 UIU/ml HYPOTHYROID Performed By: #### T SH #### [facility] [address] [place] [address] Dr. Alicia Morales Fluoro-Guided Inj, Shoulder, Lefton 11-07-2021 Fluoro-Guided Inj, Shoulder, Left [address] [place], [place] [address] [address] ?? X-Ray PATIENT NAME: , [...] by Brain Best on 11/13/2021 1030 Normal [facility] Program Engineer Outside Records Officeon Outside Records Office [id number]:1 27 Normal [facility] 09-24-2021 XR Shoulder 2 Views Normal [facility] DO Work Phone: COVID Quick Testingon 2020 Result Negative [employer] Other CT LOWER EXTREMITY WO CON RT on 07-18-2021 CT LOWER EXTREMITY WO CON RT STUDY: CT of the right foot without intravenous contrast dated 07/18/2021. INDICATION: S/P TOTAL TALAR IMPLANT COMPARISON: None. ACCESSION NUMBER(S): [id number] ORDERING CLINICIAN: Car Lopez TECHNIQUE: Axial CT [...] further assess. This could be performed at [facility]. 4. Calcaneal enthesophyte formation. Normal [facility] Radiologyon 04-30-2021 XR Shoulder 2 Views Normal [facility] Work Phone: FOOT COMPLETE, MIN 3 VIEWSon 04-21-2021 FOOT COMPLETE, MIN 3 VIEWS Patient Name: SHELIA JUNIOR STUDY: FOOT; COMPLETE, MIN 3 VIEWS; Right; 04/21/2021 10:22 am INDICATION: pain. ACCESSION NUMBER(S): [id number] ORDERING CLINICIAN: BRAIN HERNANDEZ FINDINGS: AP lateral oblique right foot x-ray shows a well-aligned well-positioned foot joint with complete talar replacement. 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 Joint space narrowing is noted all of the sites. No fracture or dislocation otherwise noted. Electronically signed by: BRAIN HERNANDEZ MD Normal [facility] Radiologyon 04-21-2021 XR Foot 3 Views Normal [facility] Work Phone: Order Reconciliationon 02-25 Order [...] Z98.890 Status post rotator cuff repair Discharge Provider, Elia Hernandez Instructions for Staff Only: Patient can be [...] be shared with your follow-up providers (doctor, training systems officer, physical therapist, etc.). Guidelines for a Healthy Lifestyle All Active Home Medications at time of Discharge Reconciliation: 25-Feb-2021 07:12 CeleXA 20 mg oral tablet 1 tab(s) orally once a day Discharge Discharge Diagnosis< Z98.890 Status post rotator cuff repair Discharge Provider, Elia Hernandez Instructions for Staff Only: Patient can be [...] be shared with your follow-up providers (doctor, training systems officer, physical therapist, etc.). Guidelines for a Healthy Lifestyle Normal [facility] Preop Checkliston 02-25-2021 Preop Checklist Preop Checklist: Preop Checklist: Arrival [id number] Arrival Time06:12 Procedure TypeLEFT SHOULDER SURGERY Temperature C36.4 degrees C Temperature F97.5 degrees F Heart Rate64 beats per minute Respiratory Rate18 breath per minute Blood Pressure Tbrlrgkj011 mm/Hg Blood Pressure Egrxvengu31 mm/Hg NPO [id number] 23:30 ID Band Onyes Allergy Bandyes Consent Signedyes H&P Completepending Anesthesia Assessment Completedpending EKG Performedyes Chest X-Ray Performednot ordered HCG Urine TestN/A DIRECTOR OF MANAGED SERVICES OVER 14 YEARS Chlorhexadine Bath Givennot applicable Nasal Antiseptic Appliednot applicable Hair Washednot applicable Soap and water bath with hair shampoo the night before surgerynot applicable Hat placed on infant prior to transportnot applicable SCD's Appliednot applicable JENNIFER Hose Appliedyes Denturesnot applicable Prostheticsnot applicable Hearing [...] 25-Feb-2021 07:45 by Tova Thibodeaux (RN) Normal [facility] Coronavirus 2019 RNA by PCR, Screening Asymptomticon 02-21-2021 Coronavirus 2019 RNA by PCR, Screening Asymptomtic Not detected Normal See Below [facility] DO Work Phone: Comment on above: SOURCE: [...] make patient management decisions.Fact sheet for providers: https://www.fda.gov/media/226267/downloadFact sheet for patients: https://www.fda.gov/media/089276/downloadThis test has received FDA Emergency Use Authorization (EUA) and has been verified by [facility] ([facility]). This test is only authorized for the duration of time that circumstances exist to justify the authorization of the emergency use of in vitro diagnostic tests for the detection of SARS-CoV-2 virus and/or diagnosis of COVID-19 infection under section 564(b)(1) of the Act, 21 U.S.C. 360bbb-3(b)(1), unless the authorization is terminated or revoked sooner. [facility] is certified under CLIA-88 as qualified to perform high complexity testing. Testing is performed in the [facility] laboratories located at [address] [place] [address]. Patient Profile - Preop v2on 02-21-2021 Patient Profile - Preop v2 Profile: Initial Info: How to be AddressedKATHY Spoken Language PreferredEnglish Source of Informationpatient Are you currently using the Personal Electronic Health Record or Lemopt[employer]no Are you interested in learning more about [facility] for the management of your healthnot at this time Instructions Givenappropriate clothing, bring responsible adult as the superintendent drivers (procedure may be cancelled if no superintendent drivers), center location, remove jewerly/piercings Prep Instructions Reviewedyes Instructed to Have No Fluids Syaxi28OA Stated Reason for Admission LEFT ROTATOR CUFF REPAIR OF REPAIR Primary Contact Name and NumberSEGUNDO JUNIOR-[phone] Patient Belongingsremains with patient; sent home Patient Belongings Remaining with Patientclothing; ONE WHITE LABELED BELONGING BAG UNDER CART TO OR Patient Belongings Sent Homepurse/wallet; cell phone/electronics; SEGUNDO HAS PURSE, WALLET AND CELL PHONE Medications Brought to Hospitalno General Health: Weight in kg140.6 kilogram(s) Weight in smd784.9 pound(s) Weight Methodactual (measured) Scale Typestanding Height [...] BLOOD TRANSFUSION; no Equipment Currently Used at HomeDENIES Health Mgmt: Symptoms/Conditions Managed at Homebehavioral health; chronic pain; gastrointestinal; musculoskeletal; obstetric/gynecologic; respiratory; skin; genitourinary Are You no Are You Currently Breastfeedingno Behavioral Health Symptoms/Conditionsanxiet y Behavioral Management Strategiesmedication therapy Gastrointestinal Symptoms/Conditions CommentIBS; RECENTLY STARTED NOTICING HAVING ISSUES SWALLOWING, I.E. MEAT Genitourinary Symptoms/Conditionsfreque ncy; incontinence Musculoskeletal Symptoms/Conditionsosteoa rthritis; back pain Musculoskeletal Symptoms/Conditions CommentL5 STICKS OUT FURTHER THAN REST OF VERTEBRA YARN CONDITIONER Symptoms/Conditions CommentPOST MENOPAUSAL 14 YEARS AGO Chronic [...] ConcernsHAVEN'T WORKED SINCE -HAS INSURANCE [facility] Substance: Current or [...] HIGH RISK. Are there any cultural, spiritual, sikhism practices/values/needs that are important for us to knowno Pain Scalenumerical 0-10 Pain Scale Educationteaching provided Current Pain Level5 = Moderate Acceptable Pain Level8 = Severe Chronic Painyes Chronic Lower Extremity pain locationright, foot Information Review: Allergies, Home Meds and Significa (more content not included)... Normal [facility] Vital Signs Date Time Vital Sign Value Performing Clinician Facility 07-21-2024 10:33-0400 Body height 172.72 cm DO Lamont Villarreal Work Phone: [facility] 07-21-2024 10:33-0400 Body mass index (BMI) [Ratio] 47.5 kg/m2 DO Lamont Villarreal Work Phone: [facility] 07-21-2024 10:33-0400 Body weight 141.97 kg DO Lamontrosy Koenigs Work Phone: [facility] 07-04-2024 14:39-0400 Body height 172.72 cm DO Lamont Villarreal Work Phone: [facility] 07-04-2024 14:39-0400 Body mass index (BMI) [Ratio] 46 kg/m2 DO Lamont Villarreal Work Phone: [facility] 07-04-2024 14:39-0400 Body weight 137.43 kg DO Lamont Villarreal Work Phone: [facility] 07-04-2024 14:39-0400 Diastolic blood pressure 80 mm[Hg] DO Lamont Villarreal Work Phone: [facility] 07-04-2024 14:39-0400 Heart rate 71 /min DO Lamont Villarreal Work Phone: [facility] 07-04-2024 14:39-0400 Respiratory rate 16 /min DO Lamont Villarreal Work Phone: [facility] 07-04-2024 14:39-0400 SaO2% (BldA) [Mass fraction] 96 % DO Lamont Villarreal Work Phone: [facility] 07-04-2024 14:39-0400 Systolic blood pressure 130 mm[Hg] DO Lamont Koenigs Work Phone: [facility] 06-14-2024 12:57-0400 Body height 170.18 cm DO Lamontrosy Koenigs Work Phone: [facility] 06-14-2024 12:57-0400 Body mass index (BMI) [Ratio] 48.7 kg/m2 DO Lamont Koenigs Work Phone: [facility] 06-14-2024 12:57-0400 Body weight 141.18 kg DO Lamont Kuns Work Phone: [facility] 06-14-2024 12:57-0400 Diastolic blood pressure 78 mm[Hg] DO Lamont Kuns Work Phone: [facility] 06-14-2024 12:57-0400 Heart rate 60 /min DO Lamont Kuns Work Phone: [facility] 06-14-2024 12:57-0400 Respiratory rate 18 /min DO Lamont Kuns Work Phone: [facility] 06-14-2024 12:57-0400 SaO2% (BldA) [Mass fraction] 95 % DO Lamont Kuns Work Phone: [facility] 06-14-2024 12:57-0400 Systolic blood pressure 110 mm[Hg] DO Lamont Kuns Work Phone: [facility] 04-12-2024 14:38-0400 Body height 170.18 cm DO Lamont Kuns Work Phone: [facility] 04-12-2024 14:38-0400 Body mass index (BMI) [Ratio] 47.5 kg/m2 DO Lamont Kuns Work Phone: [facility] 04-12-2024 14:38-0400 Body weight 137.63 kg DO Lamont Kuns Work Phone: [facility] 04-12-2024 14:38-0400 Diastolic blood pressure 75 mm[Hg] DO Lamont Kuns Work Phone: [facility] 04-12-2024 14:38-0400 Heart rate 63 /min DO Lamont Kuns Work Phone: [facility] 04-12-2024 14:38-0400 Respiratory rate 18 /min DO Lamont Kuns Work Phone: [facility] 04-12-2024 14:38-0400 SaO2% (BldA) [Mass fraction] 96 % DO Lamont Kuns Work Phone: [facility] 04-12-2024 14:38-0400 Systolic blood pressure 124 mm[Hg] DO Lamont Kuns Work Phone: [facility] 03-24-2024 09:05-0400 Body height 170.18 cm DO Lamont Kuns Work Phone: [facility] 03-24-2024 09:05-0400 Body mass index (BMI) [Ratio] 47.6 kg/m2 DO Lamont Kuns Work Phone: [facility] 03-24-2024 09:05-0400 Body weight 137.89 kg DO Lamont Kuns Work Phone: [facility] 03-24-2024 09:05-0400 Diastolic blood pressure 72 mm[Hg] DO Lamont Kuns Work Phone: [facility] 03-24-2024 09:05-0400 Heart rate 62 /min DO Lamont Kuns Work Phone: [facility] 03-24-2024 09:05-0400 Respiratory rate 16 /min DO Lamont Kuns Work Phone: [facility] 03-24-2024 09:05-0400 SaO2% (BldA) [Mass fraction] 97 % DO Lamont Kuns Work Phone: [facility] 03-24-2024 09:05-0400 Systolic blood pressure 116 mm[Hg] DO Lamont Kuns Work Phone: [facility] 03-13-2024 09:30-0400 Body height 170.18 cm DO Lamont Kuns Work Phone: [facility] 03-13-2024 09:30-0400 Body mass index (BMI) [Ratio] 47.7 kg/m2 DO Lamont Kuns Work Phone: [facility] 03-13-2024 09:30-0400 Body temperature 101 [degF] DO Lamontrosy Koenigs Work Phone: [facility] 03-13-2024 09:30-0400 Body weight 138.11 kg DO Lamontrosy Koenigs Work Phone: [facility] 03-13-2024 09:30-0400 Heart rate 77 /min DO Lamontrosy Koenigs Work Phone: [facility] 03-13-2024 09:30-0400 Respiratory rate 18 /min DO Lamontrosy Koenigs Work Phone: [facility] 03-13-2024 09:30-0400 SaO2% (BldA) [Mass fraction] 94 % DO Lamont Koenigs Work Phone: [facility] 02-17-2024 10:47-0400 Body height 170.18 cm DO Lamont Koenigs Work Phone: [facility] 02-17-2024 10:47-0400 Body mass index (BMI) [Ratio] 48.8 kg/m2 DO Lamont Koenigs Work Phone: [facility] 02-17-2024 10:47-0400 Body weight 141.32 kg DO Lamont Villarreal Work Phone: [facility] 02-17-2024 10:47-0400 Diastolic blood pressure 66 mm[Hg] DO Lamont Koenigs Work Phone: [facility] 02-17-2024 10:47-0400 Heart rate 60 /min DO Lamontrosy Koenigs Work Phone: [facility] 02-17-2024 10:47-0400 Respiratory rate 20 /min DO Lamontrosy Koenigs Work Phone: [facility] 02-17-2024 10:47-0400 SaO2% (BldA) [Mass fraction] 98 % DO Lamont Madinas Work Phone: [facility] 02-17-2024 10:47-0400 Systolic blood pressure 100 mm[Hg] DO Lamont Madinas Work Phone: [facility] 12-30-2023 09:37-0400 Body height 170.18 cm DO Lamontrosy Koenigs Work Phone: [facility] 12-30-2023 09:37-0400 Body mass index (BMI) [Ratio] 47.8 kg/m2 DO Lamontrosy Koenigs Work Phone: [facility] 12-30-2023 09:37-0400 Body weight 138.6 kg DO Lamontrosy Koenigs Work Phone: [facility] 12-30-2023 09:37-0400 Diastolic blood pressure 70 mm[Hg] DO Lamont Koenigs Work Phone: [facility] 12-30-2023 09:37-0400 Heart rate 66 /min DO Lamont Koenigs Work Phone: [facility] 12-30-2023 09:37-0400 Respiratory rate 18 /min DO Lamont Koenigs Work Phone: [facility] 12-30-2023 09:37-0400 SaO2% (BldA) [Mass fraction] 95 % DO Lamont Koenigs Work Phone: [facility] 12-30-2023 09:37-0400 Systolic blood pressure 110 mm[Hg] DO Lamontrosy Koenigs Work Phone: [facility] 12-22-2023 09:01-0400 Body height 170.18 cm DO Lamontrosy Koenigs Work Phone: [facility] 12-22-2023 09:01-0400 Body mass index (BMI) [Ratio] 47 kg/m2 DO Lamontrosy Koenigs Work Phone: [facility] 12-22-2023 09:01-0400 Body weight 136.07 kg DO Lamont Kuns Work Phone: [facility] 12-22-2023 09:01-0400 Diastolic blood pressure 82 mm[Hg] DO Lamont Kuns Work Phone: [facility] 12-22-2023 09:01-0400 Heart rate 66 /min DO Lamont Kuns Work Phone: [facility] 12-22-2023 09:01-0400 Respiratory rate 16 /min DO Lamont Kuns Work Phone: [facility] 12-22-2023 09:01-0400 SaO2% (BldA) [Mass fraction] 98 % DO Lamont Kuns Work Phone: [facility] 12-22-2023 09:01-0400 Systolic blood pressure 118 mm[Hg] DO Lamont Madinas Work Phone: [facility] 11-17-2023 10:36-0500 Body height 170.18 cm DO Lamont Kuns Work Phone: [facility] 11-17-2023 10:36-0500 Body mass index (BMI) [Ratio] 49.6 kg/m2 DO Lamont Kuns Work Phone: [facility] 11-17-2023 10:36-0500 Body weight 143.84 kg DO Lamont Madinas Work Phone: [facility] 11-17-2023 10:36-0500 Diastolic blood pressure 74 mm[Hg] DO Lamont Kuns Work Phone: [facility] 11-17-2023 10:36-0500 Heart rate 57 /min DO Lamont Kuns Work Phone: [facility] 11-17-2023 10:36-0500 Respiratory rate 18 /min DO Lamont Kuns Work Phone: [facility] 11-17-2023 10:36-0500 SaO2% (BldA) [Mass fraction] 97 % DO Lamont Villarreal Work Phone: [facility] 11-17-2023 10:36-0500 Systolic blood pressure 117 mm[Hg] DO Lamont Villarreal Work Phone: [facility] 09-22-2023 10:45-0500 Body height 170.18 cm Анна Scally Other [facility] 09-22-2023 10:45-0500 Body mass index (BMI) [Ratio] 48 kg/m2 Анна Scally Other [facility] [employer] Other 09-22-2023 10:45-0500 Body weight 139.03 kg Анна Scally Other [facility] [employer] Other 09-22-2023 10:45-0500 Body weight 139.02 kg DO Lamont Villarreal Work Phone: [facility] 09-22-2023 10:45-0500 Diastolic blood pressure 80 mm[Hg] Анна Scally Other [facility] 09-22-2023 10:45-0500 Respiratory rate 20 /min Анна Scally Other [employer] Other 09-22-2023 10:45-0500 SaO2% (BldA) [Mass fraction] 94 % Анна Scally Other [employer] Other 09-22-2023 10:45-0500 Systolic blood pressure 125 mm[Hg] Анна Scally Other [facility] 09-15-2023 07:30-0500 Body height 170.18 cm Lamont Villarreal Other [facility] 09-15-2023 07:30-0500 Body mass index (BMI) [Ratio] 46.67 kg/m2 Lamont Villarreal Other [employer] Other 09-15-2023 07:30-0500 Body weight 135.17 kg Lamont Villarreal Other [facility] 09-15-2023 07:30-0500 Diastolic blood pressure 85 mm[Hg] Lamont Villarreal Other [facility] 09-15-2023 07:30-0500 Respiratory rate 18 /min Lamont Villarreal Other [employer] Other 09-15-2023 07:30-0500 SaO2% (BldA) [Mass fraction] 94 % Lamont Villarreal Other [employer] Other 09-15-2023 07:30-0500 Systolic blood pressure 140 mm[Hg] Lamont Villarreal Other [facility] 08-25-2023 11:15-0500 Body height 170.18 cm Mary Ann Fitt Other [facility] 08-17-2023 09:45-0500 Body height 170.18 cm Mary Ann Fitt Other [facility] 08-11-2023 13:15-0500 Body height 170.18 cm Mary Ann Fitt Other [employer] Other 08-11-2023 09:15-0500 Body height 170.18 cm Анна Scally Other [employer] Other 08-11-2023 09:15-0500 Body mass index (BMI) [Ratio] 48.81 kg/m2 Анна Scally Other [employer] Other 08-11-2023 09:15-0500 Body weight 141.39 kg Анна Scally Other [employer] Other 08-11-2023 09:15-0500 Diastolic blood pressure 76 mm[Hg] Анна Scally Other [employer] Other 08-11-2023 09:15-0500 Respiratory rate 18 /min Анна Scally Other [employer] Other 08-11-2023 09:15-0500 SaO2% (BldA) [Mass fraction] 95 % Анна Scally Other [employer] Other 08-11-2023 09:15-0500 Systolic blood pressure 114 mm[Hg] Анна Scally Other [employer] Other 07-19-2023 10:00-0400 Body height 170.18 cm Lamont Villarreal Other [employer] Other 07-19-2023 10:00-0400 Body mass index (BMI) [Ratio] 48.58 kg/m2 Lamont Villarreal Other [employer] Other 07-19-2023 10:00-0400 Body weight 140.71 kg Lamont Villarreal Other [employer] Other 07-19-2023 10:00-0400 Diastolic blood pressure 82 mm[Hg] Lamont Villarreal Other [employer] Other 07-19-2023 10:00-0400 Respiratory rate 16 /min Lamont Villarreal Other [employer] Other 07-19-2023 10:00-0400 SaO2% (BldA) [Mass fraction] 98 % Lamont Villarreal Other [employer] Other 07-19-2023 10:00-0400 Systolic blood pressure 118 mm[Hg] Lamont Villarreal Other [employer] Other 07-13-2023 11:15-0400 Body height 170.18 cm Mary Ann Fitt Other [employer] Other 06-09-2023 08:15-0400 Body height 170.18 cm Анна Scally Other [employer] Other 06-09-2023 08:15-0400 Body mass index (BMI) [Ratio] 46.78 kg/m2 Анна Scally Other [employer] Other 06-09-2023 08:15-0400 Body weight 135.49 kg Анна Scally Other [employer] Other 06-09-2023 08:15-0400 Diastolic blood pressure 79 mm[Hg] Анна Scally Other [employer] Other 06-09-2023 08:15-0400 Respiratory rate 18 /min Анна Scally Other [employer] Other 06-09-2023 08:15-0400 SaO2% (BldA) [Mass fraction] 96 % Анна Scally Other [employer] Other 06-09-2023 08:15-0400 Systolic blood pressure 139 mm[Hg] Анна Scally Other [employer] Other 06-01-2023 14:45-0400 Body height 170.18 cm Mary Ann Fitt Other [employer] Other 06-01-2023 14:45-0400 Body mass index (BMI) [Ratio] 46.72 kg/m2 Mary Ann Fitt Other [employer] Other 06-01-2023 14:45-0400 Body weight 135.31 kg Mary Ann Fitt Other [employer] Other 05-18-2023 09:17-0400 Body height 172.7 cm Yosvany Hayden MD Work Phone: [facility] 05-18-2023 09:17-0400 Body weight 130.64 kg Yosvany Hayden MD Work Phone: [facility] 04-22-2023 13:00-0400 Body height 170.18 cm Mary Ann Fitt Other [employer] Other 04-02-2023 09:30-0400 Body height 170.18 cm Lamont Villarreal Other [employer] Other 04-02-2023 09:30-0400 Body mass index (BMI) [Ratio] 44.79 kg/m2 Lamont Villarreal Other [employer] Other 04-02-2023 09:30-0400 Body weight 129.73 kg Lamont Villarreal Other [employer] Other 04-02-2023 09:30-0400 Diastolic blood pressure 70 mm[Hg] Lamont Villarreal Other [employer] Other 04-02-2023 09:30-0400 Respiratory rate 18 /min Lamont Villarreal Other [employer] Other 04-02-2023 09:30-0400 SaO2% (BldA) [Mass fraction] 96 % Lamont Villarreal Other [employer] Other 04-02-2023 09:30-0400 Systolic blood pressure 110 mm[Hg] Lamont Villarreal Other [employer] Other 03-17-2023 08:30-0400 Body height 170.18 cm Анна Scally Other [employer] Other 03-17-2023 08:30-0400 Body mass index (BMI) [Ratio] 46.01 kg/m2 Анна Scally Other [employer] Other 03-17-2023 08:30-0400 Body weight 133.27 kg Анна Scally Other [employer] Other 01-25-2023 12:00-0400 Body height 170.18 cm Анна Scally Other [employer] Other 01-25-2023 12:00-0400 Body mass index (BMI) [Ratio] 48.17 kg/m2 Анна Scally Other [employer] Other 01-25-2023 12:00-0400 Body weight 139.53 kg Анна Scally Other [employer] Other 01-25-2023 12:00-0400 Diastolic blood pressure 74 mm[Hg] Анна Scally Other [employer] Other 01-25-2023 12:00-0400 Respiratory rate 20 /min Анна Rose Other [employer] Other 01-25-2023 12:00-0400 SaO2% (BldA) [Mass fraction] 97 % Анна Rose Other [employer] Other 01-25-2023 12:00-0400 Systolic blood pressure 113 mm[Hg] Анна Rose Other [employer] Other 12-30-2022 15:52-0400 Body height 172.72 cm Lamont Villarreal Work Phone: [facility] DO Work Phone: 12-30-2022 15:52-0400 Body mass index (BMI) [Ratio] 46.83 kg/m2 Lamont Villarreal Work Phone: [facility] DO Work Phone: 12-30-2022 15:52-0400 Body surface area Derived from formula 2.46 m2 Lamont Villarreal Work Phone: [facility] DO Work Phone: 12-30-2022 15:52-0400 Body weight 139.71 kg Lamont Villarreal Work Phone: [facility] DO Work Phone: 08-25-2022 09:35-0500 Diastolic blood pressure 92 mm[Hg] DO Lamont Villarreal Work Phone: [facility] 08-25-2022 09:35-0500 Heart rate 81 /min DO Lamont Villarreal Work Phone: [facility] 08-25-2022 09:35-0500 Respiratory rate 20 /min DO Lamont Villarreal Work Phone: [facility] 08-25-2022 09:35-0500 SaO2% (BldA) [Mass fraction] 95 % DO Lamont Villarreal Work Phone: [facility] 08-25-2022 09:35-0500 Systolic blood pressure 137 mm[Hg] DO Lamont Villarreal Work Phone: [facility] 08-25-2022 08:59-0500 Inhaled oxygen flow rate 3 L/min DO Lamont Villarreal Work Phone: [facility] 08-25-2022 08:34-0500 Body height 173.99 cm DO Lamont Villarreal Work Phone: [facility] 08-25-2022 08:34-0500 Body weight 147.41 kg DO Lamont Villarreal Work Phone: [facility] 05-26-2022 17:55-0400 Body height 170.18 cm Itzel Mujicaault Other [employer] Other 05-26-2022 17:55-0400 Body mass index (BMI) [Ratio] 49.33 kg/m2 Itzel Miguel A Other [employer] Other 05-26-2022 17:55-0400 Body temperature 103 [degF] Itzel Miguel A Other [employer] Other 05-26-2022 17:55-0400 Body weight 142.88 kg Itzel Miguel A Other [employer] Other 05-26-2022 17:55-0400 Respiratory rate 18 /min Itzel Miguel A Other [employer] Other 05-26-2022 17:55-0400 SaO2% (BldA) [Mass fraction] 96 % Itzel Grady Other [employer] Other 04-02-2022 14:30-0400 Body height 170.18 cm Lamont Villarreal Other [employer] Other 04-02-2022 14:30-0400 Body mass index (BMI) [Ratio] 51.21 kg/m2 Lamont Villarreal Other [employer] Other 04-02-2022 14:30-0400 Body weight 148.33 kg Lamont Villarreal Other [employer] Other 04-02-2022 14:30-0400 Diastolic blood pressure 64 mm[Hg] Lamont Koenigorlando Other [employer] Other 04-02-2022 14:30-0400 Respiratory rate 18 /min Lamont Villarreal Other [employer] Other 04-02-2022 14:30-0400 SaO2% (BldA) [Mass fraction] 93 % Lamont Villarreal Other [employer] Other 04-02-2022 14:30-0400 Systolic blood pressure 110 mm[Hg] Lamont Villarreal Other [employer] Other 02-17-2022 16:15-0400 Body height 170.18 cm Marty Burgos Other [employer] Other 02-17-2022 16:15-0400 Body mass index (BMI) [Ratio] 51.84 kg/m2 Mraty Burgos Other [employer] Other 02-17-2022 16:15-0400 Body weight 150.14 kg Marty Burgos Other [employer] Other 01-27-2022 15:45-0400 Body height 170.18 cm Marty Burgos Other [employer] Other 01-27-2022 15:45-0400 Body mass index (BMI) [Ratio] 51.84 kg/m2 Marty Burgos Other [employer] Other 01-27-2022 15:45-0400 Body weight 150.14 kg Marty Burgos Other [employer] Other 01-26-2022 10:45-0400 Body height 170.18 cm Lamont Villarreal Other [employer] Other 01-26-2022 10:45-0400 Body mass index (BMI) [Ratio] 51.87 kg/m2 Lamont Villarreal Other [employer] Other 01-26-2022 10:45-0400 Body weight 150.23 kg Lamont Villarreal Other [employer] Other 01-26-2022 10:45-0400 Diastolic blood pressure 84 mm[Hg] Lamont Villarreal Other [employer] Other 01-26-2022 10:45-0400 Respiratory rate 18 /min Lamont Villarreal Other [employer] Other 01-26-2022 10:45-0400 SaO2% (BldA) [Mass fraction] 97 % Lamont Villarreal Other [employer] Other 01-26-2022 10:45-0400 Systolic blood pressure 138 mm[Hg] Lamont Phil Other [employer] Other 09-15-2021 10:45-0500 Body height 170.18 cm Lamont Koenigorlando Other [employer] Other 09-15-2021 10:45-0500 Body temperature 98.4 [degF] Lamont Villarreal Other [employer] Other 09-15-2021 10:45-0500 Diastolic blood pressure 83 mm[Hg] Lamont Villarreal Other [employer] Other 09-15-2021 10:45-0500 Respiratory rate 18 /min Lamont Villarreal Other [employer] Other 09-15-2021 10:45-0500 SaO2% (BldA) [Mass fraction] 97 % Lamont Madinaorlando Other [employer] Other 09-15-2021 10:45-0500 Systolic blood pressure 124 mm[Hg] Lamont Phil Other [employer] Other 08-06-2021 09:45-0500 Body height 170.18 cm Lamont Villarreal Other [employer] Other 08-06-2021 09:45-0500 Body mass index (BMI) [Ratio] 50.11 kg/m2 Lamont Villarreal Other [employer] Other 08-06-2021 09:45-0500 Body weight 145.15 kg Lamont Villarreal Other [employer] Other 08-06-2021 09:45-0500 Diastolic blood pressure 82 mm[Hg] Lamont Villarreal Other [employer] Other 08-06-2021 09:45-0500 Respiratory rate 16 /min Lamont Villarreal Other [facility] [employer] Other 08-06-2021 09:45-0500 SaO2% (BldA) [Mass fraction] 96 % Lamont Villarreal Other [facility] [employer] Other 08-06-2021 09:45-0500 Systolic blood pressure 116 mm[Hg] Lamont Villarreal Other [facility] [employer] Other Encounters Encounter Date Encounter Type Care Provider Facility Start: 07-21-2024 Patient encounter procedure DO Lamont Villarreal Work Phone: [facility] Start: 07-21-2024 End: 07-21-2024 ambulatory DO Lamont Villarreal Work Phone: [facility] Work Phone: Start: 07-21-2024 End: 07-21-2024 Patient encounter procedure DO Lamont Villarreal Work Phone: [facility] Work Phone: Start: 07-19-2024 End: 07-19-2024 ambulatory DO Laomnt Villarreal Work Phone: [facility] Work Phone: Start: 07-19-2024 End: 07-19-2024 Patient encounter procedure DO Lamontrosy Villarreal Work Phone: [facility] Work Phone: Start: 07-19-2024 End: 07-19-2024 ambulatory DO Lamontrosy Villarreal Work Phone: [facility] Work Phone: Start: 07-19-2024 End: 07-19-2024 Patient encounter procedure DO Lamont Phil Work Phone: [facility] [place] Work Phone: Start: 07-18-2024 End: 07-18-2024 ambulatory DO Lamontrosy Villarreal Work Phone: [facility] Work Phone: Start: 07-18-2024 End: 07-18-2024 Patient encounter procedure DO Lamont Phil Work Phone: [facility] Work Phone: Start: 07-18-2024 End: 07-18-2024 ambulatory DO Lamont Villarreal Work Phone: [facility] Work Phone: Start: 07-18-2024 End: 07-18-2024 Patient encounter procedure DO Lamont Villarreal Work Phone: [facility] [place] Work Phone: Start: 07-04-2024 End: 07-04-2024 ambulatory DO Lamont Villarreal Work Phone: [facility] Work Phone: Start: 07-04-2024 End: 07-04-2024 Patient encounter procedure DO Lamont Phil Work Phone: [facility] [place] Work Phone: Start: 06-23-2024 Non-patient / Non-visit DO Tomas Villarreal Work Phone: [facility] [place] Work Phone: Start: 06-22-2024 End: 06-22-2024 ambulatory DO Lamont Phil Work Phone: [facility] Work Phone: Start: 06-22-2024 End: 06-22-2024 Patient encounter procedure DO Lamontrosy Villarreal Work Phone: [facility] Work Phone: Start: 06-22-2024 End: 06-22-2024 ambulatory DO Lamont Villarreal Work Phone: [facility] Work Phone: Start: 06-22-2024 End: 06-22-2024 Patient encounter procedure DO Lamont Villarreal Work Phone: [facility] Work Phone: Start: 06-14-2024 End: 06-14-2024 ambulatory DO Lamontrosy Villarreal Work Phone: [facility] Work Phone: Start: 06-14-2024 End: 06-14-2024 Patient encounter procedure DO Lamont Villarreal Work Phone: [facility] Work Phone: Start: 04-12-2024 End: 04-12-2024 ambulatory DO Lamont Villarreal Work Phone: [facility] Work Phone: Start: 04-12-2024 End: 04-12-2024 Departed Referred DO Lamontrosy Koenigorlando Work Phone: [facility] Work Phone: Start: 04-12-2024 End: 04-12-2024 ambulatory DO Lamontrosy Villarreal Work Phone: [facility] Work Phone: Start: 04-12-2024 End: 04-12-2024 Patient encounter procedure DO Lamontrosy Koenigorlando Work Phone: [facility] Work Phone: Start: 03-24-2024 End: 03-24-2024 ambulatory DO Lamont Villarreal Work Phone: [facility] Work Phone: Start: 03-24-2024 End: 03-24-2024 Patient encounter procedure DO Lamont Villarreal Work Phone: [facility] [place] Work Phone: Start: 03-20-2024 Non-patient / Non-visit DO Tomas rosy Villarreal Work Phone: [facility] [place] Work Phone: Start: 03-13-2024 End: 03-13-2024 ambulatory DO Lamontrosy Villarreal Work Phone: [facility] Work Phone: Start: 03-13-2024 End: 03-13-2024 Patient encounter procedure DO Lamontrosy Villarreal Work Phone: [facility] [place] Work Phone: Start: 03-09-2024 End: 03-09-2024 ambulatory DO Lamont Villarreal Work Phone: [facility] Work Phone: Start: 03-09-2024 End: 03-09-2024 Patient encounter procedure DO Lamont Villarreal Work Phone: [facility] [place] Work Phone: Start: 03-01-2024 End: 03-01-2024 ambulatory DO Lamontrosy Villarreal Work Phone: [facility] Work Phone: Start: 03-01-2024 End: 03-01-2024 Patient encounter procedure DO Lamont Madinaorlando Work Phone: [facility] Work Phone: Start: 02-17-2024 End: 02-17-2024 ambulatory DO Lamontrosy Villarreal Work Phone: [facility] Work Phone: Start: 02-17-2024 End: 02-17-2024 Patient encounter procedure DO Lamont Villarreal Work Phone: [facility] Work Phone: Start: 02-01-2024 Non-patient / Non-visit DO Tomas Villarreal Work Phone: [facility] [place] Work Phone: Start: 01-13-2024 End: 01-13-2024 Patient encounter procedure DO Lamont Villarreal Work Phone: [facility] [place] Work Phone: Start: 01-13-2024 End: 01-13-2024 ambulatory DO Lamont Phil Work Phone: [facility] Work Phone: Start: 12-30-2023 End: 12-30-2023 ambulatory DO Lamont Phil Work Phone: [facility] Work Phone: Start: 12-30-2023 End: 12-30-2023 Patient encounter procedure DO Lamontrosy Koenigorlando Work Phone: [facility] Work Phone: Start: 12-27-2023 End: 12-27-2023 ambulatory MALCOM RENUKA Not Available Start: 12-27-2023 Non-patient / Non-visit DO Tomas rosy Phil Work Phone: [facility] Work Phone: Start: 12-22-2023 End: 12-22-2023 ambulatory DO Lamont Villarreal Work Phone: [facility] Work Phone: Start: 12-22-2023 End: 12-22-2023 Patient encounter procedure DO Lamont Villarreal Work Phone: [facility] Work Phone: Start: 12-22-2023 End: 12-22-2023 ambulatory DO Lamont Villarreal Work Phone: [facility] Work Phone: Start: 12-22-2023 End: 12-22-2023 Patient encounter procedure DO Lamont Villarreal Work Phone: [facility] [place] Work Phone: Start: 11-17-2023 End: 11-17-2023 ambulatory DO Lamont Villarreal Work Phone: [facility] Work Phone: Start: 11-17-2023 End: 11-17-2023 Patient encounter procedure DO Lamont Villarreal Work Phone: [facility] Work Phone: Start: 10-14-2023 IBT FOR OBESITY GROU P 2-10 30M Mary Ann [facility] Start: 10-14-2023 End: 10-14-2023 Discharged Recurring DO Lamont Villarreal Work Phone: [facility] Work Phone: Start: 10-14-2023 Registered Recurring DO Lamont Villarreal Work Phone: [facility] Work Phone: Start: 10-14-2023 End: 10-14-2023 ambulatory DO Lamont Villarreal Work Phone: [employer] Other Start: 10-07-2023 End: 10-07-2023 ambulatory Mary Ann Fitt Other [employer] Other Start: 10-07-2023 IBT FOR OBESITY GROU P 2-10 30M Mary Ann Fitt [facility] Start: 10-07-2023 Telephone encounter Анна Rose [place] [facility] Start: 09-22-2023 (FCCCWMNF/U) Weight Management f/u Анна Rose [facility] Start: 09-22-2023 End: 09-22-2023 ambulatory Анна Rose Other [employer] Other Start: 09-22-2023 End: 09-22-2023 Patient encounter procedure DO Lamont Villarreal [facility] Work Phone: Start: 09-21-2023 End: 09-22-2023 ambulatory [facility] Start: 09-21-2023 End: 09-21-2023 Office outpatient visit 25 minutes Brain Sen MD Work Phone: [facility] Comment on above: Cervical radiculopat hy (Primary Dx); Neck pain Start: 09-15-2023 End: 09-15-2023 ambulatory Lamont Villarreal Other [employer] Other Start: 09-15-2023 Office outpatient vi sit 15 minutes Lamont Villarreal [facility] [place] Start: 09-15-2023 End: 09-15-2023 Patient encounter procedure DO Lamont Villarreal Work Phone: [facility] [place] Work Phone: Start: 08-31-2023 End: 08-31-2023 ambulatory Lamont Villarreal Other [employer] Other Start: 08-31-2023 Telephone encounter Lamont Villarreal [facility] [place] Start: 08-30-2023 End: 08-31-2023 ambulatory [place] [facility] Start: 08-30-2023 End: 08-30-2023 Office outpatient visit 15 minutes Brain Hernandez MD Work Phone: [facility] Comment on above: History of repair of right rotator cuff (Primary Dx) Start: 08-25-2023 IBT FOR OBESITY GROU P 2-10 30M Mary Ann Bradmagdalena [facility] Start: 08-25-2023 End: 08-25-2023 ambulatory DO Lamont Villarreal Work Phone: [employer] Other Start: 08-25-2023 End: 08-25-2023 Discharged Recurring DO Lamont Villarreal Work Phone: [facility] [place] Start: 08-25-2023 End: 08-25-2023 Patient encounter procedure DO Lamont Villarreal Work Phone: [facility] Work Phone: Start: 08-17-2023 End: 08-17-2023 ambulatory Mary Ann Fitt Other [employer] Other Start: 08-17-2023 IBT FOR OBESITY GROU P 2-10 30M [facility] Start: 08-17-2023 Telephone encounter Lamont Villarreal [facility] Start: 08-17-2023 End: 08-17-2023 Patient encounter procedure DO Lamont Villarreal Work Phone: [facility] Work Phone: Start: 08-11-2023 (FCCCWMNF/U) Weight Management f/u Анна Rose [facility] Start: 08-11-2023 End: 08-11-2023 ambulatory Mary Ann Fitt Other [employer] Other Start: 08-11-2023 IBT FOR OBESITY GROU P 2-10 30M [facility] Start: 07-26-2023 End: 07-27-2023 ambulatory BRAIN HERNANDEZ [facility] Start: 07-26-2023 End: 07-26-2023 Office outpatient visit 25 minutes Brain Hernandez MD Work Phone: [facility] Comment on above: History of repair of right rotator cuff (Primary Dx); Right shoulder pain, unspecified chronicity Start: 07-22-2023 End: 07-22-2023 ambulatory Lamont Villarreal Other [employer] Other Start: 07-22-2023 Telephone encounter Lamont Villarreal [facility] [place] Start: 07-20-2023 End: 07-20-2023 ambulatory Lamont Villarreal Other [employer] Other Start: 07-20-2023 Telephone encounter Lamont Villarreal [facility] [place] Start: 07-19-2023 End: 07-19-2023 ambulatory Lamont Villarreal Other [employer] Other Start: 07-19-2023 Office outpatient vi sit 25 minutes Lamont Villarreal [facility] [place] Start: 07-13-2023 End: 07-13-2023 ambulatory Mary Ann Ibrahim Other [employer] Other Start: 07-13-2023 IBT FOR OBESITY GROU P 2-10 30M Mary Ann Ibrahim [facility] Start: 07-01-2023 End: 07-01-2023 ambulatory Lamont Villarreal Other [employer] Other Start: 07-01-2023 Telephone encounter Lamont Vilalrreal [facility] [place] Start: 06-22-2023 End: 06-22-2023 ambulatory Lamont Villarreal Other [employer] Other Start: 06-22-2023 Telephone encounter Lamont Villarreal [facility] [place] Start: 06-09-2023 (DM) Diabetes Анна Rose [facility] Start: 06-09-2023 End: 06-09-2023 ambulatory Анна Rose Other [employer] Other Start: 06-01-2023 (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) 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 Mary Ann [facility] Start: 06-01-2023 End: 06-01-2023 ambulatory Mary Ann Ibrahim Other [employer] Other Start: 05-18-2023 End: 05-18-2023 ambulatory LAMONT VILLARREAL Facility:[facility] Start: 05-18-2023 End: 05-18-2023 Patient encounter procedure Yosvany Hayden MD Work Phone: Otolaryngology Comment on above: TOSHA (obstructive sle ep apnea) (Primary Dx); Class 3 severe obesity with body mass index (BMI) of 40.0 to 44.9 in adult, unspecified obesity type, unspecified whether serious comorbidity present (HCC) Start: 05-13-2023 E-mail encounter fro m [facility] Start: 05-13-2023 Patient encounter procedure 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 Comment on above: Upcoming appointment Start: 04-22-2023 (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) 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 Mary Ann [facility] Start: 04-22-2023 End: 04-22-2023 ambulatory Mary Ann Ibrahim Other [employer] Other Start: 04-22-2023 Telephone encounter Анна [facility]vel[facility] Start: 04-13-2023 End: 04-13-2023 ambulatory Lamont Villarreal Other [employer] Other Start: 04-13-2023 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 Start: 03-17-2023 End: 03-17-2023 ambulatory Анна Rose Other [employer] Other Start: 03-17-2023 Nursing evaluation o f patient and report Анна Rose [facility] Start: 01-26-2023 End: 01-26-2023 ambulatory Анна Rose Other [employer] Other Start: 01-26-2023 Telephone encounter Анна Rnee [employer] Machine [employer] Start: 01-25-2023 (New DM) New Diabetes [facility] Start: 01-25-2023 End: 01-25-2023 ambulatory Mary Ann Ibrahim Other [employer] Other Start: 01-25-2023 Encounter by jamel Ibrahim [facility] Start: 01-11-2023 End: 01-12-[address] LAMONT VILLARREAL [facility] [employer] Other Start: 01-11-2023 Telephone encounter Lamont Villarreal [facility] Start: 01-06-2023 End: 01-07-[address] LAMONT VILLARREAL Facility:H1 Start: 12-30-2022 Chart Update Lamont Villarreal Work Phone: [facility] Work Phone: Start: 12-30-2022 Patient encounter procedure Lamont Villarreal Work Phone: [facility] [place] Work Phone: Start: 12-30-[address] Lamont Villarreal Facility:[id number] Start: 12-29-2022 End: 12-29-2022 ambulatory Lamont Villarreal Other [employer] Other Start: 12-29-2022 Telephone encounter Lamont Villarreal [facility] Start: 12-23-2022 End: 12-23-2022 ambulatory Lamont Villarreal Other [employer] Other Start: 12-23-2022 Telephone encounter Lamont Villarreal [facility] Start: 12-16-2022 End: 12-16-2022 ambulatory Lamont Villarreal Other [employer] Other Start: 12-16-2022 Telephone encounter Lamont Villarreal [facility] Start: 12-15-2022 End: 12-15-2022 ambulatory Marty Burgos Other [employer] Other Start: 12-15-2022 Office outpatient vi sit 15 minutes Marty Burgos [facility] [place] Start: 12-12-2022 End: 12-13-[address] LAMONT VILLARREAL Facility: Start: 11-16-2022 End: 11-16-2022 ambulatory Lamont Villarreal Other [employer] Other Start: 11-16-2022 Telephone encounter Lamont Villarreal [facility] Start: 09-22-2022 End: 09-22-2022 ambulatory DO Lamont Villarreal Work Phone: [facility] Work Phone: Start: 09-22-2022 End: 09-22-2022 Patient encounter procedure DO Lamont Villarreal Work Phone: [facility] [address] Work Phone: Start: 09-14-2022 End: 09-14-2022 ambulatory Marty Burgos Other [employer] Other Start: 09-14-2022 Telephone encounter Marty [facility] Start: 09-11-2022 End: 09-11-2022 ambulatory Marty Burgos Other [employer] Other Start: 09-11-2022 Telephone encounter Marty [facility] Start: 09-03-2022 End: 09-03-2022 ambulatory Marty Burgos Other [employer] Other Start: 09-03-2022 Office outpatient vi sit 25 minutes Marty Burgos [facility] [place] Start: 08-27-2022 End: 08-28-[address] MALCOM HUANG . Facility: Start: 08-25-2022 (Procedure) Short Marty Burgos [facility] Start: 08-25-2022 End: 08-25-2022 Admission to same day surgery center DO Lamont Villarreal Work Phone: [facility] Start: 08-25-2022 End: 08-25-2022 ambulatory DO Lamont Villarreal Work Phone: [facility] Work Phone: Start: 08-10-2022 End: 08-10-[address] MALCOM HUANG . Facility: Start: 08-04-2022 End: 08-04-2022 ambulatory Marty Burgos Other [employer] Other Start: 08-04-2022 Office outpatient vi sit 15 minutes Marty BARRAZA [facility] [place] Start: 06-02-2022 End: 06-02-2022 ambulatory Lamont Villarreal Other [employer] Other Start: 06-02-2022 Telephone encounter Lamont Villarreal [facility] [place] Start: 05-27-2022 End: 05-27-2022 ambulatory Lamont Villarreal Other [employer] Other Start: 05-27-2022 Telephone encounter Lamont Villarreal [facility] Start: 05-26-2022 End: 05-26-2022 ambulatory Itzel Grady Other [employer] Other Start: 05-26-2022 Office outpatient vi sit 15 minutes Itzel Grady [facility] Start: 05-25-2022 End: 05-25-2022 ambulatory Lamont Villarreal Other [employer] Other Start: 05-25-2022 Telephone encounter Lamotn Villarreal [facility] Start: 05-08-2022 End: 05-09-[address] MALCOM HUANG . Facility:H1 Start: 05-05-2022 End: 05-05-2022 Discharged Recurring DO Lamont Villarreal Work Phone: [facility] [place] Start: 04-02-2022 End: 04-02-2022 ambulatory Lamont Villarreal Other [employer] Other Start: 04-02-2022 Office outpatient vi sit [address] [facility] Start: 03-19-2022 End: 03-19-[address] MALCOM HUANG . Facility:H1 Start: 03-17-2022 Encounter for preprocedural laboratory examination DR MALCOM HUANG . [facility] Start: 03-13-2022 End: 03-14-[address] MALCOM HUANG . Facility:H1 Start: 03-13-2022 End: 03-14-2022 Encounter for preprocedural laboratory examination DR MALCOM HUANG . Facility:H1 Start: 03-11-2022 ambulatory Judy Benson RT(R) Radiology Comment on above: Radiology XR Start: 03-11-2022 End: 03-11-2022 Patient encounter procedure Judy Benson RT(R) [place] Comment on above: Posterior tibial ten dinitis of right lower extremity (Primary Dx); Right foot pain; Chronic pain of right ankle; History of total ankle replacement, right Start: 03-11-2022 Telephone encounter Julien Dominguez DPM Work Phone: Orthopaedics Comment on above: Orders Start: 03-11-2022 End: 03-11-2022 Subsequent hospital visit by physician Ronald [facility] Work Phone: Radiology Comment on above: Right foot pain [[id number] .671] Start: 03-04-2022 End: 03-04-2022 ambulatory Lamont Villarreal Other [employer] Other Start: 03-04-2022 Telephone encounter Lamont Villarreal [facility] Start: 03-03-2022 End: 03-04-[address] MALCOM HUANG . Facility: Start: 02-26-2022 End: 02-26-2022 ambulatory Lamont Villarreal Other [employer] Other Start: 02-26-2022 Telephone encounter Lamont Villarreal [facility] Start: 02-17-2022 End: 02-17-2022 ambulatory Marty Burgos Other [employer] Other Start: 02-17-2022 Office outpatient vi sit 15 minutes Marty Burgos [facility] [place] Start: 02-10-2022 (Procedure) Short Marty Burgos [facility] Start: 02-10-2022 End: 02-10-2022 ambulatory Marty Burgos Other [employer] Other Start: 01-27-2022 End: 01-27-2022 ambulatory Marty Burgos Other [employer] Other Start: 01-27-2022 Office outpatient vi sit 25 minutes Marty Burgos [facility] [place] Start: 01-26-2022 End: 01-26-2022 ambulatory Lamont Villarreal Other [employer] Other Start: 01-26-2022 Office outpatient vi sit 25 minutes Lamont Villarreal [facility] Start: 01-20-2022 End: 01-20-2022 ambulatory Lamont Villarreal Other [employer] Other Start: 01-20-2022 Telephone encounter Lamont Villarreal [facility] Start: 01-01-2022 End: 01-01-2022 ambulatory Lamont Villarreal Other [employer] Other Start: 01-01-2022 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 Start: 09-29-2021 End: 09-29-2021 ambulatory Lamont Villarreal Other [employer] Other Start: 09-29-2021 Telephone encounter Lamont Villarreal [facility] Start: 09-24-2021 Patient encounter procedure Lamont Villarreal Work Phone: [facility] [place] Work Phone: Start: 09-23-2021 AUDIT Lamont Villarreal Work Phone: [facility] Work Phone: Start: 09-15-2021 End: 09-15-2021 ambulatory Lamont Villarreal Other [employer] Other Start: 09-15-2021 Office outpatient vi sit [address] [facility] Start: 09-12-2021 End: 09-12-2021 ambulatory Lamont Villarreal Other [employer] Other Start: 09-12-2021 Telephone encounter Lamont Villarreal [facility] Start: 08-13-2021 Patient encounter procedure Lamont Villarreal Work Phone[facility] Work Phone: Start: 08-06-2021 End: 08-06-2021 ambulatory Lamont Villarreal Other [facility] [employer] Other Start: 08-06-2021 Office outpatient vi sit [address] [facility] Start: 07-21-2021 Nursing evaluation o f patient and report Lamont Villarreal [facility] Start: 07-21-2021 Telephone encounter Lamont Villarreal [facility] Start: 06-11-2021 Patient encounter procedure Lamont Villarreal Work Phone: [facility] Work Phone: Start: 05-07-2021 Office outpatient ne w 45 minutes Lamont Villarreal Work Phone: [facility] Work Phone: Start: 04-30-2021 AUDIT Lamont Villarreal Work Phone: [facility] [place] Work Phone: Start: 04-30-2021 Patient encounter procedure Lamont Villarreal Work Phone: [facility] Work Phone: Start: 04-21-2021 Office outpatient vi sit 15 minutes Lamont Villarreal Work Phone: [facility] Work Phone: Start: 04-21-2021 Patient encounter procedure Lamont Villarreal Work Phone: [facility] Work Phone: Start: 03-26-2021 Patient encounter procedure Lamont Villarreal Work Phone: [facility] DO Work Phone: Start: 02-26-2021 Patient encounter procedure Lamont Villarreal Work Phone: [facility] DO Work Phone: Start: 02-19-2021 Patient encounter procedure No PCP None [facility] DO Work Phone: Procedures Date Procedure Procedure Detail Performing Clinician Start: 03-13-2024 Plain chest X-ray DO Lamont Villarreal Work Phone: Start: 03-09-2024 RSV (POC) DO Lamont Villarreal Work Phone: Start: 09-21-2023 XR CERVICAL SPINE COMPLETE 4-5 VIEWS BRAIN HERNANDEZ Start: 07-26-2023 XR SHOULDER RIGHT 2+ VIEWS BRAIN CORONA I Start: 08-27-2022 Mammography Brain Hernandez MD Work Phone: Start: 08-25-2022 Injection of spinal epidural space DO Lamont Villarreal Work Phone: Start: 03-11-2022 Radex ankle complete minimum 3 views Julien Dominguez DPM Work Phone: Cholecystectomy Lamont Villarreal Work Phone: Excision of cyst Lamont perry Work Phone: History of repair of musculotendinous cuff of shoulder History of repair of right rotator cuff Brain Hernandez MD Work Phone: History of repair of musculotendinous cuff of shoulder History of repair of right rotator cuff Brain Hernandez MD Work Phone: Ligation of fallopian tube B aster Villarreal Work Phone: Operative procedure on ankle Lamont Villarreal Work Phone: Repair of musculoten dinous cuff of shoulder Lamont Villarreal Work Phone: Plan of Treatment Date Care Activity Detail Author Start: 07-18-2024 Comprehensive metabo lic 2000 panel - Serum or Plasma [facility] Start: 07-18-2024 [facility] Start: 01-03-2024 End: 01-03-2024 Patient encounter procedure 01/03/2024 9:00 AM EDT Office Visit [facility] [address] [place] [address], [place] [address] Brain Hernandez MD [address] [facility], [address] [place] [address] [facility] Start: 09-21-2023 End: 09-21-2024 XR Cervical spine 4 or 5 Views [facility] Service Area Work Phone: Comment on above: Expected: 09/21/2023 , Expires: 09/21/2024 Start: 09-15-2023 End: 09-15-2023 Patient encounter procedure 09/15/2023 1:30 PM EST Office Visit [facility] [address] [facility] [facility] [place] [address] Abdulkadir Broussard, PA-C [address] [facility], [address] [place] [address] [facility] Start: 08-27-2023 Screening for malign ant neoplasm of breast Mammogram [facility] Start: 05-28-2023 Influenza vaccination C [facility] Start: 09-27-2022 DEPRESSION ASSESSMENT DEPRESSION ASS ESSMENT [facility] Start: 08-25-2022 [facility] Start: 05-28-2022 Influenza vaccination INFLUENZA (Sea son Ended) [facility] Start: 09-24-2021 FUV, Provider: Brain Hernandez, Status: Pen, Time: 9:15 AM FUV, Provider: Brain Hernandez, Status: Pen, Time: 9:15 AM [facility] DO Work Phone: Start: 08-13-2021 FUV, Provider: Brain Hernandez, Status: Pen, Time: 8:00 AM FUV, Provider: Brain Hernandez, Status: Pen, Time: 8:00 AM [facility] DO Work Phone: Start: 06-11-2021 FUV, Provider: Brain Hernandez, Status: Pen, Time: 8:00 AM FUV, Provider: Brain Hernandez, Status: Pen, Time: 8:00 AM [facility] [place] Work Phone: Start: 05-07-2021 NPV, Provider: Julien Edwards, Status: Pen, Time: 9:30 AM NPV, Provider: Julien Edwards, Status: Pen, Time: 9:30 AM [facility] [place] Work Phone: Start: 04-30-2021 FUV, Provider: Brain Hernandez, Status: Pen, Time: 8:45 AM FUV, Provider: Brain Hernandez, Status: Pen, Time: 8:45 AM [facility] DO Work Phone: Start: 03-26-2021 FUV, Provider: Brain Hernandez, Status: Pen, Time: 8:30 AM FUV, Provider: Brain Hernandez, Status: Pen, Time: 8:30 AM [facility] DO Work Phone: Start: 02-26-2021 POV, Provider: Brain Fairchild, Status: Pen, Time: 10:00 AM POV, Provider: Brain Fairchild, Status: Pen, Time: 10:00 AM [facility] DO Work Phone: Start: 2016 SHINGRIX VACCINE (1 of 2) HERRERA GRIX VACCINE (1 of 2) [facility] Start: 2016 Zoster Vaccines (1 of 2) Zoster Vacc melanie (1 of 2) [facility] Start: 2011 COLOGUARD (FIT-DNA) COLOGUARD (FIT-D NA) [facility] Start: 2011 Colonoscopy COLONOSCOPY [facility] Start: 2011 COLORECTAL CANCER SCREENING COLORECTAL CANCER SCREENING [facility] Start: [address] COLONOGRAPHY [facility] Start: 2011 DIABETES SCREEN DIABETES SCREEN [facility] Start: 2011 FECAL OCCULT BLOOD FECAL OCCULT BLOO D [facility] Start: 2011 LIPID SCREEN LIPID SCREEN [facility] Start: 2011 SIGMOIDOSCOPY SIGMOIDOSCOPY [facility] Start: 2006 Mammography MAMMOGRAM [facility] Start: 1996 HPV TESTING HPV TESTING [facility] Start: 1988 DTaP/Tdap/Td Vaccine s (1 - Tdap) DTaP/Tdap/Td Vaccines (1 - Tdap) [facility] Start: 1987 PAP TESTING PAP TESTING [facility] Start: 1987 Screening for malign ant neoplasm of cervix [facility] Start: 1985 Urine microalbumin profile DTAP,TDAP,TD (1 - Tdap) [facility] Start: 1985 Urine screening for protein Diabetes: Urine Protein Screening [facility] Start: 1984 HEPATITIS C SCREENING HEPATITIS C [facility] Start: 1984 Hepatitis C screening Hepatitis C [facility] Start: 1984 HIV SCREENING HIV SCREENING [facility] Start: 1978 Adult depression screening assessment DEPRESSION SCREENING [facility] Start: 1976 Diabetic foot examination Diabetes: Foot Exam [facility] Start: 1976 Glaucoma screening Diabetes: R etinopathy Screening [facility] Start: 1972 Pneumococcal Vaccine : Pediatrics (0 to 5 Years) and At-Risk Patients (6 to 64 Years) (1 - PCV) Pneumococcal Vaccine: Pediatrics (0 to 5 Years) and At-Risk Patients (6 to 64 Years) (1 - PCV) [facility] Start: 1971 COVID-19 VACCINE (#1) COVID-19 VACCI NE (#1) [facility] Start: 1967 MMR Vaccines (1 of 1 - Standard series) MMR Vaccines (1 of 1 - Standard series) [facility] Start: 02-05-1967 COVID-19 VACCINE (#1) COVID-19 VACCI NE (#1) [facility] Start: 1966 Hemoglobin A1c measurement Diabetes: Hemoglobin A1C [facility] Start: 1966 HEPATITIS B (1 of 3 - 3-dose series) HEPATITIS B (1 of 3 - 3-dose series) [facility] Start: 1966 Hepatitis B Vaccines (1 of 3 - 3-dose series) Hepatitis B Vaccines (1 of 3 - 3-dose series) [facility] Start: 1966 HIV screening HIV Screening [facility] Start: 1966 Lipid panel Lipid Panel [facility] Start: 1966 Medicare Annual Well ness Visit Medicare Annual Wellness Visit (AWV) [facility] Start: 1966 Screening for malign ant neoplasm of colon [facility] Albumin/Globulin ratio [facility] Anion gap measurement [facility] Calculated LDL cholesterol level [facility] Cholesterol.total/Ch olest kathy in HDL [Mass Ratio] in Serum or Plasma [facility] Comprehensive metabo lic 2000 panel - Serum or Plasma [facility] DXA Skeletal system. axial Views for bone density [facility] Globulin [Mass/volum e] in Serum [facility] Glucose measurement estimated from glycated hemoglobin [facility] Patient Education [facility] Work Phone: Patient referral [facility] Work Phone: Thyroglobulin Ab [Units/volume] in Serum or Plasma [facility] Thyroperoxidase Ab [Units/volume] in Serum or Plasma [facility] VLDL cholesterol measurement [facility] XR ANKLE GENERAL 3V AP/LAT/OBL RIGHT XR ANKLE GENERAL 3V AP/LAT/OBL RIGHT Radiology Routine Right foot pain Chronic pain of right ankle 03/11/2022 10:00 AM EDT [facility] Work Phone: XR FOOT GENERAL 3V AP/LAT/OBL RIGHT XR FOOT GENERAL 3V AP/LAT/OBL RIGHT Radiology Routine Right foot pain Chronic pain of right ankle 03/11/2022 10:00 AM EDT [facility] Work Phone: [facility] Immunizations Immunization Date Immunization Notes Care Provider Payam arroyo 12-31-2020 Kenalog -40 mg Lamont Kuns Other [employer] Other 01-29-2020 Toradol per 15 mg Lamont Kuns Other [employer] Other 04-19-2019 Toradol per 15 mg Lamont Kuns Other [employer] Other 03-06-2019 Toradol per 15 mg Lamont Kuns Other [employer] Other 03-02-2019 Toradol per 15 mg Lamont Kuns Other [employer] Other 02-15-2019 Toradol per 15 mg Lamotn Kuns Other [employer] Other 01-25-2019 Toradol per 15 mg Lamont Kuns Other [employer] Other 01-21-2019 Toradol per 15 mg Lamont Kuns Other [employer] Other 01-19-2019 Toradol per 15 mg Lamont Kuns Other [employer] Other 12-09-2018 Toradol per 15 mg Lamont Kuns Other [employer] Other 10-27-2018 influenza, seasonal, injectable Patient Objection Lamont Madinas Other [employer] Other 02-03-2018 Toradol per 15 mg Lamont Kuns Other [employer] Other 10-22-2017 KENALOG - 10 mg Lamont Kuns Other [employer] Other 05-26-2017 Toradol per 15 mg Lamont Kuns Other [employer] Other 12-30-2016 Toradol per 15 mg Lamont Kuns Other [employer] Other 07-31-2016 Toradol per 15 mg Lamont Kuns Other [employer] Other 01-28-2015 Toradol per 15 mg Lamont Kuns Other [employer] Other 05-08-2014 KENALOG - 10 mg Lamont Kuns Other [employer] Other 12-08-2012 Toradol per 15 mg Lamont Kuns Other [employer] Other NEGATED: Highlighted row has not occurred!10-27-2018 influenza, seasonal, injectable Patient Objection Lamont Kuns Other [employer] Other Payers Date Payer Category Payer Self-pay [id number] 2022 Medicare DEVOTED [facility]IC[facility] [id number] 2022-Present [phone] [address] [place], [place] [address] HMO [id number] 2022 Unknown 2020 Unknown [id number] 2020 Private Health Insurance [facility] [employer] [id number] 2020-Present [phone] [address] [address] [place] [address] PPO [id number] [id number] 1966 Unknown [id number] 2.16.840.1.070821.3.579. 2.356 1966 Unknown [id number] 2.16.840.1.238894.3.579. 2.593 1966 Unknown [id number] 2.16.840.1.413195.3.579. 2.593 1966 Unknown [id number] 2.16.840.1.762141.3.579. 2.593 1966 Unknown [id number] 2.16.840.1.627355.3.579. 2.593 1966 Unknown [id number] 2.16.840.1.251292.3.579. 2.593 1966 Unknown [id number] 2.16.840.1.222286.3.579. 2.593 1966 Unknown [id number] 2.16.840.1.829343.3.579. 2.593 1966 Unknown [id number] 2.16.840.1.734350.3.579. 2.593 1966 Unknown [id number] 2.16.840.1.091830.3.579. 2.593 1966 Unknown [id number] 2.16.840.1.260606.3.579. 2.1246 1966 Unknown [id number] 2.16.840.1.501316.3.579. 2.6 1966 Unknown [id number] 2.16.840.1.413588.3.579. 2.1246 1966 Unknown [id number] 2.16.840.1.121977.3.579. 2.6 1966 Unknown [id number] 2.16.840.1.076030.3.579. 2.1246 1966 Unknown [id number] 2.16.840.1.211874.3.579. 2.1259 1959 Unknown [id number] 2.16.840.1.737151.19 Medicare [id number] 2.16.840.1.163561.19 Unknown HCAP/HFA/FAP Active [id number] Unknown [id number] 2.16.840.1.235137.3.579. 2.531 Unknown [id number] 2.16.840.1.991219.3.579. 2.531 Unknown [id number] 2.16.840.1.487369.3.579. 2.531 Unknown [id number] 2.16.840.1.361597.3.579. 2.531 Social History Date Type Detail Facility Start: 10-13-2022 End: 09-21-2023 Non-smoker Non-smoker [facility] Work Phone: Tobacco smoking status COIS Tobacco smoking consumption unknown [facility] Start: 1965 Sex Assigned At Not on file C [facility] Start: 03-01-2022 End: 09-21-2023 Exposure to SARS-CoV-2 (event) Not sure [facility] Start: 10-13-2022 End: 09-21-2023 Sex Assigned At [facility] Other Start: 06-26-2020 End: 10-19-2023 Tobacco smoking status NHIS Never smoked tobacco (finding) [facility] Start: 1965 Sex Assigned At Female F [facility] National Score (1-100), lower number is lower risk 60 [facility] Start: 05-18-2023 End: 07-26-2023 Tobacco use and exposure Smokeless tobacco non-user [facility] Start: 05-18-2023 Alcohol intake Current drinke r of alcohol (finding) [facility] Start: 05-18-2023 [facility] Procedure Code Equipment Code Equipment Origin al Text Equipment Identifier Dates Arthroscopy, shoulder Tendon/ligament bone anchor, bioabsorbable ()[id number] [id number] FDA Start: 06-26-2020 Arthroscopy, shoulder Tendon/ligament bone anchor, bioabsorbable ()[id number] [phone] FDA Start: 06-26-2020 Arthroscopy, shoulder Tendon/ligament bone anchor, bioabsorbable ()[id number] [id number])11 [id number] FDA Start: 06-26-2020 Start: 12-16-2022 [place], Biocompo site Corkscrew Ft, 5.5 X 14.7mm, W/Two 1.3 S Case [id number] Start: 02-25-2021 Comment on above: Description: Convert ed from [facility]. Please see archived information for full log [...] sugar diagnostic (CareTouch Test Strip) Start: 11-16-2023 Blood Sugar Diagnostic (Onetouch Ultra Test) strip Start: 04-12-2024 blood sugar diagnostic (CareTouch Test Strip) Start: 11-16-2023 End: 04-12-2024 Blood Sugar Diagnostic (Onetouch Ultra Test) strip Start: 04-12-2024 blood sugar diagnostic (CareTouch Test Strip) Start: 11-16-2023 End: 04-12-2024 Blood Sugar Diagnostic (Onetouch Ultra Test) strip Start: 04-12-2024 blood sugar diagnostic (CareTouch Test Strip) Start: 11-16-2023 End: 04-12-2024 Blood Sugar Diagnostic (Onetouch Ultra Test) strip Start: 04-12-2024 blood sugar diagnostic (CareTouch Test Strip) Start: 11-16-2023 End: 04-12-2024 Blood Sugar Diagnostic (Onetouch Ultra Test) strip Start: 04-12-2024 blood sugar diagnostic (CareTouch Test Strip) Start: 11-16-2023 End: 04-12-2024 blood sugar diagnostic (CareTouch Test Strip) Start: 11-16-2023 End: 04-12-2024 Blood Sugar Diagnostic (Onetouch Ultra Test) strip Start: 04-12-2024 End: 07-04-2024 blood sugar diagnostic (CareTouch Test Strip) Start: 11-16-2023 End: 04-12-2024 Blood Sugar Diagnostic (Onetouch Ultra Test) strip Start: 04-12-2024 End: 07-04-2024 blood sugar diagnostic (CareTouch Test Strip) Start: 11-16-2023 End: 04-12-2024 Blood Sugar Diagnostic (Onetouch Ultra Test) strip Start: 04-12-2024 End: 07-04-2024 blood sugar diagnostic (CareTouch Test Strip) Start: 11-16-2023 End: 04-12-2024 Blood Sugar Diagnostic (Onetouch Ultra Test) strip Start: 04-12-2024 End: 07-04-2024 blood sugar diagnostic (CareTouch Test Strip) Start: 11-16-2023 End: 04-12-2024 Blood Sugar Diagnostic (Onetouch Ultra Test) strip Start: 04-12-2024 End: 07-04-2024 blood sugar diagnostic (CareTouch Test Strip) Start: 11-16-2023 End: 04-12-2024 Blood Sugar Diagnostic (Onetouch Ultra Test) strip Start: 04-12-2024 End: 07-04-2024 Goals Date Patient Goal Desired Activity /State Clinical Notes 08-17-2011 to 04-12-2024 Note Date & Type Note Facility 04-12-2024 Hospital Discharg e instructions Ambulatory OrdersMicroAlb Creat Ratio,U Time Frame: 04/12/24, Location: Determined By Patient [facility] Work Phone: 12-22-2023 Evaluation note Authored December 22, 2023 8:4 6am The above note written by Jose C ALONSO acting as human recorder, note dictated by Dr. Lamont Villarreal. [facility] Work Phone: 1(660) 408-158101-18-2024 Evaluation note* Encounter Date Diagnosis Assessment Notes [...] SWAP coping exercise and self care activity [employer] Other 01-11-2024 Evaluation note* Encounter Date Diagnosis [...] track satisfaction, nutrition and enjoyment in eating [facility] Other 12-27-2023 Evaluation note* Encounter Date Diagnosis [...] and make recommendations for long-term supplementation with uegu-prn-cdentxx formulations or prescription grade repletion. Aug, Hyperlipidemia, [...] after placing them. She was told by B.F. RN to try wearing it on her chest but Shelia didn't feel comfortable doing this without assistance. I taught her how to apply the sensor to her chest about 3 inches below her collar bone and she applied skin tac and a grif financial solutions advisor. She successfully started the sensor. 30 minutes were spent educating the patient by Odette Ford RN, [facility]. [facility] [employer] [employer] Other 12-26-2023 History of Present illness Narrative* [...] those. They are not helping. She had spar-pyg-ebyxbrr medications. She had a steroid injection in her shoulder which did not help. Plan: Will submit for a cervical MRI. She lives in [place] which [place] near [place]. So hopefully wecan set that up where she comes and has the MRI and may be follows up with us after that MRI on thesame trip. Please refer to Dr. Sen's note for final plan. MRI will be for diagnostic purposesfor either epidural injections or surgical invention which we talked her about all the risks and benefits with. In a gvoo-wd-bzoh encounter, I performed a history and physical [...] rotator cuff repair and sees Dr. Brain eHrnandez for that. However, it does not appear [...] management for the MRI. [facility] Phone: 1(486) 887-204412-20-2023 Evaluation note* Encounter Date Diagnosis Assessment Notes [...] to diabetology and weight loss services through [facility] and was started on Ozempic. Patient is [...] from Dr. Hernandez. I am in agreement [facility] Other [id number] History of Present illness Narrative* Brain Hernandez [...] cervical spine evaluation completed documented in this [facility] Work Phone: 1(804) 606-530711-29-2023 Evaluation note* Encounter Date Diagnosis Assessment Notes [...] the following goals: - not reviewed today [facility] [facility] [employer] Other 11-21-2023 Evaluation note* Encounter Date Diagnosis [...] patient set personal goal using given handout. [facility] [employer] [employer] Other 11-15-2023 Evaluation note* Encounter Date Diagnosis [...] the following goals: - not reviewed today [facility] [facility] [employer] Other 11-15-2023 Evaluation note* Encounter Date Diagnosis [...] and make recommendations for long-term supplementation with fzsl-bzp-qzconet formulations or prescription grade repletion. Jul, Hyperlipidemia, [...] Anxiety and depression (ICD-10 - F41.8) Jul, Cornelio Bass has been having trouble with her Freestyle [...] she applied skin tac and a grif financial solutions advisor. She successfully started the sensor. 30 minutes were spent educating the patient by Odette Ford RN, [facility]. [facility] [employer] [employer] Other 10-30-2023 History of Present illness Narrative* [...] [address] Wright in [place] she is got some mild sclerotic foreign exchange trader the tuberosity obviously concern would be for [...] cuff repair now with mild secondary sclerotic foreign exchange trader the tuberosity possible chronic tendinitis and/or root tear Plan: Cortisone injection therapy exercise conditioning program we will see her back 5 6 weeks if she is doing good she can hold off on treatment if her pain pattern increases obviously arthrogram MRI would be mandatory to evaluate for any integrity of remaining rotator cuff documented in this [facility] Work Phone: 1(142) 784-416510-26-2023 Evaluation note* Encounter Date Diagnosis Assessment Notes Treatment Notes Treatment Clinical Notes Jun, Diabetes (ICD-10 - E11.9) [facility] [employer] [employer] Other 10-23-2023 Evaluation note* Encounter Date Diagnosis [...] she has consulted with a specialist in [place] who advised amputation due to persistent pain.The patient states she did return to safety investigator/cause analyst who recommends a fusion before considering an [...] review of blood work resutls collected 11/2022. Jun, Diabetes (ICD-10 - E11.9) The patient is [...] - E66.01) The patient is working with training systems officer Mary Ann Salinas and Анна Rose for weight loss and diabetes. Jun, Body mass index [BMI] 45.0-49.9, adult (ICD-10 - Z68.42) Jun, Hyperlipidemia (ICD-10 - E78.5) Pt is to continue with the above medication and continue watching their diet and increase their exercise regimen. Jun, Fatigue, unspecified type (ICD-10 - R53.83) Blood work ordered . [facility] [employer] Other 10-17-2023 Evaluation note* Encounter Date Diagnosis [...] the following goals: - not reviewed today [facility] [facility] [employer] Other 09-26-2023 Evaluation note* Encounter Date Diagnosis Assessment Notes Treatment Notes Treatment Clinical Notes May, Lumbar pain (ICD9-CM - 724.2) [facility] [facility] [employer] Other 09-13-2023 Evaluation note* Encounter Date Diagnosis Assessment Notes Treatment Notes Treatment Clinical Notes May, Type 2 diabetes mellitus with hyperglycemia, without long-term current use of insulin (ICD-10 - E11.65) 1. Uncontrolled, a Type 2 diabetes with A1c of 6.6 %, A1 c December 04. at [facility]. [place] reviewed reflecting a.m. fasting less [...] BMI 45.0-49.9, adult (ICD-10 - Z68.42) May, Other Shelia has been having trouble with [...] she applied skin tac and a grif financial solutions advisor. She successfully started the sensor. 30 minutes were spent educating the patient by Odette Ford RN, [facility]. [facility] [facility] [employer] Other 09-05-2023 Evaluation note* Encounter Date Diagnosis [...] home at least 3 days a week [facility] [facility] [employer] Other 08-22-2023 NoteHNO ID: [id number] Author: Yosvany Hayden MD Service: ? Author [...] asymmetry, or thyroid masses or enlargement. Yosvany Hayden, [facility]08-22[facility]23 History of Present illness Narrative* Yosvany Hayden [...] thyroid masses or enlargement. Yosvany Hayden MD documented in [facility] Nurse Note* Cristina Funes Ma - 05/18/2023 9:20 AM EDT Tobacco Use: Never Was smoking cessation packet given? N/A - Patient is a non-smoker or quit >1 year ago. Was a referral initiated?N/A Patient is a non-smoker documented in this encounterNorwalk [facility]07-27-2023 Evaluation note* Encounter Date Diagnosis Assessment Notes Treatment Notes Treatment Clinical Notes Mar, Other Summary of Visi t: (A) reviewed plate method and easy meal ideas (B) discussed motivators and how to find interest in cooking, health Patient set the following goals: - increase fruit and veggie intake- PARTIALLY MET, CONTINUE - practice eating 1 meal and 1-2 snacks/day; PARTIALLY MET, CONTINUE [facility] Other 07-18-2023 Evaluation note* Encounter Date Diagnosis Assessment Notes Treatment Notes Treatment Clinical Notes Mar, Obstructive sleep apnea (adult) (pediatric) (ICD-10 - G47.33) Mar, Morbid obesity with body mass index (BMI) of 40.0 to 49.9 (ICD-10 - E66.01) Mar, Type 2 diabetes mellitus with hyperglycemia, without long-term current use of insulin (ICD-10 - E11.65) Mar, Hypertension, unspecified type (ICD-10 - I10) [facility] [employer] [employer] Other 07-07-2023 Evaluation note* Encounter Date Diagnosis [...] therefore this was offered and administered today. 07 Dwight, 2023 Cardiac arrhythmia (ICD-10 - I49.9) Upon auscultation, I did appreciate a couple skipped beats during the physical exam today. She did have an EKG 11/2022 and denies any chest pains or palpitations noted. Encouraged her to call the office or proceed to the ER with any concerns. [facility] [facility] [employer] [employer] Other 06-21-2023 Evaluation note* Encounter Date Diagnosis [...] was spent on education by Ofelia ODONNELL, RN [facility] [facility] [employer] Other 05-01-2023 Evaluation note* Encounter Date Diagnosis Assessment Notes Treatment Notes Treatment Clinical Notes January, Type 2 diabetes mellitus with hyperglycemia, without long-term current use of insulin (ICD-10 - E11.65) 1. Uncontrolled, a Type 2 diabetes with A1c of 7.4 %, A1 c December 04. at [facility]. 2. Blood glucose levels significantly improved, reviewedMeditech to find A1c is in the 7.2/7.4% [...] medication issues. 6. Prescriptions: New patient uses [facility]. NEEDS MORE GLUCOMETER SUPPLIES, increase to 3x per day January, Vitamin D deficiency (ICD-10 - E55.9) January, Hyperlipidemia, unspecified hyperlipidemia type (ICD-10 - E78.5) January, Hypertension, unspecified type (ICD-10 - I10) January, Dietary counseling and surveillance (ICD-10 - Z71.3) January, BMI 45.0-49.9, adult (ICD-10 - Z68.42) [facility] [facility] [employer] Other 03-21-2023 Evaluation note* Encounter Date Diagnosis [...] note writ ten by Carolyn Olivarez LPN, Colliery Clerk. Edited and approved by Dr. Marty Burgos MD. [facility] [facility] [employer] [employer] Other 02-20-2023 Evaluation note* Encounter Date Diagnosis Assessment Notes Treatment Notes Treatment Clinical Notes Oct, Hyperlipidemia, unspecified hyperlipidemia type (ICD-10 - E78.5) Oct, Diabetes (ICD-10 - E11.9) [facility] [facility] [employer] Other 12-08-2022 Evaluation note* Encounter Date Diagnosis [...] note writ ten by Javier Barragan MA, Colliery Clerk. Edited and approved by Dr. Marty Burgos MD. We will continue to monitor her symptoms in this region. [facility] [facility] [employer] [employer] Other 11-08-2022 Evaluation note* Encounter Date Diagnosis [...] note writ ten by Carolyn Olivarez LPN, Colliery Clerk. Edited and approved by Dr. Marty Burgos MD. [facility] [facility] [employer] Other 08-31-2022 Evaluation note* Encounter Date Diagnosis Assessment Notes Treatment Notes Treatment Clinical Notes Apr, Right acute otitis media (ICD-10 - H66.91) [facility] Other 08-30-2022 Evaluation note* Encounter Date Diagnosis [...] This mean you need to follow all CDC quarantine guidelines [facility] at [email or web address]. It is important to rest, increase fluids, and stay at home. Recommend contacting primary care provider and discussing best course of action if you have chronic health conditions. COVID POSITIVE education handout discharge instructions. given. [facility] [facility] [employer] Other 07-07-2022 Evaluation note* Encounter Date Diagnosis Assessment Notes Treatment Notes Treatment Clinical Notes Mar, Right ankle pain (ICD-10 - M25.571) Patient had a second opinion with Dr. Dominguez safety investigator/cause analyst. She was prescribed celebrex but has not [...] recent injections with Dr. Burgos with improvement. [facility] Other [id number] NoteOPERATIVE NOTE OPERATION DATE: 03/19/2022 PROCEDURE: D AND C hysteroscopy with Myosure. PREOPERATIVE DIAGNOSIS: Thickened endometrium, postmenopausal bleeding. POSTOPERATIVE DIAGNOSIS: Thickened endometrium, postmenopausal bleeding. ANESTHESIA: General. SURGEON: Malcom Huang D.O. BACKGROUND CHECK COORDINATOR: None. FINDINGS: Normal appearing uterus. No gross [...] to the Recovery Room in stable condition. [facility] Signed and Approved by: DR MALCOM HUANG . 03/22/2022 10:46:00[facility]06-15-2022 Miscellaneous Notes* Telephone Encounter - JOEL Dunn - 03/11/2022 4:05 PM EDT Called the patient and informed them that the order was faxed to [facility] as requested. * Telephone Encounter - Meredith Renee - 03/11/2022 2:58 PM EDT Patient is calling to ask if you can send the script for PT over to [facility]. The telephone number for them is [phone]. Pt was hoping to get something sooner than 04/10. Please advise at [phone] documented in this encounterNorwalk [facility] Hospital06-15-2022 History of Present illness Narrative* RT Jennifer(R) - 03/11/2022 9:57 AM EDT Radiology Service [...] 11, 2022 9:57 AM documented in this encounterNorwalk [facility] Hospital06-15-2022 History of Present illness Narrative* Julien Dominguez [...] total talus replacement Dr. Tony Westbrook, DPM 2019 Continued pain She has seen multiple physicians [...] to medial RIGHT ANKLE pain PCP: Lamont Villarreal, No past medical history on file. Current [...] PROT, URICACID, HBA1C, VITD25 in the last [id number] hours. X-ray total metallic talus RIGHT without [...] patient. Julien Dominguez DPM documented in this encounterNorwalk [facility] Hospital05-24-2022 Evaluation note* Encounter Date Diagnosis Assessment Notes [...] note writ ten by Carolyn Olivarez LPN, Colliery Clerk. Edited and approved by Dr. Marty Burgos MD. [facility] Other 05-03-2022 Evaluation note* Encounter Date Diagnosis [...] note writ ten by Javier Barragan CMA, Colliery Clerk. Edited and approved by Dr. Marty Burgos MD [facility] Other 05-02-2022 Evaluation note* Encounter Date Diagnosis [...] exercise regimen; we will continue to monitor. [facility] Other 04-26-2022 Evaluation note* Encounter Date Diagnosis Assessment Notes Treatment Notes Treatment Clinical Notes Dec, Hyperlipidemia (ICD-10 - E78.5) Dec, Hyperglycemia (ICD-1 0 - R73.9) [facility] [employer] [employer] Other 01-03-2022 Evaluation note* Encounter Date Diagnosis Assessment Notes Treatment Notes Treatment Clinical Notes Sep, Anxiety and depression (ICD-10 - F41.8) [facility] [employer] Other 11-10-2021 Evaluation note* Encounter Date Diagnosis [...] Patient is to continue with physical therapy [facility] Other 10-25-2021 Evaluation note* Encounter Date Diagnosis Assessment Notes Treatment Notes Treatment Clinical Notes Jun, Cough (ICD-10 - R05.9) In house Covid test was negative. Antibiotic was prescribed through TE this morning. [facility] Other 06-01-2021 History of Present illness NarrativePatient here for followup revision rotator cuff massive repair 02/25/2021. She has made good strideand progress with motion, push/pull, lifting. She still has some anterior pain, pain over the coracoid and pain over the bicipital groove. Again, this was a revision massive surgery. She is five months out. She is doing therapy.[facility] Work Phone: 1(132) 394-882306-01-2021 History of Present illness NarrativePatient here for followup left shoulder rotator cuff revision repair back in February 2021. We did a revision repair [employer], reattached the tendon. She has had some shoulder pain and discomfort and it has gone on to heal. She had a follow up MRI at [facility] that showed that the tendon is intact and healed to bone. There is some muscle atrophy that is chronic and may take a while to recovery.[facility] Work Phone: 1(672) 322-126806-01-2021 NotePost Operative Note: PreOp Diagnosis: Left shoulder recurrent rotator cuff tear Post-Procedure Diagnosis: Left shoulder recurrent rotator cuff tear, long head bicep tendon tear, labral tear Procedure: 1. Left shoulder arthroscopic extensive debridement of labrum bicep stump and bicep base and bicep tendon remnant 2. Left shoulder arthroscopic revision rotator cuff repair 3. 4. 5. Surgeon: Brain Hernandez M.D. Resident/Fellow/Other Nurse'S Companion: Brain Fairchild PA-C Anesthesia: General with a scalene block Estimated Blood Loss (mL): none Specimen: no Findings: Left shoulder recurrent rotator cuff tear and complete long head bicep tear with labral tear and bicep tendon stump in the joint Additional Details: Enoch Fairchild physician business support assistant (PAC) was required and present throughout the entire case. Given the nature of the disease process and the procedure, a skilled certified surgical technician was necessary during the entire case. The business support assistant was necessary to hold retractors and manipulate extremity during the procedure. A certified orthoptist was also present at the back table managing instruments with supplies for the surgical case Operative Report Dictated: Dictation: not applicable - note contains Operative Report Note Recipients: Brain Hernandez MD - [id number] [Preferred] Operative Report: Risk and benefits of surgery discussed extensively with the patient. Surgical risk included but were not limited to infection, wear, need for further surgery blood clot, failure to heal, failure of the surgery, stiffness, loss of limb life, extremity function change in length change, and associated risks of surgery during the coronavirus epidemic. Patient was brought operating 5 8 [facility]. Induction of anesthesia. Placed in the lateral [...] Completion Last Updated: 25-Feb-2021 09:10 by Brain Hernandez)[facility] 02-25-2021 NoteHistory & Physical Reviewed: /Lactating: Are [...] Completion Last Updated: 25-Feb-2021 07:12 by Brain Hernandez)[facility] 02-20-2021 NoteHistory of Present Illness: Admission Reason: Left shoulder pain and weakness HPI: SHELIA JUNIOR is a 55 year old Female Patient seen and evaluated for left shoulder pain and weakness HPI patient reports having left shoulder pain for over a year. She was found to have a rotator cuff tear it was repaired at [facility] by Dr. Wright. She reports that she continued to have significant pain with in the arm diagnostic studies show that she has a retear of her rotator cuff tendon conservative therapy is provided no relief. After risk benefits alternatives were discussed patient elects to proceed with revision left shoulder arthroscopy rotator cuff repair this will be performed 02/25/2021 at [facility] Past medical hx osteoarthritis, stress urinary incontinence, [...] patient/other outpatient visits Electronic Signatures: Brain Fairchild (PAC) (Signed 20-Feb-2021 11:17) Authored: History of Present Illness, Medications Prior to Admission, Objective, Note Completion Last Updated: 20-Feb-2021 11:17 by Brain Fairchild (PAC)[facility] 05-24-2018 History of Present illness NarrativePatient here [...] She saw what sounds like a regional safety investigator/cause analyst who wanted to do a tarsal tunnel release, even though her EMG recently obtained shows no evidence of tarsal tunnel. She is getting some pain and swelling, probably secondary tosome arthritis in the talonavicular and tibiotalar joints.[employer] Work Phone: 1([phone]) [phone] History of Present illness Narrative* 55-year-old female [...] to rule out tarsal tunnel. Saw the safety investigator/cause analyst partner who felt she had tarsal tunnel [...] drawer. * No peroneal subluxation. * (-) Sachi. * I personally reviewed the following radiographic [...] discussed in detail. * Recommend evaluation at [facility]. Given I do ankle replacements but do not do total talar replacements,I have referred her to a orthopedic surgeon who does perform total talus replacement as well as total ankle. May need a subtalar fusion along with this total talus replacement. -[facility] Work Phone: 1(362) 556-374007-28-2018 History of Present illness NarrativePatient here for [...] She saw what sounds like a regional safety investigator/cause analyst who wanted to do a tarsal tunnel release, even though her EMG recently obtained shows no evidence of tarsal tunnel. She is getting some pain and swelling, probably secondary tosome arthritis in the talonavicular and tibiotalar joints.-[facility] Work Phone: 1(472) 114-102711-21-2011 History general Narrative - Reported* Type Description Date Medical History History of HPV Medical History Patient has a history of Macular Degeneration Medical History lab results 08/17/11 Medical History Left foot x-ray at [facility] 10-13-11 Medical History 12/16/12 Lumbar Spine X-ray [facility] Medical History 09/22/13 Lumbar Spine X-ray Medical History 03/19/[address] Banks Medical History 01/21/16 GXT stress test Medical History 08/28/16 Mammogram Negative Medical History 06/07/17 DEXA Bone Density Medical History 06/2018 Mammogram - done at [place] -follows with Dr. Huang Medical History 08/31/2020 [facility] scular studies Medical History Moderate to severe TOSHA with [...] gallbladder surgery Hospitalization History childbirth x 2 [facility] [facility] [employer] Other 11-21-2011 History general Narrative - Reported* Type Description Date Medical History History of HPV Medical History Patient has a history of Macular Degeneration Medical History lab results 08/17/11 Medical History Left foot x-ray at [facility] 10-13-11 Medical History 12/16/12 Lumbar Spine X-ray [facility] Medical History 09/22/13 Lumbar Spine X-ray Medical History 03/19/[address] Banks Medical History 01/21/16 GXT stress test Medical History 08/28/16 Mammogram Negative Medical History 06/07/17 DEXA Bone Density Medical History 06/2018 Mammogram - done at [facility] -follows with Dr. Huang Medical History 08/31/2020 [facility] outreach [facility] sc[facility] studies Medical History Moderate to severe TOSHA with sonu re hypoxia, 2018 Medical History anxiety and depression, controll ed with celjefry Medical History Left rotator cuff tear X2 [...] childbirth x 2 Hospitalization History See Above [employer] Other Evaluation note* Diagnosis Posterior tibial tendinitis of right lower extremity- Primary Right foot pain Pain in limb Chronic pain of right ankle History of total ankle replacement, right [facility] InformationNort [facility] Other Evaluation noteNort Teralynk Other evaluuhuzx noteNo assessment information available [facility] Work Phone: Evaluation note* Diagnosis TOSHA (obstructive sleep apnea)- Primary Obstructive sleep apnea (adult) (pediatric) Class 3 severe obesity with body mass index (BMI) of 40.0 to 44.9 in adult, unspecified obesity type, unspecified whether serious comorbidity present (HCC) [facility] History of repair of right rotator cuff- Primary Right shoulder pain, unspecified chronicity Right shoulder pain, unspecified chronicity documented in this encounter [facility] Work Phone: Evaluation note* Diagnosis History of repair of right rotator cuff- Primary documented in this encounter [facility] Work Phone: Evaluation note* Diagnosis Cervical radiculopathy- Primary Brachial neuritis or radiculitis nos Neck pain Cervicalgia documented in this encounter [facility] Work Phone: Evaluation note* Diagnosis Onset Date Resolution Status Anxiety and depression acute BMI 45.0-49.9, adult acute Dietary counseling and surveillance acute Obesity acute Type 2 diabetes mellitus with hyperglycemia acute Vitamin D deficiency acute [facility] Work Phone: Evaluation note* Author Rula Reynoso [facility] Authored December 22, 2023 8:4 6am The above note written by Jose C ALONSO acting as human recorder, note dictated by Dr. Lamont Villarreal. [facility] Work Phone: Evaluation note* Diagnosis Onset Date Resolution Status Anxiety and depression acute BMI 45.0-49.9, adult acute Obesity acute TOSHA on CPAP acute Type 2 diabetes mellitus with hyperglycemia acute Vitamin D deficiency acute Anxiety and depression acute BMI 45.0-49.9, adult acute Obesity acute TOSHA on CPAP acute Type 2 diabetes mellitus with hyperglycemia acute Vitamin D deficiency acute Cough acute Acute maxillary sinusitis ac [place] Bronchitis acute Bronchitis acute Eustachian tube dysfunction acute Hypertension acute Other chronic pain acute Vitamin D deficiency acute [facility] Work Phone: evaluation note* Diagnosis Onset Date Resolution Status Anxiety and depression acute BMI 45.0-49.9, adult acute Obesity acute TOSHA on CPAP acute Type 2 diabetes mellitus with hyperglycemia acute Vitamin D deficiency acute Cough acute Acute maxillary sinusitis ac [place] Bronchitis acute Bronchitis acute Eustachian tube dysfunction acute Hypertension acute Other chronic pain acute Vitamin D deficiency acute Type 2 diabetes mellitus with hyperglycemia acute [facility] Work Phone: evaluation note* Diagnosis Onset Date Resolution Status Bronchitis acute Eustachian tube dysfunction acute Hypertension acute Other chronic pain acute Vitamin D deficiency acute Anxiety and depression acute BMI 45.0-49.9, adult acute Obesity acute TOSHA on CPAP acute Type 2 diabetes mellitus with hyperglycemia acute Vitamin D deficiency acute Anxiety and depression acute BMI 45.0-49.9, adult acute Obesity acute TOSHA on CPAP acute Type 2 diabetes mellitus with hyperglycemia acute Vitamin D deficiency acute [facility] Work Phone: evaluation note* Diagnosis Onset Date Resolution Status Anxiety and depression acute BMI 45.0-49.9, adult acute Obesity acute TOSHA on CPAP acute Type 2 diabetes mellitus with hyperglycemia acute Vitamin D deficiency acute Anxiety and depression acute BMI 45.0-49.9, adult acute Obesity acute TOSHA on CPAP acute Type 2 diabetes mellitus with hyperglycemia acute Vitamin D deficiency acute [facility] Work Phone: evalurmexl note* Diagnosis Onset Date Resolution Status Anxiety and depression acute BMI 45.0-49.9, adult acute Obesity acute TOSHA on CPAP acute Type 2 diabetes mellitus with hyperglycemia acute Vitamin D deficiency acute Anxiety and depression acute BMI 45.0-49.9, adult acute Obesity acute TOSHA on CPAP acute Type 2 diabetes mellitus with hyperglycemia acute Vitamin D deficiency acute Lymphadenitis acute Skin lesion of face acute [facility] Work Phone: evaluation note* Diagnosis Onset Date Resolution Status Anxiety and depression acute BMI 45.0-49.9, adult acute Obesity acute TOSHA on CPAP acute Type 2 diabetes mellitus with hyperglycemia acute Vitamin D deficiency acute Lymphadenitis acute Skin lesion of face acute [facility] Work Phone: evaluation note* Diagnosis Onset Date Resolution Status Anxiety and depression acute BMI 45.0-49.9, adult acute Obesity acute TOSHA on CPAP acute Type 2 diabetes mellitus with hyperglycemia acute Vitamin D deficiency acute Lymphadenitis acute Skin lesion of face acute Lumbar pain acute [facility] Work Phone: Evaluation note* Diagnosis Onset Date Resolution Status Anxiety and depression acute BMI 45.0-49.9, adult acute TOSHA on CPAP acute Type 2 diabetes mellitus with hyperglycemia acute Vitamin D deficiency acute Lymphadenitis acute Skin lesion of face acute Lumbar pain acute Anxiety and depression acute Hyperlipidemia acute Hypertension acute 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 Patient is now out of the sling. She started physical therapy.[facility] Work Phone: History of Present illness NarrativePatient here left shoulder. The patient had a rotator cuff revision and repair in February. She has gone on to heal up, but has had pain.[facility] Work Phone: Reason for referral (narrative)* - Pending Review Specialty Diagnoses / Procedures Referred By Meng nichols Referred To Contact Physical Therapy Diagnoses Right foot pain Chronic pain of right ankle History of total ankle replacement, right Posterior tibial tendinitis of right lower extremity Procedures CONSULT TO PHYSICAL THERAPY Julien Dominguez DPM [address] [place] [address] Referral ID Status Reason Start Date Expiration Date V isits Requested Visits Authorized [id number] Pending Review 03/11/2022 06/09/2022 1 1 * Diagnostic Procedure Only (Routine) - Closed Specialty Diagnoses / Procedures Referred By Meng nichols Referred To Contact XR IMAGING Diagnoses Right foot pain Chronic pain of right ankle Procedures XR ANKLE GENERAL 3V AP/LAT/OBL RIGHT RADEX ANKLE COMPLETE MINIMUM 3 VIEWS Julien Dominguez DPM [address] [place] [address] Xr Imaging Referral ID Status Reason Start Date Expiration Date V isits Requested Visits Authorized [id number] Closed Auto-Generate d Referral 03/11/2022 04/10/2023 1 1 * Diagnostic Procedure Only (Routine) - Closed Specialty Diagnoses / Procedures Referred By Contac t Referred To Contact XR IMAGING Diagnoses Right foot pain Chronic pain of right ankle Procedures XR FOOT GENERAL 3V AP/LAT/OBL RIGHT RADEX FOOT COMPLETE MINIMUM 3 VIEWS Julien Dominguez DPM [address] [place] [address] Xr Imaging Referral ID Status Reason Start Date Expiration Date V isits Requested Visits Authorized [id number] Closed Auto-Generate d Referral 03/11/2022 04/10/2023 1 1 [facility] for referral (narrative)* Reason evaluate and treat r ight foot pain, patient is requesting a referral for a second opinion Diagnosis 1 Other low back pain (M54.59) Referral Organization [facility] Referring Provider First Name Marty Referring Provider Last Name Loretta Referring Provider Specialty Pain Medici ne Referred Organization Unknown Facility Referred Provider Specialty Podiatry - S urgical Chiropody Referral Priority Routine General Notes Carolyn Olivarez 0 02/17/2022 03:28:26 PM > patient currently see's to dr westbrook and would like to be seen for a second opinion in regards to her foot pain [employer] Other Reason for visit Narrative* Diagnostic Procedure Only (Routine) - Closed Specialty Diagnoses / Procedures Referred By Contac t Referred To Contact XR IMAGING Diagnoses Right foot pain Chronic pain of right ankle Procedures XR ANKLE GENERAL 3V AP/LAT/OBL RIGHT RADEX ANKLE COMPLETE MINIMUM 3 VIEWS Julien Dominguez DPM [address] [place] [address] Xr Imaging Referral ID Status Reason Start Date Expiration Date V isits Requested Visits Authorized [id number] Closed Auto-Generate d Referral 03/11/2022 04/10/2023 1 1 [facility] for visit NarrativeWMN, DM 6 week F/U, New DM self [facility] Other Reason for visit NarrativeWMN / DM, WMN / DM, New DM self referralN[facility] Other Chief Complaint H&P sx 02/25/21 left [...] of endometrium Unknown sister Diabetes mellitus Unknown Relationship Condition Age at Onset Recorded Date/T binta brother Status post five ves mirta coronary artery bypass Unknown Obstructive sleep apnea syndrome Unknown sister Diabetic ketoacidosi s associated with type 2 diabetes mellitus Unknown TOSHA on CPAP Unknown mother Malignant neoplasm Unknown Hypertension Unknown Unknown father [...] NO METER 3 month Cooking for 1 no meter Reason for Visit Anxiety and depressi on BMI 45.0-49.9, adult Obesity TOSHA on CPAP Type 2 diabetes mellitus with hyperglycemia Vitamin D deficiency BMI 45.0-49.9, adult Morbid obesity due to excess calories Muscle spasm of back Right foot pain Anxiety and depression BMI 45.0-49.9, adult Obesity TOSHA on CPAP Type 2 diabetes mellitus with hyperglycemia Vitamin D deficiency Chief Complaint WMN/DMN f/u NO METER 3 month Cooking for 1 no meter e66.01 e11.9 k76.0 Reason for Visit Anxiety and depressi on BMI 45.0-49.9, adult Obesity TOSHA on CPAP Type 2 diabetes mellitus with hyperglycemia Vitamin D deficiency BMI 45.0-49.9, adult Morbid obesity due to excess calories Muscle spasm of back Right foot pain Anxiety and depression BMI 45.0-49.9, adult Obesity TOSHA on CPAP Type 2 diabetes mellitus with hyperglycemia Vitamin D deficiency Chief Complaint 3 month Cooking for 1 no meter e66.01 e11.9 k76.0 Amb Documentation WMN/DMN f/u Reason for Visit BMI 45.0-49.9, adult Morbid obesity due to excess calories Muscle spasm of back Right foot pain Anxiety and depression BMI 45.0-49.9, adult Obesity TOSHA on CPAP Type 2 diabetes mellitus with hyperglycemia Vitamin D deficiency Chief Complaint 3 month Cooking for 1 no meter e66.01 e11.9 k76.0 Amb Documentation WMN/DMN f/u Reason for Visit BMI 45.0-49.9, adult Morbid obesity due to excess calories Muscle spasm of back Right foot pain Anxiety and depression BMI 45.0-49.9, adult Obesity TOSHA on CPAP Type 2 diabetes mellitus with hyperglycemia Vitamin D deficiency Anxiety and depression BMI 45.0-49.9, adult Obesity TOSHA on CPAP Type 2 diabetes mellitus with hyperglycemia Vitamin D deficiency Chief Complaint 3 month Cooking for 1 no meter e66.01 e11.9 k76.0 Amb Documentation WMN/DMN f/u cough- rsv, covid,flu-silver edge Reason for Visit BMI 45.0-49.9, adult Morbid obesity due to excess calories Muscle spasm of back Right foot pain Anxiety and depression BMI 45.0-49.9, adult Obesity TOSHA on CPAP Type 2 diabetes mellitus with hyperglycemia Vitamin D deficiency Anxiety and depression BMI 45.0-49.9, adult Obesity TOSHA on CPAP Type 2 diabetes mellitus with hyperglycemia Vitamin D deficiency Chief Complaint 3 month Cooking for 1 no meter e66.01 e11.9 k76.0 Amb Documentation WMN/DMN f/u cough- rsv, covid,flu-silver edge cough, wheezing, congestion R05.9 - Cough, unspecified Reason for Visit BMI 45.0-49.9, adult Morbid obesity due to excess calories Muscle spasm of back Right foot pain Anxiety and depression BMI 45.0-49.9, adult Obesity TOSHA on CPAP Type 2 diabetes mellitus with hyperglycemia Vitamin D deficiency Anxiety and depression BMI 45.0-49.9, adult Obesity TOSHA on CPAP Type 2 diabetes mellitus with hyperglycemia Vitamin D deficiency Cough Chief Complaint 3 month Cooking for 1 no meter e66.01 e11.9 k76.0 Amb Documentation WMN/DMN f/u cough- rsv, covid,flu-silver edge cough, wheezing, congestion R05.9 - Cough, unspecified Reason for Visit BMI 45.0-49.9, adult Morbid obesity due to excess calories Muscle spasm of back Right foot pain Anxiety and depression BMI 45.0-49.9, adult Obesity TOSHA on CPAP Type 2 diabetes mellitus with hyperglycemia Vitamin D deficiency Anxiety and depression BMI 45.0-49.9, adult Obesity TOSHA on CPAP Type 2 diabetes mellitus with hyperglycemia Vitamin D deficiency Cough Acute maxillary sinusitis Bronchitis Chief Complaint no meter e66.01 e11.9 k76.0 Amb Documentation WMN/DMN f/u cough- rsv, covid,flu-silver edge cough, wheezing, congestion R05.9 - Cough, unspecified Amb Documentation 3 month f/u Reason for Visit Anxiety and depressi on BMI 45.0-49.9, adult Obesity TOSHA on CPAP Type 2 diabetes mellitus with hyperglycemia Vitamin D deficiency Anxiety and depression BMI 45.0-49.9, adult Obesity TOSHA on CPAP Type 2 diabetes mellitus with hyperglycemia Vitamin D deficiency Cough Acute maxillary sinusitis Bronchitis Bronchitis Eustachian tube dysfunction Hypertension Other chronic pain Vitamin D deficiency Chief Complaint e66.01 e11.9 k76.0 Amb Documentation WMN/DMN f/u cough- rsv, covid,flu-silver edge cough, wheezing, congestion R05.9 - Cough, unspecified Amb Documentation 3 month f/u WMN f/u Reason for Visit Anxiety and depressi on BMI 45.0-49.9, adult Obesity TOSHA on CPAP Type 2 diabetes mellitus with hyperglycemia Vitamin D deficiency Cough Acute maxillary sinusitis Bronchitis Bronchitis Eustachian tube dysfunction Hypertension Other chronic pain Vitamin D deficiency Type 2 diabetes mellitus with hyperglycemia Chief Complaint Amb Documentation WMN/DMN f/u cough- rsv, covid,flu-silver edge cough, wheezing, congestion R05.9 - Cough, unspecified Amb Documentation 3 month f/u WMN f/u E11.65 Reason for Visit Anxiety and depressi on BMI 45.0-49.9, adult Obesity TOSHA on CPAP Type 2 diabetes mellitus with hyperglycemia Vitamin D deficiency Cough Acute maxillary sinusitis Bronchitis Bronchitis Eustachian tube dysfunction Hypertension Other chronic pain Vitamin D deficiency Type 2 diabetes mellitus with hyperglycemia Chief Complaint Amb Documentation 3 month f/u WMN f/u E11.65 Reason for Visit Bronchitis Eustachian tube dysfunction Hypertension Other chronic pain Vitamin D deficiency Anxiety and depression BMI 45.0-49.9, adult Obesity TOSHA on CPAP Type 2 diabetes mellitus with hyperglycemia Vitamin D deficiency Anxiety and depression BMI 45.0-49.9, adult Obesity TOSHA on CPAP Type 2 diabetes mellitus with hyperglycemia Vitamin D deficiency Chief Complaint 3 month f/u WMN f/u E11.65 bowl recipes Reason for Visit Bronchitis Eustachian tube dysfunction Hypertension Other chronic pain Vitamin D deficiency Anxiety and depression BMI 45.0-49.9, adult Obesity TOSHA on CPAP Type 2 diabetes mellitus with hyperglycemia Vitamin D deficiency Anxiety and depression BMI 45.0-49.9, adult Obesity TOSHA on CPAP Type 2 diabetes mellitus with hyperglycemia Vitamin D deficiency Chief Complaint WMN f/u E11.65 bowl recipes Reason for Visit Anxiety and depressi on BMI 45.0-49.9, adult Obesity TOSHA on CPAP Type 2 diabetes mellitus with hyperglycemia Vitamin D deficiency Anxiety and depression BMI 45.0-49.9, adult Obesity TOSHA on CPAP Type 2 diabetes mellitus with hyperglycemia Vitamin D deficiency Chief Complaint WMN f/u E11.65 bowl recipes Amb Documentation Per BPK, See TE Reason for Visit Anxiety and depressi on BMI 45.0-49.9, adult Obesity TOSHA on CPAP Type 2 diabetes mellitus with hyperglycemia Vitamin D deficiency Anxiety and depression BMI 45.0-49.9, adult Obesity TOSHA on CPAP Type 2 diabetes mellitus with hyperglycemia Vitamin D deficiency Lymphadenitis Skin lesion of face Chief Complaint bowl recipes Amb Documentation Per BPK, See TE anti inflammatory Reason for Visit Anxiety and depressi on BMI 45.0-49.9, adult Obesity TOSHA on CPAP Type 2 diabetes mellitus with hyperglycemia Vitamin D deficiency Lymphadenitis Skin lesion of face Chief Complaint bowl recipes Amb Documentation Per BPK, See TE anti inflammatory toradol Reason for Visit Anxiety and depressi on BMI 45.0-49.9, adult Obesity TOSHA on CPAP Type 2 diabetes mellitus with hyperglycemia Vitamin D deficiency Lymphadenitis Skin lesion of face Chief Complaint bowl recipes Amb Documentation Per BPK, See TE anti inflammatory toradol breakfast w/ protein Reason for Visit Anxiety and depressi on BMI 45.0-49.9, adult Obesity TOSHA on CPAP Type 2 diabetes mellitus with hyperglycemia Vitamin D deficiency Lymphadenitis Skin lesion of face Lumbar pain Chief Complaint bowl recipes Amb Documentation Per BPK, See TE anti inflammatory toradol breakfast w/ protein medicare wellness Reason for Visit Anxiety and depressi on BMI 45.0-49.9, adult TOSHA on CPAP Type 2 diabetes mellitus with hyperglycemia Vitamin D deficiency Lymphadenitis Skin lesion of face Lumbar pain Anxiety and depression Hyperlipidemia Hypertension Idiopathic aseptic necrosis of right ankle Medicare annual wellness visit, initial Other chronic pain Post-menopausal Type 2 diabetes mellitus with hyperglycemia Reason for Referral Specialty Diagnoses / Procedures Referred By Meng nichols Referred To Contact Radiology Diagnoses Neck pain Procedures XR cervical spine complete 4-5 views Brain Sen MD [address] [facility], [address] [place] [address] Referral ID Status Reason Start Date Expiration Date Visits Requested Visits Authorized [id number] Authorized Perform Procedure 3 09/20/2024 1 1 Specialty Diagnoses / Procedures Referred By Contac t Referred To Contact Diagnoses Right shoulder pain, unspecified chronicity Brain Hernandez MD [address] [facility], [address] [place] [address] Referral ID Status Reason Start Date Expiration Date V isits Requested Visits Authorized [id number] Pending Review 07/26/2023 07/25/2024 1 1 Referral ID Status Reason Start Date Expiration Date V isits Requested Visits Authorized [id number] Pending Review 07/26/2023 07/25/2024 1 1 Specialty Diagnoses / Procedures Referred By Contac t Referred To Contact Radiology Diagnoses Right shoulder pain, unspecified chronicity Procedures XR shoulder right 2+ views Brain Hernandez MD [address] [facility], [address] [place] [address] Referral ID Status Reason Start Date Expiration Date Visits Requested Visits Authorized [id number] Authorized Perform Procedure 3 07/25/2024 1 1 Reason CANCELLED consult and treat; soonest available ; sensation of throat closing when laying down known TOSHA/ overweight stature Diagnosis 1 TOSHA (obstructive sle ep apnea) (G47.33) Referral Organization [facility] [place] Referring Provider First Name Lamont Referring Provider Last Name Phil Referring Provider Specialty Family Prac marion Referred Organization [facility] Referred Provider Tamika Boykin Referred Address ,[place], [place],[address] Referred Provider Specialty Ear, Nose an d Throat Referral Priority Routine General Notes [facility] 02:00:47 PM >Received today and waiting for office notes to be locked before sending referral [facility] 04/06/2023 01:19:07 PM >Office notes are now locked. Dr. Boykin request us to send the referral and they will call and schedule patient. Referral was fax Mary Ann Chamberlain 04/13/2023 08:02:27 AM >Reviewed [facility] and seen a note in the patients chart that Dr. Boykin has declined to see this patient. Detailed telephone encounter was sent Clinical Notes Office [phone] Reason *04/20 Consult and treatment for TOSHA treatment. Considering surgical intervention. Currently using Bi-Pap Diagnosis 1 Obstructive sleep ap catherine (adult) (pediatric) (G47.33) Diagnosis 2 Type 2 diabetes bebo itus with hyperglycemia, without long-term current use of insulin (E11.65) Diagnosis 3 Hypertension, unspec ified type (I10) Diagnosis 4 BMI 45.0-49.9, adult (Z68.42) Referral Organization [facility] [place] Referring Provider First Name Lamont Referring Provider Last Name Phil Referring Provider Specialty [facility] marion Referred Organization [facility] Referred Provider Yosvany Hayden Referred Address [address] [place] [place], [place],[address] Referred Provider Specialty Ear, Nose an d Throat Referral Priority Routine General Notes [facility] 023 01:06:17 PM >Received today and referral was fax to [facility] with their form. They will call patient and schedule. Clinical Notes Referral Line Reason *04/13 consult and treat; soonest available ; sensation of throat closing when laying down known TOSHA/ overweight stature Diagnosis 1 TOSHA (obstructive sle ep apnea) (G47.33) Referral Organization [facility] [place] Referring Provider First Name Lamont Referring Provider Last Name Phil Referring Provider Specialty [facility] marion Referred Organization [facility] Referred Provider Tamika Boykin Referred Address ,[place], [place],[address] Referred Provider Specialty Ear, Nose an d Throat Referral Priority Routine General Notes [facility] 023 02:00:47 PM >Received today and waiting for office notes to be locked before sending referral [facility] 04/06/2023 01:19:07 PM >Office notes are now locked. Dr. Boykin request us to send the referral and they will call and schedule patient. Referral was fax Clinical Notes Office [phone] Additional Source Comments INFORMATION SOURCE (unrecogn ized section and content) DATE CREATED AUTHOR 08/14/2021 [facility] DATE CREATED AUTHOR AUTHOR'S ORGANIZ ATJONG 11/14/2021 [facility] dical Specialist DATE CREATED AUTHOR AUTHOR'S ORGANIZ ATION 11/28/2021 [facility] DATE CREATED AUTHOR AUTHOR'S ORGANIZ ATION 12/22/2021 [facility] DATE CREATED AUTHOR AUTHOR'S ORGANIZ ATION 01/01/2023 [facility] ical Center DATE CREATED AUTHOR AUTHOR'S ORGANIZ ATION 01/03/2023 [employer] DATE CREATED AUTHOR AUTHOR'S ORGANIZ ATION 01/17/2023 [facility] DATE CREATED AUTHOR AUTHOR'S ORGANIZ ATION 05/19/2023 [facility] DATE CREATED AUTHOR AUTHOR'S ORGANIZ ATION 09/26/2023 [facility] DATE CREATED AUTHOR AUTHOR'S ORGANIZ ATION 12/28/2023 [facility] dical Specialists EPIC DATE CREATED AUTHOR AUTHOR'S ORGANIZ ATION 04/16/2024 [facility] Source Comments (unrecognize d section and content) In the event this informatio n is protected by the Federal Confidentiality of Alcohol and Drug Abuse Patient Records regulations: The Federal rules restrict any use of the information to criminally investigate or prosecute any alcohol or drug abuse patient.[facility] HospitalIn the event this information is protected by the Federal Confidentiality of Alcohol and Drug Abuse Patient Records regulations: The Federal rules restrict any use of the information to criminally investigate or prosecute any alcohol or drug abuse patient.[facility] HospitalIn the event this information is protected by the Federal Confidentiality of Alcohol and Drug Abuse Patient Records regulations: The Federal rules restrict any use of the information to criminally investigate or prosecute any alcohol or drug abuse patient.[facility] HospitalIn the event this information is protected by the Federal Confidentiality of Alcohol and Drug Abuse Patient Records regulations: The Federal rules restrict any use of the information to criminally investigate or prosecute any alcohol or drug abuse patient.[facility] HospitalIn the event this information is protected by the Federal Confidentiality of Alcohol and Drug Abuse Patient Records regulations: The Federal rules restrict any use of the information to criminally investigate or prosecute any alcohol or drug abuse patient.[facility] HospitalIn the event this information is protected by the Federal Confidentiality of Alcohol and Drug Abuse Patient Records regulations: The Federal rules restrict any use of the information to criminally investigate or prosecute any alcohol or drug abuse patient.[facility] Reason for Visit (unrecogniz ed section and content) Reason Comments Radiology XR Reason Comments Pain New Specialty Diagnoses / Procedures Referred By Contac t Referred To Contact Podiatry / ORTHOPAEDIC SURGERY Diagnoses Foot pain Received a REFER A PATIENT FAX from Loretta Ferguson's office referring the patient to be seen in Foot and ankle clinic-Dr.john dominguez for Right foot pain. Referral and/or order can be found in Scan Document dated 02/19/2022. Procedures OFFICE/OUTPATIENT ESTABLISHED MOD MDM 30-39 MIN LUPE ACUTE Marty Burgos MD [address] [address] Julien Dominguez [address] [place] [address] Referral ID Status Reason Start Date Expiration Date V isits Requested Visits Authorized [id number] Closed Patient Cleared - INN Insurance Found 03/11/2022 06/09/2022 1 1 Reason Comments Orders Reason Comments New Patient TOSHA Reason Comments Pain New problem Right sh oulder, xrays today Reason Comments Follow-up Right shoulder s/p R otator cuff repair, s/p cortisone Reason Comments Pain Neck and Rt arm pain into her bicepHas done some therapyX-rays today Care Teams (unrecognized sec tion and content) Team Status: Active Member Role Status Dates Lamont Villarreal DO Primary Care Provider Active Team Status: Inactive Member Role Status Dates Lamont Villarreal DO Primary Care Provide r, Attending Provider Active Start: March 24, 2024 End: March 24, 2024 Team Status: Inactive Member Role Status Dates Lamont Villarreal DO Primary Care Provider Active Sta rt: April 12, 2024 End: April 12, 2024 Анна Rose APRN Attending Provider Active Start: April 12, 2024 End: April 12, 2024 Team Status: Inactive Member Role Status Dates Lamont Villarreal DO Primary Care Provider Active Sta rt: June 14, 2024 End: June 14, 2024 Анна Rose APRN Attending Provider Active Start: June 14, 2024 End: June 14, 2024 Team Status: Inactive Member Role Status Dates Lamont Villarreal DO Primary Care Provider Active Sta rt: June 22, 2024 End: June 22, 2024 NOE Vasquez Attending Provider Active Start: June 22, 2024 End: June 22, 2024 Team Status: Active Member Role Status Dates Lamont Villarreal DO Primary Care Provider Active Sta rt: June 22, 2024 Connie Kraus Attending Provider Active Start: June 22, 2024 Team Status: Active Member Role Status Dates Lamont Villarreal DO Primary Care Provider Active Sta rt: February 01, 2024 CELESTE Prasad Attending Provider Active Start: February 01, 2024 Team Status: Inactive Member Role Status Dates Lamont Villarreal DO Primary Care Provider Active Sta rt: February 17, 2024 End: February 17, 2024 Анна Rose APRN Attending Provider Active Start: February 17, 2024 End: February 17, 2024 Team Status: Inactive Member Role Status Dates Lamont Villarreal DO Primary Care Provider Active Sta rt: March 01, 2024 End: March 01, 2024 NOE Vasquez Attending Provider Active Start: March 01, 2024 End: March 01, 2024 Team Status: Inactive Member Role Status Dates Lamont Villarreal DO Primary Care Provide r, Attending Provider Active Start: March 09, 2024 End: March 09, 2024 Team Status: Inactive Member Role Status Thi Villarreal DO Primary Care Provider Active Sta rt: March 13, 2024 End: March 13, 2024 Aydee Horta APRN Attending Provider Active Start: March 13, 2024 End: March 13, 2024 Team Status: Active Member Role Status Dates Lamont Villarreal DO Primary Care Provider Active Sta rt: March 20, 2024 Eun Wood LPN Attending Provider Active St art: March 20, 2024 Team Status: Inactive Member Role Status Thi Villarreal DO Primary Care Provide r, Attending Provider Active Start: January 13, 2024 End: January 13, 2024 Анна Rose APRN Other Provider Active St art: January 13, 2024 End: January 13, 2024 Team Status: Active Member Role Status Thi Villarreal DO Primary Care Provide r, Attending Provider Active Start: December 27, 2023 Team Status: Inactive Member Role Status Dates Lamont Villarreal DO Primary Care Provider Active Sta rt: December 30, 2023 End: December 30, 2023 Анна Rose APRN Attending Provider Active Start: December 30, 2023 End: December 30, 2023 Customer Solutions Specialist Relationship Specialty Start Date End Date Lamont Villarreal DO [address] [place], [place] [phone] PCP - General Family Practice 05/02/14 Customer [employer] Specialist Relationship Specialty Start Date End Date Lamont Villarreal DO [address] [place], [place] [phone] PCP - General Family Practice 05/02/14 [employer] Specialist Relationship Specialty Start Date End Date Lamont Villarreal DO [address] [place], [place] [phone] PCP - General Family Practice 05/02/14 Customer [employer] Specialist Relationship Specialty Start Date End Date Lamont Villarreal DO [address] [place], [place] [phone] PCP - General Family Practice 05/02/14 Team Status: Inactive Member Role Status Dates Lamont Villarreal DO Primary Care Provider Active Julien Dominguez DPM Attending Provider Active Team Status: Inactive Member Role Status Dates Lamont Villarreal DO Primary Care Provider Active Marty Burgos MD Attending Provider Active [employer] Specialist Relationship Specialty Start Date End Date Lamont Villarreal DO [address] [place], [place] [phone] PCP - General Family Medicine 05/02/14 Lamont Villarreal DO [address] [place] [phone] Referring Family Medicine 04/18/23 Customer Solutions Specialist Relationship Specialty Start Date End Date Lamont Villarreal DO [address] [place] [phone] PCP - General Family Medicine 05/02/14 Lamont Villarreal DO [address] [place] [phone] Referring Family Medicine 04/18/23 Customer Solutions Specialist Relationship Specialty Start Date End Date Lamont Villarreal DO [address] [place] [phone] PCP - General 02/25/21 Customer [employer] Specialist Relationship Specialty Start Date End Date Lamont Villarreal DO [address] [place] [phone] PCP - General Family Medicine 08/20/23 Customer [employer] Specialist Relationship Specialty Start Date End Date Lamont Villarreal DO [address] [place] [address] [phone] PCP - General Family Medicine 08/20/23 Team Status: Inactive Member Role Status Dates Mary Ann Flores [facility] Attending Provider Active Start: August 17, 2023 End: August 17, 2023 Team Status: Inactive Member Role Status Dates Mary Ann Flores [facility] Attending Provider Active Start: August 25, 2023 [...] Status Dates Lamont Villarreal DO Primary Care Provide r, Attending Provider Active Start: December 22, 2023 End: December 22, 2023 Team Status: Inactive Member Role Status Dates Lamont Villarreal DO Primary Care Provider Active Sta rt: December 22, 2023 End: December 22, 2023 NOE Vasquez Attending Provider Active Start: December 22, 2023 End: December 22, 2023 Team Status: Active Member Role Status Dates Lamont Villarreal DO Primary Care Provider Active Sta rt: March 13, 2024 Aydee Horta APRN Attending Provider Active Start: March 13, 2024 Team Status: Inactive Member Role Status Dates Lamont Villarreal DO Primary Care Provider Active Sta rt: June 22, 2024 End: June 22, 2024 Connie Kraus Attending Provider Active Start: June 22, 2024 End: June 22, 2024 Team Status: Active Member Role Status Dates Lamont Villarreal DO Primary Care Provider Active Sta rt: June 23, 2024 CELESTE Prasad Attending Provider Active Start: June 23, 2024 Team Status: Inactive Member Role Status Dates Lamont Villarreal DO Primary Care Provide r, Attending Provider Active Start: July 04, 2024 End: July 04, 2024 Team Status: Active Member Role Status Dates Lamont Villarreal DO Primary Care Provide r, Attending Provider Active Start: July 18, 2024 Team Status: Inactive Member Role Status Dates Lamont Villarreal DO Primary Care Provider Active Sta rt: July 18, 2024 End: July 18, 2024 NOE Vasquez Active Start: July 18, 2024 End: July 18, 2024 NOE Jamil Attending Provider Active Start: July 18, 2024 End: July 18, 2024 Team Status: Inactive Member Role Status Thi Villarreal DO Primary Care Provide r, Attending Provider Active Start: July 18, 2024 End: July 18, 2024 Team Status: Inactive Member Role Status Thi Lamontrosy Villarreal DO Primary Care Provide r, Attending Provider Active Start: July 19, 2024 End: July 19, 2024 Team Status: Inactive Member Role Status Thi Lamontrosy Villarreal Primary Care Provider Active Sta rt: July 19, 2024 End: July 19, 2024 NOE Vasquez Attending Provider Active Start: July 19, 2024 End: July 19, 2024 Team Status: Inactive Member Role Status Thi Villarreal Primary Care Provide r, Attending Provider Active Start: July 21, 2024 End: July 21, 2024 Goals (unrecognized section and content) Goals may [...] BE BASED ON THE PRIMARY CLINICAL RECORDS. [facility] [employer] provides no warranty or guarantee of the accuracy or completeness of information in this document.
== END 2024-07-25 09:59 | disposition home or self-care (01) ==
LOC: RAD 09:58
PROVIDERS: PCP Family Medicine; Visit Provider Podiatrist Foot & Ankle Surgery
DX: M25.571 Pain in right ankle and joints of right foot (principal); Z96.661 Presence of right artificial ankle joint; Z98.890 Other specified postprocedural states
CPT/HCPCS: 73610

== ENCOUNTER 2024-09-07 10:57 | Outpatient (OUT) | payer OTHER, SELFPAY ==
--- NOTE | 2024-09-07 11:02 | XR_ITS ---
The [address] [address] Patient Name: JENNIFER HICKMAN MRN: [id number] date: 1965 Sex: F Assigned Patient Location: [facility] Current Patient Location: Accession/Order Number: [id number] Exam Date: 09/07/2024 11:15 Report Date: 09/08/2024 07:39 At the request of: NON-STAFF PHYSICIAN Procedure: XR lumbar spine 2-3V EXAMINATION: XR lumbar spine 2-3V HISTORY: Radiculopathy Of Lumbar Region, Acquired Spondylolisthesis COMPARISON: 01/14/2021 FINDINGS: BONES: 7 mm anterolisthesis of L4 in relation to L5, increased from the prior exam. Mild spondylosis. Moderate to severe facet osteoarthropathy most significant L4-S1 DISC SPACES: Mild to moderate multilevel disc space narrowing PARASPINOUS: Negative. No paraspinous abnormality is seen. OTHER: Negative. XR/XR lumbar spine 2-3V IMPRESSION: Moderate to severe spondylosis Increase in now 7 mm anterolisthesis of L4 Electronically authenticated by: ADRIAN PITTS Date: 09/08/2024 07:39
--- NOTE | 2024-09-07 11:32 | MM_ITS ---
Patient Name: JENNIFER HICKMAN MR#: [id number] : 1965 Exam Date: 09/07/2024 Ordering Doctor: DR Malcom Huang . RADIOLOGY REPORT PROCEDURE: MM TOMOSYNTHESIS SCREENING BI COMPARISON: MM TOMOSYNTHESIS SCREENING BI, 09/06/2023. MG MAMM SCREEN 3D LINUS CAD, 08/27/2022. INDICATIONS: Screening Calculator Name NCI Breast Cancer Risk Assessment Tool 5 Year Breast Cancer Risk 1.60% Lifetime Breast Cancer Risk 8.90% Personal Breast Cancer No Personal Ovarian Cancer No Treatments None Family Cancers Mother with endometrial cancer at age 74; Father with prostate cancer at age 84. LOCATION: [facility] BREAST COMPOSITION: There are scattered areas of fibroglandular density. FINDINGS: DIAGNOSTIC CATEGORY 1--NEGATIVE. NO CHANGE FROM COMPARISON ASSESSMENT. Scattered benign-appearing calcifications are present. Scattered benign-appearing lymph nodes are present. RIGHT BREAST: No significant suspicious finding. LEFT BREAST: No significant suspicious finding. RECOMMENDATIONS: ROUTINE MAMMOGRAM AND CLINICAL EVALUATION IN 12 MONTHS. PLEASE NOTE: A NORMAL MAMMOGRAM DOES NOT EXCLUDE THE POSSIBILITY OF BREAST CANCER. A CLINICALLY SUSPICIOUS PALPABLE LUMP SHOULD BE BIOPSIED. Dictated by: Jude Quintanilla MD on 09/07/2024 at 14:18 Approved by: Jude Quintanilla MD on 09/07/2024 at 14:19
== END 2024-09-07 10:58 | disposition home or self-care (01) ==
LOC: RAD 10:57
DX: M54.16 Radiculopathy, lumbar region (principal); M43.10 Spondylolisthesis, site unspecified; M47.816 Spondylosis without myelopathy or radiculopathy, lumbar region; Z12.31 Encounter for screening mammogram for malignant neoplasm of breast; Z80.42 Family history of malignant neoplasm of prostate; Z80.8 Family history of malignant neoplasm of other organs or systems
CPT/HCPCS: 72100; 77063; 77067

== ENCOUNTER 2025-01-01 12:24 | Outpatient (REF) | payer MEDICARE, SELFPAY ==
[2025-01-03 10:13] LABS: Age Gdln ACOG Testing Note (.); HPV Aptima Negative (Negative); IGP, Aptima HPV, rfx 16/18,45 Note (.)
== END 2025-01-01 12:25 | disposition home or self-care (01) ==
LOC: LAB 12:24
PROVIDERS: Visit Provider Obstetrics & Gynecology
DX: Z01.419 Encounter for gynecological examination (general) (routine) without abnormal findings (principal)
CPT/HCPCS: 87624; 88175

== ENCOUNTER 2025-06-27 11:02 | Outpatient (OUT) | payer MEDICARE, SELFPAY | END 2025-06-27 11:03 | disposition home or self-care (01) | LOC: SLEEP 11:03 | PROVIDERS: Visit Provider Psychiatry & Neurology Neurology | DX: G47.33 Obstructive sleep apnea (adult) (pediatric) (principal) ==

== ENCOUNTER 2025-07-23 10:57 | Outpatient (OUT) | payer MEDICARE, SELFPAY ==
--- OUTSIDE RECORDS SUMMARY | 2025-07-17 09:57 | XMS_ITS | Continuity of Care Document ---
Author Organization [facility] Address [address] [place] [address] Phone Care Team Providers Care Figure Clerk Name Role Phone Lamont Urrutia DO Primary Care Provider Lamont Urrutia DO Attending Provider Eri Tomlin APRN Attending Provider [phone] Gera Jensen DO Attending Provider [phone] Care Teams Patient Care Team Team Status: Active Member Role/Relationship Status Dates Lamont Urrutia DO Primary Care Provider Active Visit Care Team Team Status: Inactive Member Role/Relationship Status Dates Lamont Urrutia DO Primary Care Provider Active Sta rt: April 23, 2025 End: April 23Sona Lauren ProviderActiveStart: April 23, 2025 End: April 23, 2025 Visit Care Team Team Status: Inactive Member Role/Relationship Status Dates Lamont Urrutia DO Primary Care Provider Active Sta rt: April 23, 2025 End: April 23Sona Lauren ProviderActiveStart: April 23, 2025 End: April 23, 2025 Patient Care Team Team Status: Active Member Role/Relationship Status Dates Lamont Urrutia DO Primary Care Provider Active Sta rt: June 27, 2025 Rafat Albert ProviderActiveStart: June 27, 2025 Patient Care Team Team Status: Inactive Member Role/Relationship Status Dates Lamont Urrutia DO Primary Care Provider Active Sta rt: July 17, 2025 End: July 17, 2025Gera Jensen DOAttending ProviderActiveStart: July 17, 2025 End: July 17, 2025 Chief Complaint and Reason for Visit Chief Complaint Admit Date follow up April 23, 2025 8:34 am R82.998 April 23, 2025 9:32 am congestion,sore throat (just got back fr om a trip) July 17, 2025 1:01pm Reason for Visit Admit Date BMI 45.0-49.9, adult April 23, 2025 8:3 4am Hypertension April 23, 2025 8:34 am 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 April 23, 2025 8:34am Leukocytes in urine April 23, 2025 8:34 am Morbid obesity due to excess calories Ju ly 2024 8:34am Right flank pain April 23, 2025 8:34 am Type 2 diabetes mellitus with hyperglyce jennifer April 23, 2025 8:34am Screening for colon cancer July 17, 2025 1:01pm Reason for Referral Type Reason(s) Provider Provider Contact Information [facility] Address Start Date 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 Encounter for screening for malignant neoplasm of colon Z12.11 - Encounter for screening for malignant neoplasm of mgwmqN25.11 - Encounter for screening for malignant neoplasm of colonFPG GastroenterologyWork Phone: [phone] [address] [id number] Allergies, Adverse Reactions, Alerts Allergen Type Severity Reaction Last Updated Verified Status sulfamethoxazole Allergy Unknown Hives July 17, 2025 1:09pm Yes Active duloxetine Allergy Unknown Blurry Vision July 17, 2025 1:09pm Yes Active Sulfa (Sulfonamide Antibiotics) Allergy Unknown Hives July 17, 2025 1:09pm Yes Active Augmentin Allergy Mild headache July 04, 2024 2:50pm No Active semaglutide Adverse Reaction Severe suicidal ideation March 24, 2024 9:13am No Active metformin Adverse Reaction Moderate Diarrhea July 07, 2024 3:18pm No Active Social History Smoking Status Status Start Date End Date Date of Observa tion Never smoked tobacco (finding) August 01, 2024 10:02am Observation Status Observation Response Date of Response Legal Sex Female (finding) Sex Assigned At BirthSelene 1964 Family History Relationship Condition Age at Onset Recorded Date/T binta brother Status post five ves mirta coronary artery bypass Unknown Obstructive sleep apnea syndromeUnknownsisterDiabetic ketoacidosis associated with type 2 diabetes mellitusUnknownOSA on CPAPUnknownDiabetes mellitusUnknown motherMalignant neoplasmUnknownHypertensionUnknownObstructive sleep apnea syndromeUnknownDeceasedUnknownMalignant neoplasm of endometriumUnknownfather Malignant neoplasmUnknownDeceasedUnknowndaughterGestational diabetes mellitus (GDM)Unknown Problems Active Problems Problem Diagnosis/Recorded Date Onset Date Stat Lumbosacral spondylosis with out myelopathy December 20, 2023 12:34pm Unknown Active Medicare annual wellness visit, initial July 21, 2024 11:14am Unknown Active Screening for colon cancer July 17, 2025 1:20pm U nknown Active Type 2 diabetes mellitus wit h hyperglycemia November 16, 2023 8:26am Unknown Active Idiopathic aseptic necrosis of right ankle December 20, 2023 12:34pm Unknown Active TOSHA on CPAP November 17, 2023 11:34am Unknown Active Elevated blood pressure reading August 21, 2024 1: 42pm Unknown Active Neck stiffness July 17, 2025 1:50pm Unknown Active Hyperlipidemia November 16, 2023 8:24am Unknown Active Post-menopausal July 21, 2024 11:15am Unknown Active Other chronic pain December 20, 2023 12:34pm Unknown Active Arm paresthesia, left July 17, 2025 1:51pm Unknow n Active Morbid obesity due to excess calories December 22, 2023 9:04am Unknown Active BMI 45.0-49.9, adult November 16, 2023 8:24am Unknow n Active BMI 45.0-49.9, adult April 23, 2025 9:58am Unknown Active Irritable bowel syndrome with diarrhea December 19 12:34pm Unknown Active Anxiety and depression November 16, 2023 8:24am Unkn own Active Lumbar pain December 20, 2023 12:34pm Unknown Act alejandro Right flank pain April 23, 2025 9:23am Unknown A ctive Left foot pain August 21, 2024 1:41pm Unknown Active Leukocytes in urine April 23, 2025 9:27am Unknown Active Hypertension November 16, 2023 8:25am Unknown A ctive Vitamin D deficiency November 16, 2023 8:24am Unknow n Active Inactive/Resolved Problems Problem Diagnosis/Recorded Date Onset Date Stat Dietary counseling and surveillance November 16 8:23am Unknown Resolved Muscle spasm of back December 22, 2023 9:09am Unknown Resolved Lymphadenitis July 04, 2024 2:42pm Unknown Re solved Skin lesion of face July 04, 2024 2:42pm Unknown Resolved Medications Medication Status Dose Units Route Directions Qty Days Refills S tart Date Stop Date End Date Reason(s) Instructions Adherence Methylprednisolone (Medrol ( Eduardo)) 4 mg tablets,dose pack Discontinued 4 MG PO per package dire ctions 21 Jun2023 12:00amJune 2023 9:32amCough Cough, unspecifiedIbuprofen 800 mg aqpmhlRgzxjgsduphq335MYZUDokzj 8 hours as needed for fzmc9012Kxag 2023 5:19pmFebruary 2024 4:50pmFluconazole 150 mg oskrpfCtymcxvywqbs565LDHDJxteq244Cisngxk 2023 12:00amOctober 2023 10:30amTizanidine 4 mg nxxeoxoPqxeyvwfdeof1GWQQBkrsl daily as needed for muscle kykkqbaoui680Hbzoovxh 2024 1:00amJune 2024 11:06amIbuprofen 800 mg kcwbofIirvfj534IERIJlefn 8 hours as needed for krba5442Kbpnkpgp 2024 4:49pmComplies with drug therapyTramadol 50 mg elwuvlCfttvzndsrha03KATZUjij times iwcgj1167Wbuirguj 2024 4:50pmMarch 2024 2:58pmOther chronic pain Other chronic painAzithromycin (Zithromax Z-Eduardo) 250 mg stdppeZloxxymwgqxh1OG .QROZRGJ73Juryv 2024 12:00amJune 2024 11:05amFor 250 mg dose pack: take 500 mg today (day 1), then 250 mg for 4 days (days 2-5) POAscorbic Acid (Vitamin C) 250 mg wkuwwjTfesdvfevjbr145ONQHWbkjj414Htpxe 2024 12:00amJune 2024 11:05amCyanocobalamin (Vitamin B-12) 1,000 mcg capsuleDiscontinued 0267KNKDEFmiyq882Uedxo 2024 12:00amJune 2024 11:06amBiotin 10,000 mcg zikpngkRzazkcpuhjcm81550LWZEAYbcom652Vcwsq 2024 12:00amJune 2024 11:05amTramadol 50 mg yixczzLtugpqoxsarj45UIEJ.COMPLEX as needed for geqq240700 December 25, 2024 2:57pmJune 2024 11:06amOther chronic pain Other chronic pain50 mg orally 1-2 tablets QID PRN;Azithromycin (Zithromax Z- Eduardo) 250 mg xogckuQwbitklcyuer4NV.MVPIYWE71Uxoc 2024 12:00amJune 2024 11:05amFor 250 mg dose pack: take 500 mg today (day 1), then 250 mg for 4 days (days 2-5) POAzithromycin 500 mg bznaddBwzserohomxj779UVRADhbjm93Sszh 2024 12:00amJuly 2024 9:13amtake one tablet one hour prior to dental appointmentAzithromycin 500 mg eaemwdGjcmesetigwm754QFHCEzlwu78Xiimywxst 2024 5:17pmOctober 2024 1:10pmtake one tablet one hour prior to dental appointmentCitalopram (Celexa) 10 mg MkqradVnmztvvxvjwv25WWCXHwyniLczyrymsk 2019 12:00amMay 2021 9:03amBupropion Hcl 100 mg tablet sustained- release 12 ikSlbiwfgvcslp572ZDUHUevta 12 hoursFebruary 2023 1:00amMarch 2023 8:42amSemaglutide (Ozempic) 0.25 mg or 0.5 mg (2 mg/3 mL) pen injectorDiscontinued0.5MGSUBCUTevery weekFebruary 2023 1:00amMarch 2023 8:41amflash glucose sensor (FreeStyle Cyndi 2 Sensor)Discontinued.Route November 16, 2023 1:00amOctober 2023 2:50pmflash glucose scanning reader (FreeStyle Cyndi 2 Schertz)Discontinued.RouteNovember 16, 2023 1:00amOctober 2023 2:50pmtest blood sugarIbuprofen 800 mg hevjilFhzfmcsatrti551VLUYNkpdd 8 hours as neededNovember 16, 2023 1:00amJuly 2023 5:21pmblood sugar diagnostic (CareTouch Test Strip)Discontinued.RouteNovember 16, 2023 1:00am April 12, 2024 2:37pmtest blood sugarAscorbic Acid (Vitamin C) 500 mg capsule, extended cybqklgLosjskuiibkd361WQCDAwmwrNqdgbhsk 20th, 2024 1:00amApril 2023 9:30amKetorolac 10 mg sjtafiKcuysksgxixi64NLDEDowwq 8 hours as needed for chup074Gnufa 2023 12:00amApril 2023 9:30amTizanidine 4 mg capsule Dcivgibviovq2ZJPVPeddw daily as needed for muscle nsfqvqpdvc997Ezphy 2023 12:00amApril 2023 9:30amDuloxetine (Cymbalta) 30 mg capsule,delayed release(DR/EC)Nfnxiapvretw27AATARmdpy140Nnva 2023 12:00amJuly 2023 10:32amAlbuterol-Budesonide (Airsupra) 90-80 mcg/actuation HFA aerosol inhaler Grupgykbuofx0VHVQTTLWDHVATVvcnp daily as needed for shortness of breath5.90June 2023 12:00amJuly 2023 2:30pmSample providedcholecalciferol (vitamin D3)Hrhxuzrlqvne7VWLLCWgnerRbc 2023 12:00amJune 2023 8:58ammagnesium lpoftoqwyVblvftcujoom1AAKQSYpmhyYwp 2023 12:00amJune 2024 11:06am Azithromycin (Zithromax Z-Eduardo) 250 mg xodmdkNmneegdezecl9TE.CNSKKEW16Nup 2023 12:00amMay 2023 11:02amFor 250 mg dose pack: take 500 mg today (day 1), then 250 mg for 4 days (days 2-5) POAzithromycin (Zithromax Z-Eduardo) 250 mg gfbolrZpxjjhlkvxuo3ZG.CPAEXDN15Qcrk 2023 12:00amMarch 13, 2024 9:31amFor 250 mg dose pack: take 500 mg today (day 1), then 250 mg for 4 days (days 2-5) XMKrukuitvlsu-Lckzloolo-Owptrqcl (Trelegy Ellipta) 100-62.5-25 mcg blister with wqtvyhDbdpwhzznyfs4BUSZAUOTFYDKCIiizj527Wdih 2023 12:002023 8:59am1 sample provided Lot # [id number] exp 05/21Fluconazole 150 mg hsemfxEkrmbediucar581YHOOW8V35Wrce 2023 12:00am March 24, 2024 8:59amPrednisone 20 mg wnykicCtfkvhknynlu30NTWN.HVIDHJX505Rgwb 2023 12:00amMarch 24, 2024 8:59amTake 3 tabs po daily x 3 days, then take 2 tabs po daily x 3 days, then take 1 tab po daily x 3 days.Benzonatate 200 mg jqrwvysFkgwdmfvnqjj299PUHKNglna times daily as needed for xpduy55797Rsog 2023 12:00amMarch 24, 2024 8:58amAmoxicillin-Pot Clavulanate 875-125 mg tablet Agncgitypxjn6NUPHACxiie 12 naflb42716Mysn 17th, 2024 12:00amJun2023 8:58amCyclobenzaprine 5 mg ulgvjaUtgfpuhdadua7FVWMMxvdc at bedtimeSept2023 12:00amNovember 2023 10:03amCyclobenzaprine 5 mg tablet Takwqonpufnu8SJEIDgmiy at bedtime as neededAugust 08, 2024 10:02amFebruary 2024 4:48pmAmoxicillin-Pot Clavulanate 875-125 mg jnhjyaMtxesncjtdql1DQIGV Twice vmipu21455Sppcjizuu 2023 12:00amOctober 2023 2:49pmAzithromycin (Zithromax Z-Eduardo) 250 mg cmsoimJpncqmmcufxb4EK.HYXWIKX13Igqjrti 2023 12:00amOctober 2023 10:30amFor 250 mg dose pack: take 500 mg today (day 1), then 250 mg for 4 days (days 2-5) POValacyclovir (Valtrex) 500 mg tablet Grwardtxdazk200OBNPIjzrz times xzqzg4421Ckywzal 2023 12:00amNovember 2023 10:03amPrednisone 20 mg txekvrVedtkkrcnvaj19YBDH.QNANAJJ033Eyvaecc 2023 12:00amOctober 2023 10:31am20 mg orally BID for 5 days and then 1 daily for 5 days and then stop.;Hydrocodone-Acetaminophen 5-325 mg tablet Ggvczlzfxygb1PSFLIGnicm as needed for tiiu7Orbd 2024 12:00amOctober 2024 1:10pmMeloxicam 15 mg ybnrdyJyuscpsfwvxc35ORWRDgbjk as neededJuly 2024 12:00amOctober 2024 1:09pmTizanidine 4 mg okbqjjTpzscq6DFLWMqfos daily as needed for muscle lbktmngmpa144Kppi 2024 12:00amComplies with drug therapyPhentermine 37.5 mg yswhcfEphzagowekho68.7JJZEYbnha80402Ugcn 2024 12:00amOctober 2024 1:09pmBody mass index (BMI) of 45.0 to 49.9 in adult Morbid obesity due to excess calories Body mass index [BMI] 45.0-49.9, adult Morbid (severe) obesity due to excess caloriesmust administer 30 minutes before or 1-2 hours after breakfastTizanidine 4 mg oonaanAcioxgjrvzhz3XJUYPtvlc at bedtime as neededApril 2023 12:00amJuly 2023 2:31pmKetorolac 10 mg omeelhSzqokumervib40PIATBoggn 8 hours as neededApril 2023 12:00amJune 2023 8:59ammaximum total duration of 5 days from all oral, intranasal, or parenteral formulationsCholecalciferol (Vitamin D3) 125 mcg (5,000 unit) capsule Avyymnyrnzkp470ODQQPYazpkYcaq 2023 12:00amJune 2024 11:06am Multivitamin phkbkoBwbrviittiaf7AACKEHvecsUhem 2023 12:00amJune 2024 11:06amblood-glucose meter (OneTouch Ultra2 Meter)Discontinued.RouteJuly 2023 12:00amOctober 2023 2:49pmBlood Sugar Diagnostic (Onetouch Ultra Test) stripDiscontinued0.RouteJuly 2023 12:00amOctober 2023 2:49pmAs directedTirzepatide (Mounjaro) 2.5 mg/0.5 mL pen injectorDiscontinued2.5MGSUBCUT every tkhx5100Igrvyaes2023 1:00amJanuary 2024 1:43pmwill have voucherTramadol 50 mg frokldAcehvsiozfzo17BBXNIpih times euayg3536Veekmpld2023 1:00amFebruary 2024 4:50pmOther chronic pain Other chronic painLatanoprost 0.005 % dropsActiveDROPSOPHTHALMICJune 2024 12:00amComplies with drug therapyPhentermine 15 mg gxkkgmlDgxxdkdqlqeh90JCQX Hlqcq10897Pcgx 2024 12:00amJuly 2024 9:13amOSA on CPAP Type 2 diabetes mellitus with hyperglycemia Vitamin D deficiency Obstructive sleep apnea (adult) (pediatric) Type 2 diabetes mellitus with hyperglycemia Vitamin D deficiency, unspecified Medical Equipment Device Date Implanted Device Details Tendon/ligament bone anchor, bioabsorbable June 26, 2020 FIOR: [id number] Issuing Agency: [employer] Device Id: [id number] Expiration Date: 2023-08-26 Lot Number: [id number]/ligament bone anchor, [facility]2019UDI: ()[id number] Issuing Agency: [employer] Device Id: [id number] Expiration Date: 2024-02-25 Lot Number: [id number]/ligament bone anchor, bioabsorbableSeptember 2019UDI: ()[id number] Issuing Agency: [facility] Device Id: [id number] Expiration Date: 2024-02-25 Lot Number: [id number]/ligament bone anchor, bioabsorbableSeptember 2019UDI: ()[id number] Issuing Agency: [facility] Device Id: [id number] Expiration Date: 2024-02-25 Lot Number: [id number]/ligament bone anchor, bioabsorbableSeptember 2019UDI: ()[id number] Issuing Agency: [facility] Device Id: [id number] Expiration Date: 2024-02-25 Lot Number: [id number] Procedures Procedure Date Performed Status Urine Culture April 23, 2025 completed Relevant Diagnostic Tests and/or Laboratory Data Laboratory Results Test Collection Date/Time Result Date/Time Result Interpretation Reference Range Result Comment Performing Site Urine Color April 23, 2025 9:23am April 23, 2025 9:29am yellow Urine AppearanceJuly 2024 9:23amJuly 2024 9:29amclearUrine Specific GravityJuly 2024 9:23amJuly 2024 9:29am1.020Urine pHJuly 2024 9:23amJuly 2024 9:29am7.0Urine Leukocyte EsteraseJuly 2024 9:23am April 23, 2025 9:29amtraceAbove high normalUrine NitriteJuly 2024 9:23am April 23, 2025 9:29amNegativeUrine ProteinJuly 2024 9:23amJuly 2024 9:29amnegativeUrine Glucose (UA)April 23, 2025 9:23amJuly 2024 9:29am negativeUrine KetonesJuly 2024 9:23amJuly 2024 9:29amnegativeUrine UrobilinogenJuly 2024 9:23amJuly 2024 9:29am1.0Urine BilirubinJuly 2024 9:23amJuly 2024 9:29amnegativeUrine Occult BloodJuly 2024 9:23amJuly 2024 9:29amnegative Microbiology Results Procedure Source Result Collection Date/Time Result Date/Time Result Comment Performing Site Urine Culture Urine 2 Days April 23, 2025 9:32am Mar 9:26am [facility] [id number] [address] [place] [address] Vital Signs Vital Reading Result Reference Range Collection Date/Time Height 65.75 [in_i] April 23, 2025 9:24kdBxwqdf002.17 kgJuly 2024 9:16amHeart Rate69 /min 60-100July 2024 9:16amRespiratory rate16 /oqa91-62Yths 2024 9:16am Oxygen saturation by Pulse ubkswmqy79 %95-100July 2024 9:16amBP Systolic 142 mm[Hg]100-140July 2024 10:12amBP Azdbhppdh88 mm[Hg]60-100July 2024 10:12amBMI (Body Mass Index)48.4 kg/m2July 2024 9:95eyTyyloi57.75 [in_i]July 17, 2025 1:59rrHdtheb326.98 kgOctober 2024 1:10pmBody Yljxlhnzfzf46.0 [degF]97.6-99.0October 2024 1:10pmHeart Rate62 /whf27-251 July 17, 2025 1:10pmRespiratory rate16 /fwj81-01Sdxhzvn 2024 1:10pm Oxygen saturation by Pulse zeiaxcto39 %95-100October 2024 1:10pmBP Zazaxjbz726 mm[Hg]100-140October 2024 1:10pmBP Lafsdxann20 mm[Hg]60-100 July 17, 2025 1:10pmBMI (Body Mass Index)49.1 kg/i0Ztjmfxy 2024 1:10pm Advance Directives Advance Directive Response Recorded Date/ Time Advance Directives No August 01, 2024 11:02am Insurance Providers Guarantor Shelia Junior Address [address] [place] [id number] Info.Home Phone: Coverage Status Update:2025 Payer Group Member ID Coverage Type Subscriber Relationship to Subscriber Effective Date Expiration Date MMO MCR Adv PFFS [id number] S [place] Id: [id number] [address] [place] [id number] Home Phone: Email: [email or web address] MCR PFFS [id number] S [place] Id: [id number] [address] Home Phone: Email: [email or web address] Encounters Encounter Location(s) Arrival/Admit Date Discharge/Departure Date Discharge/Departure Disposition Provider(s) Departed Physician/ Provider Office Visit -[facility] [place] April 23, 2025 8:34am April 23, 2025 10:10am Discharged to home care or self care (routine discharge) Dameon Griffin DO Departed Clinical -Lab [place] April 23, 2025 9:32am April 23, 2025 9:33am Discharged to home care or self care (routine discharge) Dameon Griffin DO Non-patient / Non-visit -[facility] 2024 11:59pm Rigo Rosa APRNDeparted Physician/Provider Office Visit-[facility] 20[facility] 1:56pmDischarged to home care or self care (routine discharge)Gera Jensen DO Recent Diagnosis Onset Date Admit Date BMI 45.0-49.9, adult Unknown April 23, 2025 8:34am Hypertension Unknown April 23, 2025 8:34am Idiopathic aseptic necrosis of right ankle Unkno wn April 23, 2025 8:34am Leukocytes in urine Unknown April 23, 2 025 8:34am Morbid obesity due to excess calories Unknown April 23, 2025 8:34am Right flank pain Unknown April 23, 2025 8:34am Type 2 diabetes mellitus with hyperglycemia Unkn own April 23, 2025 8:34am Screening for colon cancer Unknown Oct2024 1:01pm Assessments Diagnosis Onset Date Resolution Status Admit Date BMI 45.0-49.9, adult acuteJuly 2024 8:34amHypertensionacuteJuly 2024 8:34amIdiopathic aseptic necrosis of right ankleacuteJuly 2024 8:34amLeukocytes in urine acuteJuly 2024 8:34amMorbid obesity due to excess caloriesacuteJuly 2024 8:34amRight flank painacuteJuly 2024 8:34amType 2 diabetes mellitus with hyperglycemiaacuteJuly 2024 8:34amScreening for colon canceracute July 17, 2025 1:01pm Plan of Treatment Author [facility] HospitalAuthoredJuly 2024 10:12amRight flank pain for the past 3 weeks. States pain will radiate into the right rib area when she coughs. Denies injury. Is following with a pain management physician in [place], [place] for chronic pain and has been provided Rx for [place] and Meloxicam that she reports has not been taking. Does take Ibuprofen 800 mg as needed. In house UA was obtained due to the flank pain and this did show trace of leukocytes otherwise negative. Patient states she has been more active with gardening and has been seeing massage therapist and also chiropractor to have manipulation. This has not been helpful. States the pain is worse when she rolls over in bed. Takes my breath away . She does have TENS unit at home and has not tried it. I do encourage her to try the TENS unit for pain control and I have also ordered her a muscle relaxer she can take up to BID PRN. I have encouraged her to follow the plan of care as outlined by massage therapist and also chiropractor as she has been. BP is elevated in office today. She is not on any medication for her hypertension. I did recheck BP personally and obtained reading of 142/78. I will have her continue to monitor. Weight loss will be beneficial. Following with a new repack room worker and pain management provider in [place], [place]. She does have a neoprene ankle sleeve in place to the right ankle today and does have notable limp. Using the assistance of a cane for mobility. States imaging has been ordered by specialist. I have encouraged her to follow plan of care as outlined by specialist In house UA did show a trace of leukocytes in the urine. I did send this out for culture. Is following with Vianney Rose, WIRE DRAWING MACHINE TENDER for DM and also weight management. Patient states a nurse from her insurance was out to her home in December and the A1C at that visit was 6.9. She is declining having the A1C rechecked in office today. Was prescribed Adipex 15 mg daily for weight loss at the last visit on 03/22/2025 with Vianney Rose. Patient states she did not fill the Rx. Had previously been on Ozempic but this caused significant mental health changes/ suicidal ideation and therefore the GLP-1 types of medication are contraindicated. Metformin caused diarrhea. Currently diabetes is being controlled with dietary modification and weight loss. I have ordered A1C to be done in 3 months with her Medicare wellness visit Dietary modifications to include caloric reduction, portion control and increasing water in her diet. Increase activity as tolerated. Needs to lose 15 pounds in next 3 months. Patient did not fill the Adipex ordered by Vianney Rose due to financial constraints. I personally feel that she should try the medication and I recommend she actually take the full dose of 37.5 mg daily. She understands the rules and protocol of the controlled medication. Needs to lose approx 15 pounds in the next 3 months is required in order to continue the medication past the 3 month iva. I have reviewed the positive and negative side effects of the medication. Encouraged dietary modification Author Gera Jensen [facility] HospitalAuthoredOctober 2024 1:25pmPatient due for colon cancer screening and is requesting referral for colonoscopy, therefore this has been placed. Future Tests Future scheduled test information is unavailable Pending Tests Test Name Ordered Date Scheduled Date Comprehensive Metabolic Panel April 23, 2025 10 :05am 3 Months XR cerv spine AP/LAT/FLX/EXT July 17, 2025 1:50pm Future Visits Future appointment information is unavailable Future Procedures Procedure Name Ordered Date Scheduled Date A1C with Estimated Average Glu April 23, 2025 1 0:05am 3 Months Complete Blood Count Auto Diff April 23, 2025 1 0:05am 3 Months Lipid Panel April 23, 2025 10:05am 3 Months MicroAlb Creat Ratio,U April 23, 2025 10:05am 3 Months Thyroid Stimulating Hormone April 23, 2025 10:0 5am 3 Months Future Medications Future medication information is unavailable Patient Instructions Patient instructions are unavailable Hospital Discharge Instructions Ambulatory Orders* Referral to Gastroenterology Time Frame: 07/17/25, Location: None Selected
--- OUTSIDE RECORDS SUMMARY | 2025-07-23 11:01 | XMS_ITS | Clinical Summary ---
Author Organization [facility] Healthcare Address [address] [place] [address] Care Team Providers Care Sock Ironer Name Role Phone Lamont Urrutia DO Primary Care Provider [phone] Allergies Active AllergyReactionsCriticalityNoted DateCommentsSemaglutide(0.25 Or 0.5mg-Dos)01/01/2025Sulfa AntibioticsShortness of nrvwysZgro78/10/2006 Other Reaction(s): hives, breathing diffifculty, Not available, Unknown questionable Medications MedicationSigDispense QuantityRefillsLast FilledStart DateEnd DateStatus Ascorbic Acid (vitamin C) 250 MG tablet Take 500 mg by mouth DailyActive Biotin 00223 MCG tablet dispersible Take 10,000 mcg by mouth DailyActive cyanocobalamin (Vitamin B-12) 1000 MCG tablet Take 1,000 mcg by mouth DailyActive Flaxseed, Linseed, (Flaxseed Oil) 1000 MG capsule Take 1,000 mg by mouth DailyActive ibuprofen 800 MG tablet Take 800 mg by mouth every 6 (six) hours if needed for mild painActive latanoprost (Xalatan) 0.005 % ophthalmic solution Administer 1 drop into both eyes at fswejms11/11/2025Active magnesium gluconate (Magonate) 500 MG tablet Take 500 mg by mouth in the morning and 500 mg before bedtime.Active Multiple Vitamins-Minerals (Daily Vitamin Formula+Minerals) tablet Take 1 each by mouth DailyActive tiZANidine (Zanaflex) 4 MG tablet Take 4 mg by mouth every 6 (six) hours if needed for muscle spasmsActive traMADol (Ultram) 50 MG tablet Take 50 mg by mouth every 6 (six) hours if needed for moderate pain12/25/2024 Active zinc gluconate ([facility] Zinc Gluconate) 50 MG tablet Take 50 mg by mouth DailyActive cholecalciferol (Vitamin D-3) 125 MCG (5000 UT) tablet Take 5,000 Units by mouth DailyActive Active Problems ProblemNoted DateDiagnosed DateWell woman exam with routine gynecological exam 12/21/2023 Family History Medical HistoryRelationNameCommentsCancerMotherHypertensionMotherDiabetesSibling Heart diseaseSiblingRelationNameStatusCommentsMotherDeceasedSibling Social History Tobacco UseTypesPacks/DayYears UsedDateSmoking Tobacco: Never Tobacco Cessation:Counseling Given: Not Answered Alcohol UseStandard Drinks/WeekCommentsYes0 (1 standard drink = 0.6 oz pure alcohol)caffeine: 1-2 cups per day sodaCommentsNoSex and Gender InformationValueDate RecordedSex Assigned at LjouiXxgelh86/25/2024 12:57 PM EDT Legal QjkFbttqh25/15/2023 6:47 PM EDTGender OcfyrsjeEecspy58/25/2024 12:57 PM EDTSexual BvxoylmjcfnDyngzcmp82/25/2024 12:57 PM EDT Last Filed Vital Signs Vital SignReadingTime TakenCommentsBlood Cmeothdh762/80001/01/2025 9:19 AM EDT Pulse--Temperature--Respiratory Rate--Oxygen Saturation--Inhaled Oxygen Concentration--Zhmlyv954 kg (320 lb 12.8 oz)01/01/2025 9:19 AM ZZLGgsjou451.7 cm (5' 8 )08/10/2022 12:00 PM ESTBody Mass Index48.7808/10/2022 12:00 PM EST Plan of Treatment DateTypeDepartmentCare Team (Latest Contact Info)Jrntmahexrs01/13/2026 9:00 AM EDTOffice Visit [facility] [address] [place] [id number] Malcom Huang, DO [address] [place], [place] [id number] Insurance * Guarantor: Shelia Junior TypeRelation to PatientDate of BirthPhone Billing AddressPersonal/SwnqklQkqu1965 [id number] [address] Care Teams Team MemberRelationshipSpecialtyStart DateEnd Date Lamont Urrutia DO [facility] - [facility]12/27/23
--- OUTSIDE RECORDS SUMMARY | 2025-07-23 11:01 | XMS_ITS | Clinical Summary ---
Author Organization [facility] Address [address] [place] [address] Phone Care Team Providers Care Liquor Inspector Name Role Phone Lamont Urrutia Dameon EARLY Primary Care Provider [phone] Allergies Active AllergyReactionsCriticalityNoted DateCommentsSulfamethoxazoleUnknown 07/23/2023 Medications MedicationSigDispense QuantityRefillsLast FilledStart DateEnd DateStatus citalopram (CeleXA) 20 mg tablet CeleXA 20 MG Oral Tablet Refills: 0 Start : 07-May-2021 Coympn6805/07/2021ctive oxyCODONE-acetaminophen (Percocet) 5-325 mg tablet Take 1 tablet by mouth every 6 hours.02/19/2021ctive semaglutide (Ozempic) 0.25 mg or 0.5 mg(2 mg/1.5 mL) pen injector Inject 0.25 mg under the skin 1 (one) time per week.Active diazePAM (Valium) 10 mg tablet Indications:anxiety,Take 2 pills one hour before procedure and 1 pill right before procedure.Take 0.5 tablets (5 mg) by mouth every 8 hours if needed for anxiety for up to 3 days. 3 tablet 09/25/2023ctive Active Problems ProblemNoted DateDiagnosed DateAvascular yhhpehfu75/27/2023Nontraumatic complete tear of left rotator cuff07/23/2023ladder /27/2023owel trouble 07/23/20233583Sgetpxfj61/27/2023Eye /27/2023Surgery, iroxnfnz69/27/2023 Family History Medical HistoryRelationNameCommentsDiabetesMaternal GrandmotherEndometrial cancerMotherDiabetesPaternal GrandfatherDiabetesSisterEndometrial cancerSister RelationNameStatusCommentsMaternal GrandmotherMotherPaternal GrandfatherSister Social History Tobacco UseTypesPacks/DayYears UsedDateSmoking Tobacco: NeverSmokeless Tobacco: Never Tobacco Cessation:Counseling Given: Not Answered CommentsUnknownSex and Gender InformationValueDate RecordedSex Assigned at BirthNot on fileLegal PruHpddey66/25/2022 8:29 PM ESTGender IdentityNot on fileSexual OrientationNot on file Last Filed Vital Signs Vital SignReadingTime TakenCommentsBlood Uunhagvt469/68002/25/2021 6:55 AM EDT Tmvgx839902/25/2021 6:55 AM LINLhusdyymghi06.4 ??C (97.5 ??F)02/25/2021 6:55 AM EDTRespiratory Gmyz390202/25/2021 6:55 AM EDTOxygen Saturation--Inhaled Oxygen Concentration--Rrvmrd823 kg (308 lb)12/30/2022 3:52 PM LGUPgfqro232.7 cm (5' 8 ) 12/30/2022 3:52 PM EDTBody Mass Index46.8312/30/2022 3:52 PM EDT Plan of Treatment Health MaintenanceDue DateLast DoneCommentsCT Ixfotldiifcn1966Colonoscopy 1966Colorectal Cancer Wnjnzezac1966Diabetes: Hemoglobin A1C 1966Diabetes: Urine Protein Zdcvueuvd1966FIT-DNA (Cologuard) 1966FIT1966HIV Exhaosdpb1966Lipid Panel1966Medicare Annual Wellness Visit (AWV)1965 1618Wangpplokruwm1966MMR Vaccines (1 of 1 - Standard series)1967Diabetes: Retinopathy Zkledoujp59/12/1976Hepatitis C Ozxxclxzc02/12/1984Hepatitis A Vaccines (1 of 2 - Risk 2-dose series)1985 Hepatitis B Vaccines (1 of 3 - 19+ 3-dose series)1985Pneumococcal Vaccine (1 of 2 - PCV)1985HPV/Fxgqns1308/08/1987DTaP/Tdap/Td Vaccines (1 - Tdap) 1988Zoster Vaccines (1 of 2)08/08/20169872Kutuygxkp33/01/202312/09/2021, 08/10/2022Influenza Vaccine (#1)COVID-19 Vaccine (1 - season)2025ervical Cancer Mgnaqtpss78/07/2028Pap Smear01/02/2028 01/01/2025HIB VaccinesAged OutNo longer eligible based on patient's age to complete this topicHPV VaccinesAged OutNo longer eligible based on patient's age to complete this topicIPV VaccinesAged OutNo longer eligible based on patient's age to complete this topicMeningococcal VaccineAged OutNo longer eligible based on patient's age to complete this topicRotavirus VaccinesAged OutNo longer eligible based on patient's age to complete this topic Medical Devices ImplantedTypeAreaManufacturerDevice IdentifierShelf Expiration DateModel / Serial / LotAnchor, Biocomposite Corkscrew Ft, 5.5 X 14.7mm, W/Two 1.3 S Case [id number] Implanted:Qty: 1 on 02/25/2021 by Campbell Uribe MDImplantARTHREX INC [id number] / / [id number]:Converted from [facility]. Please see archived information for full log information. Insurance Care Teams Team MemberRelationshipSpecialtyStart DateEnd Date Lamont Urrutia DO [address] [place] [address] PCP - GeneralFamily Medicine01/22/25
--- OUTSIDE RECORDS SUMMARY | 2025-07-23 11:01 | XMS_ITS | Clinical Summary ---
Author Organization [facility] tem Address [id number] [place] [address] Care Team Providers Care Diesel Mechanic Construction Name Role Phone Unavailable Primary Care Provider Unavailabl e Social History Tobacco UseTypesPacks/DayYears UsedDateSmoking Tobacco: Never AssessedChildcare AnswerDate ZhujbkqeWyjcllnnsXgqudim29/12/2019EmploymentAnswerDate Recorded DsfqwseonkYoaldgt49/12/2019CommentsUnknownSex and Gender Information ValueDate RecordedSex Assigned at BirthNot on fileLegal CmhHlfzqz30/06/2015 11:58 AM EDTGender IdentityNot on fileSexual OrientationNot on file Plan of Treatment Health MaintenanceDue DateLast DoneCommentsDepression Jjsvtzamz93/12/1978Tobacco Fzjyyrlcz52/12/1978Adult BMI Nwcsrvzqi21/12/1984DTaP,Tdap and Td Vaccines (1 - Tdap)1985Zoster (Shingles) Vaccine (1 of 2)2016Influenza Vaccine 05/28/2025Pap Smear804/03/2025 Medical Devices Not on file Insurance
--- NOTE | 2025-07-23 11:11 | XR_ITS ---
The [address] [address] Patient Name: JENNIFER HICKMAN MRN: [id number] date: 1965 Sex: F Assigned Patient Location: [facility] Current Patient Location: [facility] Accession/Order Number: [id number] Exam Date: 07/23/2025 11:20 Report Date: 07/23/2025 11:46 At the request of: NON-STAFF PHYSICIAN MD Procedure: XR cervical spine w flex/ext CERVICAL SPINE WITH FLEXION AND EXTENSION VIEWS -5 views: CLINICAL HISTORY: stiff neck, paresthesia of left upper extremity COMPARISON: 01/14/2021 AP, lateral (neutral, flexion, extension) and odontoid views were obtained. There is osteopenia. FINDINGS: There is no evidence of fracture or displacement. With extension, there is minimal retrolisthesis of C3 on C4 is 4 on C5.. There is slight disc space narrowing from C4-5 down. There is mild endplate spurring. The atlantoaxial relationship is preserved. There is no prevertebral soft tissue swelling. XR/XR cervical spine w flex/ext IMPRESSION: MILD DEGENERATIVE CHANGES, DESCRIBED. Impression dictated by: Cecilia Lin M.D. 07/23/2025 11:46 AM Dictation Location: [place] [address] Electronically authenticated by: [id number] Date: 07/23/2025 11:46
== END 2025-07-23 10:58 | disposition home or self-care (01) ==
LOC: RAD 10:59
DX: M43.6 Torticollis (principal); R20.2 Paresthesia of skin; M50.30 Other cervical disc degeneration, unspecified cervical region
CPT/HCPCS: 72052

== ENCOUNTER 2025-09-10 09:53 | Outpatient (OUT) | payer MEDICARE, SELFPAY ==
--- OUTSIDE RECORDS SUMMARY | 2025-09-04 04:18 | XMS_ITS | Continuity of Care Document ---
Author Organization [facility] Address [address] [place] [address] Phone Care Team Providers [employer] Program Director Name Role Phone Lamont Urrutia DO Primary Care Provider Eri Tomlin APRN Attending Provider [phone] Gera Jensen DO Attending Provider Lamont Urrutia DO Attending Provider Lamont Urrutia DO Other Provider Matthew Barreto MD Attending Provider Macarena Hurst MD Attending Provider [phone] Marco A Jimenez MD Attending Provider [phone] Marco A Jimenez MD Other Provider [phone] Yves Reese APRN Attending Provider Care Teams Patient Care Team Team Status: Active Member Role/Relationship Status Dates Lamont Urrutia DO Primary Care Provider Active Visit Care Team Team Status: Active Member Role/Relationship Status Dates Lamont Urrutia DO Primary Care Provider Active Sta rt: June 27, 2025 Rafat Albert ProviderActiveStart: June 27, 2025 Visit Care Team Team Status: Inactive Member Role/Relationship Status Dates Lamont Urrutia DO Primary Care Provider Active Sta rt: July 17, 2025 End: July 17, 2025Gera Jensen DOAttending ProviderActiveStart: July 17, 2025 End: July 17, 2025 Visit Care Team Team Status: Inactive Member Role/Relationship Status Dates Lamont Urrutia DO Primary Care Provider Active Sta rt: July 23, 2025 End: July 23aster Urrutia DOAttending ProviderActiveStart: July 23, 2025 End: July 23, 2025 Visit Care Team Team Status: Inactive Member Role/Relationship Status Dates Lamont Urrutia DO Primary Care Provider Active Sta rt: July 27, 2025 End: July 27aster Urrutia DOAttending ProviderActiveStart: July 27, 2025 End: July 27, 2025 Visit Care Team Team Status: Active Member Role/Relationship Status Dates Lamont Urrutia DO Primary Care Provider Active Sta rt: July 27, 2025 Lamont Urrutia DOOther ProviderActiveStart: July 27, 2025 Matthew Barreto MDAttending ProviderActiveStart: July 27, 2025 Visit Care Team Team Status: Inactive Member Role/Relationship Status Dates Lamont Urrutia DO Primary Care Provider Active Sta rt: August 01, 2025 End: August 01aster Urrutia DOAttending ProviderActiveStart: August 01, 2025 End: August 01, 2025 Visit Care Team Team Status: Active Member Role/Relationship Status Dates Lamont Urrutia DO Primary Care Provider Active Sta rt: August 20, 2025 Macarena Hurst MDAttending ProviderActiveStart: August 20, 2025 Visit Care Team Team Status: Active Member Role/Relationship Status Dates Lamont Urrutia DO Primary Care Provider Active Sta rt: August 29, 2025 Humaira Estrada ProviderActiveStart: August 29, 2025 Shen Estrada ProviderActiveStart: August 29, 2025 Visit Care Team Team Status: Inactive Member Role/Relationship Status Dates Lamont Urrutia DO Primary Care Provider Active Sta rt: August 31, 2025 End: August 31, 2025Rafat Calhoun ProviderActiveStart: August 31, 2025 End: August 31, 2025 Patient Care Team Team Status: Inactive Member Role/Relationship Status Dates Lamont Urrutia DO Primary Care Provider Active Sta rt: September 04, 2025 End: September 04aster Urrutia DOAttending ProviderActiveStart: September 04, 2025 End: September 04, 2025 Chief Complaint and Reason for Visit Chief Complaint Admit Date congestion,sore throat (just got back fr om a trip) July 17, 2025 1:01pm I10 E78.5 E11.65 July 23, 2025 1 1:49am medicare wellness July 27, 2025 8 :36am zio- urine/culture August 01, 2025 1 2:50pm Amb Documentation August 20, 2025 12:45pm Screening August 29, 2025 8 :15am follow up/IBS August 31, 2025 9 :14am Toradol Shot September 04, 2025 8 :56am Reason for Visit Admit Date Arm paresthesia, left July 17, 2025 1:01pm Eustachian tube dysfunction June 1:01pm Neck stiffness July 17, 2025 1 :01pm Screening for colon cancer July 17, 2025 1:01pm Hyperlipidemia July 27, 2025 8 :36am 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 July 27, 2025 8:36am Leukocytes in urine July 27, 2025 8 :36am Type 2 diabetes mellitus with hyperglyce jennifer July 27, 2025 8:36am Medicare annual wellness visit, subseque nt July 27, 2025 8:36am Stress due to illness of family member O ctober 2024 8:36am Heart palpitations July 27, 2025 8 :36am Leukocytes in urine August 01, 2025 1 2:50pm Palpitations August 01, 2025 1 2:50pm Irritable bowel syndrome with diarrhea D ecember 2024 9:14am Reason for Referral Type Reason(s) Provider Provider Contact Information P vider Address Start Date 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 Encounter for screening for malignant neoplasm of colon Z12.11 - Encounter for screening for malignant neoplasm of rkadsA73.11 - Encounter for screening for malignant neoplasm of colonFPG GastroenterologyWork Phone: [phone] [place] [id number] Allergies, Adverse Reactions, Alerts Allergen Type Severity Reaction Last Updated Verified Status sulfamethoxazole Allergy Unknown Hives August 31, 2025 9:27am Yes Active duloxetine Allergy Unknown Blurry Vision August 9:27am Yes Active Sulfa (Sulfonamide Antibiotics) Allergy Unknown Hives August 31, 2025 9:27am Yes Active phentermine Adverse Reaction Moderate Blurry Vision August 31, 2025 9:27am Yes Active Augmentin Allergy Mild headache July 04, 2024 1:50pm No Active semaglutide Adverse Reaction Severe suicidal ideation March 24, 2024 8:13am No Active metformin Adverse Reaction Moderate Diarrhea July 07, 2024 2:18pm No Active Social History Smoking Status Status Start Date End Date Date of Observa tion Never smoked tobacco (finding) August 29, 2025 8:33am Observation Status Observation Response Date of Response Legal Sex Female (finding) [facility] Family History Relationship Condition Age at Onset Recorded Date/T binta brother Obstructive sleep apnea syndrome Unknown Status post five vessel coronary artery bypassUnknownsisterOSA on CPAPUnknown Diabetes mellitusUnknownDiabetic ketoacidosis associated with type 2 diabetes mellitusUnknownObstructive sleep apnea syndromeUnknownmotherObstructive sleep apnea syndromeUnknownDeceasedUnknownMalignant neoplasm of endometriumUnknown Malignant neoplasmUnknownHypertensionUnknownfatherDeceasedUnknownMalignant neoplasmUnknowndaughterGestational diabetes mellitus (GDM)Unknownsister Obstructive sleep apnea syndromeUnknown Problems Active Problems Problem Diagnosis/Recorded Date Onset Date Stat Lumbosacral spondylosis with out myelopathy December 20, 2023 11:34am Unknown Active Medicare annual wellness visit, initial July 21, 2024 10:14am Unknown Active Screening for colon cancer July 17, 2025 12:20pm Unknown Active Type 2 diabetes mellitus wit h hyperglycemia November 16, 2023 7:26am Unknown Active Idiopathic aseptic necrosis of right ankle December 20, 2023 11:34am Unknown Active TOSHA on CPAP November 17, 2023 10:34am Unknown Active Eustachian tube dysfunction July 17, 2025 12:59pm Unknown Active Elevated blood pressure reading August 21, 2024 12 :42pm Unknown Active Palpitations August 01, 2025 1:59pm Unknown Ac tive Neck stiffness July 17, 2025 12:50pm Unknown Active Hyperlipidemia November 16, 2023 7:24am Unknown Active Post-menopausal July 21, 2024 10:15am Unknown Active Other chronic pain December 20, 2023 11:34am Unknown Active Arm paresthesia, left July 17, 2025 12:51pm Unkno wn Active Morbid obesity due to excess calories December 22, 2023 8:04am Unknown Active BMI 45.0-49.9, adult November 16, 2023 7:24am Unknow n Active BMI 45.0-49.9, adult April 23, 2025 8:58am Unknown Active Irritable bowel syndrome with diarrhea December 19 11:34am Unknown Active Anxiety and depression November 16, 2023 7:24am Unkn own Active Lumbar pain December 20, 2023 11:34am Unknown Act alejandro Right flank pain April 23, 2025 8:23am Unknown A ctive Left foot pain August 21, 2024 12:41pm Unknown Active Leukocytes in urine April 23, 2025 8:27am Unknown Active Hypertension November 16, 2023 7:25am Unknown A ctive Vitamin D deficiency November 16, 2023 7:24am Unknow n Active Inactive/Resolved Problems Problem Diagnosis/Recorded Date Onset Date Stat us Dietary counseling and surveillance November 16 7:23am Unknown Resolved Muscle spasm of back December 22, 2023 8:09am Unknown Resolved Lymphadenitis July 04, 2024 1:42pm Unknown Re solved Skin lesion of face July 04, 2024 1:42pm Unknown Resolved Medications Medication Status Dose Units Route Directions Qty Days Refills S tart Date Stop Date End Date Reason(s) Instructions Adherence Methylprednisolone (Medrol ( Eduardo)) 4 mg tablets,dose pack Discontinued 4 MG PO per package dire ctions 21 0June 2023 11:00pmJune 2023 8:32amCough Cough, unspecifiedIbuprofen 800 mg etagueQcytwxofdctr751DRUUKvoki 8 hours as needed for nepi8909Fyrq 2023 4:19pmFebruary 2024 3:50pmFluconazole 150 mg pilpxcCasypahnbnzv209DIKVTqgsk985Xjcrzmz 2023 11:00pmOctober 2023 9:30amTizanidine 4 mg flqhnmeTfhlnosuzszy4PPJINddyw daily as needed for muscle htplyveidj674Dvksgish 2024 12:00amJune 2024 10:06amIbuprofen 800 mg qacowvFkjhdo340ZTGTHwibl 8 hours as needed for wlma8647Okrprgvs 2024 3:49pmUnknownTramadol 50 mg jvzulfButvkdirtmcz89KMLHZrrh times rlene0901 November 13, 2024 3:50pm[facility] 2024 1:58pmOther chronic pain Other chronic painAzithromycin (Zithromax Z-Eduardo) 250 mg rzdxijDwbebajgmzrz4ZD .LUYOCVD42Yygij 2024 11:00pmJune 2024 10:05amFor 250 mg dose pack: take 500 mg today (day 1), then 250 mg for 4 days (days 2-5) POAscorbic Acid (Vitamin C) 250 mg qfwenpOzmulidmhpmo819EHAHVzgjc749Hjabe 2024 11:00pmJune 2024 10:05amCyanocobalamin (Vitamin B-12) 1,000 mcg capsuleDiscontinued 5632QWJHNGnlkk799Houqi 2024 11:00pmJune 2024 10:06amBiotin 10,000 mcg kpqgsrrSheljnvplyhk33791QTOCKHahpy742Uhlec 2024 11:00pmJune 2024 10:05amTramadol 50 mg rortduCicotnhbkroc23NHKE.COMPLEX as needed for lyxo691903 December 25, 2024 1:57pmJune 2024 10:06amOther chronic pain Other chronic pain50 mg orally 1-2 tablets QID PRN;Azithromycin (Zithromax Z- Eduardo) 250 mg kskbzfQzdocyvkutel0YA.VQUTANF75Ehoj 2024 11:00pmJune 2024 10:05amFor 250 mg dose pack: take 500 mg today (day 1), then 250 mg for 4 days (days 2-5) POAzithromycin 500 mg hqieauKwanfkuqyhtd092FVBJFeghc03Llcs 2024 11:00pmJuly 2024 8:13amtake one tablet one hour prior to dental appointmentAzithromycin 500 mg ibczdmLnpaojjchvkr537HTYMVtdtz72Atkmwkeoh 2024 4:17pmOctober 2024 12:10pmtake one tablet one hour prior to dental eelmqkbckbvGhm7028-Wwa Oob-Hdwb-Ggx-Asb-C (Plenvu) 140-9-5.2 gram powder in packet, aiqiucncrbDscfhzztmpfh601KCHS.TROWHYI55Pyffycuh 2024 12:00am August 31, 2025 9:31amFollow instructions given by officeCitalopram (Celexa) 10 mg BteilnFazisuevlnsj55RIOLSihfjXlpgwvxex 2019 11:00pmMay 2021 8:03amBupropion Hcl 100 mg tablet sustained-release 12 cbVdavmnoayvsc954YTOJ Every 12 hoursFebruary 2023 12:00amMarch 2023 7:42amSemaglutide (Ozempic) 0.25 mg or 0.5 mg (2 mg/3 mL) pen injectorDiscontinued0.5MGSUBCUTevery weekFebruary 2023 12:00amMarch 2023 7:41amflash glucose sensor (FreeStyle Cyndi 2 Sensor)Discontinued.RouteFebruary 2023 12:00amOctober 2023 1:50pmflash glucose scanning reader (FreeStyle Cyndi 2 [place]) Discontinued.RouteFebruary 2023 12:00amOctober 2023 1:50pmtest blood sugarIbuprofen 800 mg cnljreTbqbrrgsqpna300QLXIKtkyp 8 hours as neededFebruary 2023 12:00amJuly 2023 4:21pmblood sugar diagnostic (CareTouch Test Strip)Discontinued.RouteFebruary 2023 12:00amJuly 2023 1:37pmtest blood sugarAscorbic Acid (Vitamin C) 500 mg capsule, extended release Cyxdjarkmbtm409XHGQVdcdnLiiojnjl 2023 12:00amApril 2023 8:30am Ketorolac 10 mg mjnugbUsjmcqhfcdzf05EAWJFenyy 8 hours as needed for tefq288Papel 2023 11:00pmApril 2023 8:30amTizanidine 4 mg pgspoeeGrlhvevpnowb8FAPH Twice daily as needed for muscle yzfvtwkbhq103Fnfhc 2023 11:00pmApril 2023 8:30amDuloxetine (Cymbalta) 30 mg capsule,delayed release(DR/EC) Nuyuefaxhjgp04ISBHQabdz867Sntw 2023 11:00pmJuly 2023 9:32am Albuterol-Budesonide (Airsupra) 90-80 mcg/actuation HFA aerosol inhaler Bzslmhqhjqnu3JSERUOEEPNLEOIxrzq daily as needed for shortness of breath5.90Jun2023 11:00pmJuly 2023 1:30pmSample providedcholecalciferol (vitamin D3)Cwdbexdjjokd4OGOOTJkyyrChq 2023 11:00pmJune 2023 7:58ammagnesium ezufiuoniWlboiiihmtkn7LYQTMEezvyZok 2023 11:00pmJune 2024 10:06am Azithromycin (Zithromax Z-Eduardo) 250 mg jarqhgGydzfnnhxmef4FE.ZTXGTCY29JnuJanuary 31, 2024 11:00pmMay 2023 10:02amFor 250 mg dose pack: take 500 mg today (day 1), then 250 mg for 4 days (days 2-5) POAzithromycin (Zithromax Z-Eduardo) 250 mg uswxegGpkguelcruhn2LS.RWGLWBT87FsglMarch 08, 2024 11:00pmJune 2023 8:31amFor 250 mg dose pack: take 500 mg today (day 1), then 250 mg for 4 days (days 2-5) WWLgvhcskxvjs-Jsxskngsj-Gcbnlecc (Trelegy Ellipta) 100-62.5-25 mcg blister with gojfbrVesdfmuorrtg2ZLGFRXRNYRDOTRheao959Czfo 12th, 2024 11:00pmJun2023 7:59am1 sample provided Lot # [id number] 8/Fluconazole 150 mg cdbgghQarubrivqkyj251QQQWP4J17Rhue 2023 11:00pm March 24, 2024 7:59amPrednisone 20 mg apftxdSqbypupzevlk34ZHRA.QIBDOTB143Dwnx 2023 11:00pmJune 2023 7:59amTake 3 tabs po daily x 3 days, then take 2 tabs po daily x 3 days, then take 1 tab po daily x 3 days.Benzonatate 200 mg tmcdkhaIuwousbjhcwy933KHOHTxyqy times daily as needed for zfanq87193Gtnq 2023 11:00pmJune 2023 7:58amAmoxicillin-Pot Clavulanate 875-125 mg tablet Cwymkljrnkri9IAYKLCttgr 12 yvxob71287Jxqr 16th, 2024 11:00pmJune 2023 7:58amCyclobenzaprine 5 mg qevlnoVjpulzsvvbcd9QDGMRsfyq at bedtimeSeptember 2023 11:00pmNovember 2023 9:03amCyclobenzaprine 5 mg tablet Ufjixivygebd5DGDAYgkrw at bedtime as neededAugust 08, 2024 9:02amFebruary 2024 3:48pmAmoxicillin-Pot Clavulanate 875-125 mg ffnubuDhxkngfujdzv3FZNNH Twice mgfkc82450Swnyfsows 2023 11:00pmOctober 2023 1:49pmAzithromycin (Zithromax Z-Eduardo) 250 mg yruogtEuvcarirybmh8AX.WFPJXED61Fhhibbz 2023 11:00pmOctober 2023 9:30amFor 250 mg dose pack: take 500 mg today (day 1), then 250 mg for 4 days (days 2-5) POValacyclovir (Valtrex) 500 mg tablet Fpntpjosotge658RJRDDilan times nlhks6008Fvbhfog 2023 11:00pmNovember 2023 9:03amPrednisone 20 mg fbxtgxUovqhcpdnrup74KLUJ.XCFPXNZ522Bdxdnlm 2023 11:00pmOctober 2023 9:31am20 mg orally BID for 5 days and then 1 daily for 5 days and then stop.;Hydrocodone-Acetaminophen 5-325 mg jkaomkPallyimieaod1HIG PODaily as needed for tpwc8Nrbm 2024 11:00pmOct2024 12:10pm Meloxicam 15 mg orkcjzEzqmxyonfjfs59NEIIAahfr as neededJuly 2024 11:00pm July 17, 2025 12:09pmTizanidine 4 mg joxyjpRwdcji1DWELHojzj daily as needed for muscle xogeqfcmsh580Raic 2024 11:00pmUnknownPhentermine 37.5 mg tablet Woltppnjbkpv18.0TQHLXevli76105Maeq 2024 11:00pmOctober 2024 12:09pm Body mass index (BMI) of 45.0 to 49.9 in adult Morbid obesity due to excess calories Body mass index [BMI] 45.0-49.9, adult Morbid (severe) obesity due to excess caloriesmust administer 30 minutes before or 1-2 hours after breakfastColestipol 1 gram ehnqkhCqsfor5DQQLGjjdm oysfg69437 August 31, 2025 12:00amUnknownTizanidine 4 mg ruokvbOyodxpctyppp7GPRIHcxib at bedtime as neededApril 2023 11:00pmJuly 2023 1:31pmKetorolac 10 mg dzqsutSywlezqsfptl10SXUETbgbq 8 hours as neededApril 2023 11:00pmJune 2023 7:59ammaximum total duration of 5 days from all oral, intranasal, or parenteral formulationsCholecalciferol (Vitamin D3) 125 mcg (5,000 unit) capsule Zcrlerpsthyj934SISYMFfzepJwxh 2023 11:00pmJune 2024 10:06am Multivitamin qktjdkCfuisccchfqy2YOIZVAstayGxqp 2023 11:00pmJune 2024 10:06amblood-glucose meter (OneTouch Ultra2 Meter)Discontinued.RouteJuly 2023 11:00pmOct2023 1:49pmBlood Sugar Diagnostic (Onetouch Ultra Test) stripDiscontinued0.RouteJuly 2023 11:00pmOctober 2023 1:49pmAs directedTirzepatide (Mounjaro) 2.5 mg/0.5 mL pen injectorDiscontinued2.5MGSUBCUT every mrtz0384Fksywmlo 12th, 2024 12:00amJanuary 2024 12:43pmwill have voucherTramadol 50 mg bptisiWlfisdxbhcha29WTYAJghr times kqhxo4900Orxntsau2023 12:00amFebruary 2024 3:50pmOther chronic pain Other chronic painLatanoprost 0.005 % azshfJuqgen5BUZDJKJPUSJJYWNUcitflxUilg 25th, 2025 11:00pmUnknownPhentermine 15 mg shogprxFuoomzqcrbgx25SSGPOmuwk57859 March 21, 2025 11:00pmJuly 2024 8:13amOSA on CPAP Type 2 diabetes mellitus with hyperglycemia Vitamin D deficiency Obstructive sleep apnea (adult) (pediatric) Type 2 diabetes mellitus with hyperglycemia Vitamin D deficiency, unspecifiedMagnesium 200 mg rgfmcgKbcclmwkdnfa483IDXLTvkcv July 26, 2025 11:00pmAugust 15, 2025 9:39amZinc Acetate 25 mg (zinc) chuwchrWbvnllrffisi09WHOESoekiQjnifmq 2024 11:00pmAugust 15, 2025 9:40amAscorbate Calcium (Vitamin C) 500 mg sfwnvlMtufjukhczur572GGCXNqkpqMiakoey 2024 11:00pm[facility]20[facility] 9:38amTurmeric 400 mg capsuleDiscontinued MGPOOctfleming county hospital 2024 11:00pmSand[facility]ills [facility]2024 9:40amCiprofloxacin Hcl (Cipro) 500 mg azxztoPuzsjdfpzdrq510UALBWwawt rleze865JehfyqaJuly 26, 2025 11:00pm August 15, 2025 9:38am Medical Equipment Device Date Implanted Device Details Tendon/ligament bone anchor, bioabsorbable June 26, 2020 FIOR: [id number] Issuing Agency: [employer] Device Id: [id number] Expiration Date: 2023-08-26 Lot Number: [id number]/ligament bone [facility], [facility]2019UDI: ()[id number] Issuing Agency: [employer] Device Id: [id number] Expiration Date: 2024-02-25 Lot Number: [id number]/ligament bone anchor, bioabsorbableSeptember 2019UDI: ()[id number] Issuing Agency: GS Device Id: [id number] Expiration Date: 2024-02-25 Lot Number: [id number]/ligament bone anchor, bioabsorbableSeptember 2019UDI: ()[id number] Issuing Agency: [employer] Device Id: [id number] Expiration Date: 2024-02-25 Lot Number: [id number]/ligament bone anchor, bioabsorbableSeptember 2019UDI: ()[id number] Issuing Agency: [employer] Device Id: [id number] Expiration Date: 2024-02-25 Lot Number: [id number] Relevant Diagnostic Tests and/or Laboratory Data Laboratory Results Test Collection Date/Time Result Date/Time Result Interpretation Reference Range Result Comment Performing Site Urine Glucose (UA) July 27, 2025 8:32am July 27, 2025 8:33am negative Urine ColorNov2024 1:23pmNovember 2024 3:40pmyellowUrine BilirubinOct2024 8:32amOctober 2024 8:33amnegativeUrine AppearanceNov2024 1:23pmNovember 2024 3:40pmclearUrine Ketones July 27, 2025 8:32amOctober 2024 8:33amnegativeUrine Glucose (UA) August 01, 2025 1:23pmNovember 2024 3:40pmnegativeUrine Specific [place] July 27, 2025 8:32amOctober 2024 8:33am1.025Urine BilirubinNov2024 1:23pmNovember 2024 3:40pmnegativeUrine Occult BloodOct2024 8:32amOctober 2024 8:33amnegativeUrine KetonesNov2024 1:23pmNovember 2024 3:40pmnegativeUrine pHOct2024 8:32amOctober 2024 8:33am5.5Urine Specific GravityNovember 2024 1:23pmNovember 2024 3:40pm1.030Urine ProteinOctober 2024 8:32amOctober 2024 8:33am negativeUrine Occult BloodNovember 2024 1:23pmNovember 2024 3:40pm negativeUrine UrobilinogenOctober 2024 8:32amOctober 2024 8:33am0.2 Urine pHNovember 2024 1:23pmNovember 2024 3:40pm5.0Urine Nitrite July 27, 2025 8:32amOctober 2024 8:33amNegativeUrine ProteinNovember 2024 1:23pmNovember 2024 3:40pmnegativeUrine Leukocyte EsteraseOctober 2024 8:32amOctober 2024 8:33amtraceUrine UrobilinogenNovember 2024 1:23pmNovember 2024 3:40pm0.2Urine NitriteNovember 2024 1:23pm November 2024 3:40pmNegativeUrine Leukocyte EsteraseNovember 2024 1:23pmNovember 2024 3:40pmnegativeCorrected White Blood CountOctober 2024 10:50amOctober 2024 12:47pm7.6 10*3/uL3.8-11.[address] [place] [address] Ctr [id number] [address] [facility] 22811Qyolblopobp WBC CountOctober 2024 10:50amOctober 2024 12:47pm7.6 10*3/uL3.8-11.6[facility] [id number] [address] [facility] 68162Pnf Blood CountOctober 2024 10:50amOctober 2024 12:47pm4.21 10*6/uL3.60-5.00[facility] [id number] [address] [facility] 27000PepqshwvbtDrhhydn 2024 10:50amOctober 2024 12:47pm 12.3 g/dL11.8-15.4FW[facility] [id number] [address] [place] [address] 25205ScehrwajzcIquvlrn 2024 10:50amOctober 2024 12:47pm 36.3 %34.0-46.4FW[facility] [id number] [address] [place] [address] 75863Hhtu Corpuscular VolumeOctober 2024 10:50amOctober 2024 12:47pm86.3 nH34-063OmqxjxuzkOhiohealth [facility] [id number] [address] [place] [address] 33246Nhyq Corpuscular HemoglobinOctober 2024 10:50amOctober 2024 12:47pm29.1 pg24.7-34.3FW[facility] [id number] [address] [place] [address] 25965Gbao Corpuscular Hemoglobin ConcentOctober 2024 10:50am July 23, 2025 12:47pm33.8 g/dL32.0-35.0[facility] [id number] [address] [place] [address] 03084Twq Cell Distribution WidthOctober 2024 10:50amOctober 2024 12:47pm15.0 %11.9-15.3[facility] [id number] [address] [place] [address] 03894Dstmrmdb CountOctober 2024 10:50amOctober 2024 12:69it234 10*3/eU108-440StfpqnffbOhiohealth [facility] [id number] [address] [place] [address] 61940Udka Platelet VolumeOctober 2024 10:50amOctober 2024 12:47pm8.3 fL6.3-10.7FW[facility] [id number] [address] [place] [address] 35752Awwkoiawpkr (%) (Auto)July 23, 2025 10:50amOctober 2024 12:47pm56.9 %.[facility] [id number] [address] [facility] 02243Wahurwxiffj (%) (Auto)July 23, 2025 10:50amOctober 2024 12:47pm32.4 %.[facility] [id number] [address] [facility] 87755Uthqinlkp (%) (Auto)July 23, 2025 10:50amOctober 2024 12:47pm6.9 %.[facility] [id number] [address] [facility] 32348Wgedfyihair (%) (Auto)July 23, 2025 10:50amOctober 2024 12:47pm3.2 %.[facility] [id number] [address] [facility] 58468Pjhxzvllg (%) (Auto)July 23, 2025 10:50amOctober 2024 12:47pm0.6 %.[facility] [id number] [address] [place] [address] 09860Qupljysik RBC Relative Count (auto)July 23, 2025 10:50am July 23, 2025 12:47pm0.0 /100{WBC}0-0.5FW[facility] [id number] [address] [place] [address] 52414Npmcpeumdld # (Auto)July 23, 2025 10:50amOctober 2024 12:47pm4.3 10*3/uL1.8-7.7[facility] [id number] [address] [facility] 67386Szsuskrpnhb # (Auto)July 23, 2025 10:50amOctober 2024 12:47pm2.5 10*3/uL1.00-4.8[facility] [id number] [address] [place] [address] 30035Cuovthjrn # (Auto)July 23, 2025 10:50amOctober 2024 12:47pm0.5 10*3/uL0.0-0.8[facility] [id number] [address] [facility] 70232Tsdhjhegaru # (Auto)July 23, 2025 10:50amOctober 2024 12:47pm0.2 10*3/uL0.0-0.45[facility] [id number] [address] [facility] 623[address]Ggfoihhat # (Auto)July 23, 2025 10:50amOctober 2024 12:47pm0.0 10*3/uL0.0-0.2[facility] [id number] [address] [facility] 15385Mxumbnh LevelOctober 2024 10:50amOctober 2024 2:65zt406 mg/dLAbove high -749GGK recommended reference rangeRandom Glucose Reference Range is dependent on time and content of last meal. Glucose of more than 200 mg/dL in a nonstressed, ambulatory subject supports the diagnosisof Diabetes Mellitus.[facility] [id number] [address] [facility] 65167Siotl Urea NitrogenOctober 2024 10:50amOctober 2024 2:39pm14 mg/dL7-25[facility] [id number] [address] [place], [place] [address]CreatinineOctober 2024 10:50amOctober 2024 2:39pm 0.51 mg/dLBelow low normal0.60-1.20[facility] [id number] [address] [facility] 24390Hmcmafgdl GFR (CKD-EPI)July 23, 2025 10:50amOctober 2024 2:39pm> 60.0 mL/MinOhiohealth Grant [facility] Center [facility] [id number] [address] [facility] 81384Yhahbi LevelOctober 2024 10:50amOctober 2024 2:39pm 140 mmol/W560-867JycdfllhxOhiohealth Grant [facility] Center [facility] [id number] [address] [facility] 31640Bnimwkbzj LevelOctober 2024 10:50amOctober 2024 2:39pm3.9 mmol/L3.5-5.1[facility] [id number] [address] [facility] 01888Jhsozvei LevelOctober 2024 10:50amOctober 2024 2:09lx607 mmol/N69-721OkdkuejdtOhiohealth [facility] [id number] [address] [facility] [id number] Dioxide LevelOctober 2024 10:50amOctober 2024 2:39pm30.4 mmol/L21.0-31.0[facility] [id number] [address] [facility] [id number] GapOctober 2024 10:50amOctober 2024 2:39pm9.5 mEq/L6.0-15.0[facility] [id number] [address] [place] [address] 26477Lqnaxln LevelOctober 2024 10:50amOctober 2024 2:39pm9.0 mg/dL8.6-10.3FW[facility] [id number] [address] [place] [address] 24195Yhpoq ProteinOctober 2024 10:50amOctober 2024 2:39pm7.0 g/dL6.4-8.9[facility] [id number] [address] [place] [address] 91284OigpaemZorlhud 2024 10:50amOctober 2024 2:39pm4.2 g/dL3.5-5.7FWyandot [facility] [id number] [address] [place] [address] 84158GuaozkvgIcdrgal 2024 10:50amOctober 2024 2:39pm2.8 g/dLOhio[facility] [id number] [address] [place] [address] 00638Yiczail/Globulin RatioOctober 2024 10:50amOctober 2024 2:39pm1.5FWyandot [facility] [id number] [address] [place] [address] 19338Rpitr BilirubinOctober 2024 10:50amOctober 2024 2:39pm1.0 mg/dL0.3-1.0[facility] [id number] [address] [facility] 38828Kbxcnrdln Amino Transf (AST/SGOT)July 23, 2025 10:50am July 23, 2025 2:39pm22 U/B17-55ZijxyjlzxOhiohealth [facility] Medical [facility] [id number] [address] [facility] [id number] Aminotransferase (ALT/SGPT)July 23, 2025 10:50am July 23, 2025 2:39pm26 U/L7-52[facility] [id number] [address] [facility] [id number] PhosphataseOctober 2024 10:50amOctober 2024 2:39pm90 U/X63-271PlmsesczdOhiohealth Grant Medical Center [facility] [id number] [address] [facility] 98959Vxmsbrsjwbz LevelOctober 2024 10:50amOctober 2024 2:81vo701 mg/dLBelow low zuxoqc312-387Lnjh less than 200 mg/dl low riskChol 201- 239 mg/dl borderline riskChol 240 mg/dl and greater high riskOhiohealth Grant Medical Center [facility]tr [id number] [address] [facility] [id number] CholesterolOct2024 10:50amOctober 2024 2:39pm70 mg/gS97-73AVV CHOL ATP-III CLASSIFICATION Cardiovascular RiskHDL > or equal to 60 mg/dL LOWHDL < 40 mg/dL HIGHOhiohealth Grant Medical Center Ctr [id number] [address] [facility] [id number] LevelOctober 2024 10:50amOctober 2024 2:39pm42 mg/dL0-149TRIG ATP III CLASSIFICATIONTRIG less than 150 mg/dL NormalTRIG 150-199 mg/dL Borderline highTRIG 200-500 mg/dL High TRIG greater than 500 mg/dL Very highStandard traceable to the Center for Disease Conrtrol and Prevention (CDC) test method.[facility] [id number] [address] [facility] [id number] Cholesterol, CalculatedOctober 2024 10:50amOctober 2024 2:39pm28 mg/dL0-100LDL ATP III CLASSIFICATIONLDL less than 100 mg/dL OptimalLDL 100-129 mg/dL Near or above mrzymjgKXE970-523 mg/dL Borderline highLDL 160-189 mg/dL HighLDL greater than 189 mg/dL Very highOhiohealth Grant Medical Center [facility] [id number] [address] [facility] 68060SWDC CholesterolOctober 2024 10:50amOctober 2024 2:39pm8 mg/dLOhio[facility] [id number] [address] [facility] 12407Ctwnjfljonj/HDL RatioOctober 2024 10:50amOctober 2024 2:39pm1.5<5.0[facility] [id number] [address] [facility] 38191Uppzwho Stimulating Hormone 3rd GenOctober 2024 10:50am July 23, 2025 2:52pm1.93 u[iU]/mL0.45-5.33[facility] [id number] [address] [facility] [id number] Creatinine Clearance (ChemOctober 2024 10:50am July 23, 2025 2:39pmN/AFWyandot [facility] [id number] [address] [facility] 87545Povruihtee K4dUvsiztf 2024 10:50amOctober 2024 8:19am6.5 %Above high normal4.3-5.6Increased risk for diabetes: 5.7 - 6.4diabetes: >6.4glycemic control for adults with diabetes: <7.0[facility] [id number] [address] [facility] 06243Bnqhzbvfo Average GlucoseOctober 2024 10:50amOctober 2024 8:91xg208 mg/dLOhiohealth [facility] [id number] [address] [facility] [id number] Microalbumin mg/dlOctober 2024 10:50amOctober 2024 2:43pm0.8 mg/dL0.0-1.8[facility] [id number] [address] [facility] 81916Askau Random CreatinineOct2024 10:50amOct2024 2:43pm92.00 mg/dLNo reference range establishedOhiohealth [facility] [id number] [address] [facility] [id number] Microalbumin/Creatinine RatioOct2024 10:50am July 23, 2025 2:43pm8.7 mg/g0.0-30.030-300 mg/g indicates an increased risk for diabetic nephropathy. Greater than 300 mg/g is consistent with clinical nephropathy. (Am. J. Kidney Disease 1994, 25:107)[facility] [id number] [address] [facility] [address] Vital Signs Vital Reading Result Reference Range Collection Date/Time Height 65.75 [in_i] July 17, 2025 12:88hpEavjlp702.98 kgOct2024 12:10pmBody Ouougfmqjqa35.0 [degF]97.6-99.0July 17, 2025 12:10pmHeart Rate62 /ziy10-276 July 17, 2025 12:10pmRespiratory rate16 /luf82-64ZfwaxqaJuly 17, 2025 12:10pm Oxygen saturation by Pulse %95-100July 17, 2025 12:10pmBP Yszmysjl133 mm[Hg]100-140July 17, 2025 12:10pmBP Nmkvdmgki20 mm[Hg]60-100 July 17, 2025 12:10pmBMI (Body Mass Index)49.1 kg/h8CeelkofJuly 17, 2025 12:71vnMgmndr64.75 [in_i]July 27, 2025 7:52mlTtllmc730.70 kgOct2024 7:54amHeart Rate55 /byn31-991OxizmpfJuly 27, 2025 7:54amRespiratory rate16 /igf37-10ZadaiatJuly 27, 2025 7:54amOxygen saturation by Pulse ayizhopi45 %95-100 July 27, 2025 7:54amBP Knstulmm426 mm[Hg]100-140July 27, 2025 7:54amBP Tsvzyhxct92 mm[Hg]60-100July 27, 2025 7:54amBMI (Body Mass Index)50.1 kg/u4Whgyoan2024 7:77muTebgtt05 [in_i]August 29, 2025 8:28amWeight 138.34 kgDecember 2024 8:28amHeart Rate60 /chx75-909Tlqbxckx 2024 10:00amRespiratory rate16 /tvv04-96Pyzzkdxg 2024 10:00amOxygen saturation by Pulse ntzhhris16 %95-100December 2024 10:00amBP Getcwtns566 mm[Hg] 100-140December 2024 10:00amBP Elvlekmjz48 mm[Hg]60-100December 2024 10:73niPojydd10 [in_i]August 31, 2025 9:61czGgklqg658.25 kgDecember 2024 9:30amHeart Rate60 /cow20-196Jfzgdjij 2024 9:30amBP Mfhymggr349 mm[Hg] 100-140December 2024 9:30amBP Pdjvfbtnk59 mm[Hg]60-100December 2024 9:30amBMI (Body Mass Index)46.6 kg/f0Erfnbauc 2024 9:30am Advance Directives Advance Directive Response Recorded Date/ Time Advance Directives No August 01, 2024 10:02am Insurance Providers Guarantor Shelia Junior Address [address] [place] [phone] Info.Home Phone: Coverage Status Update:2025 Payer Group Member ID Coverage Type Subscriber Relationship to Subscriber Effective Date Expiration Date MMO MCR Adv PFFS Id: [id number] S Hooven Id: [id number] [place] [phone] Home Phone: Email: [email or web address] Encounters Encounter Location(s) Arrival/Admit Date Discharge/Departure Date Discharge/Departure Disposition Provider(s) Non-patient / Non-visit -[facility] 2024 11:59pm Rigo Rosa APRNDeparted Physician/Provider Office Visit-[facility] 2024 1:01pmOctober 2024 1:56pmDischarged to home care or self care (routine discharge)MARGARITA Thompsoneparted Clinical- Lab Located within [facility] 2024 11:49amOctober 2024 11:50amDischarged to home care or self care (routine discharge)Dameon Griffineparted Physician/Provider Office Visit-[facility] 2024 8:36amOctober 2024 10:19amDischarged to home care or self care (routine discharge)Dameon Griffin-patient / [facility]bj[facility]qnxlm[facility] July 27, 2025 9:15amGeorge NEW Joneseparted Physician/Provider Office Visit-[facility] 2024 12:50pmNov[facility] [place] 2024 1:44pmDischarged to home care or self care (routine discharge)Dameon Griffin-patient / Oez-yjokb-[facility]ardxb[facility] August 20, 2025 12:45pmTrini Smith-patient / Jlc[facility] 20[facility] 8:15amNEW Estradaeparted Physician/Provider Office Visit-[facility] 2024 9:14am August 31, 2025 10:02amDischarged to home care or self care (routine discharge)Yves Reese , BRITTNDeparted Physician/Provider Office Visit-[facility] 2024 8:56amDecember 2024 9:17am Discharged to home care or self care (routine discharge)Dameon Griffin DO Recent Diagnosis Onset Date Admit Date Arm paresthesia, left Unknown July 172024 1:01pm Eustachian tube dysfunction Unknown Juno kate 2024 1:01pm Neck stiffness Unknown July 17 1:01pm Screening for colon cancer Unknown Octob er 2024 1:01pm Hyperlipidemia Unknown July 27 8:36am Idiopathic aseptic necrosis of right ankle Unkno wn July 27, 2025 8:36am Leukocytes in urine Unknown June 8:36am Type 2 diabetes mellitus with hyperglycemia Unkn own July 27, 2025 8:36am Medicare annual wellness visit, subsequent Unkno wn July 27, 2025 8:36am Stress due to illness of family member Unknown July 27, 2025 8:36am Heart palpitations Unknown July 27, 2025 8:36am Leukocytes in urine Unknown July 12:50pm Palpitations Unknown August 01 12:50pm Irritable bowel syndrome with diarrhea Unknown August 31, 2025 9:14am Assessments Author Janina Funes [facility] 2024 3:23pmNurse visit performed by Perla Funes LPN Author Rula [facility]alleg[facility] 2024 7:57amThe above note written by Rula ALONSO acting as human recorder, note dictated by Dr. Lamont Urrutia. Plan of Treatment Author Janina Funes [facility] 2024 3:44pmZio patch applied today with success. Patient is set up on the kandis and registered in Zio suite for monitoring. In house UA is clear and symptoms are improving, encouraged patient to finish out course of antibiotic and call with any concerns. She was in agreement. BPK updated and agreed as well. Author Yves Reese [facility] 2024 10:23am- Initiate colestipol 1 mg twice daily for treatment of presumed bile acid diarrhea secondary to cholecystectomy. - Recommend consuming 6 to 8 12oz glasses of water daily to help facilitate adequate hydration. - Follow-up office visit in 11/26/2025 for further evaluation of IBS-D. Patient unable to make it to an earlier appointment due to having to undergo orthopedic surgery at the end of August. Author Rula Reynoso [facility] 2024 9:22amBlood work results reviewed with the patient. Cholesterol levels continue to be fabulous. Total cholesterol is low at 106, LDL is great at 28 and her HDL is good at 70. I advised the patient to continue to monitor diet. Blood work results reviewed with the patient. Fasting glucose is slightly elevated at 105. A1C reading of 6.5. [facility] I advised the patient to monitor diet. Exercise is limited due to the condition of her right foot. Personalized health advice was given to the beneficiary including a written plan for screenings discussed and provided.?Advanced care planning reviewed and/or information given as requested. Additional counseling was provided here today. The above visit was performed by Rula ALONSO, under direct supervision of Dr. Lamont Urrutia. Document reviewed and amended by provider signed below. Patient has been traveling to [place] often due to her sister having stage four cancer and being septic. Recently admitted to hospice. Noted in today's urinalysis. Patient is asymptomatic, therefore I did prescribe cipro for 10 days. Urine sample has been sent out for culture. Strongly encouraged the patient to increase her water intake. In house EKG was normal. I do recommend the patient have a 14 day heart monitor. Patient is agreeable but she is leaving tomorrow for [place] to visit her sister, so she would like to get the monitor on after she gets back in town. I have scheduled her for a nurse visit next week. Patient is scheduled for surgery with Dr. Gera Barragan 09/22/25 at [facility]. I would like to see the patient back before her surgery. In house EKG noted sinus bradycardia rate 56. Otherwise normal EKG. Author Gera Jensen [facility] ShawAuthoredOctfle[facility] 2024 2:43pmPatient due for colon cancer screening and is requesting referral for colonoscopy, therefore this has been placed. See above plan. The distribution of her paresthesias most consistent with carpal tunnel syndrome, however she does have a positive Spurling sign on the left which may indicate a more cervical pathology. Given this, I did recommend obtaining cervical spine x-ray for further evaluation. We also discussed obtaining EMG, but patient declined this for now. I also recommended treating for suspected carpal tunnel syndrome by utilizing nighttime brace on the left wrist/hand. Future treatment/investigation to be based on the results of the cervical spine x-ray and her response to conservative carpal tunnel management. She is to call with any questions or concerns. Patient states an understanding and is agreeable with this plan of care. Patient's history and symptoms most consistent with eustachian tube dysfunction [place] I do not believe this to be infectious at this point. Did recommend utilizing uqcm-dob-nawcwnn Flonase and continuing to monitor her symptoms closely. She has an upcoming appoint with her PCP in 10 days. If her symptoms are persisting then or she develops any new, concerning or worsening symptoms would consider reevaluation for other etiology. She is to call with any questions or concerns. Patient states an understanding and is agreeable with this plan of care. Future Tests Future scheduled test information is unavailable Pending Tests Test Name Ordered Date Scheduled Date XR cerv spine AP/LAT/FLX/EXT July 17, 2025 12:50pm Future Visits Future appointment information is unavailable Future Procedures Procedure Name Ordered Date Scheduled Date Discharge Order August 29, 2025 9:29am Decemb er 2024 9:29am Urine Culture July 27, 2025 8:43am Future Medications Future medication information is unavailable Patient Instructions Instruction Admit Date [facility] Hemorrhoids Discha rge Instructions Know your [facility] 2024 8:15am
--- NOTE | 2025-09-10 09:57 | MM_ITS ---
Patient Name: JENNIFER HICKMAN MR#: [id number] : 1965 Exam Date: 09/10/2025 Ordering Doctor: DR SHAUNA GRAYSON . This report includes an Addendum and supersedes previous reports for this exam. RADIOLOGY REPORT PROCEDURE: MM TOMOSYNTHESIS SCREENING BI COMPARISON: MM TOMOSYNTHESIS SCREENING BI, 09/07/2024. MM TOMOSYNTHESIS SCREENING BI, 09/06/2023. MG MAMM SCREEN 3D LINUS CAD, 08/27/2022. MG MAMM LINUS SCRN W CAD DIG, 04/18/2013. INDICATIONS: Screening Calculator Name NCI Breast Cancer Risk Assessment Tool 5 Year Breast Cancer Risk 1.60% Lifetime Breast Cancer Risk 8.70% Personal Breast Cancer No Personal Ovarian Cancer No Treatments None Family Cancers Mother with endometrial cancer at age 74; Father with prostate cancer at age 84. LOCATION: [facility] BREAST COMPOSITION: There are scattered areas of fibroglandular density. FINDINGS: LEFT BREAST: Developing asymmetry of the left breast seen with CC view. this is located laterally. measures 5 millimeters. This is 11 cm from the nipple. RIGHT BREAST: No significant suspicious finding. DIAGNOSTIC CATEGORY 0--INCOMPLETE: NEED ADDITIONAL IMAGING EVALUATION. RECOMMENDATIONS: Spot compression imaging of left breast with medial lateral view. Targeted left breast ultrasound recommended. Dictated by: Bubba Raymond DO on 09/10/2025 at 10:55 Approved by: Bubba Raymond DO on 09/10/2025 at 11:43 ADDENDUM: FINDINGS: RECOMMENDATIONS: ADDITIONAL MAMMOGRAPHIC VIEWS REQUIRED: LEFT BREAST - ULTRASOUND: LEFT BREAST Dictated by: Bubba Raymond DO on 09/11/2025 at 14:13 Approved by: Bubba Raymond DO on 09/11/2025 at 14:24
== END 2025-09-10 09:54 | disposition home or self-care (01) ==
LOC: MAMMO 09:53
PROVIDERS: PCP Family Medicine; Visit Provider Obstetrics & Gynecology
DX: Z12.31 Encounter for screening mammogram for malignant neoplasm of breast (principal); Z80.8 Family history of malignant neoplasm of other organs or systems; Z80.42 Family history of malignant neoplasm of prostate; R92.8 Other abnormal and inconclusive findings on diagnostic imaging of breast
CPT/HCPCS: 77063; 77067